=== PATIENT | female | born 1935 | race African-American/Black ===

== ENCOUNTER 2016-06-19 08:49 | Emergency (ER) | payer OTHER ==
[2016-06-19 08:56] VITALS: BP 142/83; PULSE 83; BMI 19.5
[2016-06-19] MEDS ORDERED: NAPROXEN 500 MG TABLET (FP) PO ONE (09:29)
[2016-06-19] MEDS ORDERED: NAPROXEN 500 MG TABLET (FP) ONE (09:38)
--- NOTE | 2016-06-19 10:09 | PDOC ---
History of Present Illness - General Chief Complaint: Pain Stated Complaint: RT SHOULDER PAIN Time Seen by Provider: 06/19/16 09:08 History Source: Patient Exam Limitations: No Limitations - History of Present Illness Initial Comments: 06/19/16 09:48 80 yr female with 2 days right shoulder pain woke up with pain yesterday. Pt denies injury no fever or chills. Pt states pain is worse with movement. Pt took tylenol with no relief, has history of arthritis, osteoperosis. Occurred: reports: yesterday Severity: reports: moderate Upper Extremity Pain Location: right: shoulder Method of Injury: reports: unknown Extremity Pain Location - Extremity Pain Location Extremity Pain Locations: right: other (shoulder) Past History - Past Medical History Allergies/Adverse Reactions: Allergies Allergy/AdvReac Type Severity Reaction Status Date / Time alendronate sodium Allergy Verified 06/19/16 08:57 [From Fosamax] Penicillins Allergy Rash Verified 06/19/16 08:57 Home Medications: Ambulatory Orders Albuterol Sulfate [Proair Hfa -] 1 - 2 inh PO Q4HWA PRN 08/14/15 Alprazolam [Xanax] 0.25 mg PO BID PRN 08/14/15 Aspirin [Aspirin EC] 81 mg PO DAILY 08/14/15 Budesonide/Formeterol Fumarate [SYMBICORT 160/4.5mcg -] 1 inh PO BID 08/14/15 Cyclobenzaprine HCl [Flexeril] 10 mg PO DAILY 08/14/15 Pantoprazole Sodium [Protonix] 40 mg PO DAILY 08/14/15 Amlodipine Besylate [Norvasc -] 2.5 mg PO DAILY PRN 01/14/16 Denosumab [Prolia -] 60 mg SQ ASDIR 01/14/16 Famotidine [Pepcid -] 40 mg PO DAILY 01/14/16 Anemia: Yes (PERNICIOUS ANEMIA) Asthma: No Cancer: Yes (CERVICAL) Cardiac Disorders: Yes (CARDIAC STENTS) CVA: No COPD: Yes CHF: No Dementia: No Diabetes: No GI Disorders: Yes (GASTRITIS, DIVERTICULOSIS,GERD,PEPTIC ULCER,COLON POLYPS) Disorders: No HTN: Yes (BORDERLINE) Hypercholesterolemia: Yes (HYPERLIPIDEMIA BORDERLINE) Liver Disease: No (GALLSTONES) Suicide Attempt (Hx): No Seizures: No Thyroid Disease: No - Surgical History Abdominal Surgery: No Appendectomy: Yes Cardiac Surgery: Yes (CARDIAC STENTS) Cholecystectomy: Yes Lung Surgery: No Neurologic Surgery: No Orthopedic Surgery: Yes (,BILAT 5TH TOE SX) - Family Disease History Family Disease History: Heart Disease: Father - Immunization History Immunization Up to Date: Yes - Psycho/Social/Smoking Cessation Hx Anxiety: No Suicidal Ideation: No Smoking Status: Yes Smoking History: Former smoker Have you smoked in the past 12 months: No Number of Cigarettes Smoked Daily: 3 If you are a former smoker, when did you quit?: 3 YR Information on smoking cessation initiated: No 'Breaking Loose' booklet given: 09/24/15 Hx Alcohol Use: No Drug/Substance Use Hx: No Substance Use Type: None Hx Substance Use Treatment: No Review of Systems - Review of Systems Able to Perform ROS?: Yes Is the patient limited Mongolian proficient: No Constitutional: No: Symptoms Reported HEENTM: No: Symptoms Reported Respiratory: No: Symptoms reported Cardiac (ROS): No: Symptoms Reported ABD/GI: No: Symptoms Reported : No: Symptoms Reported Musculoskeletal: Yes: See HPI *Physical Exam - Vital Signs Last Vital Signs Temp Pulse Resp BP Pulse Ox 83 20 142/83 95 06/19/16 08:53 06/19/16 08:53 06/19/16 08:53 06/19/16 08:53 - Physical Exam General Appearance: Yes: Nourished, Appropriately Dressed HEENT: positive: EOMI, ERASMO Neck: positive: Supple. negative: Tender, Tender lateral, Tender midline Respiratory/Chest: positive: Lungs Clear, Normal Breath Sounds Cardiovascular: positive: Regular Rhythm, Regular Rate Gastrointestinal/Abdominal: positive: Normal Bowel Sounds, Soft Neurologic: positive: Fully Oriented, Alert, Normal Mood/Affect, Normal Response , Motor Strength 5/5 Procedures - Splinting Sling: Yes (right shoulder ) ED Treatment Course - RADIOLOGY Radiology Studies Ordered: Category Date Time Status SHOULDER-RIGHT [RAD] Stat Radiology 06/19/16 09:29 Taken - Medications Given in the ED: ED Medications Discontinued Medications Generic Name Dose Route Start Last Admin Trade Name Freq PRN Reason Stop Dose Admin Naproxen 500 mg 06/19/16 09:29 06/19/16 09:44 Naprosyn - PO 06/19/16 09:30 500 mg ONCE ONE Administration Medical Decision Making - Medical Decision Making 06/19/16 10:11 cc: right shoulder pain for 2 days will get xray r/o fracture pt has FROM of the right shoulder with minimal pain to the anterior aspect of the shoulder nv intact, no redness no swelling no evidence of cellulitus or septic arthritis , no acute bony tenderness 06/19/16 11:57 pt will follow with ortho as planned naprosyn for pain, sling, ice pt agrees with plan of care all questions asked and answered before discharge. *DC/Admit/Observation/Transfer Diagnosis at time of Disposition: Shoulder pain, right Qualifiers: Chronicity: acute Qualified Code(s): M25.511 - Pain in right shoulder - Discharge Dispostion Disposition: HOME Condition at time of disposition: Good - Referrals Referrals: Andreia Collado MD [Primary Care Provider] - Charly Marti MD [Staff Physician] - - Patient Instructions Additional Instructions: use the sling while awake remove to sleep, bathe and drive apply ice every 2hrs for 20 minutes for the next 2 days while awake take naprosyn or motrin as directed for pain follow with or your orthopedist for follow up this week return to ER for any worsening symptoms
== END 2016-06-19 10:20 | disposition home or self-care (01) ==
LOC: JERFT 08:49 → JER 08:49 → JERFT 10:20
DX: M25.511 Pain in right shoulder (principal); Z95.5 Presence of coronary angioplasty implant and graft; I10 Essential (primary) hypertension; E78.00 Pure hypercholesterolemia, unspecified; D51.0 Vitamin B12 deficiency anemia due to intrinsic factor deficiency; Z85.41 Personal history of malignant neoplasm of cervix uteri; Z87.19 Personal history of other diseases of the digestive system; Z87.891 Personal history of nicotine dependence
CPT/HCPCS: 73030-TC-RT; 99281-25

== ENCOUNTER 2016-10-06 08:51 | Day surgery (SDC) | payer OTHER ==
[2016-10-06] MEDS ORDERED: diphenhydrAMINE HCL 25 MG CAPSULE (FP) PO PRN (09:16)
[2016-10-06] MEDS ORDERED: HYDROCORTISONE SOD SUCCINATE 100 MG/2 ML VIAL IVPB PRN (09:17)
[2016-10-06] MEDS ORDERED: IRON SUCROSE INJECTION 200 MG in SODIUM CHLORIDE 100 ML IVPB ONE (09:30)
[2016-10-06 09:38] VITALS: BP 139/73; PULSE 79; TEMP 98.3; BMI 15.7
== END 2016-10-06 12:54 | disposition home or self-care (01) ==
LOC: FINFUSION 08:51 → FM/S 08:53 → FINFUSION 12:54
PROVIDERS: ATTEND Internal Medicine Hematology & Oncology
PROC: 3E033GC Introduction of Other Therapeutic Substance into Peripheral Vein, Percutaneous Approach (ICD-10-PCS; principal; 2016-10-06)
DX: D50.9 Iron deficiency anemia, unspecified (principal)
CPT/HCPCS: 96365; 96375; J1756

== ENCOUNTER 2016-10-13 08:31 | Day surgery (SDC) | payer OTHER ==
[2016-10-13] MEDS ORDERED: IRON SUCROSE INJECTION 200 MG in SODIUM CHLORIDE 100 ML IVPB ONE (09:15)
[2016-10-13 09:18] VITALS: TEMP 98; BMI 18.2
[2016-10-13 10:29] VITALS: BP 122/66; PULSE 68
== END 2016-10-13 11:46 | disposition home or self-care (01) ==
LOC: FINFUSION 08:31 → FM/S 08:32 → FINFUSION 11:46
PROVIDERS: ATTEND Internal Medicine Hematology & Oncology
PROC: 3E033GC Introduction of Other Therapeutic Substance into Peripheral Vein, Percutaneous Approach (ICD-10-PCS; principal; 2016-10-13)
DX: D50.9 Iron deficiency anemia, unspecified (principal)
CPT/HCPCS: 96365; J1756

== ENCOUNTER 2016-10-20 08:47 | Day surgery (SDC) | payer OTHER ==
[2016-10-20] MEDS ORDERED: IRON SUCROSE INJECTION 200 MG in SODIUM CHLORIDE 100 ML IVPB ONE (09:30)
[2016-10-20 11:05] VITALS: BP 127/57; PULSE 66
== END 2016-10-20 10:30 | disposition home or self-care (01) ==
LOC: FINFUSION 08:47 → FM/S 08:49 → FINFUSION 10:30
PROVIDERS: ATTEND Internal Medicine Hematology & Oncology
PROC: 3E033GC Introduction of Other Therapeutic Substance into Peripheral Vein, Percutaneous Approach (ICD-10-PCS; principal; 2016-10-20)
DX: D50.9 Iron deficiency anemia, unspecified (principal)
CPT/HCPCS: 96365; J1756

== ENCOUNTER 2016-10-27 08:59 | Day surgery (SDC) | payer OTHER ==
[2016-10-27 10:08] VITALS: TEMP 98.1; BMI 20.9
[2016-10-27] MEDS ORDERED: IRON SUCROSE INJECTION 200 MG in SODIUM CHLORIDE 100 ML IVPB ONE (10:15)
[2016-10-27 10:52] VITALS: BP 132/69; PULSE 72
== END 2016-10-27 10:59 | disposition home or self-care (01) ==
LOC: FINFUSION 08:59 → FM/S 09:00 → FINFUSION 10:59
PROVIDERS: ATTEND Internal Medicine Hematology & Oncology
PROC: 3E033GC Introduction of Other Therapeutic Substance into Peripheral Vein, Percutaneous Approach (ICD-10-PCS; principal; 2016-10-27)
DX: D50.9 Iron deficiency anemia, unspecified (principal)
CPT/HCPCS: 96365; J1756

== ENCOUNTER 2016-12-13 08:00 | Day surgery (SDC) | payer OTHER ==
[2016-12-13] MEDS ORDERED: LIDOCAINE HCL 2% (20ML MULTI-DOSE VIAL) NR ONE (08:31)
[2016-12-13 08:32] VITALS: BMI 16.3
[2016-12-13] MEDS ORDERED: PROPOFOL 20 ML ONE (08:39)
[2016-12-13 09:36] VITALS: TEMP 97.8
[2016-12-13 10:07] VITALS: PULSE 72
[2016-12-13 10:34] VITALS: BP 134/71
--- NOTE | 2016-12-14 15:03 | PATH ---
Surgical Pathology Report Patient Name: LIDA HENDRIX [facility]. Rec. #: [id number] /Age/Gender: 1935 (Age: 81) / F Account: [id number] Location: [facility]-ENDOSCOPY Taken: 12/13/2016 Received: 12/13/2016 Reported: 12/14/2016 Physicians: Gregor Chatman M.D. Specimen(s) Received A: BX ANTRUM B: BX GASTRIC BODY C: BX GE JUNCTION Clinical History Esophageal dysmotility Intestinal metaplasia, hiatal hernia, bile reflux gastritis Final Diagnosis A. 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 NEGATIVE FOR DYSPLASIA. IMMUNOSTAIN FOR H. PYLORI IS NEGATIVE FOR ORGANISMS. B. STOMACH, BODY, BIOPSY: GASTRIC OXYNTIC MUCOSA WITH MODERATE CHRONIC GASTRITIS WITH INTESTINAL METAPLASIA. NEGATIVE FOR DYSPLASIA. IMMUNOSTAIN FOR H. PYLORI IS NEGATIVE FOR ORGANISMS. C. GE JUNCTION, BIOPSY: SQUAMOCOLUMNAR JUNCTIONAL MUCOSA WITH CHRONIC INFLAMMATION AND REFLUX TYPE CHANGES. NO INTESTINAL METAPLASIA (GARCIA'S ESOPHAGUS) IDENTIFIED. Electronically Signed Edgar Cline M.D. Gross Description A. Received in formalin, labeled "biopsy antrum" are 5 drake, irregular portions of soft tissue ranging from 0.1-0.5 cm in greatest dimension. The specimens are submitted in toto in one cassette. B. Received in formalin, labeled "biopsy gastric body" are 3 drake, irregular portions of soft tissue ranging from 0.1-0.4 cm in greatest dimension. The specimens are submitted in toto in one cassette. C. Received in formalin, labeled "biopsy GE junction" is a drake, irregular portion of soft tissue measuring 0.3 cm in greatest dimension. The specimen is submitted in toto in one cassette. /12/13/2016 saudi12/13/2016
== END 2016-12-13 11:04 | disposition home or self-care (01) ==
LOC: JASU-ENDO 08:00
PROVIDERS: ATTEND Internal Medicine Gastroenterology
PROC: 0DB68ZX Excision of Stomach, Via Natural or Artificial Opening Endoscopic, Diagnostic (ICD-10-PCS; principal; 2016-12-13 09:00)
DX: D50.9 Iron deficiency anemia, unspecified (principal); K29.60 Other gastritis without bleeding
CPT/HCPCS: 88305-TC; 88342-TC

== ENCOUNTER 2016-12-26 10:59 | Emergency (ER) | payer OTHER ==
[2016-12-26 11:13] VITALS: BP 119/74; PULSE 87; TEMP 98.3; BMI 17.0
[2016-12-26] MEDS ORDERED: KETOROLAC TROMETHAMINE 60 MG/2 ML VIAL IM ONE (11:52)
[2016-12-26] MEDS ORDERED: KETOROLAC TROMETHAMINE 60 MG/2 ML VIAL ONE (11:58)
--- NOTE | 2016-12-26 12:08 | PDOC ---
History of Present Illness - General Chief Complaint: Pain Stated Complaint: PAIN Time Seen by Provider: 12/26/16 11:16 - History of Present Illness Initial Comments: 12/26/16 12:03 CHIEF COMPLAINT: neck pain HISTORY OF PRESENT ILLNESS: 81 yo F with multiple comorbidities presents to [facility] with chronic neck pain. Patient states that she has saw her pain management doctor on Tuesday , has been through physical therapy and has received pain medications to manage her pain, but she "still doesn't understand why my neck hurts. I know I have arthritis, but does that mean I have arthritis everywhere?" No recent travel or sick contacts. PAST MEDICAL HISTORY: CAD, COPD FAMILY HISTORY: Denies SOCIAL HISTORY: Current smoker - "I smoke sometimes." Denies alcohol, illicit drug use. SURGICAL HISTORY: cardiac stent, cholecystectomy, hysterectomy ALLERGIES: alendronate sodium, penicillin REVIEW OF SYSTEMS General/Constitutional: Denies fever or chills. Denies weakness, weight change. HEENT: Denies change in vision. Denies ear pain or discharge. Denies sore throat. Cardiovascular: Denies chest pain or shortness of breath. Respiratory: Denies cough, wheezing, or hemoptysis. Gastrointestinal: Denies nausea, vomiting, diarrhea or constipation. Denies rectal bleeding. Genitourinary: Denies dysuria, frequency, or change in urination. Musculoskeletal: Neck pain. Denies joint or muscle swelling or pain. Denies neck or back pain. Skin and breasts: Denies rash or easy bruising. Neurologic: Denies headache, vertigo, loss of consciousness, or loss of sensation. PHYSICAL EXAM General Appearance: Well-appearing, appropriately dressed. No apparent distress. HEENT: EOMI, PERRLA. No conjunctival pallor. No photophobia, scleral icterus. Neck: Pain with movement, but with full ROM. Supple. Trachea midline. No rigidity, carotid bruit, stridor, lymphadenopathy, or thyromegaly. Respiratory/Chest: Lungs CTAB. Cardiovascular: RRR. S1, S2. Musculoskeletal/Extremities: Normal inspection. FROM of all extremities, normal capillary refill. Pelvis Stable. No CVA tenderness. No tenderness to extremities, pedal edema, swelling, erythema or deformity. Integumentary: Appropriate color, dry, warm. No cyanosis, erythema, jaundice or rash Neurologic: fortune teller II-XII intact. Fully oriented, alert. Appropriate mood/affect. Motor strength 5/5. No appreciable EOM palsy, facial droop or sensory deficit. 12/26/16 12:10 Past History - Past Medical History Allergies/Adverse Reactions: Allergies Allergy/AdvReac Type Severity Reaction Status Date / Time alendronate sodium Allergy Verified 12/26/16 11:12 [From Fosamax] Penicillins Allergy Rash Verified 12/26/16 11:12 Home Medications: Ambulatory Orders Albuterol Sulfate [Proair Hfa -] 1 - 2 inh PO Q4HWA PRN 08/14/15 Alprazolam [Xanax] 0.25 mg PO BID PRN 08/14/15 Aspirin [Aspirin EC] 81 mg PO DAILY 08/14/15 Budesonide/Formeterol Fumarate [SYMBICORT 160/4.5mcg -] 1 inh PO BID 08/14/15 Pantoprazole Sodium [Protonix] 40 mg PO DAILY 08/14/15 Famotidine [Pepcid -] 40 mg PO DAILY 01/14/16 Oxycodone HCl/Acetaminophen [Percocet 5-325 mg Tablet] 1 - 2 tab PO Q4H PRN 03/22 Anemia: Yes (PERNICIOUS ANEMIA) Asthma: No Cancer: Yes (CERVICAL) Cardiac Disorders: Yes (CARDIAC STENTS) CVA: No COPD: Yes CHF: No Dementia: No Diabetes: No GI Disorders: Yes (GASTRITIS, DIVERTICULOSIS,GERD,PEPTIC ULCER,COLON POLYPS) Disorders: No HTN: (BORDERLINE) Hypercholesterolemia: (HYPERLIPIDEMIA BORDERLINE) Liver Disease: No (GALLSTONES) Suicide Attempt (Hx): No Seizures: No Thyroid Disease: No - Surgical History Abdominal Surgery: No Appendectomy: Yes Cardiac Surgery: Yes (CARDIAC STENTS) Cholecystectomy: Yes Lung Surgery: No Neurologic Surgery: No Orthopedic Surgery: Yes (,BILAT 5TH TOE SX) - Family Disease History Family Disease History: Heart Disease: Father - Immunization History Immunization Up to Date: Yes - Psycho/Social/Smoking Cessation Hx Anxiety: No Suicidal Ideation: No Smoking Status: Yes Smoking History: Former smoker Have you smoked in the past 12 months: No Number of Cigarettes Smoked Daily: 3 If you are a former smoker, when did you quit?: 3 YR Information on smoking cessation initiated: No 'Breaking Loose' booklet given: 04/20/16 Hx Alcohol Use: No Drug/Substance Use Hx: No Substance Use Type: None Hx Substance Use Treatment: No *Physical Exam - Vital Signs Last Vital Signs Temp Pulse Resp BP Pulse Ox 98.3 F 87 18 119/74 97 12/26/16 11:01 12/26/16 11:01 12/26/16 11:01 12/26/16 11:01 12/26/16 11:01 Medical Decision Making - Medical Decision Making 12/26/16 12:14 81 yo F with multiple comorbidities presents to [facility] with chronic neck pain. -60 mg Toradol IM No RN available in FT today, Toradol administered by myself to R glut. Advised patient to f/u with neurologist and pain management doctor for half-way management of pain. Advised patient of signs and symptoms for return to ER ; patient verbalized understanding and agrees to plan. *DC/Admit/Observation/Transfer Diagnosis at time of Disposition: Degenerative disc disease, cervical - Discharge Dispostion Disposition: HOME Condition at time of disposition: Stable Admit: No - Referrals Referrals: Andreia Collado MD [Primary Care Provider] - - Patient Instructions Printed Discharge Instructions: DI for Neck Pain Additional Instructions: Please follow up with your neurologist and pain management doctors as discussed. If you experience shortness of breath, difficulty breathing, chest pain, headache, weakness, or any new or worsening symptoms, please return to the ER.
== END 2016-12-26 12:35 | disposition home or self-care (01) ==
LOC: JERFT 10:59
PROC: 3E0233Z Introduction of Anti-inflammatory into Muscle, Percutaneous Approach (ICD-10-PCS; principal; 2016-12-26)
DX: M50.30 Other cervical disc degeneration, unspecified cervical region (principal); I25.10 Atherosclerotic heart disease of native coronary artery without angina pectoris; I10 Essential (primary) hypertension; Z95.5 Presence of coronary angioplasty implant and graft; E78.5 Hyperlipidemia, unspecified; D51.0 Vitamin B12 deficiency anemia due to intrinsic factor deficiency; J44.9 Chronic obstructive pulmonary disease, unspecified; Z87.19 Personal history of other diseases of the digestive system; Z85.41 Personal history of malignant neoplasm of cervix uteri
CPT/HCPCS: 96372; 99281-25

== ENCOUNTER 2017-01-28 07:58 | Day surgery (SDC) | payer OTHER ==
[2017-01-27 11:17] VITALS: BMI 16.7
[2017-01-28] MEDS ORDERED: PROPOFOL 20 ML ONE ×2 (08:32)
[2017-01-28 10:05] VITALS: TEMP 97.7
[2017-01-28 15:39] VITALS: BP 164/80; PULSE 78
--- NOTE | 2017-01-31 12:32 | PATH ---
Surgical Pathology Report Patient Name: LIDA HENDRIX [facility]. Rec. #: [id number] /Age/Gender: 1935 (Age: 81) / F Account: [id number] Location: [facility]-ENDOSCOPY Taken: 01/28/2017 Received: 01/28/2017 Reported: 01/31/2017 Physicians: Gregor Chatman M.D. Specimen(s) Received A: ASCENDING COLON POLYP B: BX TRANSVERSE COLON POLYP Clinical History Iron deficiency anemia Severe diverticulosis, polyp, lipoma Final Diagnosis A. COLON, ASCENDING, HOT SNARE POLYPECTOMY: TUBULAR ADENOMA WITH EXTENSIVE THERMAL ARTIFACT. B. COLON, TRANSVERSE, HOT SNARE POLYPECTOMY: TUBULAR ADENOMA WITH EXTENSIVE THERMAL ARTIFACT. Comment: Recommend correlation with clinical findings and follow up as clinically indicated. Electronically Signed Marcelino Delacruz M.D. Gross Description A. Received in formalin, labeled "ascending colon polyp" are multiple fragments of drake tissue measuring 0.2 cm. in greatest dimension each. The specimen is submitted in toto in one cassette. B. Received in formalin, labeled "the colon polyp" are five fragments of drake tissue measuring 0.2 cm. in greatest dimension each. The specimen is submitted in toto in one cassette. AF/01/28/2017 final/01/28/2017
== END 2017-01-28 11:25 | disposition home or self-care (01) ==
LOC: JASU-ENDO 07:58
PROVIDERS: ATTEND Internal Medicine Gastroenterology
PROC: 0DBL8ZX Excision of Transverse Colon, Via Natural or Artificial Opening Endoscopic, Diagnostic (ICD-10-PCS; 2017-01-28)
PROC: 0DBK8ZX Excision of Ascending Colon, Via Natural or Artificial Opening Endoscopic, Diagnostic (ICD-10-PCS; principal; 2017-01-28 08:30)
DX: D50.9 Iron deficiency anemia, unspecified (principal); K57.30 Diverticulosis of large intestine without perforation or abscess without bleeding; D12.2 Benign neoplasm of ascending colon; D12.3 Benign neoplasm of transverse colon; K64.8 Other hemorrhoids; K63.89 Other specified diseases of intestine
CPT/HCPCS: 88305-TC

== ENCOUNTER 2017-02-05 13:06 | Emergency (ER) | payer OTHER ==
[2017-02-05 13:17] VITALS: BMI 16.2
--- NOTE | 2017-02-05 14:20 | PDOC ---
Attending Attestation - Resident Resident Name: FranciscoOpheliaa - ED Attending Attestation I have performed the following: I have examined & evaluated the patient, The case was reviewed & discussed with the resident, I agree w/resident's findings & plan, Exceptions are as noted - Medical Decision Making 02/05/17 14:19 I, Dr. Jennifer Nathan, DO, attest that this document has been prepared under my direction and personally reviewed by me in its entirety. I further attest, that it accurately reflects all work, treatment, procedures and medical decision -making performed by me. 02/05/17 14:55 a/p: 81yo female with R hand swelling x 1 day and R arm pain x 9 months -labs -ultrasound RUE and cxr to r/o central reason of obstruction and peripheral dvt in UE -pain control <Jennifer Nathan - Last Filed: 02/05/17 14:55> - HPI HPI: 02/05/17 15:10 The patient is a 81 yo F with PMHx of Pernicious anemia, Cervical CA, CAD s/p stents, COPD, Gastritis, Diverticulosis, GERD, peptic ulcers, colon polyps, borderline HTN, HLD, Arthritis of neck and shoulders who presents with R hand swelling and R arm pain for the past day. Patient states she woke up and felt this pain. Patient states she has been experiencing R arm pain since June and has seen neurology and orthopedics. Patient denies any previous injury or trauma to the area. Patient also reports 30 pound unexplained weight loss and night sweats for years. - Physicial Exam PE: 02/05/17 15:43 GENERAL: +Thin appearing. Well developed, well nourished. Awake and alert. No acute distress. HEENT: Normocephalic, atraumatic. PERRLA, EOMI. No conjunctival pallor. Sclera are non- icteric. Moist mucous membranes. Oropharynx is clear. NECK: Supple. Full ROM. No JVD. Carotid pulses 2+ and symmetric, without bruits. No thyromegaly. No lymphadenopathy. CARDIOVASCULAR: Regular rate and rhythm. No murmurs, rubs, or gallops. Distal pulses are 2+ and symmetric. PULMONARY: No evidence of respiratory distress. Lungs clear to auscultation bilaterally. No wheezing, rales or rhonchi. ABDOMINAL: Soft. Non-tender. Non-distended. No rebound or guarding. No organomegaly. Normoactive bowel sounds. MUSCULOSKELETAL Normal range of motion at all joints. No bony deformities or tenderness. No CVA tenderness. EXTREMITIES: +Mild R hand swelling. Full ROM. Sensation intact. Pain with movement of both arms. No cyanosis. No clubbing. No edema. No calf tenderness. SKIN: Warm and dry. Normal capillary refill. No rashes. No jaundice. NEUROLOGICAL: Alert, awake, appropriate. Cranial nerves 2-12 intact. No deficits to light touch and temperature in face, upper extremities and lower extremities. No motor deficits in the in face, upper extremities and lower extremities. Normoreflexic in the upper and lower extremities. Normal speech. Toes are downgoing bilaterally. Gait is normal without ataxia. PSYCHIATRIC: Cooperative. Good eye contact. Appropriate mood and affect. - Medical Decision Making 02/05/17 15:44 Documentation prepared by Gina Haines, acting as veterinary medical officer for Jennifer Nathan DO <Gina Haines - Last Filed: 02/05/17 15:44>
--- NOTE | 2017-02-05 14:56 | PDOC ---
History of Present Illness <Jennifer Nathan - Last Filed: 02/05/17 17:07> - General History Source: Patient Exam Limitations: No Limitations - History of Present Illness Initial Comments: 81yo F with PMH of COPD, CAD, HTN presenting with Right hand swelling since she woke up this morning. Denies trauma, injury. Pt has had pain down entire length of Right arm since June. Pt has been to many doctors to investigate the etiology of Right arm pain, and has grown frustrated. Pt also reports 30 pound unintentional weight loss over the past year. Denies fever, chest pain, SOB. PCP: Andreia Collado Neurologist: Rin Duran 02/05/17 14:47 Associated Symptoms: denies: chest pain, fever/chills, shortness of breath <Petrona Francisco - Last Filed: 02/05/17 17:22> - General Chief Complaint: Edema Stated Complaint: SWOLLEN RT ARM Time Seen by Provider: 02/05/17 14:16 Past History <Jennifer Nathan - Last Filed: 02/05/17 17:07> - Past Medical History Anemia: Yes (PERNICIOUS ANEMIA) Asthma: No Cancer: Yes (CERVICAL) Cardiac Disorders: Yes (CARDIAC STENTS) CVA: No COPD: Yes CHF: No Dementia: No Diabetes: No GI Disorders: Yes (GASTRITIS, DIVERTICULOSIS,GERD,PEPTIC ULCER,COLON POLYPS) Disorders: No HTN: (BORDERLINE) Hypercholesterolemia: (HYPERLIPIDEMIA BORDERLINE) Suicide Attempt (Hx): No Seizures: No Thyroid Disease: No - Surgical History Abdominal Surgery: No Appendectomy: Yes Cardiac Surgery: Yes (CARDIAC STENTS) Cholecystectomy: Yes Lung Surgery: No Neurologic Surgery: No Orthopedic Surgery: Yes (BILAT 5TH TOE SX) - Family Disease History Family Disease History: Heart Disease: Father - Immunization History Immunization Up to Date: Yes - Psycho/Social/Smoking Cessation Hx Anxiety: No Suicidal Ideation: No Smoking Status: Yes Smoking History: Former smoker Have you smoked in the past 12 months: No Number of Cigarettes Smoked Daily: 3 If you are a former smoker, when did you quit?: 3 YR Information on smoking cessation initiated: No 'Breaking Loose' booklet given: 09/24/15 Hx Alcohol Use: No Drug/Substance Use Hx: No Substance Use Type: None Hx Substance Use Treatment: No <Petrona Francisco - Last Filed: 02/05/17 17:22> - Past Medical History Allergies/Adverse Reactions: Allergies Allergy/AdvReac Type Severity Reaction Status Date / Time alendronate sodium Allergy Verified 02/05/17 13:13 [From Fosamax] Penicillins Allergy Rash Verified 02/05/17 13:13 Home Medications: Ambulatory Orders Albuterol Sulfate [Proair Hfa -] 1 - 2 inh PO Q4HWA PRN 08/14/15 Alprazolam [Xanax] 0.25 mg PO BID PRN 08/14/15 Aspirin [Aspirin EC] 81 mg PO DAILY 08/14/15 Budesonide/Formeterol Fumarate [SYMBICORT 160/4.5mcg -] 1 inh PO BID 08/14/15 Pantoprazole Sodium [Protonix] 40 mg PO DAILY 08/14/15 Cyclobenzaprine HCl [Flexeril -] 10 mg PO DAILY 01/26/17 Tramadol HCl [Ultram -] 50 mg PO DAILY 01/26/17 Oxycodone HCl/Acetaminophen [Percocet 5-325 mg Tablet] 1 tab PO Q4H PRN Wheat Dextrin [Benefiber] 1 each PO BID #0 powd.pack 01/28/17 Review of Systems - Review of Systems Able to Perform ROS?: Yes Is the patient limited [place]yan proficient: No Constitutional: Yes: Unintentional Wgt. Loss (24 pound weight loss over 1 yr per hosp records.). No: Chills, Diaphoresis, Fever HEENTM: No: Recent change in vision, Nose Pain, Throat Pain Respiratory: No: Cough, Shortness of Breath, Stridor, Wheezing Cardiac (ROS): No: Chest Pain, Irregular Heart Rate, Palpitations ABD/GI: No: Abdominal Distended, Constipated, Diarrhea, Nausea, Vomiting Musculoskeletal: Yes: Neck Pain. No: Muscle Pain, Muscle Weakness Integumentary: Yes: Bruising (at attempted IV site in R cubital fossa from colonoscopy procedure 2 days ago). No: Pruritus, Rash Neurological: No: Numbness, Weakness, Dizziness <Petrona Francisco - Last Filed: 02/05/17 17:22> *Physical Exam - Vital Signs Last Vital Signs Temp Pulse Resp BP Pulse Ox 98.4 F 81 18 170/100 97 02/05/17 13:13 02/05/17 13:13 02/05/17 13:13 02/05/17 13:13 02/05/17 13:13 <Jennifer Nathan - Last Filed: 02/05/17 17:07> - Vital Signs Last Vital Signs Temp Pulse Resp BP Pulse Ox 98.4 F 81 18 170/100 97 02/05/17 13:13 02/05/17 13:13 02/05/17 13:13 02/05/17 13:13 02/05/17 13:13 - Physical Exam General Appearance: Yes: Appropriately Dressed, Thin. No: Apparent Distress HEENT: positive: EOMI, Normal Voice, Other (moist mucous membranes). negative: Pale Conjunctivae, Scleral Icterus (R), Scleral Icterus (L) Neck: positive: Trachea midline, Supple Respiratory/Chest: positive: Lungs Clear, Normal Breath Sounds. negative: Respiratory Distress, Accessory Muscle Use Cardiovascular: positive: Regular Rhythm, Regular Rate, S1, S2. negative: Murmur Gastrointestinal/Abdominal: positive: Soft. negative: Distended, Guarding, Rebound, Tenderness Musculoskeletal: positive: Other (nas UE: normal capillary refill, radial pulses present, sensation intact, motor strength equal nas) Integumentary: positive: Dry, Warm. negative: Rash Neurologic: positive: Fully Oriented, Alert, Normal Mood/Affect <Petrona Francisco - Last Filed: 02/05/17 17:22> ED Treatment Course - LABORATORY CBC & Chemistry Diagram: 02/05/17 14:58 02/05/17 14:58 - ADDITIONAL ORDERS Additional order review: Laboratory Results 02/05/17 02/05/17 14:58 14:58 Sodium 141 Potassium 3.9 Chloride 105 Carbon Dioxide 29 Anion Gap 7 L BUN 12 D Creatinine 0.7 D Creat Clearance w eGFR > 60 Random Glucose 94 Calcium 9.2 Total Bilirubin 0.4 D AST 17 D ALT 20 Alkaline Phosphatase 103 D B-Natriuretic Peptide 362.72 Total Protein 7.0 Albumin 3.7 02/05/17 14:58 RBC 4.01 MCV 88.3 MCHC 32.9 RDW 13.4 MPV 7.6 Neutrophils % 64.0 D Lymphocytes % 25.3 D Monocytes % 6.8 Eosinophils % 2.5 Basophils % 1.4 - Medications Given in the ED: ED Medications Discontinued Medications Generic Name Dose Route Start Last Admin Trade Name Jordan PRN Reason Stop Dose Admin Oxycodone/Acetaminophen 1 combo 02/05/17 14:56 02/05/17 16:20 Percocet 5/325 - PO 02/05/17 14:57 1 combo ONCE ONE Administration <Jennifer Nathan - Last Filed: 02/05/17 17:07> - LABORATORY CBC & Chemistry Diagram: 02/05/17 14:58 02/05/17 14:58 - RADIOLOGY Radiology Studies Ordered: Category Date Time Status CXRPORT [CHEST X-RAY PORTABLE*] [RAD] Stat Radiology 02/05/17 14:43 Ordered DUPLEX VASCUL US-1 ARM [US] Stat Ultrasound 02/05/17 14:44 Ordered <Petrona Francisco - Last Filed: 02/05/17 17:22> Medical Decision Making - Medical Decision Making 81yo F with PMH COPD, CAD, HTN presenting w/o Right hand swelling. Nas UE radial pulses present, capillary refill normal, sensation intact and motor strength equal nas. Pt reports a 9mo hx of pain down entire length of Right arm , denies numbness. Pt also has 24 pound weight loss over the last year per hosp records. CBC with diff, CMP, BNP all wnl CXR - reveals no acute pathology, no obstructing mass visible Right arm U/S - Pt's home med of Percocet given for pain. 02/05/17 15:50 02/05/17 17:18 Right arm U/S (-) for DVT. Pt can go home. Instructions given to use Tylenol or NSAIDs for pain in addition to her home meds of Ultram and Percocet. <Petrona Francisco - Last Filed: 02/05/17 17:22> *DC/Admit/Observation/Transfer - Discharge Dispostion Admit: No <Jennifer Nathan - Last Filed: 02/05/17 17:07> <Petrona Francisco - Last Filed: 02/05/17 17:22> Diagnosis at time of Disposition: Swelling of hand Qualifiers: Laterality: right Qualified Code(s): M79.89 - Other specified soft tissue disorders - Discharge Dispostion Disposition: HOME Condition at time of disposition: Stable - Referrals Referrals: Andreia Collado MD [Primary Care Provider] - - Patient Instructions Printed Discharge Instructions: DI for Hand Pain Additional Instructions: Please follow up with your PMD. Please return to the ED with any further complaints. Please keep your hand elevated.
[2017-02-05 15:05] LABS: BASOPHIL 1.4 % (0-2.0); EOSINOPHIL 2.5 % (0-4.5); MCHC 32.9 g/dl (32.0-36.0); MEAN CELL VOLUME 88.3 fl (80-96); MEAN PLT VOLUME 7.6 fl (7.5-11.1); PLATELET COUNT 364 K/MM3 (134-434); RDW 13.4 % (11.6-15.6)
[2017-02-05 15:40] LABS: ALBUMIN 3.7 g/dl (3.4-5.0); ALK PHOS 103 U/L (45-117); ANION GAP 7 (8-16); BILIRUBIN,TOTAL 0.4 mg/dL (0.2-1.0); CALCIUM 9.2 mg/dL (8.5-10.1); CO2 29 mmol/L (21-32); CREATININE 0.7 mg/dL (0.55-1.02); GLUCOSE,RANDOM 94 mg/dL (74-106); SGOT/AST 17 U/L (15-37); SGPT/ALT 20 U/L (12-78)
[2017-02-05 17:17] VITALS: BP 155/75; PULSE 75; TEMP 97.9
== END 2017-02-05 17:32 | disposition home or self-care (01) ==
LOC: JER 13:06
DX: T80.89XA Other complications following infusion, transfusion and therapeutic injection, initial encounter (principal); I25.10 Atherosclerotic heart disease of native coronary artery without angina pectoris; I10 Essential (primary) hypertension; Z95.5 Presence of coronary angioplasty implant and graft; E78.00 Pure hypercholesterolemia, unspecified; J44.9 Chronic obstructive pulmonary disease, unspecified; Z87.19 Personal history of other diseases of the digestive system
CPT/HCPCS: 36415; 71010-TC; 80053; 83880; 85025; 93971; 99284-25

== ENCOUNTER 2017-02-15 08:32 | Day surgery (SDC) | payer OTHER ==
[2017-02-15] MEDS ORDERED: IRON SUCROSE INJECTION 200 MG in SODIUM CHLORIDE 100 ML IVPB ONE (09:30)
[2017-02-15 09:54] VITALS: TEMP 98.2
[2017-02-15 11:03] VITALS: BP 152/66; PULSE 62
== END 2017-02-15 11:20 | disposition home or self-care (01) ==
LOC: FINFUSION 08:32 → FM/S 08:33 → FINFUSION 11:20
PROVIDERS: ATTEND Internal Medicine Hematology & Oncology
PROC: 3E033GC Introduction of Other Therapeutic Substance into Peripheral Vein, Percutaneous Approach (ICD-10-PCS; principal; 2017-02-15)
DX: D50.9 Iron deficiency anemia, unspecified (principal)
CPT/HCPCS: 96365; 96366; J1756

== ENCOUNTER 2017-02-22 08:43 | Day surgery (SDC) | payer OTHER ==
[2017-02-22 09:17] VITALS: BP 127/57; PULSE 67; TEMP 98.7
[2017-02-22] MEDS ORDERED: IRON SUCROSE INJECTION 200 MG in SODIUM CHLORIDE 100 ML IVPB ONE (09:30)
[2017-02-22 09:51] VITALS: BMI 17.0
== END 2017-02-22 10:48 | disposition home or self-care (01) ==
LOC: FINFUSION 08:43 → FM/S 08:44 → FINFUSION 10:48
PROVIDERS: ATTEND Internal Medicine Hematology & Oncology
PROC: 3E033GC Introduction of Other Therapeutic Substance into Peripheral Vein, Percutaneous Approach (ICD-10-PCS; principal; 2017-02-22)
DX: D50.9 Iron deficiency anemia, unspecified (principal)
CPT/HCPCS: 96365; J1756

== ENCOUNTER 2017-03-01 08:50 | Day surgery (SDC) | payer OTHER ==
[2017-03-01] MEDS ORDERED: IRON SUCROSE INJECTION 200 MG in SODIUM CHLORIDE 100 ML IVPB ONE (09:45)
[2017-03-01 10:49] VITALS: BP 110/59; PULSE 76; TEMP 98.5
== END 2017-03-01 10:50 | disposition home or self-care (01) ==
LOC: FINFUSION 08:50 → FM/S 08:52 → FINFUSION 10:50
PROVIDERS: ATTEND Internal Medicine Hematology & Oncology
PROC: 3E033GC Introduction of Other Therapeutic Substance into Peripheral Vein, Percutaneous Approach (ICD-10-PCS; principal; 2017-03-01)
DX: D50.9 Iron deficiency anemia, unspecified (principal)
CPT/HCPCS: 96365; J1756

== ENCOUNTER 2017-05-25 16:55 | Emergency (ER) | payer OTHER ==
[2017-05-25 17:15] VITALS: BP 185/86; PULSE 87; TEMP 98; BMI 16.7
--- NOTE | 2017-05-25 17:18 | PDOC ---
Rapid Medical Evaluation Time Seen by Provider: 05/25/17 17:12 Medical Evaluation: Allergies Allergy/AdvReac Type Severity Reaction Status Date / Time alendronate sodium Allergy Verified 02/05/17 13:13 [From Fosamax] Penicillins Allergy Rash Verified 02/05/17 13:13 05/25/17 17:12 I have performed a brief in person evaluation of this patient. The patient presents with chief complaint of : pain to right hand and to left ankle for weeks sent to ER by PMD Pertinent PE findings: none I have ordered the following: none The patient will proceed to the ER for further evaluation.
[2017-05-25] MEDS ORDERED: KETOROLAC TROMETHAMINE 60 MG/2 ML VIAL IM ONE (18:26)
[2017-05-25] MEDS ORDERED: KETOROLAC TROMETHAMINE 60 MG/2 ML VIAL ONE (18:28)
--- NOTE | 2017-05-25 18:34 | PDOC ---
History of Present Illness - General Chief Complaint: Pain Stated Complaint: PCP SENT Time Seen by Provider: 05/25/17 17:12 History Source: Patient Exam Limitations: No Limitations - History of Present Illness Initial Comments: 05/25/17 18:42 Patient was sent from him to emergency department for further evaluation of left foot and right wrist swelling and pain. Patient is in chronic pain management for neuropathy to her right arm and has multiple complaints. However states onset of pain to left foot and ankle has been for a length of time but swelling was not present until 2 days ago. Patient denies any recent trauma, any prolonged episodes of sitting or travel, history of DVT or clotting disorder. States has had multiple visits to multiple different types of doctors but was unable to recount specific types. Has voiced her disappointment that no definitive treatment or diagnosis has been given to her or her chronic pain. Occurred: reports: last week Severity: reports: mild, moderate Pain Location: reports: lower extremity (left ankle/ foot- right wrist ) Method of Injury: Yes: unknown Modifying Factors: improves with: None, pain medication Associated Symptoms (Fall): denies symptoms Past History - Travel Traveled outside of the country in the last 30 days: No Close contact w/someone who was outside of country & ill: No - Past Medical History Allergies/Adverse Reactions: Allergies Allergy/AdvReac Type Severity Reaction Status Date / Time alendronate sodium Allergy Verified 05/25/17 17:15 [From Fosamax] Penicillins Allergy Rash Verified 05/25/17 17:15 Home Medications: Ambulatory Orders Albuterol Sulfate [Proair Hfa -] 1 - 2 inh PO Q4HWA PRN 08/14/15 Alprazolam [Xanax] 0.25 mg PO BID PRN 08/14/15 Aspirin [Aspirin EC] 81 mg PO DAILY 08/14/15 Budesonide/Formeterol Fumarate [SYMBICORT 160/4.5mcg -] 1 inh PO BID 08/14/15 Pantoprazole Sodium [Protonix] 40 mg PO DAILY 08/14/15 Oxycodone HCl/Acetaminophen [Percocet 5-325 mg Tablet] 1 tab PO Q4H PRN Wheat Dextrin [Benefiber] 1 each PO BID #0 powd.pack 01/28/17 Gabapentin 100 mg PO ASDIR 12/20/17 Oxycodone HCl/Acetaminophen [Percocet 5-325 mg Tablet -] 1 - 2 tab PO Q4H PRN # 7 tablet MDD 4 05/25/17 Anemia: Yes (PERNICIOUS ANEMIA) Asthma: No Cancer: No Cardiac Disorders: Yes (CARDIAC STENTS) CVA: No COPD: No CHF: No Dementia: No Diabetes: No GI Disorders: Yes (GASTRITIS, DIVERTICULOSIS,GERD,PEPTIC ULCER,COLON POLYPS) Disorders: No HTN: (BORDERLINE) Hypercholesterolemia: (HYPERLIPIDEMIA BORDERLINE) Liver Disease: No (FATTY) Seizures: No Thyroid Disease: No - Surgical History Abdominal Surgery: No Appendectomy: Yes Cardiac Surgery: Yes (CARDIAC STENTS) Cholecystectomy: Yes Lung Surgery: No Neurologic Surgery: No Orthopedic Surgery: Yes (BILAT 5TH TOE SX) - Family Disease History Family Disease History: Heart Disease: Father - Immunization History Immunization Up to Date: Yes - Suicide/Smoking/Psychosocial Hx Smoking Status: Yes Smoking History: Never smoked Have you smoked in the past 12 months: Yes Number of Cigarettes Smoked Daily: 1 If you are a former smoker, when did you quit?: 3 YR 'Breaking Loose' booklet given: 09/24/15 Hx Alcohol Use: No Drug/Substance Use Hx: No Substance Use Type: None Hx Substance Use Treatment: No Review of Systems - Review of Systems Able to Perform ROS?: No Is the patient limited Palauan proficient: No Constitutional: Yes: Symptoms Reported, See HPI, Loss of Appetite, Malaise. No : Fever HEENTM: Yes: See HPI. No: Symptoms Reported Respiratory: Yes: See HPI. No: Symptoms reported Musculoskeletal: Yes: Symptoms Reported Integumentary: Yes: See HPI, Erythema, Rash Neurological: No: Symptoms reported All Other Systems: Reviewed and Negative *Physical Exam - Vital Signs Last Vital Signs Temp Pulse Resp BP Pulse Ox 98.0 F 87 20 185/86 100 05/25/17 17:10 05/25/17 17:10 05/25/17 17:10 05/25/17 17:10 05/25/17 17:10 - Physical Exam General Appearance: Yes: Nourished, Appropriately Dressed. No: Apparent Distress HEENT: positive: ERASMO, TMs Normal, Pharynx Normal Neck: positive: Supple Respiratory/Chest: positive: Lungs Clear Gastrointestinal/Abdominal: positive: Soft Musculoskeletal: positive: Decreased Range of Motion (pain to lateral and medial ), Other. negative: Normal Inspection Extremity: positive: Normal Capillary Refill, Normal Range of Motion, Tender, Erythema (to left ankle ), Other Integumentary: positive: Normal Color, Erythema, Pale, Swelling Neurologic: positive: hogshead stripper II-XII NML intact, Fully Oriented, Alert, Normal Mood/ Affect, Normal Response, Motor Strength 5/5 ED Treatment Course - LABORATORY CBC & Chemistry Diagram: 05/25/17 18:30 05/25/17 18:30 - RADIOLOGY Radiology Studies Ordered: Category Date Time Status DUPLEX VASCUL US-1 LEG [US] Stat Ultrasound 05/25/17 18:25 Ordered Progress Note - Progress Note Progress Note: Ultrasound negative for DVT, states feels mildly improvement with Toradol IM. As patient has chronic gastritis unable to provide side prescription for NSAIDs , therefore will give #6 Percocet tablets and patient has appointment with her PMD tomorrow. Also understands the CRP is elevated but no other testing shows any significant pathology and Lyme's, rheumatoid factors will be reported next week. Patient will follow up with PMD as scheduled tomorrow for further evaluation and testing *DC/Admit/Observation/Transfer Diagnosis at time of Disposition: Joint pain of ankle and foot Qualifiers: Laterality: left Qualified Code(s): M25.572 - Pain in left ankle and joints of left foot - Discharge Dispostion Disposition: HOME Condition at time of disposition: Stable Admit: No - Prescriptions Prescriptions: Oxycodone HCl/Acetaminophen [Percocet 5-325 mg Tablet -] 1 - 2 tab PO Q4H PRN # 7 tablet MDD 4 PRN Reason: Pain - Referrals Referrals: Norma Ferrell MD [Primary Care Provider] - - Patient Instructions Printed Discharge Instructions: DI for Joint Pain Additional Instructions: Rest, ice to area on and off for 15 minutes 4-6 times a day Avoid heavy lifting or exercise until pain and swelling is resolved or until further directed Keep area highly elevated to reduce swelling Use splints/Silvestre wrap as directed Followup with orthopedist in one to 2 days if not improving, if significantly improved may wait one week for followup with orthopedist May use Tylenol 2 -325mg for pain May use Percocet one or 2 tablets every 6 hours as needed for severe pain - Post Discharge Activity Forms/Work/School Notes: Back to Work
[2017-05-25 18:43] LABS: BASO % 1.2 % (0-2.0); MCH 28.5 pg (25.7-33.7); MCHC 32.1 g/dl (32.0-36.0); MEAN CELL VOLUME 88.9 fl (80-96); MEAN PLT VOLUME 7.9 fl (7.5-11.1); NEUT % 57.1 % (42.8-82.8); PLATELET COUNT 411 K/MM3 (134-434); RDW 13.4 % (11.6-15.6); WHITE BLOOD COUNT 5.2 K/mm3 (4.0-10.0)
[2017-05-25 19:03] LABS: C-REACTIVE PROTEIN 1.2 MG/DL (0.00-0.3); URIC ACID 4.4 mg/dL (2.6-7.2)
[2017-05-25 19:07] LABS: ALBUMIN 3.5 g/dl (3.4-5.0); ANION GAP 6 (8-16); CALCIUM 8.9 mg/dL (8.5-10.1); CO2 28 mmol/L (21-32); CREATININE 0.8 mg/dL (0.55-1.02); GLUCOSE,RANDOM 88 mg/dL (74-106); SGOT/AST 16 U/L (15-37); SGPT/ALT 19 U/L (12-78)
[2017-05-25 19:09] LABS: ALK PHOS 128 U/L (45-117); BILIRUBIN,TOTAL 0.5 mg/dL (0.2-1.0); TOT PROT 6.9 g/dl (6.4-8.2)
[2017-05-27 08:08] LABS: RHEUMATOID ARTHRITITS FACTOR < 10.0 IU/mL (0.0-13.9)
== END 2017-05-25 20:11 | disposition home or self-care (01) ==
LOC: JER 16:55 → JERFT 16:55
PROC: 3E0233Z Introduction of Anti-inflammatory into Muscle, Percutaneous Approach (ICD-10-PCS; principal; 2017-05-25)
DX: M25.572 Pain in left ankle and joints of left foot (principal); D51.0 Vitamin B12 deficiency anemia due to intrinsic factor deficiency; Z95.5 Presence of coronary angioplasty implant and graft; E78.5 Hyperlipidemia, unspecified; K76.0 Fatty (change of) liver, not elsewhere classified; Z87.891 Personal history of nicotine dependence
CPT/HCPCS: 36415; 80053; 84550; 85025; 85651; 86140; 86431; 93971-TC; 99281-25

== ENCOUNTER 2017-07-05 08:48 | Day surgery (SDC) | payer OTHER ==
[2017-07-05] MEDS ORDERED: IRON SUCROSE INJECTION 200 MG in SODIUM CHLORIDE 100 ML IVPB ONE (09:15)
[2017-07-05 10:40] VITALS: BP 110/66; PULSE 68; TEMP 98
== END 2017-07-05 10:00 | disposition home or self-care (01) ==
LOC: FINFUSION 08:48 → FM/S 08:48 → FINFUSION 10:00
PROVIDERS: ATTEND Internal Medicine Hematology & Oncology
PROC: 3E033GC Introduction of Other Therapeutic Substance into Peripheral Vein, Percutaneous Approach (ICD-10-PCS; principal; 2017-07-05)
DX: E61.1 Iron deficiency (principal)
CPT/HCPCS: 96365; J1756

== ENCOUNTER 2017-07-12 08:36 | Day surgery (SDC) | payer OTHER ==
[2017-07-12 09:03] VITALS: BP 152/78; PULSE 85; TEMP 98.4
[2017-07-12] MEDS ORDERED: IRON SUCROSE INJECTION 200 MG in SODIUM CHLORIDE 100 ML IVPB ONE (09:15)
== END 2017-07-12 10:15 | disposition home or self-care (01) ==
LOC: FINFUSION 08:36 → FM/S 08:37 → FINFUSION 10:15
PROVIDERS: ATTEND Internal Medicine Hematology & Oncology
PROC: 3E033GC Introduction of Other Therapeutic Substance into Peripheral Vein, Percutaneous Approach (ICD-10-PCS; principal; 2017-07-12)
DX: E61.1 Iron deficiency (principal)
CPT/HCPCS: 96365; J1756

== ENCOUNTER 2017-08-05 11:24 | Observation (INO) | payer OTHER ==
[2017-08-05] MEDS ORDERED: ADENOSINE 6 MG/2 ML VIAL IVPUSH ONE (11:35)
--- NOTE | 2017-08-05 11:42 | PDOC ---
Attending Attestation - HPI HPI: 08/05/17 11:52 The patient is a 81 year old female, with a significant past medical history of anemia, cervical cancer, CAD(s/p stents), COPD, GERD, diverticulosis, hypertension, borderline hyperlipidemia, who presents to the emergency department with palpitations and lightheadedness earlier this morning. The patient reports waking up with palpitations and lightheadedness this morning, and activating EMS. When EMS arrived on scene, the patient was found in SVT with a rate in 110-120s. EMS reports giving 6 mg of Adenosine, and 250 of saline. Patient reports she is asymptomatic at the moment. She denies any current chest pain, shortness of breath, diaphoresis, or palpitations. She denies any fever, chills, cough, headache, or dizziness. She denies any abdominal pain, nausea, or vomiting. She denies any recent travel or sick contacts. Allergies: Alendronate sodium, Penicillins Past Surgical History: Appendectomy, Cholecystectomy, cardiac stents, bilateral 5th toe surgery Social History: Former smoker. No ETOH or recreational drug use. Family History: Heart Disease: father PCP: Dr. Ferrell - Medical Decision Making 08/05/17 11:53 Documentation prepared by Shine Hassan, acting as medical records supervisor for Sara Mazariegos MD. <Shine Hassan - Last Filed: 08/05/17 11:52> - Resident Resident Name: Zaki Khoury - ED Attending Attestation I have performed the following: I have examined & evaluated the patient, The case was reviewed & discussed with the resident, I agree w/resident's findings & plan, Exceptions are as noted - Physicial Exam PE: GENERAL: Awake, alert, and fully oriented, in no acute distress HEAD: No signs of trauma EYES: PERRLA, EOMI, sclera anicteric, conjunctiva clear ENT: Auricles normal inspection, hearing grossly normal, nares patent, oropharynx clear without exudates. Moist mucosa NECK: Normal ROM, supple, no lymphadenopathy, JVD, or masses LUNGS: Breath sounds equal, clear to auscultation bilaterally. No wheezes, and no crackles HEART: Regular rate and rhythm, normal S1 and S2, no murmurs, rubs or gallops ABDOMEN: Soft, nontender, normoactive bowel sounds. No guarding, no rebound. No masses EXTREMITIES: Normal range of motion, no edema. No clubbing or cyanosis. No cords, erythema, or tenderness NEUROLOGICAL: Cranial nerves II through XII grossly intact. Normal speech, normal gait SKIN: Warm, Dry, normal turgor, no rashes or lesions noted. - Medical Decision Making 08/05/17 13:10 Pt with episode of SVT, resolved with adenosine given by EMS. Awaiting troponin , then will call Dr. Monterroso to discuss. <Sara Mazariegos - Last Filed: 08/05/17 13:12>
--- NOTE | 2017-08-05 11:57 | PDOC ---
History of Present Illness - General Chief Complaint: Irregular Heart Beat Stated Complaint: Irregular Heart Beat Time Seen by Provider: 08/05/17 11:30 - History of Present Illness Initial Comments: 08/05/17 11:51 The patient is an 81 year old female with a history of HTN, HLD, COPD, Stenting in 1997 who presents for evaluation of palpitations and lightheadedness. The patient reports a sensation of palpitations and lightheadedness that began earlier today prompting her to call EMS. She was found by EMS to be in SVT with a HR in the 120s. EMS gave 6m of adenosine and the patient converted to normal sinus rhythm. On presentation to the ED, the patient states that her palpitations have resolved and she no longer feels lightheaded. She denies ever having similar symptoms in the past and denies fevers, chills, chest pain, nausea, vomiting, abdominal pain, or changes with urination or bowel movements. Past History - Past Medical History Allergies/Adverse Reactions: Allergies Allergy/AdvReac Type Severity Reaction Status Date / Time alendronate sodium Allergy Verified 08/05/17 11:47 [From Fosamax] Penicillins Allergy Rash Verified 08/05/17 11:47 Home Medications: Ambulatory Orders Albuterol Sulfate [Proair Hfa -] 1 - 2 inh PO Q4HWA PRN 08/14/15 Alprazolam [Xanax] 0.25 mg PO BID PRN 08/14/15 Aspirin [Aspirin EC] 81 mg PO DAILY 08/14/15 Budesonide/Formeterol Fumarate [SYMBICORT 160/4.5mcg -] 1 inh PO BID 08/14/15 Pantoprazole Sodium [Protonix] 40 mg PO DAILY 08/14/15 Oxycodone HCl/Acetaminophen [Percocet 5-325 mg Tablet] 1 tab PO Q4H PRN Wheat Dextrin [Benefiber] 1 each PO BID #0 powd.pack 01/28/17 Gabapentin 100 mg PO ASDIR 05/25/17 Oxycodone HCl/Acetaminophen [Percocet 5-325 mg Tablet -] 1 - 2 tab PO Q4H PRN # 7 tablet MDD 4 05/25/17 Anemia: Yes (PERNICIOUS ANEMIA) Asthma: No Cancer: No Cardiac Disorders: Yes (CARDIAC STENTS) CVA: No COPD: No CHF: No Dementia: No Diabetes: No GI Disorders: Yes (GASTRITIS, DIVERTICULOSIS,GERD,PEPTIC ULCER,COLON POLYPS) Disorders: No HTN: (BORDERLINE) Hypercholesterolemia: (HYPERLIPIDEMIA BORDERLINE) Liver Disease: No (FATTY) Seizures: No Thyroid Disease: No - Surgical History Abdominal Surgery: No Appendectomy: Yes Cardiac Surgery: Yes (CARDIAC STENTS) Cholecystectomy: Yes Lung Surgery: No Neurologic Surgery: No Orthopedic Surgery: Yes (BILAT 5TH TOE SX) - Family Disease History Family Disease History: Heart Disease: Father - Immunization History Immunization Up to Date: Yes - Suicide/Smoking/Psychosocial Hx Smoking Status: Yes Smoking History: Current every day smoker Have you smoked in the past 12 months: Yes Number of Cigarettes Smoked Daily: 1 If you are a former smoker, when did you quit?: 3 YR Information on smoking cessation initiated: No 'Breaking Loose' booklet given: 09/24/15 Hx Alcohol Use: No Drug/Substance Use Hx: No Substance Use Type: None Hx Substance Use Treatment: No Review of Systems - Review of Systems Comments:: 08/05/17 11:57 Constitutional: No fevers, chills, fatigue, malaise HEENT: No Rhinorrhea, nasal congestion, visual changes Cardiovascular: Palpitations, Lightheadedness. No chest pain, syncope, Respiratory: No Cough, SOB, Hemoptysis, Gastrointestinal: No Abdominal pain, Nausea, Vomiting, Constipation, Diarrhea, Melena Genitourinary: No Dysuria, Frequency, Urgency, Hesitancy, Hematuria, Flank pain Musculoskeletal: No Myalgia, arthralgia Skin: No rashes, itching, bruising, pallor Neurologic: No Headache, Dizziness, Numbness, Weakness, or Tingling Psychiatric: No Hallucinations. No SI or HI *Physical Exam - Vital Signs Last Vital Signs Temp Pulse Resp BP Pulse Ox 97.8 F 76 18 153/86 96 08/05/17 11:25 08/05/17 11:25 08/05/17 11:25 08/05/17 11:25 08/05/17 11:25 - Physical Exam Comments: 08/05/17 11:58 General Appearance: Nourished. No Apparent Distress HEENT: EOMI, ERASMO. No Pharyngeal Erythema, Tonsillar Exudate, Tonsillar Erythema Neck: No Cervical Lymphadenopathy Respiratory/Chest: Lungs Clear, Normal Breath Sounds. No Crackles, Rales, Rhonchi, Wheezing Cardiovascular: Regular Rhythm, Regular Rate. No Murmur, Gallops, Rubs Gastrointestinal/Abdominal: Normal Bowel Sounds, Soft. No Guarding, Rebound, Tenderness Musculoskeletal: No CVA Tenderness Extremity: Normal Capillary Refill Integumentary: Normal Color, Dry, Warm Neurologic: Fully Oriented, Alert, Normal Mood/Affect, Normal Response, Heart Score/ECG Review #1 ECG reviewed & interpreted by me at: 12:34 General ECG Interpretation: Sinus Rhythm, Normal Rate, Normal Intervals, No acute ischemic changes Compared to previous ECG there are: No significant change (08/14/15) ED Treatment Course - LABORATORY CBC & Chemistry Diagram: 08/05/17 12:40 08/05/17 12:40 - RADIOLOGY Radiology Studies Ordered: Category Date Time Status CHEST X-RAY PORTABLE* [RAD] Stat Radiology 08/05/17 11:44 Ordered Medical Decision Making - Medical Decision Making 08/05/17 11:58 The patient is an 81 year old female with a history of HTN, HLD, COPD, Stenting in 1997 who presents for evaluation of palpitations and lightheadedness. Differential includes but not limited to: Arrhythmia, ACS, Infectious, Metabolic derangement. Given the patient's cardiac history and new episode of SVT, we will obtain a cbc, cmp, troponin, TSH, ekg, and chest plain film to evaluate further for possible etiologies. We will continue to monitor and reassess. 08/05/17 13:46 CBC, cmp, troponin, TSH are unremarkable. EKG is normal sinus rhythm and chest plain film is unremarkable. We discussed the case with the patient's banana grader, Dr. Monterroso, who will come evaluate the patient to determine whether or not she is safe for discharge. 08/05/17 16:24 Dr. Monterroso has evaluated the patient and recommended admission for further monitoring. 08/05/17 17:10 We discussed the case with the hospitalist team who accepted the patient for admission. *DC/Admit/Observation/Transfer Diagnosis at time of Disposition: SVT (supraventricular tachycardia) - Discharge Dispostion Condition at time of disposition: Stable Admit: Yes - Referrals Referrals: Norma Ferrell MD [Primary Care Provider] - - Patient Instructions - Post Discharge Activity
[2017-08-05 12:47] LABS: BASO % 1.2 % (0-2.0); EOS % 2.3 % (0-4.5); HEMATOCRIT 33.8 % (32.4-45.2); LYMPH % 29.2 % (8-40); MCH 28.8 pg (25.7-33.7); MCHC 32.5 g/dl (32.0-36.0); MEAN CELL VOLUME 88.7 fl (80-96); MEAN PLT VOLUME 7.3 fl (7.5-11.1); MONO % 10.1 % (3.8-10.2); NEUT % 57.2 % (42.8-82.8); PLATELET COUNT 278 K/MM3 (134-434); RBC 3.81 M/mm3 (3.60-5.2); RDW 14.9 % (11.6-15.6); WHITE BLOOD COUNT 4.5 K/mm3 (4.0-10.0)
[2017-08-05 13:02] LABS: ALBUMIN 3.3 g/dl (3.4-5.0); ANION GAP 7 (8-16); BILIRUBIN,TOTAL 0.3 mg/dL (0.2-1.0); BLOOD UREA NITROGEN 14 mg/dL (7-18); CALCIUM 8.4 mg/dL (8.5-10.1); CHLORIDE 107 mmol/L (98-107); CO2 27 mmol/L (21-32); CREATININE 0.8 mg/dL (0.55-1.02); GLUCOSE,RANDOM 87 mg/dL (74-106); POTASSIUM 4.3 mmol/L (3.5-5.1); SGOT/AST 10 U/L (15-37); SGPT/ALT 10 U/L (12-78); SODIUM 141 mmol/L (136-145); TOT PROT 6.1 g/dl (6.4-8.2)
[2017-08-05 13:03] LABS: ALK PHOS 102 U/L (45-117)
[2017-08-05 14:00] LABS: URINE APPEARANCE CLEAR; URINE BILIRUBIN NEGATIVE (NEGATIVE); URINE BLOOD NEGATIVE (NEGATIVE); URINE COLOR COLORLESS; URINE GLUCOSE (UA) NEGATIVE (NEGATIVE); URINE KETONE NEGATIVE (NEGATIVE); URINE LEUK ESTERASE NEGATIVE (NEGATIVE); URINE NITRITE NEGATIVE (NEGATIVE); URINE PROTEIN NEGATIVE (NEGATIVE); URINE UROBILINOGEN NEGATIVE mg/dL (0.2-1.0)
[2017-08-05] MEDS ORDERED: ACETAMINOPHEN 325 MG TABLET (FP) PO ONE (16:12)
[2017-08-05] MEDS ORDERED: dilTIAZem HCL 30 MG TABLET (FP) PO ONE (16:12)
--- NOTE | 2017-08-05 16:43 | HP ---
Admitting History and Physical - Primary Care Physician PCP: Norma Ferrell - Admission Chief Complaint: lightheaded, pre syncope, heart flutters History of Present Illness: This is an 81 year old female with pmhx of CAD s/p stents x2 1997, HTN, HLD, COPD presented to the ED with acute onset SVT. Per patient she woke up in her usual state of health and morning activities. After awhile she began to feel unwell and had episodes of heart fluttering and lightheadedness. She called her sister in [place], who suggested she called EMS. At that time she went across the street and asked her neighbor to sit with her while EMS arrived. When EMS arrived she kept telling them that she was going to pass out, but she never did. EMS found her to be in SVT to 120's and gave 6mg of adenosin with successful conversion to SR. Currently, she denies sob, palpitations, lightheadedness, fever, chills, changes to urinary or bowel habits. She is tried and has a OROZCO. 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 History Source: Patient Limitations to Obtaining History: No Limitations - Past Medical History Cardiovascular: Yes: CAD, HTN Pulmonary: Yes: COPD Gastrointestinal: Yes: GERD, GI Bleed, Peptic Ulcer Disease Hepatobiliary: Yes: Cholelithiasis Heme/Onc: Yes: Anemia Psych: Yes: Anxiety - Past Surgical History Past Surgical History: Yes: Colonoscopy Additional Past Surgical History: bilateral meniscus repair R wrist surgery Back surgery 1980 - Smoking History Smoking history: Current every day smoker Have you smoked in the past 12 months: Yes Aproximately how many cigarettes per day: 1 If you are a former smoker, when did you quit?: 3 YR - Alcohol/Substance Use Hx Alcohol Use: No History of Substance Use: reports: None - Social History Usual Living Arrangement: Yes: Alone ADL: Independent Occupation: accounts recievable History of Recent Travel: No Home Medications - Allergies Allergies/Adverse Reactions: Allergies Allergy/AdvReac Type Severity Reaction Status Date / Time alendronate sodium Allergy Verified 08/05/17 11:47 [From Fosamax] Penicillins Allergy Rash Verified 08/05/17 11:47 - Home Medications Home Medications: Ambulatory Orders Albuterol Sulfate [Proair Hfa -] 1 - 2 inh PO Q4HWA PRN 08/14/15 Alprazolam [Xanax] 0.25 mg PO BID PRN 08/14/15 Aspirin [Aspirin EC] 81 mg PO DAILY 08/14/15 Budesonide/Formeterol Fumarate [SYMBICORT 160/4.5mcg -] 1 inh PO BID 08/14/15 Pantoprazole Sodium [Protonix] 40 mg PO DAILY 08/14/15 Oxycodone HCl/Acetaminophen [Percocet 5-325 mg Tablet] 1 tab PO Q4H PRN Wheat Dextrin [Benefiber] 1 each PO BID #0 powd.pack 01/28/17 Gabapentin 100 mg PO ASDIR 05/25/17 Oxycodone HCl/Acetaminophen [Percocet 5-325 mg Tablet -] 1 - 2 tab PO Q4H PRN # 7 tablet MDD 4 05/25/17 Review of Systems - Review of Systems Constitutional: reports: No Symptoms Eyes: reports: No Symptoms HENT: reports: No Symptoms Neck: reports: No Symptoms Cardiovascular: reports: Palpitations Respiratory: reports: No Symptoms Gastrointestinal: reports: No Symptoms Genitourinary: reports: No Symptoms Musculoskeletal: reports: No Symptoms Integumentary: reports: No Symptoms Neurological: reports: Other (lightheadedness) Endocrine: reports: No Symptoms Hematology/Lymphatic: reports: No Symptoms Psychiatric: reports: No Symptoms Physical Examination Vital Signs: Vital Signs Temperature 98.1 F 08/05/17 14:48 Pulse Rate 77 08/05/17 14:48 Respiratory Rate 18 08/05/17 14:48 Blood Pressure 144/68 08/05/17 14:48 O2 Sat by Pulse Oximetry (%) 97 08/05/17 14:48 Constitutional: Yes: Calm Eyes: Yes: Conjunctiva Clear HENT: Yes: Atraumatic Neck: Yes: Supple Cardiovascular: Yes: Regular Rate and Rhythm, S1, S2 Respiratory: Yes: Regular, CTA Bilaterally Gastrointestinal: Yes: Normal Bowel Sounds, Soft Renal/: Yes: WNL Musculoskeletal: Yes: WNL Edema: No Peripheral Pulses WNL: Yes Integumentary: Yes: WNL Neurological: Yes: Alert, Oriented, Cran Nerves II-XII Intact Psychiatric: Yes: Alert, Oriented Labs: CBC, BMP 08/05/17 12:40 08/05/17 12:40 Imaging - Results Chest X-ray: Report Reviewed, Image Reviewed Problem List - Problems (1) SVT (supraventricular tachycardia) Code(s): I47.1 - SUPRAVENTRICULAR TACHYCARDIA (2) Near syncope Code(s): R55 - SYNCOPE AND COLLAPSE Assessment/Plan Assessment: 81 year old female admitted with svt Plan: 1. SVT - Telemetry monitoring - Now in sinus - Cardizem 30mg given now - Continue Cardizem 30mg q6hr - Cardiology seeing, consult appreciated 2. CAD s/p stent - ASA daily Visit type - Emergency Visit Emergency Visit: Yes Care time: The patient presented to the Emergency Department on the above date and was hospitalized for further evaluation of their emergent condition. - New Patient This patient is new to me today: Yes Date on this admission: 08/05/17 - Critical Care Critical Care patient: No Hospitalist Screening - Colonoscopy Questionnaire Colonoscopy Questionnaire: Colonoscopy Questionnaire - Patient: 50 - 75 years old and never had a screening colonoscopy: Unknown History of colon or rectal polyps, or CA: Unknown History of IBD, Crohn's disease or UC: Unknown History of abdominal radiation therapy as a child: Unknown - Relative: 1 with colon or rectal CA, or polyps at age 60 or younger: Unknown Colon or rectal CA diagnosed at age 45 or younger: Unknown Multiple relatives with colon or rectal CA: Unknown - Outcome: Screening Result: Negative Screen
[2017-08-05] MEDS ORDERED: ACETAMINOPHEN 325 MG TABLET (FP) ONE (17:08)
[2017-08-05] MEDS ORDERED: dilTIAZem HCL 30 MG TABLET (FP) ONE (17:08)
[2017-08-05] MEDS ORDERED: ALPRAZolam 0.25 MG TABLET PO PRN (17:14)
[2017-08-05] MEDS: dilTIAZem HCL 30 MG TABLET (FP) PO SCH (17:54)
--- NOTE | 2017-08-05 23:36 | CON.CARD ---
Consult Consult Specialty:: cardiology Reason for Consultation:: arrythmia - History of Present Illness Chief Complaint: Pt A&Ox3; no chest pain, palpitations, or dyspnea. History of Present Illness: The patient is an 81 year old black female, with a significant past medical history of anemia, cervical cancer, CAD(s/p stents 1997 and 2004), COPD, GERD, diverticulosis, hypertension, borderline hyperlipidemia, anxiety/depression, who presents to the emergency department with palpitations and lightheadedness earlier this morning. The patient reports waking up with palpitations and lightheadedness this morning, and activating EMS. When EMS arrived on scene, the patient was reportedly found in SVT with a rate in 110-120s. EMS reports giving 6 mg, then 12 mg IVP of adenosine resulting in conversion to sinus rhythm,and 250 ml of saline. Patient reports she is asymptomatic at the moment. She denies any current chest pain (nor did she have any throughout the episode) , shortness of breath, diaphoresis, or palpitations. She denies any fever, chills, cough, headache, or dizziness. She denies any abdominal pain, nausea, or vomiting. She denies any recent travel or sick contacts. Allergies: Alendronate sodium, Penicillins Past Surgical History: Appendectomy, Cholecystectomy, cardiac stents, bilateral 5th toe surgery Social History: Former smoker. No ETOH or recreational drug use. Family History: Heart Disease: father - History Source History Provided By: Patient, Medical Record Limitations to Obtaining History: No Limitations - Past Medical History Cardio/Vascular: Yes: CAD, HTN Pulmonary: Yes: COPD Gastrointestinal: Yes: GERD, GI Bleed, Peptic Ulcer Disease Hepatobiliary: Yes: Cholelithiasis Psych: Yes: Anxiety - Past Surgical History Past Surgical History: Yes: Colonoscopy - Alcohol/Substance Use Hx Alcohol Use: No History of Substance Use: reports: None - Smoking History Smoking history: Current every day smoker Have you smoked in the past 12 months: Yes Aproximately how many cigarettes per day: 1 If you are a former smoker, when did you quit?: 3 YR - Social History ADL: Independent Occupation: accounts recievable History of Recent Travel: No Home Medications - Allergies Allergies/Adverse Reactions: Allergies Allergy/AdvReac Type Severity Reaction Status Date / Time alendronate sodium Allergy Verified 08/05/17 11:47 [From Fosamax] Penicillins Allergy Rash Verified 08/05/17 11:47 - Home Medications Home Medications: Ambulatory Orders Alprazolam [Xanax] 0.25 mg PO BID PRN 08/14/15 Aspirin [Aspirin EC] 81 mg PO DAILY 08/14/15 Pantoprazole Sodium [Protonix] 40 mg PO DAILY 08/14/15 Oxycodone HCl/Acetaminophen [Percocet 5-325 mg Tablet -] 1 - 2 tab PO Q4H PRN # 7 tablet MDD 4 05/25/17 Albuterol Sulfate [Proair Respiclick] 08/05/17 Cyclobenzaprine HCl 10 mg PO DAILY 08/05/17 OLANZapine 12/FLUoxetine 25 [Symbyax 05-30 (Nf)] 1 cap IH DAILY 08/05/17 Family Disease History - Family Disease History Family History: Denies Review of Systems - Review of Systems Constitutional: reports: Weakness Eyes: reports: No Symptoms HENT: reports: No Symptoms Neck: reports: No Symptoms Cardiovascular: reports: No Symptoms Respiratory: reports: No Symptoms Gastrointestinal: reports: No Symptoms Genitourinary: reports: No Symptoms Breasts: reports: No Symptoms Reported Musculoskeletal: reports: No Symptoms Integumentary: reports: No Symptoms Neurological: reports: No Symptoms Endocrine: reports: No Symptoms Hematology/Lymphatic: reports: No Symptoms Psychiatric: reports: Anxiety, Depression - Risk Factors Known Risk Factors: Yes: Age, Hypercholesterolemia, Hypertension, Race, Smoking Vital Signs: Vital Signs Temperature 97.9 F 08/05/17 20:17 Pulse Rate 74 08/05/17 20:17 Respiratory Rate 18 08/05/17 20:17 Blood Pressure 139/80 08/05/17 20:17 O2 Sat by Pulse Oximetry (%) 97 08/05/17 20:17 Constitutional: Yes: Anxious Eyes: Yes: WNL HENT: Yes: WNL Neck: Yes: WNL Respiratory: Yes: WNL Gastrointestinal: Yes: Soft Renal/: No: Anuria Cardiovascular: Yes: Regular Rate and Rhythm JVD: No Carotid Bruit: No PMI: Non-Displaced Heart Sounds: Yes: S1, S2, S4 Murmur: Yes: Systolic Murmur, Grade 1 Musculoskeletal: Yes: WNL Extremities: Yes: WNL Edema: Yes Peripheral Pulses WNL: Yes Integumentary: Yes: WNL Neurological: Yes: WNL Psychiatric: Yes: WNL - Other Data Labs, Other Data: CBC, BMP 08/05/17 12:40 08/05/17 12:40 Troponin, BNP 08/05/17 12:40 Troponin I < 0.02 Troponin, BNP 08/05/17 12:40 Troponin I < 0.02 Abnormal Lab Results 08/05/17 08/05/17 12:40 12:40 MPV 7.3 L D Anion Gap 7 L Calcium 8.4 L AST 10 L ALT 10 L Total Protein 6.1 L Albumin 3.3 L Ejection Fraction %: LVEF > or = 40 % Imaging - Results EKG: Image Reviewed (NSR) Problem List - Problems (1) SVT (supraventricular tachycardia) Assessment/Plan: Discussed event with trailer mechanic, who reports sinus rhythm interspersed with prolonged bursts of PSVT finally converted with adenosine 12 mg IVP; await recording of arrhythmia. Start diltiazem (30 mg q6h; if tolerated, discharge on diltiazem CD 120 mg qd). Pt reports having had steep drop in BP in the past when started on an antihypertensive medication. Serial TNI (hx CAD-->coronary stents). TSH WNL. ECHO in office 12/2016: normal LVEF; mild LVH; abnormal diastolic compliance; trace TR and MR. When discharged home, f/u in office; will have electrophysiologic evaluation. Code(s): I47.1 - SUPRAVENTRICULAR TACHYCARDIA (2) Anxiety Code(s): F41.9 - ANXIETY DISORDER, UNSPECIFIED
[2017-08-06] MEDS: dilTIAZem HCL 30 MG TABLET (FP) PO SCH ×3 (00:50→12:00)
[2017-08-06] MEDS: BUDESONIDE/FORMETEROL FUMARATE 160/4.5 mcg INHALER IH SCH ×2 (00:51→10:04)
[2017-08-06 06:43] VITALS: BMI 16.7
[2017-08-06 07:04] LABS: BASO % 1.1 % (0-2.0); EOS % 3.6 % (0-4.5); HEMATOCRIT 33.7 % (32.4-45.2); HEMOGLOBIN 11.1 GM/dL (10.7-15.3); LYMPH % 41.6 % (8-40); MCH 29.1 pg (25.7-33.7); MEAN CELL VOLUME 88.1 fl (80-96); MONO % 12.6 % (3.8-10.2); NEUT % 41.1 % (42.8-82.8); PLATELET COUNT 299 K/MM3 (134-434); RBC 3.83 M/mm3 (3.60-5.2); RDW 14.9 % (11.6-15.6); WHITE BLOOD COUNT 4.1 K/mm3 (4.0-10.0)
[2017-08-06 07:37] LABS: ALBUMIN 3.2 g/dl (3.4-5.0); ANION GAP 8 (8-16); BILIRUBIN,TOTAL 0.3 mg/dL (0.2-1.0); BLOOD UREA NITROGEN 13 mg/dL (7-18); CALCIUM 8.4 mg/dL (8.5-10.1); CHLORIDE 107 mmol/L (98-107); CO2 26 mmol/L (21-32); CREATININE 0.8 mg/dL (0.55-1.02); GLUCOSE,RANDOM 83 mg/dL (74-106); POTASSIUM 4.7 mmol/L (3.5-5.1); SGOT/AST 10 U/L (15-37); SGPT/ALT 11 U/L (12-78); SODIUM 141 mmol/L (136-145); TOT PROT 6.1 g/dl (6.4-8.2)
[2017-08-06 07:38] LABS: ALK PHOS 99 U/L (45-117); CHOLESTEROL 166 mg/dL (50-200); TRIGLYCERIDES 81 mg/dL (35-160)
[2017-08-06 07:43] LABS: HDL CHOLESTEROL 82 mg/dL (40-60); LDL CHOLESTEROL (ONLY SJRH) 78 mg/dL (5-100)
[2017-08-06] MEDS ORDERED: ASPIRIN COATED 81 MG TABLET.EC PO SCH (10:00)
[2017-08-06] MEDS ORDERED: ENOXAPARIN NA (PORCINE) 40 MG/0.4 ML DISP.SYRIN SQ SCH (10:00)
--- NOTE | 2017-08-06 10:39 | PN ---
Progress Note, Physician History of Present Illness: seen and examined today in [facility]. no overnight events. no new complaints. - Current Medication List Current Medications: Active Medications Alprazolam (Xanax -) 0.25 mg PO Q12H PRN PRN Reason: ANXIETY Last Admin: 08/06/17 00:54 Dose: 0.25 mg Aspirin (Ecotrin -) 81 mg PO DAILY [facility] Last Admin: 08/06/17 10:04 Dose: 81 mg Budesonide/Formoterol Fumarate (Symbicort 160/4.5mcg -) 1 puff IH BID [facility] Last Admin: 08/06/17 10:04 Dose: 1 puff Diltiazem HCl (Cardizem -) 30 mg PO Q6HPO [facility] Last Admin: 08/06/17 06:20 Dose: 30 mg Enoxaparin Sodium (Lovenox -) 40 mg SQ DAILY [facility] Last Admin: 08/06/17 10:04 Dose: 40 mg - Objective Vital Signs: Vital Signs Temperature 98.3 F 08/06/17 04:44 Pulse Rate 74 08/05/17 20:17 Respiratory Rate 18 08/06/17 04:44 Blood Pressure 152/79 08/06/17 04:44 O2 Sat by Pulse Oximetry (%) 97 08/06/17 00:44 Constitutional: Yes: Well Nourished, No Distress, Calm Eyes: Yes: Conjunctiva Clear, EOM Intact, PERRL HENT: Yes: Atraumatic, Normocephalic Neck: Yes: Supple, Trachea Midline Cardiovascular: Yes: Regular Rate and Rhythm, S1, S2. No: Bradycardia, Tachycardia, Pulse Irregular, Bruit, JVD, Gallop, Murmur, Rub, S3, S4, Varicosities Respiratory: Yes: Regular, CTA Bilaterally. No: Rales, Rhonchi, Wheezes Gastrointestinal: Yes: Normal Bowel Sounds, Soft. No: Distention, Tenderness Musculoskeletal: Yes: WNL Extremities: Yes: WNL Edema: No Peripheral Pulses WNL: No Peripheral Pulses: Left Doralis Pedis: 2+, Right Dorsalis Pedis: 2+ Neurological: Yes: Alert, Oriented Psychiatric: Yes: Alert, Oriented Labs: CBC, BMP 08/06/17 06:50 08/06/17 06:50 - ....Imaging Chest X-ray: Report Reviewed, Image Reviewed EKG: Report Reviewed, Image Reviewed Other: Report Reviewed, Image Reviewed (tele-NSR, apcs, no sig arrhythmias, no further PSVT) Assessment/Plan 81 year old woman with a history of anemia, cervical cancer, CAD(s/p stents 1997 and 2004), COPD, GERD, diverticulosis, hypertension, borderline hyperlipidemia, anxiety/depression, admitted with palpitations and lightheadedness found to be in SVT with a rate in 110-120s. EMS reports giving 6 mg, then 12 mg IVP of adenosine resulting in conversion to sinus rhythm. SVT-PSVT -none further recorded on telemetry, symptoms have not recurred -transition to diltiazem CD 120 mg qd -cardiac enzymes wnl -TSH WNL. -ECHO in office 12/2016: normal LVEF; mild LVH; abnormal diastolic compliance; trace TR and MR. -ok for discharge from cardiac standpoint with close outpatient f/up including EPS evaluation -cont ASA 81mg daily CAD-h/o stents -no acute issue -cardiac enzymes wnl -cont ASA 81mg daily -outpatient f/up
--- NOTE | 2017-08-06 11:36 | EKG ---
Test Reason : Blood Pressure : / mmHG Vent. Rate : 072 BPM Atrial Rate : 072 BPM P-R Int : 142 ms QRS Dur : 078 ms QT Int : 378 ms P-R-T Axes : 075 066 070 degrees QTc Int : 413 ms NORMAL SINUS RHYTHM NORMAL ECG WHEN COMPARED WITH ECG OF 05-AUG-2017 11:40, NO SIGNIFICANT CHANGE WAS FOUND Confirmed by MD EDNA, LILLIAN ([id number]) on 08/06/2017 11:36:09 AM Referred By: Jostin MARI Confirmed By:LILLIAN BISHOP MD
--- NOTE | 2017-08-06 11:48 | EKG ---
Test Reason : Blood Pressure : / mmHG Vent. Rate : 081 BPM Atrial Rate : 081 BPM P-R Int : 148 ms QRS Dur : 068 ms QT Int : 358 ms P-R-T Axes : 066 061 069 degrees QTc Int : 415 ms NORMAL SINUS RHYTHM NORMAL ECG WHEN COMPARED WITH ECG OF 14-AUG-2015 16:41, NO SIGNIFICANT CHANGE WAS FOUND Confirmed by MD EDNA, LILLIAN ([id number]) on 08/06/2017 11:48:36 AM Referred By: Confirmed By:LILLIAN BISHOP MD
--- NOTE | 2017-08-06 13:47 | DS ---
Physical Exam: SUBJECTIVE: Patient seen and examined. She c/o of intermitted palpitations and associated lightheadedness, wants to go home. OBJECTIVE: Vital Signs Period Temp Pulse Resp BP Sys/Shirley Pulse Ox Last 24 Hr 97.9 F-98.5 F 70-84 18-18 120-152/68-80 97-97 PE Neuro: alert, awake, cn 2-12intact Pulm: CTAB CV: s1 s2 rrr Abd: s nt nd +bs Ext: Warm, no le edema Laboratory Results - last 24 hr 08/05/17 08/06/17 08/06/17 13:37 06:50 06:50 WBC 4.1 RBC 3.83 Hgb 11.1 Hct 33.7 MCV 88.1 MCH 29.1 MCHC 33.0 RDW 14.9 Plt Count 299 MPV 9.0 D Neutrophils % 41.1 L D Lymphocytes % 41.6 H D Monocytes % 12.6 H Eosinophils % 3.6 Basophils % 1.1 Sodium 141 Potassium 4.7 Chloride 107 Carbon Dioxide 26 Anion Gap 8 BUN 13 Creatinine 0.8 Creat Clearance w eGFR > 60 Random Glucose 83 Calcium 8.4 L Magnesium 2.0 Total Bilirubin 0.3 AST 10 L ALT 11 L Alkaline Phosphatase 99 Creatine Kinase Troponin I Total Protein 6.1 L Albumin 3.2 L Triglycerides Cholesterol Total LDL Cholesterol HDL Cholesterol Urine Color Colorless Urine Appearance Clear Urine pH 7.0 Ur Specific [place] 1.005 Urine Protein Negative Urine Glucose (UA) Negative Urine Ketones Negative Urine Blood Negative Urine Nitrite Negative Urine Bilirubin Negative Urine Urobilinogen Negative Ur Leukocyte Esterase Negative 08/06/17 06:50 WBC RBC Hgb Hct MCV MCH MCHC RDW Plt Count MPV Neutrophils % Lymphocytes % Monocytes % Eosinophils % Basophils % Sodium Potassium Chloride Carbon Dioxide Anion Gap BUN Creatinine Creat Clearance w eGFR Random Glucose Calcium Magnesium Total Bilirubin AST ALT Alkaline Phosphatase Creatine Kinase 44 Troponin I < 0.02 Total Protein Albumin Triglycerides 81 Cholesterol 166 Total LDL Cholesterol 78 HDL Cholesterol 82 H Urine Color Urine Appearance Urine pH Ur Specific [place] Urine Protein Urine Glucose (UA) Urine Ketones Urine Blood Urine Nitrite Urine Bilirubin Urine Urobilinogen Ur Leukocyte Esterase HOSPITAL COURSE: Date of Admission:08/05/17 Date of Discharge: 08/06/17 Minutes to complete discharge: 37 Discharge Summary Reason For Visit: SUPRAVENTRICULAR TACHYCARDIA Current Active Problems SVT (supraventricular tachycardia) (Acute) Hospital Course: Initial Hospital Course: Briefly, this 81 year old female with pmhx of cervical cancer, CAD s/p stents x2 1997, HTN, HLD, COPD presented to the ED with acute onset SVT. She awoke up in her usual state of health and morning activities. After awhile she began to feel unwell and had episodes of heart fluttering and lightheadedness. She called her sister in [place], who suggested she called EMS. At that time she went across the street and asked her neighbor to sit with her while EMS arrived. When EMS arrived she kept telling them that she was going to pass out, but she never did. EMS found her to be in SVT to 120's and gave 6mg of adenosin with successful conversion to SR. Subsequent Hospital Course/Progress Note/DC summary: Plan: 1. SVT, PSVT - Now NSR - Transition to cardizem CD 120mg daily - Outpt cardiology follow up for EP studies - Cardizem 30mg given now 2. CAD s/p stent - ASA daily - TSH wnl -ECHO in office 12/2016: normal LVEF; mild LVH; abnormal diastolic compliance; trace TR and MR. 3. Orthostatic hypotension - Discussed caution with positional changes Dispo: - Home with above meds and plan - Pt aware and agrees to above plan Condition: Stable - Instructions Diet, Activity, Other Instructions: Please return to the ED for any new, persistent, or worsening symptoms. Follow up with your PCP in 1 week Resume home and new medications as directed Referrals: Norma Ferrell MD [Primary Care Provider] - Jefferson Monterroso MD [Staff Physician] - 1 Week Disposition: HOME - Home Medications Comprehensive Discharge Medication List: Ambulatory Orders Alprazolam [Xanax] 0.25 mg PO BID PRN 08/14/15 Aspirin [Aspirin EC] 81 mg PO DAILY 08/14/15 Pantoprazole Sodium [Protonix] 40 mg PO DAILY 08/14/15 Oxycodone HCl/Acetaminophen [Percocet 5-325 mg Tablet] 1 - 2 tab PO Q4H PRN #7 tablet MDD 4 05/25/17 Albuterol Sulfate [Proair Respiclick] 08/05/17 Cyclobenzaprine HCl 10 mg PO DAILY 08/05/17 OLANZapine 12/FLUoxetine 25 [Symbyax 12-25 (Nf)] 1 cap IH DAILY 08/05/17 Diltiazem Cd [Cardizem Cd -] 120 mg PO DAILY #30 cap.cd.24h 08/06/17 Problem List - Problems (1) SVT (supraventricular tachycardia) Code(s): I47.1 - SUPRAVENTRICULAR TACHYCARDIA (2) Near syncope Code(s): R55 - SYNCOPE AND COLLAPSE This patient is new to me today: No Emergency Visit: Yes ED Registration Date: 08/05/17 Care time: The patient presented to the Emergency Department on the above date and was hospitalized for further evaluation of their emergent condition. Critical Care patient: No - Discharge Referral Referred to [facility] Med P.C.: No
[2017-08-06 15:59] VITALS: TEMP 97.4
[2017-08-06 18:23] VITALS: BP 148/57; PULSE 101
== END 2017-08-06 18:48 | disposition home or self-care (01) ==
LOC: JER 11:24 → JERBED 16:57 → J4W 20:51
PROVIDERS: ADMIT Internal Medicine; ATTEND Nurse Practitioner Acute Care
PROC: 3E013GC Introduction of Other Therapeutic Substance into Subcutaneous Tissue, Percutaneous Approach (ICD-10-PCS; principal; 2017-08-05)
PROC: 3E0F7GC Introduction of Other Therapeutic Substance into Respiratory Tract, Via Natural or Artificial Opening (ICD-10-PCS; 2017-08-05)
DX: I47.1 Supraventricular tachycardia (principal); I10 Essential (primary) hypertension; I25.10 Atherosclerotic heart disease of native coronary artery without angina pectoris; E78.5 Hyperlipidemia, unspecified; D64.9 Anemia, unspecified; H44.9 Unspecified disorder of globe; K21.9 Gastro-esophageal reflux disease without esophagitis; K76.0 Fatty (change of) liver, not elsewhere classified; F41.9 Anxiety disorder, unspecified; Z85.41 Personal history of malignant neoplasm of cervix uteri; Z95.5 Presence of coronary angioplasty implant and graft; Z88.0 Allergy status to penicillin; Z87.891 Personal history of nicotine dependence; Z79.82 Long term (current) use of aspirin
CPT/HCPCS: 36415; 71045-TC-FY; 80053; 80061; 81003; 82550; 83721; 83735; 84443; 84484; 85025; 93005; 93010; 94640; 96372; 99283-25; G0378

== ENCOUNTER 2017-09-02 14:26 | Emergency (ER) | payer OTHER ==
[2017-09-02 14:30] VITALS: TEMP 98.2; BMI 16.7
--- NOTE | 2017-09-02 14:30 | PDOC ---
Rapid Medical Evaluation Time Seen by Provider: 09/02/17 14:27 Medical Evaluation: Allergies Allergy/AdvReac Type Severity Reaction Status Date / Time alendronate sodium Allergy Verified 09/02/17 14:27 [From Fosamax] Penicillins Allergy Rash Verified 09/02/17 14:27 09/02/17 14:27 The patient presents with a chief complaint of: Left sided chest pain under her breast, feeling woozy and light headed since this morning. Had ablation procedure for afib on 08/03/[address] [facility] I have performed a brief in-person evaluation of this patient; Pertinent physical exam findings: ambulatory, in no respiratory distress I have ordered the following: CBC, CMP, PT/INR, Cardiac Profile, Mag, TSH, UA, CXR EKG The patient will proceed to the ED for further evaluation. Discharge Disposition - Referrals Referrals: Norma Ferrell MD [Primary Care Provider] - - Patient Instructions - Post Discharge Activity
--- NOTE | 2017-09-02 15:06 | PDOC ---
History of Present Illness - General Chief Complaint: Chest Pain Stated Complaint: CHEST PAIN,WEAKNESS Time Seen by Provider: 09/02/17 14:27 History Source: Patient Exam Limitations: No Limitations Past History - Past Medical History Allergies/Adverse Reactions: Allergies Allergy/AdvReac Type Severity Reaction Status Date / Time alendronate sodium Allergy Verified 09/02/17 14:27 [From Fosamax] Penicillins Allergy Rash Verified 09/02/17 14:27 Home Medications: Ambulatory Orders Alprazolam [Xanax] 0.25 mg PO BID PRN 08/14/15 Aspirin [Aspirin EC] 81 mg PO DAILY 08/14/15 Pantoprazole Sodium [Protonix] 40 mg PO DAILY 08/14/15 Oxycodone HCl/Acetaminophen [Percocet 5-325 mg Tablet] 1 - 2 tab PO Q4H PRN #7 tablet MDD 4 05/25/17 Albuterol Sulfate [Proair Respiclick] 08/05/17 Cyclobenzaprine HCl 10 mg PO DAILY 08/05/17 OLANZapine 12/FLUoxetine 25 [Symbyax 12-25 (Nf)] 1 cap IH DAILY 08/05/17 Diltiazem Cd [Cardizem Cd -] 120 mg PO DAILY #30 cap.cd.24h 08/06/17 Anemia: Yes (PERNICIOUS ANEMIA) Asthma: No Cancer: No Cardiac Disorders: Yes (CARDIAC STENTS) CVA: No COPD: No CHF: No DVT: No Dementia: No Diabetes: No GI Disorders: Yes (GASTRITIS, DIVERTICULOSIS,GERD,PEPTIC ULCER,COLON POLYPS) Disorders: No HTN: (BORDERLINE) Hypercholesterolemia: (HYPERLIPIDEMIA BORDERLINE) Liver Disease: No (FATTY) Seizures: No Thyroid Disease: No - Surgical History Abdominal Surgery: No Appendectomy: Yes Cardiac Surgery: Yes (CARDIAC STENTS,ablations) Cholecystectomy: Yes Lung Surgery: No Neurologic Surgery: No Orthopedic Surgery: Yes (BILAT 5TH TOE SX) - Family Disease History Family Disease History: Heart Disease: Father - Immunization History Immunization Up to Date: Yes - Suicide/Smoking/Psychosocial Hx Smoking Status: Yes Smoking History: Never smoked Have you smoked in the past 12 months: Yes Number of Cigarettes Smoked Daily: 1 If you are a former smoker, when did you quit?: 3 YR Information on smoking cessation initiated: No 'Breaking Loose' booklet given: 09/24/15 Hx Alcohol Use: No Drug/Substance Use Hx: No Substance Use Type: None Hx Substance Use Treatment: No *Physical Exam - Vital Signs Last Vital Signs Temp Pulse Resp BP Pulse Ox 98.2 F 79 18 167/72 100 09/02/17 14:27 09/02/17 14:27 09/02/17 14:27 09/02/17 14:27 09/02/17 14:27 ED Treatment Course - LABORATORY CBC & Chemistry Diagram: 09/02/17 14:54 09/02/17 14:54 *DC/Admit/Observation/Transfer - Referrals Referrals: Norma Ferrell MD [Primary Care Provider] - - Patient Instructions - Post Discharge Activity
[2017-09-02 15:07] LABS: BASO % 0.4 % (0-2.0); EOS % 2.8 % (0-4.5); HEMATOCRIT 32.9 % (32.4-45.2); LYMPH % 30.8 % (8-40); MCH 29.4 pg (25.7-33.7); MCHC 33.5 g/dl (32.0-36.0); MEAN CELL VOLUME 87.7 fl (80-96); MEAN PLT VOLUME 8.2 fl (7.5-11.1); PLATELET COUNT 311 K/MM3 (134-434); RBC 3.75 M/mm3 (3.60-5.2); RDW 14.2 % (11.6-15.6); WHITE BLOOD COUNT 3.7 K/mm3 (4.0-10.0)
--- NOTE | 2017-09-02 15:22 | PDOC ---
History of Present Illness <Rocio Casas - Last Filed: 09/02/17 15:58> - General History Source: Patient Exam Limitations: No Limitations - History of Present Illness Initial Comments: 09/02/17 15:23 Patient is an 81F with history of SVT (s/p ablation on 08/31, admission for SVT on 08/05, [facility] patient), anxiety, CAD s/p stenting, HTN, HLD, RA and osteoporosis here today complaining of dizziness. She endorses associated chest pain.She describes the pain as under her left breast that feels like gas. The pain is not improved with rest, not worsened with activity or motion. Denies history of blood clots, recent travel, unilateral leg swelling. Denies fevers, chills, nausea, vomiting, palpitations. She states that she only ate some cheerios and thinks her chest pain might be related to her not eating. <Rambo Cramer - Last Filed: 09/02/17 16:43> - General Chief Complaint: Chest Pain Stated Complaint: CHEST PAIN,WEAKNESS Time Seen by Provider: 09/02/17 14:27 Past History <Rocio Casas - Last Filed: 09/02/17 15:58> - Past Medical History Anemia: Yes (PERNICIOUS ANEMIA) Asthma: No Cancer: No Cardiac Disorders: Yes (CARDIAC STENTS) CVA: No COPD: No CHF: No DVT: No Dementia: No Diabetes: No GI Disorders: Yes (GASTRITIS, DIVERTICULOSIS,GERD,PEPTIC ULCER,COLON POLYPS) Disorders: No HTN: (BORDERLINE) Hypercholesterolemia: (HYPERLIPIDEMIA BORDERLINE) Liver Disease: No (FATTY) Seizures: No Thyroid Disease: No - Surgical History Abdominal Surgery: No Appendectomy: Yes Cardiac Surgery: Yes (CARDIAC STENTS,ablations) Cholecystectomy: Yes Lung Surgery: No Neurologic Surgery: No Orthopedic Surgery: Yes (BILAT 5TH TOE SX) - Family Disease History Family Disease History: Heart Disease: Father - Immunization History Immunization Up to Date: Yes - Suicide/Smoking/Psychosocial Hx Smoking Status: Yes Smoking History: Never smoked Have you smoked in the past 12 months: Yes Number of Cigarettes Smoked Daily: 1 If you are a former smoker, when did you quit?: 3 YR Information on smoking cessation initiated: No 'Breaking Loose' booklet given: 09/24/15 Hx Alcohol Use: No Drug/Substance Use Hx: No Substance Use Type: None Hx Substance Use Treatment: No <Rambo Cramer - Last Filed: 09/02/17 16:43> - Past Medical History Allergies/Adverse Reactions: Allergies Allergy/AdvReac Type Severity Reaction Status Date / Time alendronate sodium Allergy Verified 09/02/17 14:27 [From Fosamax] Penicillins Allergy Rash Verified 09/02/17 14:27 Review of Systems - Review of Systems Comments:: 09/02/17 15:28 GENERAL/CONSTITUTIONAL: No fever or chills. No weakness. HEAD, EYES, EARS, NOSE AND THROAT: No change in vision. No sore throat. CARDIOVASCULAR: Positive for chest pain. Negative for shortness of breath RESPIRATORY: No cough, wheezing, or hemoptysis. GASTROINTESTINAL: No nausea, vomiting, diarrhea or constipation. GENITOURINARY: No dysuria, frequency, or change in urination. MUSCULOSKELETAL: Positive for pain in left wrist and both feet. SKIN: No rash NEUROLOGIC: No headache, vertigo, loss of consciousness, or change in strength/ sensation. ENDOCRINE: No increased thirst. No abnormal weight change HEMATOLOGIC/LYMPHATIC: No anemia, easy bleeding, or history of blood clots. ALLERGIC/IMMUNOLOGIC: No hives or skin allergy. <Rambo Cramer - Last Filed: 09/02/17 16:43> *Physical Exam - Vital Signs Last Vital Signs Temp Pulse Resp BP Pulse Ox 98.2 F 73 18 167/72 100 09/02/17 14:27 09/02/17 15:24 09/02/17 14:27 09/02/17 14:27 09/02/17 15:24 <Rocio Casas - Last Filed: 09/02/17 15:58> - Vital Signs Last Vital Signs Temp Pulse Resp BP Pulse Ox 98.2 F 79 18 167/72 100 09/02/17 14:27 09/02/17 14:27 09/02/17 14:27 09/02/17 14:27 09/02/17 14:27 - Physical Exam Comments: 09/02/17 15:29 GENERAL: Awake, alert, and fully oriented, in no acute distress HEAD: No signs of trauma, normocephalic, atraumatic EYES: PERRLA, EOMI, sclera anicteric, conjunctiva clear ENT: Auricles normal inspection, hearing grossly normal, nares patent, oropharynx clear without exudates. Moist mucosa NECK: Normal ROM, supple, no lymphadenopathy, JVD, or masses LUNGS: No distress, speaks full sentences, clear to auscultation bilaterally HEART: Regular rate and rhythm, normal S1 and S2, no murmurs, rubs or gallops, peripheral pulses normal and equal bilaterally. ABDOMEN: Soft, nontender, normoactive bowel sounds. No guarding, no rebound. No masses EXTREMITIES: Normal inspection, Normal range of motion, no edema. No clubbing or cyanosis. NEUROLOGICAL: Cranial nerves II through XII grossly intact. Normal speech, normal gait, no focal sensorimotor deficits SKIN: Warm, Dry, normal turgor, no rashes or lesions noted. <Rambo Cramer - Last Filed: 09/02/17 16:43> ED Treatment Course - LABORATORY CBC & Chemistry Diagram: 09/02/17 14:54 09/02/17 14:54 - ADDITIONAL ORDERS Additional order review: Laboratory Results 09/02/17 09/02/17 09/02/17 14:54 14:54 14:53 Sodium 139 Potassium 4.3 Chloride 104 Carbon Dioxide 24 Anion Gap 11 BUN 16 Creatinine 0.9 Creat Clearance w eGFR > 60 Random Glucose 88 Calcium 8.8 Magnesium 2.0 Total Bilirubin 0.4 D AST 17 ALT 10 L Alkaline Phosphatase 115 Creatine Kinase 67 Troponin I 0.10 H Total Protein 7.0 Albumin 3.7 Urine Color Urine Appearance Urine pH Ur Specific [place] Urine Protein Urine Glucose (UA) Urine Ketones Urine Blood Urine Nitrite Urine Bilirubin Urine Urobilinogen Ur Leukocyte Esterase 09/02/17 14:28 Sodium Potassium Chloride Carbon Dioxide Anion Gap BUN Creatinine Creat Clearance w eGFR Random Glucose Calcium Magnesium Total Bilirubin AST ALT Alkaline Phosphatase Creatine Kinase Troponin I Total Protein Albumin Urine Color Ltyellow Urine Appearance Clear Urine pH 6.0 Ur Specific [place] 1.009 Urine Protein Negative Urine Glucose (UA) Negative Urine Ketones Negative Urine Blood Negative Urine Nitrite Negative Urine Bilirubin Negative Urine Urobilinogen Negative Ur Leukocyte Esterase Negative 09/02/17 14:54 RBC 3.75 MCV 87.7 MCHC 33.5 RDW 14.2 MPV 8.2 Neutrophils % 57.0 D Lymphocytes % 30.8 D Monocytes % 9.0 Eosinophils % 2.8 Basophils % 0.4 <Rocio Casas - Last Filed: 09/02/17 15:58> - LABORATORY CBC & Chemistry Diagram: 09/02/17 14:54 09/02/17 14:54 - ADDITIONAL ORDERS Additional order review: 09/02/17 14:54 RBC 3.75 MCV 87.7 MCHC 33.5 RDW 14.2 MPV 8.2 Neutrophils % 57.0 D Lymphocytes % 30.8 D Monocytes % 9.0 Eosinophils % 2.8 Basophils % 0.4 <Rambo Cramer - Last Filed: 09/02/17 16:43> Medical Decision Making - Medical Decision Making 09/02/17 15:58 Dr. Monterroso was paged and notified via phone service. <Rocio Casas - Last Filed: 09/02/17 15:58> - Medical Decision Making 09/02/17 15:29 Patient is 81F with history of CAD s/p stenting, SVT s/p ablation 2 days ago, RA , osteoporosis, anxiety, HTN, HLD here today complaining of chest pain. Vital signs normal and stable. DDx includes, but is not limited to: gastritis, acs, arrhythmias. EKG shows normal sinus rhythm with rate of 73. Normal axis. No st elevations/ depressions. Normal QRS/QTc/DE intervals. Good r wave progression. 09/02/17 15:58 Laboratory Tests 09/02/17 09/02/17 09/02/17 14:28 14:53 14:54 WBC 3.7 L Hgb 11.0 Hct 32.9 Plt Count 311 Troponin I 0.10 H Urine Nitrite Negative Ur Leukocyte Esterase Negative CBC normal. Troponin elevated to .10, UA negative. Troponin elevation is confounded by recent ablation. Dr Monterroso, patient's communications supervisor, paged for consult. 09/02/17 16:10 Dr Monterroso consulted, chest pain is atypical, believes that troponin is due to ablation two days ago, safe to discharge. Patient reports her symptoms have resolved. CXR pending 09/02/17 16:41 CXR shows no acute cardiopulmonary process. Will discharge with pcp, cardiology follow up and return precautions. <Rambo Cramer - Last Filed: 09/02/17 16:43> *DC/Admit/Observation/Transfer <Rocio Casas - Last Filed: 09/02/17 15:58> - Discharge Dispostion Admit: No <Rambo Cramer - Last Filed: 09/02/17 16:43> Diagnosis at time of Disposition: Dizziness - Discharge Dispostion Disposition: HOME Condition at time of disposition: Good - Referrals Referrals: Norma Ferrell MD [Primary Care Provider] - - Patient Instructions Additional Instructions: You were seen today in the ED for dizziness. Please return if you have any new, worsening or concerning symptoms. Please attempt to drink plenty of fluids and eat normally. Please follow up with your communications supervisor and PCP in the next week. - Post Discharge Activity
[2017-09-02 15:32] LABS: URINE APPEARANCE CLEAR; URINE BILIRUBIN NEGATIVE (<2.0 mg/dL); URINE BLOOD NEGATIVE (NEGATIVE); URINE COLOR LTYELLOW; URINE GLUCOSE (UA) NEGATIVE (NEGATIVE); URINE KETONE NEGATIVE (NEGATIVE); URINE LEUK ESTERASE NEGATIVE (NEGATIVE); URINE NITRITE NEGATIVE (NEGATIVE); URINE PROTEIN NEGATIVE (NEGATIVE); URINE UROBILINOGEN NEGATIVE mg/dL (0.2-1.0)
[2017-09-02 15:40] LABS: ALBUMIN 3.7 g/dl (3.4-5.0); ANION GAP 11 (8-16); BILIRUBIN,TOTAL 0.4 mg/dL (0.2-1.0); BLOOD UREA NITROGEN 16 mg/dL (7-18); CALCIUM 8.8 mg/dL (8.5-10.1); CHLORIDE 104 mmol/L (98-107); CO2 24 mmol/L (21-32); CREATININE 0.9 mg/dL (0.55-1.02); GLUCOSE,RANDOM 88 mg/dL (74-106); POTASSIUM 4.3 mmol/L (3.5-5.1); SGOT/AST 17 U/L (15-37); SGPT/ALT 10 U/L (12-78); SODIUM 139 mmol/L (136-145)
[2017-09-02 15:41] LABS: ALK PHOS 115 U/L (45-117)
[2017-09-02] MEDS ORDERED: FAMOTIDINE IV 20 MG/12 ML VIAL IVPB ONE (15:52)
[2017-09-02] MEDS ORDERED: SODIUM CHLORIDE 500 ML IV STA (15:52)
[2017-09-02] MEDS ORDERED: ASPIRIN 81 MG CHEWABLE TABLETS PO ONE (15:54)
[2017-09-02 16:01] LABS: INR 1.18 (0.82-1.09); PROTHROMBIN TIME (PATIENT) 13.3 SEC (9.98-11.88)
[2017-09-02] MEDS ORDERED: ASPIRIN 81 MG CHEWABLE TABLETS ONE (16:08)
[2017-09-02] MEDS ORDERED: FAMOTIDINE 20 MG/50 ML IVPB 20 MG/50 ML MG IVPB ONE (16:08)
--- NOTE | 2017-09-02 17:07 | PDOC ---
Attending Attestation - Resident Resident Name: Rambo Cramer - ED Attending Attestation I have performed the following: I have examined & evaluated the patient, The case was reviewed & discussed with the resident, I agree w/resident's findings & plan, Exceptions are as noted - HPI HPI: 09/02/17 17:02 81 yo F presents to the ER with a complaint of dizziness Briefly, she recently was admitted to the Hospital for SVT, resolved s/p Adenosine She is 2 days s/p ablation at outside hospital She presents to the ER due to dizziness She states she didn't want to come in to the ER but wanted to get her symptoms checked out No chest pain No dizziness currently - Physicial Exam PE: 09/02/17 17:04 Pt appears younger than stated age RRR CTA No abd tenderness No lower extremity edema - Medical Decision Making 09/02/17 17:05 81 yo F p/w dizziness 09/02/17 17:05 Laboratory Tests 09/02/17 09/02/17 14:53 14:54 WBC 3.7 L Hgb 11.0 Hct 32.9 Plt Count 311 Troponin I 0.10 H Case reviewed with Dr Monterroso He expects that trop would be slightly elevated given recent procedure He states pt can be discharged to home Pt is in total agreement She is upset that she missed [facility] Clinical Impression: Transient dizziness, initial presentation
[2017-09-02 17:17] VITALS: BP 159/79; PULSE 70
--- NOTE | 2017-09-05 11:39 | EKG ---
Test Reason : Blood Pressure : / mmHG Vent. Rate : 073 BPM Atrial Rate : 073 BPM P-R Int : 148 ms QRS Dur : 078 ms QT Int : 366 ms P-R-T Axes : 079 071 077 degrees QTc Int : 403 ms NORMAL SINUS RHYTHM NORMAL ECG WHEN COMPARED WITH ECG OF 06-AUG-2017 11:07, NO SIGNIFICANT CHANGE WAS FOUND Confirmed by ERAN HARTMAN MD ([id number]) on 09/05/2017 11:39:09 AM Referred By: Confirmed By:ERAN HARTMAN MD
== END 2017-09-02 17:16 | disposition home or self-care (01) ==
LOC: JER 14:26
PROC: 3E033GC Introduction of Other Therapeutic Substance into Peripheral Vein, Percutaneous Approach (ICD-10-PCS; principal; 2017-09-02)
DX: R42 Dizziness and giddiness (principal); I25.10 Atherosclerotic heart disease of native coronary artery without angina pectoris; I10 Essential (primary) hypertension; Z95.5 Presence of coronary angioplasty implant and graft; Z87.891 Personal history of nicotine dependence; E78.5 Hyperlipidemia, unspecified; Z87.19 Personal history of other diseases of the digestive system
CPT/HCPCS: 36415; 71045-TC-FY; 80053; 81003; 82550; 83735; 84443; 84484; 85025; 85610; 93005; 93010; 96365; 99285-25

== ENCOUNTER 2017-09-20 17:04 | Emergency (ER) | payer OTHER ==
[2017-09-20 17:19] VITALS: PULSE 77; BMI 16.5
--- NOTE | 2017-09-20 17:41 | PDOC ---
History of Present Illness - General Chief Complaint: Chest Pain Stated Complaint: CHEST PAIN/ FATIGUE Time Seen by Provider: 09/20/17 17:24 History Source: Patient - History of Present Illness Initial Comments: 09/20/17 18:00 81 year old female with anemia, CAD (s/p stents), COPD, GERD, HTN, diverticulosis as well as recent (08/31) ablation who presents to the ED c/o acute onset of lightheadedness. Denies any association chest pain, nausea/ vomiting, diaphoresis, palpitations, syncope. Also c/o L sided back pain, possibly 2/2 to heavy lifting yesterday. Patient notes she has had intermittent episodes of palpitations following her ablation, however was told this was expected. Patient denies any shortness of breath, cough, abdominal pain, diarrhea/ constipation, dysuria/hematuria, fever/chills or recent travel. A Past History - Past Medical History Allergies/Adverse Reactions: Allergies Allergy/AdvReac Type Severity Reaction Status Date / Time alendronate sodium Allergy Verified 09/20/17 17:09 [From Fosamax] Penicillins Allergy Rash Verified 09/20/17 17:09 Home Medications: Ambulatory Orders Albuterol Sulfate [Proair Hfa] 8.5 gm IH DAILY 09/02/17 Alprazolam [Xanax] 0.25 mg PO DAILY 09/02/17 Aspirin 81 mg PO DAILY 09/02/17 Budesonide/Formeterol Fumarate [SYMBICORT 160/4.5mcg -] 1 inh PO BID 09/02/17 Diltiazem HCl [Cartia Xt] 120 mg PO DAILY 09/02/17 Oxycodone HCl 5 mg PO PRN PRN 09/02/17 Teriparatide [Forteo] 2.4 ml SQ HS 09/20/17 Anemia: Yes (PERNICIOUS ANEMIA) Asthma: No Cancer: No Cardiac Disorders: Yes (CARDIAC STENTS) CVA: No COPD: No CHF: No DVT: No Dementia: No Diabetes: No GI Disorders: Yes (GASTRITIS, DIVERTICULOSIS,GERD,PEPTIC ULCER,COLON POLYPS) Disorders: No HTN: (BORDERLINE) Hypercholesterolemia: (HYPERLIPIDEMIA BORDERLINE) Liver Disease: No (FATTY) Seizures: No Thyroid Disease: No - Surgical History Abdominal Surgery: No Appendectomy: Yes Cardiac Surgery: Yes (CARDIAC STENTS,ablations) Cholecystectomy: Yes Lung Surgery: No Neurologic Surgery: No Orthopedic Surgery: Yes (BILAT 5TH TOE SX) - Family Disease History Family Disease History: Heart Disease: Father - Immunization History Immunization Up to Date: Yes - Suicide/Smoking/Psychosocial Hx Smoking Status: Yes Smoking History: Former smoker Have you smoked in the past 12 months: Yes Number of Cigarettes Smoked Daily: 1 If you are a former smoker, when did you quit?: 3 YR Information on smoking cessation initiated: No 'Breaking Loose' booklet given: 09/24/15 Hx Alcohol Use: No Drug/Substance Use Hx: No Substance Use Type: None Hx Substance Use Treatment: No *Physical Exam - Vital Signs Last Vital Signs Temp Pulse Resp BP Pulse Ox 98.3 F 77 19 150/76 98 09/20/17 17:09 09/20/17 17:09 09/20/17 17:09 09/20/17 17:09 09/20/17 17:09 ED Treatment Course - LABORATORY CBC & Chemistry Diagram: 09/20/17 17:36 09/20/17 17:36 Medical Decision Making - Medical Decision Making 09/20/17 18:06 81 year old female who presents to ED c/o chest pain, h/o CAD (s/p stents) and recent cardiac ablation. Clinical concern for ACS. Will obtain Troponin x2. Reasess. 09/20/17 18:54 Troponin (-) x1. 09/20/17 18:[address] Raza (Resident) in stable condition. *DC/Admit/Observation/Transfer Diagnosis at time of Disposition: Light-headed feeling - Discharge Dispostion Disposition: HOME - Referrals - Patient Instructions Printed Discharge Instructions: DI for Dizziness-Nonvertigo Additional Instructions: Come back to the ER for any new, worsening or concerning symptom. Follow up with your primary provider within 2-3 days. - Post Discharge Activity
[2017-09-20 17:45] LABS: BASO % 0.7 % (0-2.0); EOS % 2.3 % (0-4.5); HEMATOCRIT 34.3 % (32.4-45.2); HEMOGLOBIN 11.4 GM/dL (10.7-15.3); LYMPH % 31.2 % (8-40); MCH 28.8 pg (25.7-33.7); MCHC 33.1 g/dl (32.0-36.0); MEAN PLT VOLUME 7.6 fl (7.5-11.1); MONO % 9.5 % (3.8-10.2); NEUT % 56.3 % (42.8-82.8); PLATELET COUNT 301 K/MM3 (134-434); RBC 3.94 M/mm3 (3.60-5.2); RDW 14.2 % (11.6-15.6); WHITE BLOOD COUNT 5.2 K/mm3 (4.0-10.0)
[2017-09-20 18:00] LABS: INR 1.14 (0.82-1.09); PROTHROMBIN TIME (PATIENT) 12.9 SEC (9.98-11.88)
[2017-09-20 18:10] LABS: ALBUMIN 3.8 g/dl (3.4-5.0); ANION GAP 5 (8-16); BILIRUBIN,TOTAL 0.3 mg/dL (0.2-1.0); BLOOD UREA NITROGEN 16 mg/dL (7-18); CALCIUM 8.6 mg/dL (8.5-10.1); CHLORIDE 104 mmol/L (98-107); CO2 27 mmol/L (21-32); CREATININE 1.2 mg/dL (0.55-1.02); GLUCOSE,RANDOM 82 mg/dL (74-106); POTASSIUM 4.3 mmol/L (3.5-5.1); SGOT/AST 12 U/L (15-37); SGPT/ALT 15 U/L (12-78); SODIUM 136 mmol/L (136-145); TOT PROT 7.4 g/dl (6.4-8.2)
[2017-09-20 18:12] LABS: ALK PHOS 123 U/L (45-117)
[2017-09-20] MEDS ORDERED: SODIUM CHLORIDE 0.9% 500 ML INFUS.BAG IV ONE (18:19)
--- NOTE | 2017-09-20 18:40 | PDOC ---
Attending Attestation - Resident Resident Name: Lesley Benjamin - ED Attending Attestation I have performed the following: I have examined & evaluated the patient, The case was reviewed & discussed with the resident, I agree w/resident's findings & plan, Exceptions are as noted - HPI HPI: 09/20/17 18:37 "The patient is an 81 year old female with past medical history of hypertension , CAD s/p stents, COPD, GERD, diverticulitis, and recent SVT ablation who presents to the ED for complaints of lightheadedness that occurred today. The patient states that she was at work when she became lightheaded and woozy which subsided after she sat down for a few moments. She denies experiencing any palpitations or LOC during this episode. Following this episode she began to feel a soreness in her L upper back. She relates it to having lifted heavy furniture yesterday. She denies chest pain. She denies any shortness of breath, cough, nausea, vomiting, diarrhea, or urinary symptoms. Denies any fever or chills. Denies leg swelling. Pt admits to eating very poorly recently. Denies nausea or abdominal pain. - Physicial Exam PE: 09/20/17 18:38 "GENERAL: Awake, alert, and fully oriented, in no acute distress. HEAD: No signs of trauma EYES: PERRLA, EOMI, sclera anicteric, conjunctiva clear ENT: Auricles normal inspection, hearing grossly normal, nares patent, oropharynx clear without exudates. Moist mucosa NECK: Nontender, no stepoffs, Normal ROM, supple, no lymphadenopathy, JVD, or masses LUNGS: Breath sounds equal, clear to auscultation bilaterally. No wheezes, and no crackles HEART: Regular rate and rhythm, normal S1 and S2, no murmurs, rubs or gallops ABDOMEN: Soft, nontender, normoactive bowel sounds. No guarding, no rebound. No masses EXTREMITIES: Normal range of motion, no edema. No clubbing or cyanosis. No cords, erythema, or tenderness NEUROLOGICAL: Cranial nerves II through XII intact. 5/5 strength and sensation in all extremities, Normal speech, normal gait, normal cerebellar function SKIN: Warm, Dry, normal turgor, no rashes or lesions noted. " - Medical Decision Making 04/17/18 18:39 81 F with lightheadedness and L upper back pain x 1 day. Lightheadedness may be 2/2 dehydration as pt admits to poor PO. Back pain likely msk in context of recent heavy lifting. Pt denies chest pain or shortness of breath, but will r/o atypical presentation of ACS. Pt with normal vitals in ER. - Labs, trop - CXR, UA - Gentle IVF 09/20/17 19:20 Pt signed out to oncoming attending Dr. Barcenas at 7PM, pending labs, XR, re- evaluation, and possible admission to tele obs. Oncoming Emergency Physician has assumed care for the patient and will complete the evaluation and treatment. Patient is aware of the plan. Heart Score/ECG Review - ECG Impressions Comment:: 09/20/17 18:38 NSR, no SALTY/STDs, no TWIs, axis wnl, intervals wnl, rate 64
[2017-09-20 19:54] LABS: URINE APPEARANCE CLEAR; URINE BILIRUBIN NEGATIVE (<2.0 mg/dL); URINE BLOOD NEGATIVE (NEGATIVE); URINE COLOR STRAW; URINE GLUCOSE (UA) NEGATIVE (NEGATIVE); URINE KETONE NEGATIVE (NEGATIVE); URINE LEUK ESTERASE NEGATIVE (NEGATIVE); URINE NITRITE NEGATIVE (NEGATIVE); URINE PROTEIN NEGATIVE (NEGATIVE); URINE UROBILINOGEN NEGATIVE mg/dL (0.2-1.0)
--- NOTE | 2017-09-20 22:27 | PDOC ---
*Physical Exam - Vital Signs Last Vital Signs Temp Pulse Resp BP Pulse Ox 98.3 F 77 19 150/76 98 09/20/17 17:09 09/20/17 17:09 09/20/17 17:09 09/20/17 17:09 09/20/17 18:19 ED Treatment Course - LABORATORY CBC & Chemistry Diagram: 09/20/17 17:36 09/20/17 17:36 - ADDITIONAL ORDERS Additional order review: Laboratory Results 09/20/17 09/20/17 09/20/17 21:30 17:50 17:48 PT with INR INR Sodium Potassium Chloride Carbon Dioxide Anion Gap BUN Creatinine Creat Clearance w eGFR Random Glucose Calcium Total Bilirubin AST ALT Alkaline Phosphatase Creatine Kinase 68 Troponin I < 0.02 B-Natriuretic Peptide 237.72 Total Protein Albumin Urine Color Straw Urine Appearance Clear Urine pH 6.0 Ur Specific [place] 1.004 Urine Protein Negative Urine Glucose (UA) Negative Urine Ketones Negative Urine Blood Negative Urine Nitrite Negative Urine Bilirubin Negative Urine Urobilinogen Negative Ur Leukocyte Esterase Negative 09/20/17 09/20/17 17:36 17:36 PT with INR 12.90 H INR 1.14 Sodium 136 Potassium 4.3 Chloride 104 Carbon Dioxide 27 Anion Gap 5 L BUN 16 Creatinine 1.2 H Creat Clearance w eGFR 43.23 Random Glucose 82 Calcium 8.6 Total Bilirubin 0.3 D AST 12 L ALT 15 Alkaline Phosphatase 123 H Creatine Kinase 80 Troponin I < 0.02 B-Natriuretic Peptide Total Protein 7.4 Albumin 3.8 Urine Color Urine Appearance Urine pH Ur Specific [place] Urine Protein Urine Glucose (UA) Urine Ketones Urine Blood Urine Nitrite Urine Bilirubin Urine Urobilinogen Ur Leukocyte Esterase 09/20/17 17:36 RBC 3.94 MCV 87.0 MCHC 33.1 RDW 14.2 MPV 7.6 Neutrophils % 56.3 Lymphocytes % 31.2 Monocytes % 9.5 Eosinophils % 2.3 Basophils % 0.7 - Medications Given in the ED: ED Medications Discontinued Medications Generic Name Dose Route Start Last Admin Trade Name Freq PRN Reason Stop Dose Admin Sodium Chloride 1,000 ml 09/20/17 18:19 09/20/17 18:21 Normal Saline - IV 09/20/17 18:20 1,000 ml ONCE ONE Administration Medical Decision Making - Medical Decision Making 09/20/17 22:25 second troponin neg *DC/Admit/Observation/Transfer Diagnosis at time of Disposition: Light-headed feeling - Discharge Dispostion Disposition: HOME Admit: No - Referrals - Patient Instructions Printed Discharge Instructions: DI for Dizziness-Nonvertigo Additional Instructions: Come back to the ER for any new, worsening or concerning symptom. Follow up with your primary provider within 2-3 days. - Post Discharge Activity
[2017-09-20 22:49] VITALS: BP 144/77; TEMP 97.8
--- NOTE | 2017-09-21 11:43 | EKG ---
Test Reason : Blood Pressure : / mmHG Vent. Rate : 064 BPM Atrial Rate : 064 BPM P-R Int : 154 ms QRS Dur : 084 ms QT Int : 386 ms P-R-T Axes : 068 065 069 degrees QTc Int : 398 ms NORMAL SINUS RHYTHM POSSIBLE LEFT ATRIAL ENLARGEMENT BORDERLINE ECG WHEN COMPARED WITH ECG OF 02-SEP-2017 14:39, NO SIGNIFICANT CHANGE WAS FOUND Confirmed by JASMYNE JARQUIN, SHAYLA ([id number]) on 09/21/2017 11:43:35 AM Referred By: Confirmed By:SHAYLA MEDLEY MD
== END 2017-09-20 22:51 | disposition home or self-care (01) ==
LOC: JER 17:04
DX: R42 Dizziness and giddiness (principal); I25.10 Atherosclerotic heart disease of native coronary artery without angina pectoris; I10 Essential (primary) hypertension; Z95.5 Presence of coronary angioplasty implant and graft; J44.9 Chronic obstructive pulmonary disease, unspecified; K21.9 Gastro-esophageal reflux disease without esophagitis; D51.0 Vitamin B12 deficiency anemia due to intrinsic factor deficiency; Z85.41 Personal history of malignant neoplasm of cervix uteri; Z79.82 Long term (current) use of aspirin; Z88.8 Allergy status to other drugs, medicaments and biological substances
CPT/HCPCS: 36415; 71045-TC-FY; 80053; 81003; 82550; 83880; 84484; 85025; 85610; 93005; 93010; 99284-25

== ENCOUNTER 2017-12-27 08:42 | Day surgery (SDC) | payer OTHER ==
[2017-12-27] MEDS ORDERED: CYANOCOBALAMIN (VITAMIN B-12) 1000 MCG/1 ML VIAL SQ ONE (09:30)
[2017-12-27] MEDS ORDERED: IRON SUCROSE INJECTION 200 MG in SODIUM CHLORIDE 100 ML IVPB ONE (09:30)
[2017-12-27 09:39] VITALS: BP 133/74; PULSE 76
== END 2017-12-27 11:15 | disposition home or self-care (01) ==
LOC: FINFUSION 08:42 → FM/S 08:47 → FINFUSION 11:15
PROVIDERS: ATTEND Internal Medicine Hematology & Oncology
PROC: 3E033GC Introduction of Other Therapeutic Substance into Peripheral Vein, Percutaneous Approach (ICD-10-PCS; principal; 2017-12-27)
PROC: 3E013GC Introduction of Other Therapeutic Substance into Subcutaneous Tissue, Percutaneous Approach (ICD-10-PCS; 2017-12-27)
DX: E61.1 Iron deficiency (principal)
CPT/HCPCS: J1756

== ENCOUNTER 2018-04-18 18:29 | Emergency (ER) | payer OTHER ==
[2018-04-18 18:40] VITALS: TEMP 97.7; BMI 15.5
--- NOTE | 2018-04-18 18:40 | PDOC ---
Rapid Medical Evaluation Time Seen by Provider: 04/18/18 18:35 Medical Evaluation: Allergies Allergy/AdvReac Type Severity Reaction Status Date / Time alendronate sodium Allergy Verified 12/20/17 11:52 [From Fosamax] Penicillins Allergy Rash Verified 12/20/17 11:52 I have performed a brief in-person evaluation of this patient. The patient presents with a chief complaint of: difficulty breathing tonight. Hx of COPD. Patient is a smoker - hasn't smoked in 10 days. hx of ablations and cardiac stents Pertinent physical exam findings: 2-3 words spoken per breath. CTAB I have ordered the following: labs, CXR, EKG, O2 via nasal cannula The patient will proceed to the ED for further evaluation. Discharge Disposition - Diagnosis Difficulty breathing - Referrals - Patient Instructions - Post Discharge Activity
--- NOTE | 2018-04-18 18:55 | PDOC ---
History of Present Illness - General Chief Complaint: Shortness of Breath Stated Complaint: Shortness of Breath Time Seen by Provider: 04/18/18 18:35 History Source: Patient - History of Present Illness Initial Comments: 04/18/18 18:56 The patient is an 82 year old female with a PMH of CAD (s/p stents x2, ablation in 08/2017), COPD (not on home O2), GERD, HTN, Sciatic, Spinal Stenosis, Cervical CA, Anemia and Diverticulosis presents to the ED c/o 1 day h/o shortness of breath. Patient states the shortness of breath became increasing progressive over the day prompting her visit to the ED this evening. Intermittently uses breathing treatments @ home, however did not do so today Endorses associated productive (yellowish sputum) cough that is baseline. Denies chest pain. Last COPD exacerbation was 1 year previous. Allergy: Penicillin, Fosfomax Surgical: hysterectomy, stent x2, B/L knee surgery Social: remote smoking history, denies other toxic habits PMD: Dr. Ferrell Cardiology: Dr. Suárez As per EMR, patient evaluated in 08/2017 for SVT and later chest pain s/p ablation. More recently patient evaluated for weakness in 12/2017. Head CT negative for ischemia, patient discharged home with supportive care. Past History - Past Medical History Allergies/Adverse Reactions: Allergies Allergy/AdvReac Type Severity Reaction Status Date / Time alendronate sodium Allergy Verified 12/20/17 11:52 [From Fosamax] Penicillins Allergy Rash Verified 12/20/17 11:52 Home Medications: Ambulatory Orders Albuterol Sulfate [Proair Hfa] 8.5 gm IH DAILY 09/02/17 Alprazolam [Xanax] 0.25 mg PO DAILY PRN 09/02/17 Aspirin 81 mg PO DAILY 09/02/17 Budesonide/Formeterol Fumarate [SYMBICORT 160/4.5mcg -] 1 inh PO BID 09/02/17 Diltiazem HCl [Cartia Xt] 120 mg PO DAILY 09/02/17 Oxycodone HCl 10 mg PO PRN PRN 09/02/17 Teriparatide [Forteo] 2.4 ml SQ HS 09/20/17 Cyclobenzaprine HCl [Flexeril -] 10 mg PO DAILY 12/20/17 Folic Acid 1 mg PO DAILY 12/20/17 Methotrexate Sodium [Trexall] 7.5 mg PO WEEKLY 12/20/17 Pantoprazole Sodium [Protonix -] 40 mg PO DAILY 12/20/17 Citalopram Hydrobromide [Citalopram HBr] 10 mg PO DAILY 04/18/18 Levofloxacin [Levaquin] 500 mg PO DAILY #7 tablet 04/18/18 Prednisone [Deltasone] 40 mg PO DAILY #5 tablet 04/18/18 Anemia: Yes (PERNICIOUS ANEMIA) Asthma: No Cancer: No Cardiac Disorders: Yes (CARDIAC STENTS) CVA: No COPD: Yes CHF: No DVT: No Dementia: No Diabetes: No GI Disorders: Yes (GASTRITIS, DIVERTICULOSIS,GERD,PEPTIC ULCER,COLON POLYPS) Disorders: No HTN: Yes Hypercholesterolemia: (HYPERLIPIDEMIA BORDERLINE) Liver Disease: No (FATTY) Seizures: No Thyroid Disease: No - Surgical History Abdominal Surgery: No Appendectomy: Yes Cardiac Surgery: Yes (CARDIAC STENTS,ablations) Cholecystectomy: Yes Lung Surgery: No Neurologic Surgery: No Orthopedic Surgery: Yes (BILAT 5TH TOE SX) - Family Disease History Family Disease History: Heart Disease: Father - Immunization History Immunization Up to Date: Yes - Suicide/Smoking/Psychosocial Hx Smoking Status: Yes Smoking History: Former smoker Have you smoked in the past 12 months: Yes Number of Cigarettes Smoked Daily: 1 If you are a former smoker, when did you quit?: 10d Information on smoking cessation initiated: No 'Breaking Loose' booklet given: 01/10/18 Hx Alcohol Use: No Drug/Substance Use Hx: No Substance Use Type: None Hx Substance Use Treatment: No Review of Systems - Review of Systems Constitutional: No: Chills, Fever Respiratory: Yes: SOB with Exertion, SOB at Rest, Productive cough. No: Hemoptysis Cardiac (ROS): No: Chest Pain, Lightheadedness, Palpitations, Syncope ABD/GI: No: Constipated, Diarrhea, Nausea, Vomiting *Physical Exam - Vital Signs Last Vital Signs Temp Pulse Resp BP Pulse Ox 97.7 F 82 16 139/69 99 04/18/18 18:36 04/18/18 18:36 04/18/18 18:36 04/18/18 18:36 04/18/18 18:36 - Physical Exam Comments: 04/18/18 19:48 Oxygen tank, baseline General Appearance: Yes: Nourished, Thin HEENT: negative: Pharyngeal Erythema, Nasal Congestion Neck: positive: Trachea midline, Supple Respiratory/Chest: positive: Decreased Breath Sounds Cardiovascular: positive: S1, S2. negative: Edema, JVD Vascular Pulses: Dorsalis-Pedis (R): 2+, Doralis-Pedis (L): 2+ Gastrointestinal/Abdominal: positive: Soft. negative: Distended, Guarding, Rebound, Tenderness Extremity: positive: Normal Capillary Refill, Normal Inspection Integumentary: positive: Normal Color, Dry, Warm Neurologic: positive: Fully Oriented, Alert Heart Score/ECG Review - ECG Impressions Comment:: 04/18/18 19:28 NSR HR 78, normal axis, no deviations, no SALTY/STD/TWI, poor R wave progression V1-V6 ED Treatment Course - LABORATORY CBC & Chemistry Diagram: 04/18/18 18:59 04/18/18 18:59 Medical Decision Making - Medical Decision Making 04/18/18 19:14 82 year old female presents w/1 day h/o worsening shortness of breath. Advanced COPD on home O2. Will treat for presumed COPD exacerbation, however will r/o ACS also consider PNA, new onset CHF (latter less likely given no peripheral edema, no S3. Low clinical suspicion for PE given patient's VS, non- hypoxic, non-tachvcardic, no crackles, no peripheral edema- will refrain from CTA at this time. Reassess. 04/18/18 20:34 Patient reassessed @ bedside States she is refusing admission - will obtain CTA in light of patient's refusal for admission 04/18/18 21:19 CBC, CMP unremarkable Trop (-) CXR shows mild pulmonary vascular congestion, clear costophrenic angles 04/18/18 21:21 Patient reassessed @ bedside 100% on RA 04/18/18 22:30 CT chest negative. At this time patient is SpO2 @ 94% on RA. Lung exam shows increased air flow with more audible breath sounds w/o wheezes Will discharge home with return precautions, antibiotics, 5 day course of steroids. Clinical Impression: COPD exacerbation I discussed the physical exam findings, ancillary test results and final diagnoses with the patient. I answered all of the patient's questions. The patient was satisfied with the care received and felt comfortable with the discharge plan and treatment plan. The patient will return to the Emergency Department with any new, persistent or worsening symptoms. *DC/Admit/Observation/Transfer Diagnosis at time of Disposition: Difficulty breathing - Discharge Dispostion Disposition: HOME Condition at time of disposition: Good Decision to Admit order: No - Prescriptions Prescriptions: Levofloxacin [Levaquin] 500 mg PO DAILY #7 tablet Prednisone [Deltasone] 40 mg PO DAILY #5 tablet - Referrals Referrals: Norma Ferrell MD [Primary Care Provider] - - Patient Instructions Additional Instructions: You were evaluated today for shortness of breath. Your chest x-ray, labs and CT scan of your chest showed no concerning findings. At this time you are safe for discharge home. We have sent a prescription to your pharmacy. Please take the entire antibiotic course as well as the entire course of steroids. Follow up with your program management professional and primary care doctor. Return to the Emergency Department for any new/worsening/concerning symptoms. - Post Discharge Activity
[2018-04-18 19:33] LABS: BASO % 1.1 % (0-2.0); EOS % 2.2 % (0-4.5); HEMATOCRIT 33.3 % (32.4-45.2); HEMOGLOBIN 10.7 GM/dL (10.7-15.3); LYMPH % 31.8 % (8-40); MCH 28.5 pg (25.7-33.7); MCHC 32.1 g/dl (32.0-36.0); MEAN CELL VOLUME 88.9 fl (80-96); MEAN PLT VOLUME 7.1 fl (7.5-11.1); MONO % 8.2 % (3.8-10.2); NEUT % 56.7 % (42.8-82.8); PLATELET COUNT 291 K/MM3 (134-434); RBC 3.75 M/mm3 (3.60-5.2); RDW 13.9 % (11.6-15.6); WHITE BLOOD COUNT 5.1 K/mm3 (4.0-10.0)
--- NOTE | 2018-04-18 19:45 | PDOC ---
Attending Attestation - HPI HPI: 04/18/18 21:14 The patient is a 82 year old female, with a significant past medical history of CAD (s/p stents x2, ablation in 08/2017), COPD (not on home O2), GERD, HTN, Sciatic, Spinal Stenosis, Cervical CA, Anemia and Diverticulosis, who presents to the emergency department with, 1 day of worsening shortness of breath. Patient notes her symptoms onset today, she attempted to go about her daily activities including going to physical therapy but, she began to feel short of breath. Patient endorses an associated productive cough with yellow sputum similar to her baseline. She notes to have a follow up appointment with Dr. Reed tomorrow. She denies recent fevers, chills, headache or dizziness. She denies recent nausea, vomit, diarrhea or constipation. She denies recent dysuria, frequency, urgency or hematuria. She denies recent chest pain or palpitations. Allergy: Penicillin, Fosfomax Surgical: hysterectomy, stent x2, B/L knee surgery Social: remote smoking history, denies other toxic habits Primary Care Physician: Dr. Ferrell Cardiology: Dr. Suárez ENT: Dr. Reed Case Mgr: Dr. Houston - Physicial Exam PE: 04/18/18 21:45 +GENERAL: Thin. The patient is in no acute distress. HEAD: Normal with no signs of trauma. EYES: PERRLA, EOMI, sclera anicteric, conjunctiva clear. ENT: Ears normal, nares patent, oropharynx clear without exudates. Moist mucous membranes. NECK: Normal range of motion, supple without lymphadenopathy, JVD, or masses. +LUNGS: Diminished breath sounds bilaterally. No rales, rhonchi, or rales. HEART:Regular rate and rhythm, normal S1 and S2 without murmur, rub or gallop. ABDOMEN: Soft, nontender, normoactive bowel sounds. No guarding, no rebound. No masses palpable. EXTREMITIES: Normal range of motion, no edema. No clubbing or cyanosis. No erythema, or tenderness. NEUROLOGICAL: Cranial nerves II through XII grossly intact. Normal speech. No focal neurological deficits. MUSCULOSKELETAL: Back non-tender to palpation, no CVA tenderness SKIN: Warm, Dry, normal turgor, no rashes or lesions noted. <Cl Lock - Last Filed: 04/18/18 21:45> - Resident Resident Name: Lesley Benjamin - ED Attending Attestation I have performed the following: I have examined & evaluated the patient, The case was reviewed & discussed with the resident, I agree w/resident's findings & plan, Exceptions are as noted - Medical Decision Making 04/19/18 01:18 Laboratory Tests 04/18/18 04/18/18 04/18/18 18:59 18:59 19:25 WBC 5.1 Hgb 10.7 Hct 33.3 Plt Count 291 D BUN 24 H Creatinine 0.9 Creatine Kinase 145 Troponin I < 0.02 B-Natriuretic Peptide 369.8 CXR: flattened diaphragms, no infiltrate, no effusion Given Solumedrol and duoneb Pt is refusing to stay in the hospital because she needs to take care of her cats She has some chest pain/tightness which she attributes to coughing CTA performed No PE, no consolidation Pt states she feels better O2 100% room air Will plan to discharge to home Return to the ER for any other concerns or complaints <Giovana Cortés - Last Filed: 04/19/18 01:21> Attestations - Attestations 04/18/18 21:15 Documentation prepared by Cl Lock, acting as emergency medical service coordinator for Giovana Cortés MD. <Cl Lock - Last Filed: 04/18/18 21:45>
[2018-04-18 20:04] LABS: ALBUMIN 3.9 g/dl (3.4-5.0); ALK PHOS 87 U/L (45-117); ANION GAP 8 MMOL/L (8-16); BILIRUBIN,TOTAL 0.3 mg/dL (0.2-1); BLOOD UREA NITROGEN 24 mg/dL (7-18); CALCIUM 8.7 mg/dL (8.5-10.1); CHLORIDE 106 mmol/L (98-107); CO2 26 mmol/L (21-32); CREATININE 0.9 mg/dL (0.55-1.3); GLUCOSE,RANDOM 72 mg/dL (74-106); POTASSIUM 4.4 mmol/L (3.5-5.1); SGOT/AST 16 U/L (15-37); SGPT/ALT 21 U/L (13-61); SODIUM 141 mmol/L (136-145); TOT PROT 6.9 g/dl (6.4-8.2)
[2018-04-18] MEDS ORDERED: methylPREDNISolone NA SUCC 125 MG/2 ML VIAL IVPUSH ONE (20:04)
[2018-04-18] MEDS ORDERED: methylPREDNISolone NA SUCC 125 MG/2 ML VIAL ONE (20:23)
[2018-04-18] MEDS ORDERED: ALBUTEROL SO4 2.5/IPRATROPIUM 0.5 INH SOL 3 ML VIAL.NEB. NEB ONE ×2 (20:24→20:32)
[2018-04-18 20:42] VITALS: BP 151/73; PULSE 74
[2018-04-18] MEDS ORDERED: ACETAMINOPHEN 500 MG TABLET (FP) PO ONE (22:38)
[2018-04-18] MEDS ORDERED: ACETAMINOPHEN 325 MG TABLET (FP) ONE (22:38)
--- NOTE | 2018-04-19 11:34 | EKG ---
Test Reason : Blood Pressure : / mmHG Vent. Rate : 078 BPM Atrial Rate : 078 BPM P-R Int : 146 ms QRS Dur : 080 ms QT Int : 362 ms P-R-T Axes : 083 076 078 degrees QTc Int : 412 ms NORMAL SINUS RHYTHM NORMAL ECG WHEN COMPARED WITH ECG OF 20-DEC-2017 13:52, NO SIGNIFICANT CHANGE WAS FOUND Confirmed by SHAYLA MEDLEY MD ([id number]) on 04/19/2018 11:33:41 AM Referred By: Confirmed By:SHAYLA MEDLEY MD
== END 2018-04-18 22:43 | disposition home or self-care (01) ==
LOC: JER 18:29
PROC: 3E0F7GC Introduction of Other Therapeutic Substance into Respiratory Tract, Via Natural or Artificial Opening (ICD-10-PCS; principal; 2018-04-18)
PROC: 3E0333Z Introduction of Anti-inflammatory into Peripheral Vein, Percutaneous Approach (ICD-10-PCS; 2018-04-18)
DX: J44.1 Chronic obstructive pulmonary disease with (acute) exacerbation (principal); I25.10 Atherosclerotic heart disease of native coronary artery without angina pectoris; I10 Essential (primary) hypertension; Z95.5 Presence of coronary angioplasty implant and graft; M48.00 Spinal stenosis, site unspecified; D51.0 Vitamin B12 deficiency anemia due to intrinsic factor deficiency; Z87.19 Personal history of other diseases of the digestive system; Z85.41 Personal history of malignant neoplasm of cervix uteri
CPT/HCPCS: 36415; 71046-TC-FY; 71275-TC; 80053; 82550; 83880; 84484; 85025; 93005; 93010; 94640; 96374; 99284-25

== ENCOUNTER 2018-05-14 18:19 | Observation (INO) | payer OTHER ==
[2018-05-14 18:29] VITALS: BMI 22.9
--- NOTE | 2018-05-14 18:35 | PDOC ---
History of Present Illness - General Chief Complaint: Chest Pain Stated Complaint: DIFFICULTY BREATHING Time Seen by Provider: 05/14/18 18:35 History Source: Patient Exam Limitations: No Limitations - History of Present Illness Initial Comments: 05/14/18 18:53 CC: SOB HPI: 82 year old female with PMH COPD, HTN, CAD (2 stents, 1997, 2004), GERD, spinal stenosis, cervical cancer, anemia presented to ED for SOB since 1100 today. She admitted to increased productive white cough today. She stated she used her home nebulizer without relief of her symptoms. She admitted to chest "tightness", denied chest pain. She denied fever, chill, vomiting, neck pain, arm pain, headache, lower extremity swelling, abdominal pain, back pain. Pt stated last hospital admission >6 months. Pt was seen and evaluated for similar complaints 04/18/18, labs were normal, CTA was negative for PE/infiltrate, pt was discharged on Levaquin/steroids. Allergies: PCN, alendronate PCP: Dr. Ferrell Cardiology: Dr. Suárez Past History - Past Medical History Allergies/Adverse Reactions: Allergies Allergy/AdvReac Type Severity Reaction Status Date / Time alendronate sodium Allergy Verified 05/14/18 18:27 [From Fosamax] Penicillins Allergy Rash Verified 05/14/18 18:27 Home Medications: Ambulatory Orders Albuterol Sulfate [Proair Hfa] 1 puff IH Q6H PRN 09/02/17 Alprazolam [Xanax] 0.25 mg PO DAILY PRN 09/02/17 Aspirin 81 mg PO DAILY 09/02/17 Budesonide/Formeterol Fumarate [SYMBICORT 160/4.5mcg -] 1 inh PO BID 09/02/17 Diltiazem HCl [Cartia Xt] 120 mg PO DAILY 09/02/17 Oxycodone HCl 10 mg PO BID 09/02/17 Teriparatide [Forteo] 2.4 ml SQ HS 09/20/17 Folic Acid 1 mg PO DAILY 12/20/17 Albuterol 0.083% Nebulizer Loulou [Ventolin 0.083% Nebulizer Soln -] 1 puff IH Q4H PRN 05/15/18 Prednisone See Taper PO DAILY #12 tablet 05/15/18 Anemia: Yes (PERNICIOUS ANEMIA) Asthma: No Cancer: No Cardiac Disorders: Yes (CARDIAC STENTS) CVA: No COPD: Yes CHF: No DVT: No Dementia: No Diabetes: No GI Disorders: Yes (GASTRITIS, DIVERTICULOSIS,GERD,PEPTIC ULCER,COLON POLYPS) Disorders: No HTN: Yes Hypercholesterolemia: (HYPERLIPIDEMIA BORDERLINE) Liver Disease: No (FATTY) Seizures: No Thyroid Disease: No - Surgical History Abdominal Surgery: No Appendectomy: Yes Cardiac Surgery: Yes (CARDIAC STENTS,ablations) Cholecystectomy: Yes Lung Surgery: No Neurologic Surgery: No Orthopedic Surgery: Yes (BILAT 5TH TOE SX) - Family Disease History Family Disease History: Heart Disease: Father - Immunization History Immunization Up to Date: Yes - Suicide/Smoking/Psychosocial Hx Smoking Status: Yes Smoking History: Never smoked Have you smoked in the past 12 months: Yes Number of Cigarettes Smoked Daily: 1 If you are a former smoker, when did you quit?: 10d 'Breaking Loose' booklet given: 01/10/18 Hx Alcohol Use: No Drug/Substance Use Hx: No Substance Use Type: None Hx Substance Use Treatment: No Review of Systems - Review of Systems Able to Perform ROS?: Yes Comments:: 05/14/18 18:59 General: denied fever, chills, night sweats, generalized weakness. HEENT: denied sore throat, rhinorrhea, ear pain. Heart: admitted to chest tightness. denied chest pain, palpitations, syncope, lower extremity swelling, diaphoresis. Respiratory: admitted to shortness of breath, cough, sputum production. denied hemoptysis. Abdomen: denied abdominal pain, nausea, vomiting, diarrhea, constipation, blood in stool. : denied dysuria, increased urinary frequency, hematuria, urinary incontinence , flank pain. Back: denied back pain. Musculoskeletal: denied joint pain, muscle pain, joint swelling. Neurological: denied headache, dizziness, numbness, tingling, weakness. Skin: denied rash, laceration, abrasion. *Physical Exam - Vital Signs Last Vital Signs Temp Pulse Resp BP Pulse Ox 98.8 F 87 22 H 163/63 97 05/14/18 18:27 05/14/18 18:27 05/14/18 18:27 05/14/18 18:27 05/14/18 18:27 - Physical Exam Comments: 05/14/18 19:00 Constitutional: sitting upright. appearing stated age. HEENT: head is normocephalic, atraumatic. EOMI. PERRLA. Neck: supple. Full ROM. Heart: regular rhythm. no murmurs, rubs or gallops. no friction rub. Lungs: clear to auscultation bilaterally. decreased breath sounds on the left. Abdomen: soft, nontender. normal bowel sounds. no rebound, guarding, masses. Extremities: Peripheral pulses intact. No lower extremity edema. Neurological: CN 2-12 grossly intact. Moves all four extremities. Psych: awake, alert, oriented x3. Follows commands. Answers questions appropriately. Moderate Sedation - Procedure Monitoring Vital Signs: Procedure Monitoring Vital Signs Temperature 98.8 F 05/14/18 18:27 Pulse Rate 87 05/14/18 18:27 Respiratory Rate 22 H 05/14/18 18:27 Blood Pressure 163/63 05/14/18 18:27 O2 Sat by Pulse Oximetry (%) 97 05/14/18 18:27 Procedures - Bedside Ultrasound Bedside Ultrasound: Lung Remarks: 05/14/18 21:59 Bedside lung US was performed. The US probe was cleaned and covered with a tegaderm. The probe was placed between the second and third rib space bilaterally. Lung sliding was observed bilaterally. ED Treatment Course - LABORATORY CBC & Chemistry Diagram: 05/15/18 05:10 05/15/18 05:10 Medical Decision Making - Medical Decision Making 05/14/18 19:00 MDM: 82 year old female with above PMH presented to ED for SOB associated with increased cough and sputum production. Initial Vital Signs Temp Pulse Resp BP Pulse Ox 98.8 F 87 22 H 163/63 97 05/14/18 18:27 05/14/18 18:27 05/14/18 18:27 05/14/18 18:27 05/14/18 18:27 Afebrile. No tachycardia. Mild tachypnea. Mild hypertension. No hypoxia on room air. Labs ordered: CBC, BMP, cardiac enzymes, BNP, Mg Imaging ordered: CXR Medications ordered: duoneb x3, solumedrol, azithromycin 500 mg EKG performed at 1839: rate 80, regular rhythm, normal axis, flat T in I, aVL. Bedside lung US performed: lung sliding observed bilaterally. CBC WBC 2.5 K/mm3 (4.0-10.0) L 05/14/18 18:49 RBC 3.93 M/mm3 (3.60-5.2) 05/14/18 18:49 Hgb 11.9 GM/dL (10.7-15.3) 05/14/18 18:49 Hct 34.5 % (32.4-45.2) 05/14/18 18:49 MCV 87.8 fl (80-96) 05/14/18 18:49 MCH 30.3 pg (25.7-33.7) 05/14/18 18:49 MCHC 34.5 g/dl (32.0-36.0) 05/14/18 18:49 RDW 13.4 % (11.6-15.6) 05/14/18 18:49 Plt Count 311 K/MM3 (134-434) 05/14/18 18:49 MPV 7.5 fl (7.5-11.1) 05/14/18 18:49 Absolute Neuts (auto) 2.1 K/mm3 (1.5-8.0) 05/14/18 18:49 Neutrophils % 84.6 % (42.8-82.8) H D 05/14/18 18:49 Lymphocytes % 12.7 % (8-40) D 05/14/18 18:49 Monocytes % 2.2 % (3.8-10.2) L 05/14/18 18:49 Eosinophils % 0.0 % (0-4.5) D 05/14/18 18:49 Basophils % 0.5 % (0-2.0) 05/14/18 18:49 Nucleated RBC % 0 % (0-0) 05/14/18 18:49 Leukopenia. Left shift. No anemia. No thrombocytopenia. Pt meets qualification for SIRS: tachypnea + leukopenia. BMP Sodium 139 mmol/L (136-145) 05/14/18 18:49 Potassium 4.6 mmol/L (3.5-5.1) 05/14/18 18:49 Chloride 105 mmol/L (98-107) 05/14/18 18:49 Carbon Dioxide 25 mmol/L (21-32) 18 18:49 Anion Gap 9 MMOL/L (8-16) 05/14/18 18:49 BUN 17 mg/dL (7-18) 05/14/18 18:49 Creatinine 0.9 mg/dL (0.55-1.3) 12 18:49 Creat Clearance w eGFR > 60 (>60) 12 18:49 Random Glucose 128 mg/dL (74-106) H 12 18:49 Calcium 9.3 mg/dL (8.5-10.1) 12 18:49 Magnesium 2.0 mg/dL (1.8-2.4) 05/14/18 18:49 Creatine Kinase 140 IU/L (26-192) 05/14/18 18:49 Troponin I < 0.02 ng/ml (0.00-0.05) 05/14/18 18:49 B-Natriuretic Peptide 712.9 pg/ml (5-450) H 12 18:49 No clinically concerning electrolyte abnormalities. No [place]. Normal cardiac enzymes. Elevated BNP, 713 - BNP was 370 04/18/18 CXR: no infiltrate. no pneumothorax. sharp costophrenic angles. Ddx: CHF vs COPD exacerbation. Pt informed of results and of the need for admission for ECHO. She stated she does not want to be admitted, and has an appointment with her food checker Dr. Suárez 05/26 at 0930 AM. Pt stated she is willing to stay and wait for repeat cardiac enzymes/EKG. 05/14/18 21:12 Pt reassessed, reported improved SOB, but still feels SOB at rest. She stated she is concerned about her breathing and now agreed to stay for admission. SPO2 = 96% on room air. 05/14/18 22:30 Pt reassessed, stated SOB improved almost to baseline, but that her breathing "just doesn't feel like it did yesterday". 05/14/18 23:05 EKG performed at 2259: rate 77, regular rhythm, normal ais, normal intervals, QTC 445, flat T in I, aVL. No changes from prior. Pending repeat cardiac enzymes. 05/15/18 00:10 Repeat cardiac enzymes negative. Results discussed with patient. She stated she still feels that her breathing is not back to her baseline and she feels uncomfortable going home. Pt to be admitted for COPD exacerbation, dyspnea, new BNP elevation. Microblog sent. *DC/Admit/Observation/Transfer Diagnosis at time of Disposition: COPD exacerbation, Dyspnea - Discharge Dispostion Condition at time of disposition: Improved Decision to Admit order: Yes - Prescriptions - Referrals - Patient Instructions - Post Discharge Activity
[2018-05-14 19:01] LABS: BASO % 0.5 % (0-2.0); HEMATOCRIT 34.5 % (32.4-45.2); HEMOGLOBIN 11.9 GM/dL (10.7-15.3); LYMPH % 12.7 % (8-40); MCH 30.3 pg (25.7-33.7); MCHC 34.5 g/dl (32.0-36.0); MEAN CELL VOLUME 87.8 fl (80-96); MEAN PLT VOLUME 7.5 fl (7.5-11.1); MONO % 2.2 % (3.8-10.2); NEUT % 84.6 % (42.8-82.8); PLATELET COUNT 311 K/MM3 (134-434); RBC 3.93 M/mm3 (3.60-5.2); RDW 13.4 % (11.6-15.6); WHITE BLOOD COUNT 2.5 K/mm3 (4.0-10.0)
[2018-05-14] MEDS ORDERED: ALBUTEROL SO4 2.5/IPRATROPIUM 0.5 INH SOL 3 ML VIAL.NEB. NEB ONE ×2 (19:04→19:15)
[2018-05-14 19:16] LABS: INR 1.09 (0.83-1.09); PROTHROMBIN TIME (PATIENT) 12.9 SEC (9.7-13.0)
[2018-05-14 19:18] LABS: ACTIVATED PTT 34.7 SECONDS (25.2-36.5)
[2018-05-14 19:29] LABS: ANION GAP 9 MMOL/L (8-16); BLOOD UREA NITROGEN 17 mg/dL (7-18); CALCIUM 9.3 mg/dL (8.5-10.1); CHLORIDE 105 mmol/L (98-107); CO2 25 mmol/L (21-32); CREATININE 0.9 mg/dL (0.55-1.3); GLUCOSE,RANDOM 128 mg/dL (74-106); N-TERMINAL BNP 712.9 pg/ml (5-450); POTASSIUM 4.6 mmol/L (3.5-5.1); SODIUM 139 mmol/L (136-145)
[2018-05-14] MEDS ORDERED: methylPREDNISolone NA SUCC 125 MG/2 ML VIAL IVPUSH ONE (19:57)
[2018-05-14] MEDS ORDERED: AZITHROMYCIN 250 MG TABLET PO ONE (19:57)
[2018-05-14] MEDS ORDERED: AZITHROMYCIN 250 MG TABLET ONE (20:01)
[2018-05-14] MEDS ORDERED: methylPREDNISolone NA SUCC 125 MG/2 ML VIAL ONE (20:02)
--- NOTE | 2018-05-14 20:08 | PDOC ---
Attending Attestation - Resident Resident Name: Katty Carter - ED Attending Attestation I have performed the following: I have examined & evaluated the patient, The case was reviewed & discussed with the resident, I agree w/resident's findings & plan, Exceptions are as noted - HPI HPI: 05/14/18 20:08 82-year-old female brought in by ambulance from home for shortness of breath. Past medical history significant for COPD - Physicial Exam PE: 05/14/18 20:08 Thin 82-year-old female presents with shortness of breath, tachypnea. Head normocephalic, atraumatic. Eyes eomi,bhakti neck supple,no bruits,+JVD lungs scant rhonchi left base,no rales ext no edema cvs [id number] abd nontender neuro axox3,moving all extremities psych appropriate - Medical Decision Making 05/14/18 22:18 Diff diagnosis includes copd exacerbation,chf,PNA,ACS, ptx 05/15/18 00:40 cxr no ptx,no effusion,no infiltrates 2 sets of troponins are negative 05/15/18 00:47 imp copd exacerbation
[2018-05-14] MEDS ORDERED: amLODIPine BESYLATE 5 MG TABLET (FP) PO ONE (21:37)
[2018-05-15] MEDS ORDERED: ACETAMINOPHEN 325 MG TABLET (FP) PO ONE ×2 (00:14→12:06)
--- NOTE | 2018-05-15 00:47 | HP ---
CHIEF COMPLAINT: SOB PCP: Mariaelena HISTORY OF PRESENT ILLNESS: The patient is a 82 year old female w/ pmh COPD, HTN, CAD (2 stents, 1997, 2004) , GERD who presents to ED c/o SOB since 1100 today. This SOB is associated w/ worsening of her chronic cough and increased production of whitish sputum over the same period of time. The patient has been taking her home nebulizers with minimal relief of SSX. Patient denies fever, chill, vomiting, neck pain, arm pain, headache, lower extremity swelling, abdominal pain, back pain. The patient was also seen in our ED on 04/18/18 for similar complaints and was d/c on levaquin and prednisone 40mg x5 days. Last steroid dose 04/23. The patient was recently admitted to [facility] for episode of SVT which was treated by EMS en route. In the ED, she was treated with nebs and 125 solu-medrol and endorsed improvement, but still is fearful of going home as she "does not feel 100% herself yet." Recent Travel: none PAST MEDICAL HISTORY: COPD, HTN, CAD, GERD, spinal stenosis, cervical cancer, anemia, rheumatoid arthritis PAST SURGICAL HISTORY: Stenting (1997, 2004) Back surgery for stenosis 30 years ago Social History: Smoking: former smoker, quit 3 years ago Alcohol: denies Drugs: denies lives at home with 2 cats ambulates independently Family History: non-contributory Allergies alendronate sodium [From Fosamax] Allergy (Verified 05/14/18 18:27) Penicillins Allergy (Verified 05/14/18 18:27) Rash HOME MEDICATIONS: Home Medications Medication Instructions Recorded Albuterol Sulfate [Proair Hfa] 8.5 gm IH DAILY 09/02/17 Alprazolam [Xanax] 0.25 mg PO DAILY PRN 09/02/17 Aspirin 81 mg PO DAILY 09/02/17 Budesonide/Formeterol Fumarate 1 inh PO BID 09/02/17 [SYMBICORT 160/4.5mcg -] Diltiazem HCl [Cartia Xt] 120 mg PO DAILY 09/02/17 Oxycodone HCl 10 mg PO PRN PRN 09/02/17 Teriparatide [Forteo] 2.4 ml SQ HS 09/20/17 Cyclobenzaprine HCl [Flexeril -] 10 mg PO DAILY 12/20/17 Folic Acid 1 mg PO DAILY 12/20/17 Methotrexate Sodium [Trexall] 7.5 mg PO WEEKLY 12/20/17 Pantoprazole Sodium [Protonix -] 40 mg PO DAILY 12/20/17 Citalopram Hydrobromide 10 mg PO DAILY 04/18/18 [Citalopram HBr] Levofloxacin [Levaquin] 500 mg PO DAILY #7 tablet 04/18/18 Prednisone [Deltasone] 40 mg PO DAILY #5 tablet 04/18/18 REVIEW OF SYSTEMS CONSTITUTIONAL: Absent: fever, chills, diaphoresis, generalized weakness, malaise HEENT: Absent: rhinorrhea, nasal congestion, throat pain, throat swelling, difficulty swallowing, mouth swelling, ear pain, eye pain, visual changes CARDIOVASCULAR: Absent: chest pain, syncope, palpitations, irregular heart rate, lightheadedness , peripheral edema RESPIRATORY: Absent: orthopnea, wheezing, stridor, hemoptysis GASTROINTESTINAL: Absent: abdominal pain, abdominal distension, nausea, vomiting, diarrhea, constipation, melena, hematochezia GENITOURINARY: Absent: dysuria, frequency, urgency, hesitancy, hematuria, flank pain, genital pain MUSCULOSKELETAL: Absent: myalgia, arthralgia, joint swelling, back pain, neck pain SKIN: Absent: rash, itching, pallor HEMATOLOGIC/IMMUNOLOGIC: Absent: easy bleeding, easy bruising, lymphadenopathy, frequent infections ENDOCRINE: Absent: unexplained weight gain, heat intolerance, cold intolerance NEUROLOGIC: Absent: headache, focal weakness or paresthesias, dizziness, unsteady gait, seizure, mental status changes, bladder or bowel incontinence PSYCHIATRIC: Absent: anxiety, depression, suicidal or homicidal ideation, hallucinations. PHYSICAL EXAMINATION Vital Signs - 24 hr 05/14/18 18:27 Temperature 98.8 F Pulse Rate 87 Respiratory 22 H Rate Blood Pressure 163/63 O2 Sat by Pulse 97 Oximetry (%) GENERAL: Awake, alert, and fully oriented, in no acute distress. patient covered in blankets stating she is cold HEAD: Normal with no signs of trauma. EYES: Pupils equal, round and reactive to light, extraocular movements intact, sclera anicteric, conjunctiva clear. No lid lag. LUNGS: Breath sounds equal, clear to auscultation bilaterally. No wheezes, and no crackles. No accessory muscle use. Decreased breath sounds b/l. HEART: Regular rate and rhythm, normal S1 and S2 without murmur, rub or gallop. ABDOMEN: Soft, nontender, not distended, normoactive bowel sounds, no guarding, no rebound, no masses. No hepatomegaly or splenomegaly. LOWER EXTREMITIES: 2+ pulses, warm, well-perfused. No calf tenderness. No peripheral edema. NEUROLOGICAL: Cranial nerves II-X intact. Normal speech. PSYCHIATRIC: Cooperative. Good eye contact. Appropriate mood and affect. SKIN: Warm, dry, normal turgor, no rashes or lesions noted, normal capillary refill. Laboratory Results - last 24 hr 05/14/18 05/14/18 05/14/18 18:49 18:49 18:49 WBC 2.5 L RBC 3.93 Hgb 11.9 Hct 34.5 MCV 87.8 MCH 30.3 MCHC 34.5 RDW 13.4 Plt Count 311 MPV 7.5 Absolute Neuts (auto) 2.1 Neutrophils % 84.6 H D Lymphocytes % 12.7 D Monocytes % 2.2 L Eosinophils % 0.0 D Basophils % 0.5 Nucleated RBC % 0 PT with INR 12.90 INR 1.09 PTT (Actin FS) 34.7 Sodium 139 Potassium 4.6 Chloride 105 Carbon Dioxide 25 Anion Gap 9 BUN 17 Creatinine 0.9 Creat Clearance w eGFR > 60 Random Glucose 128 H Calcium 9.3 Magnesium 2.0 Creatine Kinase 140 Troponin I < 0.02 B-Natriuretic Peptide 712.9 H 05/14/18 22:30 WBC RBC Hgb Hct MCV MCH MCHC RDW Plt Count MPV Absolute Neuts (auto) Neutrophils % Lymphocytes % Monocytes % Eosinophils % Basophils % Nucleated RBC % PT with INR INR PTT (Actin FS) Sodium Potassium Chloride Carbon Dioxide Anion Gap BUN Creatinine Creat Clearance w eGFR Random Glucose Calcium Magnesium Creatine Kinase 126 Troponin I < 0.02 B-Natriuretic Peptide ASSESSMENT/PLAN: The patient is an 82 yo f w/ PMH COPD, GERD, HTN, CAD who comes into the ED c/o SOB and increased coughing for the past 1 day. #SOB, coughing likely 2/2 COPD exacerbation -nebs PRN -Duonebs standing -medrol 40mg daily IV -resume home Symbicort #recent episode of SVT coupled with patient appearing cold -TSH was never checked as per patient; will add on to labs already drawn #RA w/ leukopenia -ANC 2.1; not immunocompromised -likely 2/2 methotrexate use (given weekly) -c/w home forteo #FEN -no fluids indicated -lytes WNL -sodium controlled diet #Prophy -lovenox 40mg SQ #Dispo -med surg Obs -home medications have not been reconciled; pharmacy closed Visit type - Emergency Visit Emergency Visit: Yes ED Registration Date: 05/15/18 Care time: The patient presented to the Emergency Department on the above date and was hospitalized for further evaluation of their emergent condition. - New Patient This patient is new to me today: Yes Date on this admission: 05/15/18 - Critical Care Critical Care patient: No
[2018-05-15] MEDS ORDERED: ACETAMINOPHEN 325 MG TABLET (FP) ONE (00:54)
[2018-05-15] MEDS ORDERED: ALBUTEROL SO4 0.083% IH SOL 2.5 MG/3 ML VIAL.NEB. NEB PRN (00:59)
--- NOTE | 2018-05-15 01:19 | PN ---
Teaching Attending Note Name of Resident: Nahun Simeon ATTENDING PHYSICIAN STATEMENT I saw and evaluated the patient. I reviewed the resident's note and discussed the case with the resident. I agree with the resident's findings and plan as documented. SUBJECTIVE: Patient is an 82 year old woman with PMH COPD, HTN, CAD (2 stents, 1997, 2004), GERD, spinal stenosis, cervical cancer, anemia and rheumatoid arthritis presented to ER for SOB since 1100 today. She admitted to increased productive white cough today. She stated she used her home nebulizer without relief of her symptoms. She admitted to chest "tightness", denied chest pain. She denied fever , chill, vomiting, neck pain, arm pain, lower extremity swelling, abdominal pain , back pain. Pt stated last hospital admission >6 months. Was seen and evaluated for similar complaints 04/18/18, labs were normal, CTA was negative for PE/infiltrate, patient was discharged on Levaquin/steroids. Over 50 lbs unintended weigh loss in the past 4 years and work up to find cause has been negative. Has poor eating habits. Take a daily injection of Forteo for osteoporosis. Has a headache now but no photophobia or blurring of vision. OBJECTIVE: Alert and cachectic Vital Signs Period Temp Pulse Resp BP Sys/Shirley Pulse Ox Last 24 Hr 98.8 F 87 22 163/63 97 HEENT: No Jaundice, eye redness or discharge, PERRLA, EOMI. Normocephalic, atraumatic. External ears are normal and hearing is grossly intact. No nasal discharge. Neck: Supple, nontender. No palpable adenopathy or thyromegaly. No JVD Chest: Good effort. Diminished breath sounds. No wheezing. Heart: Regular. No S3, rub or murmur Abdomen: Not distended, soft, nontender and no HSM. No rebound or guarding. Normoactive bowel sounds. Ext: Peripheral pulses intact. No leg edema. Skin: Warm and dry. No petechiae, rash or ecchymosis. Neuro: Alert. Oriented x3. CN 2-12 grossly intact. Sensation grossly intact in all four extremities and DTR are symmetric. Current Medications Generic Name Dose Route Start Last Admin Trade Name Freq PRN Reason Stop Dose Admin Albuterol Sulfate amp 05/15/18 00:59 Ventolin 0.083% Nebulizer Soln - NEB Q4H PRN SHORT OF BREATH/WHEEZING Albuterol/Ipratropium 1 amp 05/15/18 01:15 Duoneb - NEB Q4H [facility] Aspirin 81 mg 05/15/18 10:00 Asa - PO DAILY [facility] Budesonide/Formoterol Fumarate 1 puff 05/15/18 10:00 Symbicort 160/4.5mcg - IH BID [facility] Citalopram Hydrobromide 10 mg 05/15/18 10:00 Celexa - PO DAILY [facility] Diltiazem HCl 120 mg 05/15/18 10:00 Cardizem Cd - PO DAILY [facility] Enoxaparin Sodium 40 mg 05/15/18 10:00 Lovenox - SQ DAILY [facility] Folic Acid 1 mg 05/15/18 10:00 Folic Acid - PO DAILY [facility] Methylprednisolone Sodium Succinate 40 mg 05/15/18 10:00 Solu-Medrol - IVPUSH DAILY [facility] Non-Formulary Medication 2.4 ml 05/15/18 22:00 Teriparatide [Forteo] SQ HS [facility] Pantoprazole Sodium 40 mg 05/15/18 10:00 Protonix - PO DAILY [facility] Home Medications Medication Instructions Recorded Albuterol Sulfate [Proair Hfa] 8.5 gm IH DAILY 09/02/17 Alprazolam [Xanax] 0.25 mg PO DAILY PRN 09/02/17 Aspirin 81 mg PO DAILY 09/02/17 Budesonide/Formeterol Fumarate 1 inh PO BID 09/02/17 [SYMBICORT 160/4.5mcg -] Diltiazem HCl [Cartia Xt] 120 mg PO DAILY 09/02/17 Oxycodone HCl 10 mg PO PRN PRN 09/02/17 Teriparatide [Forteo] 2.4 ml SQ HS 09/20/17 Cyclobenzaprine HCl [Flexeril -] 10 mg PO DAILY 12/20/17 Folic Acid 1 mg PO DAILY 12/20/17 Methotrexate Sodium [Trexall] 7.5 mg PO WEEKLY 12/20/17 Pantoprazole Sodium [Protonix -] 40 mg PO DAILY 12/20/17 Citalopram Hydrobromide 10 mg PO DAILY 04/18/18 [Citalopram HBr] Levofloxacin [Levaquin] 500 mg PO DAILY #7 tablet 04/18/18 Prednisone [Deltasone] 40 mg PO DAILY #5 tablet 04/18/18 ASSESSMENT AND PLAN: 1. COPD exacerbation - No acute pathology on CXR. No ST-T wave changes on EKG and troponin is negative x 2. Will treat with solumedrol, duoneb, symbicort and O2 PRN. Tylenol for headache and get ECHO to evaluate chronic cough and elevated BNP. Leukopenia likely side effect of methotrexate and/or forteo. Check TFT and consult ditcher operator for dietary counseling. 2. DVT prophylaxis - Lovenox 40 mg SQ q 24 hours. 3. Advance directives - Full code
[2018-05-15] MEDS ORDERED: ALBUTEROL SO4 2.5/IPRATROPIUM 0.5 INH SOL 3 ML VIAL.NEB. NEB ONE (02:21)
[2018-05-15] MEDS: ALBUTEROL SO4 2.5/IPRATROPIUM 0.5 INH SOL 3 ML VIAL.NEB. NEB SCH ×4 (02:31→14:03)
[2018-05-15 05:40] LABS: HEMATOCRIT 31.4 % (32.4-45.2); HEMOGLOBIN 10.1 GM/dL (10.7-15.3); MCH 28.6 pg (25.7-33.7); MCHC 32.3 g/dl (32.0-36.0); MEAN CELL VOLUME 88.4 fl (80-96); MEAN PLT VOLUME 7.9 fl (7.5-11.1); PLATELET COUNT 308 K/MM3 (134-434); RBC 3.55 M/mm3 (3.60-5.2); RDW 13.4 % (11.6-15.6); WHITE BLOOD COUNT 3.7 K/mm3 (4.0-10.0)
[2018-05-15 06:13] LABS: ANION GAP 10 MMOL/L (8-16); BLOOD UREA NITROGEN 18 mg/dL (7-18); CALCIUM 8.4 mg/dL (8.5-10.1); CHLORIDE 105 mmol/L (98-107); CO2 23 mmol/L (21-32); CREATININE 1.1 mg/dL (0.55-1.3); GLUCOSE,RANDOM 173 mg/dL (74-106); MAGNESIUM 1.8 mg/dL (1.8-2.4); PHOSPHOROUS 2.9 mg/dL (2.5-4.9); POTASSIUM 4.2 mmol/L (3.5-5.1); SODIUM 137 mmol/L (136-145)
[2018-05-15 06:29] VITALS: BP 140/62; PULSE 82; TEMP 98.5
--- NOTE | 2018-05-15 08:19 | PN ---
Teaching Attending Note Name of Resident: Yashira Valdemar ATTENDING PHYSICIAN STATEMENT I saw and evaluated the patient. I reviewed the resident's note and discussed the case with the resident. I agree with the resident's findings and plan as documented. SUBJECTIVE: Patient is feeling better ,would like to go home. OBJECTIVE: Vital Signs Temperature 98.5 F 05/15/18 06:28 Pulse Rate 82 05/15/18 06:28 Respiratory Rate 19 05/15/18 06:28 Blood Pressure 140/62 05/15/18 06:28 O2 Sat by Pulse Oximetry (%) 96 05/15/18 06:28 GENERAL: Awake, alert, oriented x 3, in no acute distress. HEAD: Normal with no signs of trauma. EYES: Pupils equal, round and reactive to light, extraocular movements intact, sclera anicteric, conjunctiva clear. LUNGS: good air entery Bl, CTA, no wheezes or crackles. No accessory muscle use. HEART: Regular rate and rhythm, normal S1 and S2 without murmur, rub or gallop. ABDOMEN: Soft, nontender, not distended, normoactive bowel sounds, no guarding, no rebound, no masses. No hepatomegaly or splenomegaly. LOWER EXTREMITIES: 2+ pulses, warm, well-perfused. No calf tenderness. No peripheral edema. NEUROLOGICAL: Cranial nerves II-X intact. Normal speech. PSYCHIATRIC: Cooperative. Good eye contact. Appropriate mood and affect. SKIN: Warm, dry, normal turgor, no rashes or lesions noted, normal capillary refill. CBCD WBC 3.7 K/mm3 (4.0-10.0) L 05/15/18 05:10 RBC 3.55 M/mm3 (3.60-5.2) L 05/15/18 05:10 Hgb 10.1 GM/dL (10.7-15.3) L 05/15/18 05:10 Hct 31.4 % (32.4-45.2) L 05/15/18 05:10 MCV 88.4 fl (80-96) 05/15/18 05:10 MCHC 32.3 g/dl (32.0-36.0) 05/15/18 05:10 RDW 13.4 % (11.6-15.6) 05/15/18 05:10 Plt Count 308 K/MM3 (134-434) 05/15/18 05:10 MPV 7.9 fl (7.5-11.1) 05/15/18 05:10 CMP Sodium 137 mmol/L (136-145) 05/15/18 05:10 Potassium 4.2 mmol/L (3.5-5.1) 05/15/18 05:10 Chloride 105 mmol/L (98-107) 05/15/18 05:10 Carbon Dioxide 23 mmol/L (21-32) 05/15/18 05:10 Anion Gap 10 MMOL/L (8-16) 05/15/18 05:10 BUN 18 mg/dL (7-18) 05/15/18 05:10 Creatinine 1.1 mg/dL (0.55-1.3) 05/15/18 05:10 Creat Clearance w eGFR 47.67 (>60) 05/15/18 05:10 Random Glucose 173 mg/dL (74-106) H 05/15/18 05:10 Calcium 8.4 mg/dL (8.5-10.1) L 05/15/18 05:10 CARDIAC ENZYMES Creatine Kinase 126 IU/L (26-192) 05/14/18 22:30 Troponin I < 0.02 ng/ml (0.00-0.05) 05/14/18 22:30 Current Medications Generic Name Dose Route Start Last Admin Trade Name Freq PRN Reason Stop Dose Admin Albuterol Sulfate 1 amp 05/15/18 00:59 Ventolin 0.083% Nebulizer Soln - NEB Q4H PRN SHORT OF BREATH/WHEEZING Albuterol/Ipratropium 1 amp 05/15/18 02:00 05/15/18 06:20 Duoneb - NEB 1 amp Q4HPO [facility] Administration Aspirin 81 mg 05/15/18 10:00 Asa - PO DAILY [facility] Budesonide/Formoterol Fumarate 1 puff 05/15/18 10:00 Symbicort 160/4.5mcg - IH BID [facility] Citalopram Hydrobromide 10 mg 05/15/18 10:00 Celexa - PO DAILY [facility] Diltiazem HCl 120 mg 05/15/18 10:00 Cardizem Cd - PO DAILY [facility] Enoxaparin Sodium 40 mg 05/15/18 10:00 Lovenox - SQ DAILY [facility] Folic Acid 1 mg 05/15/18 10:00 Folic Acid - PO DAILY [facility] Methylprednisolone Sodium Succinate 40 mg 05/15/18 10:00 Solu-Medrol - IVPUSH DAILY [facility] Non-Formulary Medication 2.4 ml 05/15/18 22:00 Teriparatide [Forteo] SQ HS [facility] Pantoprazole Sodium 40 mg 05/15/18 10:00 Protonix - PO DAILY [facility] Home Medications Medication Instructions Recorded Albuterol Sulfate [Proair Hfa] 8.5 gm IH DAILY 09/02/17 Alprazolam [Xanax] 0.25 mg PO DAILY PRN 09/02/17 Aspirin 81 mg PO DAILY 09/02/17 Budesonide/Formeterol Fumarate 1 inh PO BID 09/02/17 [SYMBICORT 160/4.5mcg -] Diltiazem HCl [Cartia Xt] 120 mg PO DAILY 09/02/17 Oxycodone HCl 10 mg PO PRN PRN 09/02/17 Teriparatide [Forteo] 2.4 ml SQ HS 09/20/17 Cyclobenzaprine HCl [Flexeril -] 10 mg PO DAILY 12/20/17 Folic Acid 1 mg PO DAILY 12/20/17 Methotrexate Sodium [Trexall] 7.5 mg PO WEEKLY 12/20/17 Pantoprazole Sodium [Protonix -] 40 mg PO DAILY 12/20/17 Citalopram Hydrobromide 10 mg PO DAILY 04/18/18 [Citalopram HBr] Levofloxacin [Levaquin] 500 mg PO DAILY #7 tablet 04/18/18 Prednisone [Deltasone] 40 mg PO DAILY #5 tablet 04/18/18 ASSESSMENT AND PLAN: This patient is an 82yo female with PMHx of COPD, GERD, HTN, CAD who comes to the ED c/o having SOB and increased coughing x 1 day. #Acute mild COPD exacerbation improved on steroid and neb. treatment PRN, ordered flu swab which is negative influenza. patient can go home after checking her peak flow. # Hx of recent SVT ,TSh is in a low side and Ft4 is within normal. further w/u as an outpatient. #RA on weekly MTx use, continue Forte. DVT: lovenox 40mg SQ
[2018-05-15] MEDS ORDERED: ENOXAPARIN NA (PORCINE) 40 MG/0.4 ML DISP.SYRIN SQ SCH (10:00)
[2018-05-15] MEDS ORDERED: FOLIC ACID 1 MG TABLET (FP) PO SCH (10:00)
[2018-05-15] MEDS ORDERED: ASPIRIN 81 MG CHEWABLE TABLETS PO SCH (10:00)
[2018-05-15] MEDS ORDERED: methylPREDNISolone NA SUCC 40 MG/1 ML VIAL IVPUSH SCH (10:00)
[2018-05-15] MEDS ORDERED: BUDESONIDE/FORMETEROL FUMARATE 160/4.5 mcg INHALER IH SCH (10:00)
[2018-05-15] MEDS ORDERED: CITALOPRAM HYDROBROMIDE 10 MG TABLET (FP) PO SCH (10:00)
[2018-05-15] MEDS ORDERED: PANTOPRAZOLE 40 MG TABLET (FP) PO SCH (10:00)
--- NOTE | 2018-05-15 14:15 | DS ---
Physical Exam: SUBJECTIVE: Patient seen and anxious. She reports she is not short of breath and is at her baseline. Complains of some elbow pain. OBJECTIVE: Vital Signs Temperature 98.5 F 05/15/18 06:28 Pulse Rate 82 05/15/18 06:28 Respiratory Rate 19 05/15/18 06:28 Blood Pressure 140/62 05/15/18 06:28 O2 Sat by Pulse Oximetry (%) 96 05/15/18 06:28 PHYSICAL EXAM GENERAL: The patient is awake, alert, and fully oriented, in no acute distress. HEAD: Normal with no signs of trauma. EYES: PERRL, extraocular movements intact, ENT: moist mucous membranes. LUNGS: Breath sounds equal, clear to auscultation bilaterally, no wheezes, no crackles, no accessory muscle use. HEART: Regular rate and rhythm, S1, S2 without murmur, rub or gallop. ABDOMEN: Soft, nontender, nondistended, normoactive bowel sounds, no guarding, no rebound, no hepatosplenomegaly, no masses. EXTREMITIES: 2+ pulses, warm, well-perfused, no edema. SKIN: Warm, dry, normal turgor, no rashes or lesions noted. LABS CBC, BMP 05/15/18 05:10 05/15/18 05:10 HOSPITAL COURSE: Date of Admission:05/15/18 Patient admitted for COPD exacerbation, received 125 mg steroids in ED with Azythromycin. CXR, labs, and vitals not indicative of infection. Patient saturation 97 % on room air. Patient given steroid taper and vitals stable. Discussed with patient importance to f/u aircraft time clerk. TSH low at .17, free T4 normal. Peak Flow: 200 CXR: mild hyperaeration, normal mediastinum with scleretic knob, normal chris Date of Discharge: 05/15/18 Minutes to complete discharge: 40 Discharge Summary Reason For Visit: ELEVATED BRAIN NATRIURETIC PEPTIDE (BNP) LEVEL Current Active Problems COPD exacerbation (Acute) Dyspnea (Acute) Condition: Improved - Instructions Diet, Activity, Other Instructions: You were admitted to the hospital for an exacerbation of your COPD. We gave you medications and your oxygen saturation is normal on room air. You will complete a taper of steroids to finish treatment of your COPD exacerbation. Please take the steroid dose as written on the medication. Please follow up with your primary care physician within one week. Also, follow up with your aircraft time clerk Dr. Houston. Please continue your home medications as prescribed. Return to the Emergency Department if you have any chest pain, nausea, vomiting , shortness of breath, or dizziness. Referrals: Amor Houston MD [Staff Physician] - 1 Week Disposition: HOME - Home Medications Comprehensive Discharge Medication List: Ambulatory Orders Albuterol Sulfate [Proair Hfa] 1 puff IH Q6H PRN 09/02/17 Alprazolam [Xanax] 0.25 mg PO DAILY PRN 09/02/17 Aspirin 81 mg PO DAILY 09/02/17 Budesonide/Formeterol Fumarate [SYMBICORT 160/4.5mcg -] 1 inh PO BID 09/02/17 Diltiazem HCl [Cartia Xt] 120 mg PO DAILY 09/02/17 Oxycodone HCl 10 mg PO BID 09/02/17 Teriparatide [Forteo] 2.4 ml SQ HS 09/20/17 Folic Acid 1 mg PO DAILY 12/20/17 Albuterol 0.083% Nebulizer [place] [Ventolin 0.083% Nebulizer Soln -] 1 puff IH Q4H PRN 05/15/18 Prednisone See Taper PO DAILY #12 tablet 05/15/18 This patient is new to me today: Yes Date on this admission: 05/15/18 Emergency Visit: Yes ED Registration Date: 05/15/18 Care time: The patient presented to the Emergency Department on the above date and was hospitalized for further evaluation of their emergent condition. Critical Care patient: No - Discharge Referral Referred to [facility] Med P.C.: No
--- NOTE | 2018-05-15 15:19 | EKG ---
Test Reason : Blood Pressure : / mmHG Vent. Rate : 077 BPM Atrial Rate : 077 BPM P-R Int : 154 ms QRS Dur : 086 ms QT Int : 394 ms P-R-T Axes : 077 067 070 degrees QTc Int : 445 ms NORMAL SINUS RHYTHM NORMAL ECG WHEN COMPARED WITH ECG OF 14-MAY-2018 18:39, NO SIGNIFICANT CHANGE WAS FOUND Confirmed by ERAN HARTMAN MD ([id number]) on 05/15/2018 3:18:40 PM Referred By: Confirmed By:ERAN HARTMAN MD
--- NOTE | 2018-05-15 15:20 | EKG ---
Test Reason : Blood Pressure : / mmHG Vent. Rate : 080 BPM Atrial Rate : 080 BPM P-R Int : 136 ms QRS Dur : 080 ms QT Int : 388 ms P-R-T Axes : 076 073 075 degrees QTc Int : 447 ms NORMAL SINUS RHYTHM NORMAL ECG WHEN COMPARED WITH ECG OF 18-APR-2018 18:49, NO SIGNIFICANT CHANGE WAS FOUND Confirmed by ERAN HARTMAN MD ([id number]) on 05/15/2018 3:19:52 PM Referred By: Confirmed By:ERAN HARTMAN MD
[2018-05-15] MEDS ORDERED: TERIPARATIDE SQ SCH (22:00)
--- NOTE | 2018-05-16 08:38 | PN ---
Teaching Attending Note Name of Resident: Yashira Valdemar ATTENDING PHYSICIAN STATEMENT I saw and evaluated the patient. I reviewed the resident's note and discussed the case with the resident. I agree with the resident's findings and plan as documented. SUBJECTIVE: OBJECTIVE: Vital Signs Temperature 98.5 F 05/15/18 06:28 Pulse Rate 82 05/15/18 06:28 Respiratory Rate 19 05/15/18 06:28 Blood Pressure 140/62 05/15/18 06:28 O2 Sat by Pulse Oximetry (%) 96 05/15/18 06:28 GENERAL: Awake, alert, oriented x 3, in no acute distress. HEAD: Normal with no signs of trauma. EYES: Pupils equal, round and reactive to light, extraocular movements intact, sclera anicteric, conjunctiva clear. LUNGS: good air entery Bl, CTA, no wheezes or crackles. No accessory muscle use. HEART: Regular rate and rhythm, normal S1 and S2 without murmur, rub or gallop. ABDOMEN: Soft, nontender, not distended, normoactive bowel sounds, no guarding, no rebound, no masses. No hepatomegaly or splenomegaly. LOWER EXTREMITIES: 2+ pulses, warm, well-perfused. No calf tenderness. No peripheral edema. NEUROLOGICAL: Cranial nerves II-X intact. Normal speech. PSYCHIATRIC: Cooperative. Good eye contact. Appropriate mood and affect. SKIN: Warm, dry, normal turgor, no rashes or lesions noted, normal capillary refill. CBCD WBC 3.7 K/mm3 (4.0-10.0) L 05/15/18 05:10 RBC 3.55 M/mm3 (3.60-5.2) L 05/15/18 05:10 Hgb 10.1 GM/dL (10.7-15.3) L 05/15/18 05:10 Hct 31.4 % (32.4-45.2) L 05/15/18 05:10 MCV 88.4 fl (80-96) 05/15/18 05:10 MCHC 32.3 g/dl (32.0-36.0) 05/15/18 05:10 RDW 13.4 % (11.6-15.6) 05/15/18 05:10 Plt Count 308 K/MM3 (134-434) 05/15/18 05:10 MPV 7.9 fl (7.5-11.1) 05/15/18 05:10 CMP Sodium 137 mmol/L (136-145) 05/15/18 05:10 Potassium 4.2 mmol/L (3.5-5.1) 05/15/18 05:10 Chloride 105 mmol/L (98-107) 05/15/18 05:10 Carbon Dioxide 23 mmol/L (21-32) 05/15/18 05:10 Anion Gap 10 MMOL/L (8-16) 05/15/18 05:10 BUN 18 mg/dL (7-18) 05/15/18 05:10 Creatinine 1.1 mg/dL (0.55-1.3) 05/15/18 05:10 Creat Clearance w eGFR 47.67 (>60) 05/15/18 05:10 Random Glucose 173 mg/dL (74-106) H 05/15/18 05:10 Calcium 8.4 mg/dL (8.5-10.1) L 05/15/18 05:10 CARDIAC ENZYMES Creatine Kinase 126 IU/L (26-192) 05/14/18 22:30 Troponin I < 0.02 ng/ml (0.00-0.05) 05/14/18 22:30 Current Medications Generic Name Dose Route Start Last Admin Trade Name Freq PRN Reason Stop Dose Admin Albuterol Sulfate 1 amp 05/15/18 00:59 Ventolin 0.083% Nebulizer Soln - NEB Q4H PRN SHORT OF BREATH/WHEEZING Albuterol/Ipratropium 1 amp 05/15/18 02:00 05/15/18 14:03 Duoneb - NEB Not Given Q4HPO NEVILLE Aspirin 81 mg 05/15/18 10:00 05/15/18 09:13 Asa - PO 81 mg DAILY NEVILLE Administration Budesonide/Formoterol Fumarate 1 puff 05/15/18 10:00 05/15/18 09:14 Symbicort 160/4.5mcg - IH Not Given BID NEVILLE Citalopram Hydrobromide 10 mg 05/15/18 10:00 05/15/18 09:13 Celexa - PO 10 mg DAILY NEVILLE Administration Diltiazem HCl 120 mg 05/15/18 10:00 05/15/18 09:27 Cardizem Cd - PO Not Given DAILY NEVILLE Enoxaparin Sodium 40 mg 05/15/18 10:00 05/15/18 09:14 Lovenox - SQ 40 mg DAILY NEVILLE Administration Folic Acid 1 mg 05/15/18 10:00 05/15/18 09:13 Folic Acid - PO 1 mg DAILY NEVILLE Administration Non-Formulary Medication 2.4 ml 05/15/18 22:00 Teriparatide [Forteo] SQ HS NEVILLE Pantoprazole Sodium 40 mg 05/15/18 10:00 05/15/18 09:14 Protonix - PO 40 mg DAILY NEVILLE Administration Home Medications Medication Instructions Recorded Albuterol Sulfate [Proair Hfa] 1 puff IH Q6H PRN 09/02/17 Alprazolam [Xanax] 0.25 mg PO DAILY PRN 09/02/17 Aspirin 81 mg PO DAILY 09/02/17 Budesonide/Formeterol Fumarate 1 inh PO BID 09/02/17 [SYMBICORT 160/4.5mcg -] Diltiazem HCl [Cartia Xt] 120 mg PO DAILY 09/02/17 Oxycodone HCl 10 mg PO BID 09/02/17 Teriparatide [Forteo] 2.4 ml SQ HS 09/20/17 Folic Acid 1 mg PO DAILY 12/20/17 Albuterol 0.083% Nebulizer Loulou 1 puff IH Q4H PRN 05/15/18 [Ventolin 0.083% Nebulizer Soln -] Prednisone See Taper PO DAILY #12 tablet 05/15/18 ASSESSMENT AND PLAN: This patient is an 82yo female with PMHx of COPD, GERD, HTN, CAD who comes to the ED c/o having SOB and increased coughing x 1 day. #Acute mild COPD exacerbation improved on steroid and neb. treatment PRN, ordered flu swab which is negative influenza. patient can go home after checking her peak flow. # Hx of recent SVT ,TSh is in a low side and Ft4 is within normal. further w/u as an outpatient. #RA on weekly MTx use, continue Forte. DVT: lovenox 40mg SQ
== END 2018-05-15 14:51 | disposition home or self-care (01) ==
LOC: JER 18:19 → JERBED 05-15 00:12
PROVIDERS: ADMIT Internal Medicine; ATTEND Internal Medicine
PROC: BB4BZZZ Ultrasonography of Pleura (ICD-10-PCS; principal; 2018-05-15)
PROC: 3E0F7GC Introduction of Other Therapeutic Substance into Respiratory Tract, Via Natural or Artificial Opening (ICD-10-PCS; 2018-05-15)
PROC: 3E0333Z Introduction of Anti-inflammatory into Peripheral Vein, Percutaneous Approach (ICD-10-PCS; 2018-05-15)
PROC: 3E0333Z Introduction of Anti-inflammatory into Peripheral Vein, Percutaneous Approach (ICD-10-PCS; 2018-05-15)
PROC: 3E023GC Introduction of Other Therapeutic Substance into Muscle, Percutaneous Approach (ICD-10-PCS; 2018-05-15)
DX: J44.1 Chronic obstructive pulmonary disease with (acute) exacerbation (principal); R74.8 Abnormal levels of other serum enzymes; I25.10 Atherosclerotic heart disease of native coronary artery without angina pectoris; I10 Essential (primary) hypertension; Z95.5 Presence of coronary angioplasty implant and graft; K21.9 Gastro-esophageal reflux disease without esophagitis; E78.5 Hyperlipidemia, unspecified; D51.0 Vitamin B12 deficiency anemia due to intrinsic factor deficiency; M06.9 Rheumatoid arthritis, unspecified; M48.00 Spinal stenosis, site unspecified; Z85.41 Personal history of malignant neoplasm of cervix uteri; Z87.19 Personal history of other diseases of the digestive system; Z87.891 Personal history of nicotine dependence
CPT/HCPCS: 36415; 71046-TC-FY; 80048; 82550; 83735; 83880; 84100; 84439; 84443; 84481; 84484; 85025; 85027; 85610; 85730; 87804; 93005; 93010; 94640; 96372; 96374; 96375; 99282-25; G0378

== ENCOUNTER 2018-05-16 23:16 | Emergency (ER) | payer OTHER ==
[2018-05-16 23:39] VITALS: BMI 15.9
--- NOTE | 2018-05-17 00:04 | PDOC ---
History of Present Illness - General Chief Complaint: Shortness of Breath Stated Complaint: SOB Time Seen by Provider: 05/17/18 00:04 History Source: Patient Exam Limitations: No Limitations - History of Present Illness Initial Comments: 05/17/18 00:20 82 year old female with PMH COPD, HTN, ROSALIA (2 stents), cerical cancer, anemia, GERD, spinal stenosis presented to ED for SOB. Pt states her SOB is present at rest and with exertion. Pt admitted to chest tightness, cough, sputum production , sore throat. Pt stated she tried her home albuterol nebulizer without relief of symptoms. Pt stated she believes her throat is sore because she has had so may breathing treatments. Pt denied chest pain, palpitations. Pt was seen in [facility] ED 05/15/18 for similar complaints, admitted for symptomatic SOB, discharged 05/16. Pt reported she continues to feel shortness of breath. Pt stated she has an appointment with her wire machine operator Dr. Stewart 05/18/18. Allergies: penicillin Past History - Past Medical History Allergies/Adverse Reactions: Allergies Allergy/AdvReac Type Severity Reaction Status Date / Time alendronate sodium Allergy Verified 05/16/18 23:39 [From Fosamax] Penicillins Allergy Rash Verified 05/16/18 23:39 Home Medications: Ambulatory Orders Albuterol Sulfate [Proair Hfa] 1 puff IH Q6H PRN 09/02/17 Alprazolam [Xanax] 0.25 mg PO DAILY PRN 09/02/17 Aspirin 81 mg PO DAILY 09/02/17 Budesonide/Formeterol Fumarate [SYMBICORT 160/4.5mcg -] 1 inh PO BID 09/02/17 Diltiazem HCl [Cartia Xt] 120 mg PO DAILY 09/02/17 Oxycodone HCl 10 mg PO BID 09/02/17 Teriparatide [Forteo] 2.4 ml SQ HS 09/20/17 Folic Acid 1 mg PO DAILY 12/20/17 Albuterol 0.083% Nebulizer Loulou [Ventolin 0.083% Nebulizer Soln -] 1 puff IH Q4H PRN 05/15/18 Prednisone See Taper PO DAILY #12 tablet 05/15/18 Anemia: Yes (PERNICIOUS ANEMIA) Asthma: No Cancer: No Cardiac Disorders: Yes (CARDIAC STENTS) CVA: No COPD: Yes CHF: No DVT: No Dementia: No Diabetes: No GI Disorders: Yes (GASTRITIS, DIVERTICULOSIS,GERD,PEPTIC ULCER,COLON POLYPS) Disorders: No HTN: Yes Hypercholesterolemia: (HYPERLIPIDEMIA BORDERLINE) Liver Disease: No (FATTY) Seizures: No Thyroid Disease: No - Surgical History Abdominal Surgery: No Appendectomy: Yes Cardiac Surgery: Yes (CARDIAC STENTS,ablations) Cholecystectomy: Yes Lung Surgery: No Neurologic Surgery: No Orthopedic Surgery: Yes (BILAT 5TH TOE SX) - Family Disease History Family Disease History: Heart Disease: Father - Immunization History Immunization Up to Date: Yes - Suicide/Smoking/Psychosocial Hx Smoking Status: Yes Smoking History: Never smoked Have you smoked in the past 12 months: No Number of Cigarettes Smoked Daily: 1 If you are a former smoker, when did you quit?: 10d Information on smoking cessation initiated: No 'Breaking Loose' booklet given: 01/10/18 Hx Alcohol Use: No Drug/Substance Use Hx: No Substance Use Type: None Hx Substance Use Treatment: No Review of Systems - Review of Systems Able to Perform ROS?: Yes Comments:: 05/17/18 00:24 General: denied fever, chills, night sweats, generalized weakness. HEENT: denied sore throat, rhinorrhea, ear pain. Heart: denied chest pain, palpitations, syncope, lower extremity swelling, diaphoresis. Respiratory: admitted to shortness of breath, cough, sputum production. denied hemoptysis. Abdomen: denied abdominal pain, nausea, vomiting, diarrhea, constipation, blood in stool. : denied dysuria, increased urinary frequency, hematuria, urinary incontinence , flank pain. Back: denied back pain. Musculoskeletal: denied joint pain, muscle pain, joint swelling. Neurological: denied headache, dizziness, numbness, tingling, weakness. Skin: denied rash, laceration, abrasion. *Physical Exam - Vital Signs Last Vital Signs Temp Pulse Resp BP Pulse Ox 98.1 F 89 20 149/100 94 L 05/16/18 23:16 05/16/18 23:16 05/16/18 23:16 05/16/18 23:16 05/16/18 23:16 - Physical Exam Comments: 05/17/18 00:24 Constitutional: Well-nourished, Well-developed, appearing stated age. HEENT: head is normocephalic, atraumatic. EOMI. PERRLA. exudate to posterior pharynx. no posterior pharyngeal erythema. no tonsillar swelling. no tonsillar exudates. Neck: supple. Full ROM. Heart: regular rhythm. no murmurs, rubs or gallops. Lungs: wheezing bilaterally. speaking full sentences. Abdomen: soft, nontender. normal bowel sounds. no rebound, guarding, masses. Extremities: Peripheral pulses intact. No lower extremity edema. Neurological: CN 2-12 grossly intact. Moves all four extremities. Psych: awake, alert, oriented x3. Follows commands. Answers questions appropriately. Vital Signs - Vital Signs #2 Blood Pressure: 161/78 MAP: 105 BP Location: Right Arm Blood Pressure Position: Sitting Pulse Rate: 81 Respiratory Rate: 14 Temperature: 98.9 F Temperature Source: Oral (SPO2 94%) Moderate Sedation - Procedure Monitoring Vital Signs: Procedure Monitoring Vital Signs Temperature 98.1 F 05/16/18 23:16 Pulse Rate 89 05/16/18 23:16 Respiratory Rate 20 05/16/18 23:16 Blood Pressure 149/100 05/16/18 23:16 O2 Sat by Pulse Oximetry (%) 94 L 05/16/18 23:16 ED Treatment Course - LABORATORY CBC & Chemistry Diagram: 05/17/18 01:17 05/17/18 01:17 Medical Decision Making - Medical Decision Making 05/17/18 00:25 82 year old female with above PMH presented to ED twice within this week for SOB. Pt discharged from [facility] 05/16 for SOB. Initial Vital Signs Temp Pulse Resp BP Pulse Ox 98.1 F 89 20 149/100 94 L 05/16/18 23:16 05/16/18 23:16 05/16/18 23:16 05/16/18 23:16 05/16/18 23:16 Afebrile. No tachycardia. No tachypnea. Mild hypertension. Borderline hypoxia. - Pt has COPD. Labs ordered: CBC, BMP EKG performed at 141: rate 69, regular rhythm, normal axis, normal intervals, nonspecific ST changes. Imaging ordered: CXR 05/17/18 02:01 CXR: no infiltrate. no pneumothorax. no cardiomegaly. CBC WBC 7.8 K/mm3 (4.0-10.0) 05/17/18 01:17 RBC 3.56 M/mm3 (3.60-5.2) L 05/17/18 01:17 Hgb 10.8 GM/dL (10.7-15.3) 05/17/18 01:17 Hct 31.4 % (32.4-45.2) L 05/17/18 01:17 MCV 88.1 fl (80-96) 05/17/18 01:17 MCH 30.3 pg (25.7-33.7) 05/17/18 01:17 MCHC 34.4 g/dl (32.0-36.0) 05/17/18 01:17 RDW 13.4 % (11.6-15.6) 05/17/18 01:17 Plt Count 361 K/MM3 (134-434) 05/17/18 01:17 MPV 8.2 fl (7.5-11.1) 05/17/18 01:17 Absolute Neuts (auto) 5.9 K/mm3 (1.5-8.0) 05/17/18 01:17 Neutrophils % 74.9 % (42.8-82.8) 05/17/18 01:17 Lymphocytes % 15.4 % (8-40) D 05/17/18 01:17 Monocytes % 9.2 % (3.8-10.2) D 05/17/18 01:17 Eosinophils % 0.1 % (0-4.5) D 05/17/18 01:17 Basophils % 0.4 % (0-2.0) 05/17/18 01:17 Nucleated RBC % 0 % (0-0) 05/17/18 01:17 No leukocytosis. No anemia. 05/17/18 02:07 CMP Sodium 139 mmol/L (136-145) 05/17/18 01:17 Potassium 4.2 mmol/L (3.5-5.1) 05/17/18 01:17 Chloride 105 mmol/L (98-107) 05/17/18 01:17 Carbon Dioxide 27 mmol/L (21-32) 05/17/18 01:17 Anion Gap 8 MMOL/L (8-16) 05/17/18 01:17 BUN 31 mg/dL (7-18) H 05/17/18 01:17 Creatinine 1.1 mg/dL (0.55-1.3) 05/17/18 01:17 Creat Clearance w eGFR 47.67 (>60) 05/17/18 01:17 Random Glucose 97 mg/dL (74-106) 05/17/18 01:17 Calcium 8.1 mg/dL (8.5-10.1) L 05/17/18 01:17 Troponin I < 0.02 ng/ml (0.00-0.05) 05/17/18 01:17 No electrolyte abnormality. No [place]. Cr at baseline. Normal troponin. 05/17/18 02:34 Results discussed with patient. Pt stated her SOB has improved and she would like to go home. No wheezing on auscultation. Pt stated she will follow up with Dr. Houston benitez. Pt informed to return to ED should she have SOB before seeing Dr. Houston. Vital Signs Temperature 98.9 F 05/17/18 02:51 Pulse Rate 81 05/17/18 02:51 Respiratory Rate 14 05/17/18 02:51 Blood Pressure 161/78 05/17/18 02:51 O2 Sat by Pulse Oximetry (%) 94 L 05/16/18 02:51 *DC/Admit/Observation/Transfer Diagnosis at time of Disposition: Shortness of breath, COPD (chronic obstructive pulmonary disease) - Discharge Dispostion Disposition: HOME Condition at time of disposition: Improved Decision to Admit order: No - Referrals Referrals: Godwin Gordon MD [Primary Care Provider] - - Patient Instructions Printed Discharge Instructions: DI for Chronic Obstructive Pulmonary Disease, DI for Shortness of Breath Additional Instructions: Your lab work was similar to prior. Your Chest X-ray showed no pneumonia. Your EKG was normal. Follow up with Dr. Houston . Follow up with your primary care doctor in 1-2 days. Return to the Emergency Department for shortness of breath, chest pain, palpitations, coughing up blood, lightheadedness like you may pass out, or any other new, worsening symptoms. Continue taking your steroid you were prescribed by the hospital. Use your inhaler at home every 4-6 hours as needed for shortness of breath. - Post Discharge Activity
--- NOTE | 2018-05-17 00:07 | PDOC ---
Attending Attestation - Resident Resident Name: Ally Cartera - ED Attending Attestation I have performed the following: I have examined & evaluated the patient, The case was reviewed & discussed with the resident, I agree w/resident's findings & plan - HPI HPI: 05/17/18 01:37 Patient is an 82 year old female with a significant past medical history of Anemia, COPD, GI Disorders, HTN, HLD (borderline), who presents to the ED with complaints of shortness of breath that began earlier today. Patient reports experiencing shortness of breath with associated symptoms of chest tightness, productive cough, and sore throat. She reports shortness of breath does not change with rest or exertion. Patient reports taking her home nebulizer with no relief, stating she believes her throat to be sore secondary to the continued use of the treatments. She states she came to the ED on May 15 for similar complaints, was admitted for shortness of breath and discharged on the . Denies nausea, vomiting. Denies fevers, chills. Denies trauma to affected area. Denies contact with sick individuals, out of state travelling. Denies dysuria, hematuria. Denies diarrhea, constipation. Denies any other symptoms. Allergies: Alendronate sodium, Penicillins. Social history: Former smoker, no alcohol. No illicit drugs. Surgical history: Appendectomy, CARDIAC STENTS, Cholecystectomy PMD: Dr. Gordon - Physicial Exam PE: 05/17/18 01:37 NAD, speaking full sentences, no respiratory distress. MMM, nl conjunctiva, anicteric; neck supple. Lungs with scant wheezing, but poor inspiratory effort. RRR, abdomen soft nontender. BARRY x4, no focal neuro deficits. No peripheral edema. No calf tenderness. normal color for ethnicity, [facility]. - Medical Decision Making 05/17/18 01:37 Ferro 82yo female with PMHx of COPD, GERD, HTN, CAD who comes to the ED c/o having SOB and increased coughing x 1 day. Recently admitted for copd exacerbation, has appt with Dr De Paz this week for her COPD. Vital signs reviewed, wnl. borderline sats 94% on RA, but is COPD. Prior notes reviewed, including admissions, discharges and consultations. laboratory results and imaging reviewed, basic labs and lytes wnl, CXR_hyperinflated, no consolidation or effusion/edema Cardiac panel_neg trop EKG normal sinus rhythm, no interval abnormalities, narrow QRS, ST and T wave segments and morphology normal. Nonspecific T wave abnormalities ED course: initially complaining and hostile to staff, refusing medications, labs/EKG/CXR, given she was recently admitted and dc'd for copd. after speaking with her at bedside, she agreed to duonebs and symptomatic treatment for suspected COPD flare and symptoms. clinical improvement with duonebs/tx Dispo: pt comfortable with discharge and unremarkable workup. has close f/u Dr De Paz . on steroid taper. return precautions given, med compliance discussed. 05/17/18 01:38 05/17/18 02:44 05/17/18 02:45 Heart Score/ECG Review - ECG Impressions Normal ECG: Yes Comment:: 05/17/18 02:45 EKG normal sinus rhythm, no interval abnormalities, narrow QRS, ST and T wave segments and morphology normal. Nonspecific T wave abnormalities
[2018-05-17] MEDS ORDERED: ALBUTEROL SO4 2.5/IPRATROPIUM 0.5 INH SOL 3 ML VIAL.NEB. NEB ONE ×2 (00:21→00:34)
[2018-05-17 01:35] LABS: BASO % 0.4 % (0-2.0); EOS % 0.1 % (0-4.5); HEMATOCRIT 31.4 % (32.4-45.2); HEMOGLOBIN 10.8 GM/dL (10.7-15.3); LYMPH % 15.4 % (8-40); MCH 30.3 pg (25.7-33.7); MCHC 34.4 g/dl (32.0-36.0); MEAN CELL VOLUME 88.1 fl (80-96); MEAN PLT VOLUME 8.2 fl (7.5-11.1); MONO % 9.2 % (3.8-10.2); NEUT % 74.9 % (42.8-82.8); PLATELET COUNT 361 K/MM3 (134-434); RBC 3.56 M/mm3 (3.60-5.2); RDW 13.4 % (11.6-15.6); WHITE BLOOD COUNT 7.8 K/mm3 (4.0-10.0)
[2018-05-17 02:05] LABS: ANION GAP 8 MMOL/L (8-16); BLOOD UREA NITROGEN 31 mg/dL (7-18); CALCIUM 8.1 mg/dL (8.5-10.1); CHLORIDE 105 mmol/L (98-107); CO2 27 mmol/L (21-32); CREATININE 1.1 mg/dL (0.55-1.3); GLUCOSE,RANDOM 97 mg/dL (74-106); POTASSIUM 4.2 mmol/L (3.5-5.1); SODIUM 139 mmol/L (136-145)
[2018-05-17 02:51] VITALS: BP 161/78; PULSE 81; TEMP 98.9
--- NOTE | 2018-05-17 09:49 | EKG ---
Test Reason : Blood Pressure : / mmHG Vent. Rate : 069 BPM Atrial Rate : 069 BPM P-R Int : 140 ms QRS Dur : 074 ms QT Int : 386 ms P-R-T Axes : 074 072 071 degrees QTc Int : 413 ms POOR DATA QUALITY, INTERPRETATION MAY BE ADVERSELY AFFECTED NORMAL SINUS RHYTHM NORMAL ECG WHEN COMPARED WITH ECG OF 14-MAY-2018 22:59, NO SIGNIFICANT CHANGE WAS FOUND Confirmed by JASMYNE JARQUIN, SHAYLA ([id number]) on 05/17/2018 9:49:28 AM Referred By: Confirmed By:SHAYLA MEDLEY MD
== END 2018-05-17 04:01 | disposition home or self-care (01) ==
LOC: JER 23:16
PROC: 3E0F7GC Introduction of Other Therapeutic Substance into Respiratory Tract, Via Natural or Artificial Opening (ICD-10-PCS; principal; 2018-05-16)
DX: J44.9 Chronic obstructive pulmonary disease, unspecified (principal); R06.02 Shortness of breath; Z87.891 Personal history of nicotine dependence; Z95.5 Presence of coronary angioplasty implant and graft; I10 Essential (primary) hypertension
CPT/HCPCS: 36415; 71046-TC-FY; 80048; 84484; 85025; 93005; 93010; 99283-25

== ENCOUNTER 2018-08-17 09:44 | Day surgery (SDC) | payer OTHER, MEDICARE ==
[2018-08-17] MEDS ORDERED: IRON SUCROSE INJECTION 200 MG in SODIUM CHLORIDE 100 ML IVPB ONE (10:00)
[2018-08-17 10:21] VITALS: TEMP 98.5
[2018-08-17 10:59] VITALS: BP 118/60; PULSE 76
== END 2018-08-17 11:00 | disposition home or self-care (01) ==
LOC: FINFUSION 09:44 → FM/S 09:45 → FINFUSION 11:00
PROVIDERS: ATTEND Internal Medicine Hematology & Oncology
PROC: 3E033GC Introduction of Other Therapeutic Substance into Peripheral Vein, Percutaneous Approach (ICD-10-PCS; principal; 2018-08-17)
DX: D50.9 Iron deficiency anemia, unspecified (principal)
CPT/HCPCS: 96365

== ENCOUNTER 2018-08-24 08:55 | Day surgery (SDC) | payer OTHER, MEDICARE ==
[2018-08-24 09:32] VITALS: BP 118/61; PULSE 77; TEMP 98.4
[2018-08-24 09:34] VITALS: BMI 16.0
[2018-08-24] MEDS ORDERED: IRON SUCROSE INJECTION 200 MG in SODIUM CHLORIDE 100 ML IVPB ONE (10:00)
== END 2018-08-24 10:45 | disposition home or self-care (01) ==
LOC: FINFUSION 08:55 → FM/S 09:03 → FINFUSION 10:45
PROVIDERS: ATTEND Internal Medicine Hematology & Oncology
PROC: 3E033GC Introduction of Other Therapeutic Substance into Peripheral Vein, Percutaneous Approach (ICD-10-PCS; principal; 2018-08-24)
DX: D50.9 Iron deficiency anemia, unspecified (principal)
CPT/HCPCS: 96365; J1756

== ENCOUNTER 2019-01-30 09:04 | Day surgery (SDC) | payer OTHER, MEDICARE ==
[2019-01-30] MEDS ORDERED: IRON SUCROSE INJECTION 200 MG in SODIUM CHLORIDE 100 ML IVPB ONE (09:30)
[2019-01-30 11:05] VITALS: BP 122/52; PULSE 64; TEMP 98.2
== END 2019-01-30 10:45 | disposition home or self-care (01) ==
LOC: FINFUSION 09:04 → FM/S 09:12 → FINFUSION 10:45
PROVIDERS: ATTEND Internal Medicine Hematology & Oncology
DX: D50.8 Other iron deficiency anemias (principal)
CPT/HCPCS: 96365; J1756

== ENCOUNTER 2019-02-06 09:14 | Day surgery (SDC) | payer OTHER, MEDICARE ==
[2019-02-06 09:41] VITALS: TEMP 98.3
[2019-02-06] MEDS ORDERED: IRON SUCROSE INJECTION 200 MG in SODIUM CHLORIDE 100 ML IVPB ONE (10:00)
[2019-02-06 10:49] VITALS: BP 114/53; PULSE 60
== END 2019-02-06 10:34 | disposition home or self-care (01) ==
LOC: FINFUSION 09:14 → FM/S 09:20 → FINFUSION 10:34
PROVIDERS: ATTEND Internal Medicine Hematology & Oncology
PROC: 3E033GC Introduction of Other Therapeutic Substance into Peripheral Vein, Percutaneous Approach (ICD-10-PCS; principal; 2019-02-06)
DX: D50.8 Other iron deficiency anemias (principal)
CPT/HCPCS: 96365; J1756

== ENCOUNTER 2019-02-13 09:21 | Day surgery (SDC) | payer OTHER, MEDICARE | END 2019-02-13 11:10 | disposition home or self-care (01) | LOC: FINFUSION 09:21 → FM/S 09:22 → FINFUSION 11:10 | DX: D50.8 Other iron deficiency anemias (principal) ==

== ENCOUNTER 2019-03-21 11:46 | Inpatient (IN) | payer OTHER, MEDICARE ==
--- NOTE | 2019-03-21 11:59 | PDOC ---
History of Present Illness - General Chief Complaint: Respiratory Stated Complaint: SHORTNESS OF BREATH Time Seen by Provider: 03/21/19 11:59 - History of Present Illness Initial Comments: 03/21/19 12:47 Chief complaint: Chest congestion HPI: COPD patient referred from Drs. Cadet/Abby for acute exacerbation. Treated in [facility] emergency room 2 days ago, no pneumonia, steroids and antibiotics were begun. The patient took 50 mg of prednisone yesterday but none today. She denies chest pain or shortness of breath, her main complaint being the sensation of mucus in her upper chest that she cannot expectorate. This makes her panic. Review of systems: Denies fever/chills, headache, diaphoresis, urinary tract symptoms, vaginal bleeding or discharge, hematemesis, melena, bloody stool. Admits decreased appetite, intermittent nausea, and "sneezing". Past medical history: Former smoker until "a few years ago", COPD, HBP, anxiety , osteoporosis Medications include home nebulizer with albuterol only, as well as inhalers, Forteo, diltiazem, and prednisone for 2 days. Social history: Lives alone and cares for self, adequately ambulatory, friends nearb/y but no family. Physical exam: Alert and oriented thin and somewhat cachectic in appearance, mild respiratory distress. Afebrile, vital signs with elevated blood pressure, mildly increased respiratory rate but minimally labored, and O2 sat 95% on room air. HEENT clear. PERRLA. Fundi benign Neck supple without bruit mass or nodes Chest exam reveals hyper inflation, hyperresonance, decreased breath sounds bilaterally but symmetric, occasional end expiratory wheezes at both bases. Respiratory rate is 22 and mildly labored, O2 saturation 95 on room air. CV S1-S2 distant, regular, without murmur rub or gallop, pulses full and symmetric, no JVD or edema Abdomen soft nontender without mass organomegaly Neurological intact Extremities no CCE Skin clear, no rash, adequate turgor and wet mucous membranes Impression: Acute exacerbation of COPD. Rule out pneumonia. Plan: Continue intravenous steroids and antibiotics. Nebulizers. Admit for further evaluation and oxygen if tired. Past History - Past Medical History Allergies/Adverse Reactions: Allergies Allergy/AdvReac Type Severity Reaction Status Date / Time alendronate sodium Allergy Verified 03/21/19 12:49 [From Fosamax] Penicillins Allergy Rash Verified 03/21/19 12:49 Home Medications: Ambulatory Orders Albuterol 0.083% Nebulizer Loulou [Ventolin 0.083%] 1 neb NEB Q4H 03/21/19 Alprazolam [Xanax] 0.25 mg PO PRN 03/21/19 Aspirin 81 mg PO DAILY 03/21/19 Azithromycin [Zithromax Tri-Alonso (3 DAYS) -] 500 mg PO DAILY 03/21/19 Budesonide/Formeterol Fumarate [SYMBICORT 160/4.5mcg -] 1 inh PO BID 03/21/19 Citalopram Hydrobromide [Citalopram HBr] 10 mg PO DAILY 03/21/19 Cyclobenzaprine HCl 10 mg PO DAILY 03/21/19 Diltiazem HCl [Cartia Xt] 120 mg PO DAILY 03/21/19 Folic Acid 1 mg PO DAILY 03/21/19 Oxycodone HCl 10 mg PO PRN 03/21/19 Pantoprazole Sodium 40 mg PO DAILY 03/21/19 Prednisone [Prednisone 50 MG TABLETS] 50 mg PO DAILY 03/21/19 Teriparatide [Forteo] 1 dose SQ HS 03/21/19 Anemia: Yes (PERNICIOUS ANEMIA) Asthma: No Cancer: Yes (cervical) Cardiac Disorders: Yes (CARDIAC STENTS) CVA: No COPD: Yes CHF: No DVT: No Dementia: No Diabetes: No GI Disorders: Yes (GASTRITIS, DIVERTICULOSIS,GERD,PEPTIC ULCER,COLON POLYPS) Disorders: No HTN: Yes Hypercholesterolemia: (HYPERLIPIDEMIA BORDERLINE) Liver Disease: No (FATTY) Seizures: No Thyroid Disease: No - Surgical History Abdominal Surgery: No Appendectomy: Yes Cardiac Surgery: Yes (CARDIAC STENTS,ablations) Cholecystectomy: Yes Lung Surgery: No Neurologic Surgery: No Orthopedic Surgery: Yes (BILAT 5TH TOE SX) - Immunization History Immunization Up to Date: Yes - Psycho Social/Smoking Cessation Hx Smoking Status: Yes Smoking History: Current some day smoker Have you smoked in the past 12 months: Yes Number of Cigarettes Smoked Daily: 1 If you are a former smoker, when did you quit?: 10d 'Breaking Loose' booklet given: 08/24/18 Hx Alcohol Use: No Drug/Substance Use Hx: No Substance Use Type: None Hx Substance Use Treatment: No Respiratory Specific PMHX - Complaint Specific PMHX Hx Angina: No ED Treatment Course - LABORATORY CBC & Chemistry Diagram: 03/21/19 12:30 03/21/19 12:30 Medical Decision Making - Medical Decision Making 03/21/19 12:16 EKG reveals normal sinus rhythm 83/min. Normal axes and intervals. No ST-T wave changes. Normal EKG. 03/21/19 13:04 Chest x-ray shows hyperinflation, small heart, interstitial changes consistent with COPD. No acute infiltrates. Labs pending. Dr. Cadet was consulted. Case was discussed and he will consult. To admit to hospitalist Shilpa Gutierrez was contacted. Accepts the admission. Case was discussed. Patient is somewhat improved with nebulizers, IV steroids and antibiotic were administered, and further pulmonary evaluation will be performed as an inpatient. No sign of pneumonia or serious respiratory infection. 03/21/19 13:16 CBC and chemistries without significant abnormalities. Cardiac enzymes are pending. Discharge - Discharge Information Problems reviewed: Yes Clinical Impression/Diagnosis: COPD (chronic obstructive pulmonary disease) Qualifiers: COPD type: COPD with acute exacerbation Qualified Code(s): J44.1 - Chronic obstructive pulmonary disease with (acute) exacerbation - Admission Yes - Follow up/Referral - Patient Discharge Instructions - Post Discharge Activity
[2019-03-21] MEDS ORDERED: ALBUTEROL SO4 2.5/IPRATROPIUM 0.5 INH SOL 3 ML VIAL.NEB. NEB ONE ×2 (12:00→12:20)
[2019-03-21] MEDS ORDERED: methylPREDNISolone NA SUCC 125 MG/2 ML VIAL IVPB ONE (12:45)
[2019-03-21] MEDS ORDERED: AZITHROMYCIN IVPB 250 MG in DEXTROSE 5%-WATER - 250 ML IVPB ONE (12:45)
[2019-03-21] MEDS ORDERED: guaiFENesin/CODEINE 5 ML UNIT-DOSE CUPS PO ONE (12:50)
[2019-03-21] MEDS ORDERED: guaiFENesin/CODEINE 10 ML UNIT-DOSE CUPS ONE (12:52)
[2019-03-21] MEDS ORDERED: methylPREDNISolone NA SUCC 125 MG/2 ML VIAL ONE (12:52)
[2019-03-21] MEDS ORDERED: AZITHROMYCIN 500 MG VIAL IVPB ONE (12:53)
[2019-03-21 12:56] LABS: ALBUMIN 4.2 g/dl (3.4-5.0); BILIRUBIN,TOTAL 0.3 mg/dl (0.2-1); CALCIUM 9.3 mg/dl (8.5-10); CREATININE 0.9 mg/dl (0.55-1.3); TOT PROT 7.3 g/dl (6.4-8.2)
[2019-03-21 13:01] LABS: BASO % 4.6 % (0-2.0); HEMATOCRIT 37.9 % (32.4-45.2); HEMOGLOBIN 12.2 GM/dl (10.7-15.3); LYMPH % 23.1 % (8-40); MCH 29.1 pg (25.7-33.7); MCHC 32.1 g/dl (32.0-36.0); MEAN CELL VOLUME 90.8 fl (80-96); MEAN PLT VOLUME 7.9 fl (7.5-11.1); MONO % 6.3 % (3.8-10.2); PLATELET COUNT 378 K/MM3 (134-434); RBC 4.18 M/mm3 (3.60-5.2); RDW 13.4 % (11.6-15.6); WHITE BLOOD COUNT 8.4 K/mm3 (4.0-10.8)
--- NOTE | 2019-03-21 13:11 | HP ---
CHIEF COMPLAINT: PCP: Dr. De Paz Cardiology: Dr. Monterroso HISTORY OF PRESENT ILLNESS: ER course was notable for: (1) (2) (3) Recent Travel: PAST MEDICAL HISTORY: Hypertension Coronary artery disease Atrial fibrillation SVT Asthma Iron deficiency anemia Fibromyalgia GERD Gout Polyarthritis Anxiety/depression PAST SURGICAL HISTORY: Cholecystectomy Cardiac ablation for SVT Social History: Smoking: Alcohol: Drugs: Allergies alendronate sodium [From Fosamax] Allergy (Verified 03/21/19 12:49) PASSED OUT Penicillins Allergy (Verified 03/21/19 12:49) Rash HOME MEDICATIONS: Home Medications Medication Instructions Recorded Albuterol 0.083% Nebulizer Loulou 1 neb NEB Q4H 03/21/19 [Ventolin 0.083%] Alprazolam [Xanax] 0.25 mg PO PRN 03/21/19 Aspirin 81 mg PO DAILY 03/21/19 Azithromycin [Zithromax Tri-Alonso (3 500 mg PO DAILY 03/21/19 DAYS) -] Budesonide/Formeterol Fumarate 1 inh PO BID 03/21/19 [SYMBICORT 160/4.5mcg -] Citalopram Hydrobromide 10 mg PO DAILY 03/21/19 [Citalopram HBr] Cyclobenzaprine HCl 10 mg PO DAILY 03/21/19 Diltiazem HCl [Cartia Xt] 120 mg PO DAILY 03/21/19 Folic Acid 1 mg PO DAILY 03/21/19 Oxycodone HCl 10 mg PO PRN 03/21/19 Pantoprazole Sodium 40 mg PO DAILY 03/21/19 Prednisone [Prednisone 50 MG 50 mg PO DAILY 03/21/19 TABLETS] Teriparatide [Forteo] 1 dose SQ HS 03/21/19 REVIEW OF SYSTEMS CONSTITUTIONAL: Absent: fever, chills, diaphoresis, generalized weakness, malaise, loss of appetite, weight change HEENT: Absent: rhinorrhea, nasal congestion, throat pain, throat swelling, difficulty swallowing, mouth swelling, ear pain, eye pain, visual changes CARDIOVASCULAR: Absent: chest pain, syncope, palpitations, irregular heart rate, lightheadedness , peripheral edema RESPIRATORY: Absent: cough, shortness of breath, dyspnea with exertion, orthopnea, wheezing, stridor, hemoptysis GASTROINTESTINAL: Absent: abdominal pain, abdominal distension, nausea, vomiting, diarrhea, constipation, melena, hematochezia GENITOURINARY: Absent: dysuria, frequency, urgency, hesitancy, hematuria, flank pain, genital pain MUSCULOSKELETAL: Absent: myalgia, arthralgia, joint swelling, back pain, neck pain SKIN: Absent: rash, itching, pallor HEMATOLOGIC/IMMUNOLOGIC: Absent: easy bleeding, easy bruising, lymphadenopathy, frequent infections ENDOCRINE: Absent: unexplained weight gain, unexplained weight loss, heat intolerance, cold intolerance NEUROLOGIC: Absent: headache, focal weakness or paresthesias, dizziness, unsteady gait, seizure, mental status changes, bladder or bowel incontinence PSYCHIATRIC: Absent: anxiety, depression, suicidal or homicidal ideation, hallucinations. PHYSICAL EXAMINATION Vital Signs - 24 hr 03/21/19 11:48 Temperature 98 F Pulse Rate 81 Respiratory 24 H Rate Blood Pressure 180/97 H O2 Sat by Pulse 95 Oximetry (%) GENERAL: Awake, alert, and fully oriented, in no acute distress. HEAD: Normal with no signs of trauma. EYES: Pupils equal, round and reactive to light, extraocular movements intact, sclera anicteric, conjunctiva clear. No lid lag. EARS, NOSE, THROAT: Ears normal, nares patent, oropharynx clear without exudates. Moist mucous membranes. NECK: Normal range of motion, supple without lymphadenopathy, JVD, or masses. LUNGS: Breath sounds equal, clear to auscultation bilaterally. No wheezes, and no crackles. No accessory muscle use. HEART: Regular rate and rhythm, normal S1 and S2 without murmur, rub or gallop. ABDOMEN: Soft, nontender, not distended, normoactive bowel sounds, no guarding, no rebound, no masses. No hepatomegaly or splenomegaly. MUSCULOSKELETAL: Normal range of motion at all joints. No bony deformities or tenderness. No CVA tenderness. UPPER EXTREMITIES: 2+ pulses, warm, well-perfused. No cyanosis. No clubbing. No peripheral edema. LOWER EXTREMITIES: 2+ pulses, warm, well-perfused. No calf tenderness. No peripheral edema. NEUROLOGICAL: Cranial nerves II-XII intact. Normal speech. Normal gait. PSYCHIATRIC: Cooperative. Good eye contact. Appropriate mood and affect. SKIN: Warm, dry, normal turgor, no rashes or lesions noted, normal capillary refill. Laboratory Results - last 24 hr 10/16/19 12:30 Sodium 133 L Potassium 4.0 Chloride 102 Carbon Dioxide 26 Anion Gap 5 L BUN 21.0 H Creatinine 0.9 Est GFR (CKD-EPI)AfAm 69.01 Est GFR (CKD-EPI)NonAf 59.55 Random Glucose 98 Calcium 9.3 Total Bilirubin 0.3 AST 36 ALT 26 Alkaline Phosphatase 85 Creatine Kinase 189 Total Protein 7.3 Albumin 4.2 ASSESSMENT/PLAN:
[2019-03-21 15:23] VITALS: BMI 14.8
[2019-03-21] MEDS ORDERED: ALPRAZolam 0.25 MG TABLET PO SCH (17:00)
[2019-03-21] MEDS ORDERED: PATIENT'S OWN MEDICATION (NON-FORMULARY) (Oxycodone Hcl [Oxycodone Hcl] 10 MG) PO SCH (17:00)
[2019-03-21] MEDS ORDERED: ALBUTEROL SO4 0.083% IH SOL 2.5 MG/3 ML VIAL.NEB. NEB SCH (17:00)
[2019-03-21] MEDS ORDERED: ALBUTEROL SO4 2.5/IPRATROPIUM 0.5 INH SOL 3 ML VIAL.NEB. NEB PRN (17:03)
--- NOTE | 2019-03-21 17:19 | CON.PULM ---
Consult Consult Specialty:: PULMONARY Referred by:: SILVA Reason for Consultation:: COPD - History of Present Illness Chief Complaint: SOB/COUGH/SPUTUM History of Present Illness: 83 THIN AA FEMALE WITH COPD NOT ON HOME O2 WITH H/O Hypertension,Coronary artery disease,Atrial fibrillation,SVT,Asthma,Iron deficiency,anemia, Fibromyalgia,GERD,Gout,Polyarthritis, AND Anxiety PRESENTS WITH A FEW DAYS OF PROGRESSIVE SOB/WEST/NONPRODUCTIVE COUGH/WEIGHT LOSS AND FAILURE TO THRIVE . 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 No: O2 Dependent, Sleep Apnea Gastrointestinal: Yes: GERD, GI Bleed, Peptic Ulcer Disease Hepatobiliary: Yes: Cholelithiasis ...: No Psych: Yes: Anxiety - Past Surgical History Past Surgical History: Yes: Colonoscopy - Alcohol/Substance Use Hx Alcohol Use: No History of Substance Use: reports: None - Smoking History Smoking history: Current some day smoker Have you smoked in the past 12 months: Yes Aproximately how many cigarettes per day: 1 If you are a former smoker, when did you quit?: 10d - Social History ADL: Independent Occupation: accounts recievable History of Recent Travel: No Home Medications - Allergies Allergies/Adverse Reactions: Allergies Allergy/AdvReac Type Severity Reaction Status Date / Time alendronate sodium Allergy Verified 03/21/19 12:49 [From Fosamax] Penicillins Allergy Rash Verified 03/21/19 12:49 - Home Medications Home Medications: Ambulatory Orders Albuterol 0.083% Nebulizer Loulou [Ventolin 0.083%] 1 neb NEB Q4H 03/21/19 Alprazolam [Xanax] 0.25 mg PO PRN 03/21/19 Aspirin 81 mg PO DAILY 03/21/19 Azithromycin [Zithromax Tri-Alonso (3 DAYS) -] 500 mg PO DAILY 03/21/19 Budesonide/Formeterol Fumarate [SYMBICORT 160/4.5mcg -] 1 inh PO BID 03/21/19 Citalopram Hydrobromide [Citalopram HBr] 10 mg PO DAILY 03/21/19 Cyclobenzaprine HCl 10 mg PO DAILY 03/21/19 Diltiazem HCl [Cartia Xt] 120 mg PO DAILY 03/21/19 Folic Acid 1 mg PO DAILY 03/21/19 Oxycodone HCl 10 mg PO PRN 03/21/19 Pantoprazole Sodium 40 mg PO DAILY 03/21/19 Prednisone [Prednisone 50 MG TABLETS] 50 mg PO DAILY 03/21/19 Teriparatide [Forteo] 1 dose SQ HS 03/21/19 Review of Systems - Review of Systems Constitutional: reports: Loss of Appetite. denies: Fever Eyes: denies: Blurred Vision HENT: denies: Difficult Swallowing Neck: denies: Decreased ROM Cardiovascular: reports: Shortness of Breath. denies: Chest Pain, Palpitations Respiratory: reports: Cough, Exercise Intolerance, SOB, SOB on Exertion, Wheezing. denies: Hemoptysis Gastrointestinal: denies: Abdominal Pain Genitourinary: denies: Burning Physical Exam Vital Sings: Vital Signs Temperature 98.1 F 03/21/19 14:55 Pulse Rate 76 03/21/19 14:55 Respiratory Rate 19 03/21/19 14:55 Blood Pressure 151/80 03/21/19 14:55 O2 Sat by Pulse Oximetry (%) 100 03/21/19 16:47 Constitutional: Yes: Anxious Eyes: Yes: EOM Intact HENT: Yes: Normocephalic Cardiovascular: Yes: Regular Rate and Rhythm, S1, S2 Respiratory: Yes: Diminished Gastrointestinal: Yes: Normal Bowel Sounds Edema: No Labs: CBC, BMP 03/21/19 12:30 03/21/19 12:30 Imaging - Results Chest X-ray: Report Reviewed, Image Reviewed Problem List - Problems (1) COPD (chronic obstructive pulmonary disease) Code(s): J44.9 - CHRONIC OBSTRUCTIVE PULMONARY DISEASE, UNSPECIFIED Qualifiers: COPD type: COPD with acute exacerbation Qualified Code(s): J44.1 - Chronic obstructive pulmonary disease with (acute) exacerbation (2) Anemia Code(s): D64.9 - ANEMIA, UNSPECIFIED Qualifiers: Anemia type: unspecified type Qualified Code(s): D64.9 - Anemia, unspecified (3) Anxiety Code(s): F41.9 - ANXIETY DISORDER, UNSPECIFIED (4) COPD exacerbation Code(s): J44.1 - CHRONIC OBSTRUCTIVE PULMONARY DISEASE W (ACUTE) EXACERBATION (5) Difficulty breathing Code(s): R06.89 - OTHER ABNORMALITIES OF BREATHING (6) Dyspnea Code(s): R06.00 - DYSPNEA, UNSPECIFIED (7) GERD (gastroesophageal reflux disease) Code(s): K21.9 - GASTRO-ESOPHAGEAL REFLUX DISEASE WITHOUT ESOPHAGITIS Assessment/Plan A/E COPD MULTIPLE CO-MORBID CONDITIONS LISTED O2/WILL LIKELY NEED HOME 02 BRONCHODILATORS/STEROIDS/ANTIBIOTICS ORDERED GOOD CANDIDATE FOR PULMONARY REHAB CONTINUE HOME CARDIAC MEDS WILL FOLLOW Yanira MARTINEZ MD
[2019-03-21] MEDS ORDERED: ALBUTEROL SO4 2.5/IPRATROPIUM 0.5 INH SOL 3 ML VIAL.NEB. NEB SCH (20:00)
[2019-03-21] MEDS ORDERED: PT OWN MED DRAWER 7, Y5N ONE (21:17)
[2019-03-21] MEDS: methylPREDNISolone NA SUCC 40 MG/1 ML VIAL IVPUSH SCH (21:44)
[2019-03-21] MEDS: ALPRAZolam 0.25 MG TABLET PO PRN (22:13)
[2019-03-21] MEDS: BUDESONIDE/FORMETEROL FUMARATE 160/4.5 mcg INHALER IH SCH (22:14)
[2019-03-22] MEDS: methylPREDNISolone NA SUCC 40 MG/1 ML VIAL IVPUSH SCH ×4 (03:16→21:37)
[2019-03-22 07:19] LABS: BASO % 1.6 % (0-2.0); HEMATOCRIT 36.7 % (32.4-45.2); HEMOGLOBIN 11.6 GM/dl (10.7-15.3); MCH 28.9 pg (25.7-33.7); MCHC 31.4 g/dl (32.0-36.0); MONO % 4.8 % (3.8-10.2); NEUT % 79.6 % (42.8-82.8); PLATELET COUNT 432 K/MM3 (134-434); RBC 3.99 M/mm3 (3.60-5.2)
[2019-03-22 07:29] LABS: ALBUMIN 3.9 g/dl (3.4-5.0); BILIRUBIN,TOTAL 0.4 mg/dl (0.2-1); CALCIUM 9.1 mg/dl (8.5-10); POTASSIUM 4.5 mmol/L (3.5-5.1); TOT PROT 6.7 g/dl (6.4-8.2)
[2019-03-22] MEDS ORDERED: PT OWN MED DRAWER 7, Y5N ONE ×2 (09:04→21:19)
[2019-03-22] MEDS: ASPIRIN 81 MG CHEWABLE TABLETS PO SCH (09:55)
[2019-03-22] MEDS: CYCLOBENZAPRINE HCL 10 MG TABLET (FP) PO SCH (09:57)
[2019-03-22] MEDS: AZITHROMYCIN IVPB 500 MG/250 ML BAG IVPB SCH (09:57)
[2019-03-22] MEDS: PANTOPRAZOLE 40 MG TABLET (FP) PO SCH (09:57)
[2019-03-22] MEDS: FOLIC ACID 1 MG TABLET (FP) PO SCH (09:57)
[2019-03-22] MEDS: ROFLUMILAST 500 MCG TABLET PO SCH (09:57)
[2019-03-22] MEDS: CITALOPRAM HYDROBROMIDE 10 MG TABLET (FP) PO SCH (09:57)
[2019-03-22] MEDS: BUDESONIDE/FORMETEROL FUMARATE 160/4.5 mcg INHALER IH SCH ×2 (09:57→21:38)
--- NOTE | 2019-03-22 10:04 | PN ---
Progress Note, Physician History of Present Illness: pulmonary alert,oob-chair,still dyspneic,O2 sat 87% on ra,+cough green sputum - Current Medication List Current Medications: Active Medications Albuterol/Ipratropium (Duoneb -) 1 amp NEB RQ4H [facility] Last Admin: 03/21/19 21:45 Dose: 1 amp Alprazolam (Xanax -) 0.25 mg PO HS PRN PRN Reason: ANXIETY Last Admin: 03/21/19 22:13 Dose: 0.25 mg Aspirin (Asa -) 81 mg PO DAILY [facility] Budesonide/Formoterol Fumarate (Symbicort 160/4.5mcg -) 2 puff IH BID [facility] Last Admin: 03/21/19 22:14 Dose: 2 puff Citalopram Hydrobromide (Celexa -) 10 mg PO DAILY [facility] Cyclobenzaprine HCl (Flexeril -) 10 mg PO DAILY [facility] Diltiazem HCl (Cardizem Cd -) 120 mg PO DAILY [facility] Folic Acid (Folic Acid -) 1 mg PO DAILY [facility] Azithromycin (Zithromax 500mg Ivpb (Pre-Docked)) 500 mg in 250 mls @ 250 mls/ hr IVPB DAILY [facility] Methylprednisolone Sodium Succinate (Solu-Medrol -) 40 mg IVPUSH Q6H-IV [facility] Last Admin: 03/22/19 03:16 Dose: 40 mg Non-Formulary Medication (Oxycodone Hcl [Oxycodone Hcl]) 10 mg PO PRN [facility] Pantoprazole Sodium (Protonix -) 40 mg PO DAILY [facility] Roflumilast (Daliresp -) 500 mcg PO DAILY [facility] - Objective Vital Signs: Vital Signs Temperature 97.4 F L 03/22/19 06:00 Pulse Rate 71 03/22/19 06:00 Respiratory Rate 18 03/22/19 06:00 Blood Pressure 130/62 03/22/19 06:00 O2 Sat by Pulse Oximetry (%) 98 03/22/19 06:00 Constitutional: Yes: Calm, Thin Eyes: Yes: WNL HENT: Yes: WNL Neck: Yes: WNL Cardiovascular: Yes: Pulse Irregular, S1, S2 Respiratory: Yes: Diminished, Wheezes (few scattered nas wheezes) Gastrointestinal: Yes: Normal Bowel Sounds, Soft Extremities: Yes: WNL Edema: No Labs: CBC, BMP 03/22/19 07:08 03/22/19 07:08 Assessment/Plan Problem List - Problems (1) COPD (chronic obstructive pulmonary disease) Code(s): J44.9 - CHRONIC OBSTRUCTIVE PULMONARY DISEASE, UNSPECIFIED Qualifiers: COPD type: COPD with acute exacerbation Qualified Code(s): J44.1 - Chronic obstructive pulmonary disease with (acute) exacerbation (2) Anemia Code(s): D64.9 - ANEMIA, UNSPECIFIED Qualifiers: Anemia type: unspecified type Qualified Code(s): D64.9 - Anemia, unspecified (3) Anxiety Code(s): F41.9 - ANXIETY DISORDER, UNSPECIFIED (4) COPD exacerbation Code(s): J44.1 - CHRONIC OBSTRUCTIVE PULMONARY DISEASE W (ACUTE) EXACERBATION (5) Difficulty breathing Code(s): R06.89 - OTHER ABNORMALITIES OF BREATHING (6) Dyspnea Code(s): R06.00 - DYSPNEA, UNSPECIFIED (7) GERD (gastroesophageal reflux disease) Code(s): K21.9 - GASTRO-ESOPHAGEAL REFLUX DISEASE WITHOUT ESOPHAGITIS Assessment/Plan A/E COPD GERD AFIB HTN ASHD H/O SVT O2/WILL LIKELY NEED HOME 02 INHALED BRONCHODILATORS STEROIDS same dose ANTIBIOTICS GOOD CANDIDATE FOR PULMONARY REHAB DR MALONEY
[2019-03-22] MEDS ORDERED: ALBUTEROL SO4 0.083% IH SOL 2.5 MG/3 ML VIAL.NEB. NEB PRN (10:05)
[2019-03-22] MEDS: TIOTROPIUM BROMIDE 2.5 MCG (SPIRIVA) RESPIMAT INHALER IH SCH (10:30)
[2019-03-22 12:03] LABS: N-TERMINAL BNP 469.5 pg/ml (5-450)
--- NOTE | 2019-03-22 13:21 | EKG ---
Test Reason : Blood Pressure : / mmHG Vent. Rate : 083 BPM Atrial Rate : 083 BPM P-R Int : 146 ms QRS Dur : 078 ms QT Int : 358 ms P-R-T Axes : 081 074 072 degrees QTc Int : 420 ms NORMAL SINUS RHYTHM NORMAL ECG WHEN COMPARED WITH ECG OF 19-MAR-2019 13:37, NO SIGNIFICANT CHANGE WAS FOUND Confirmed by MAYELA DONIS MD ([id number]) on 03/22/2019 1:20:54 PM Referred By: JENIFER PRUITT Confirmed By:MAYELA DONIS MD
--- NOTE | 2019-03-22 16:02 | HP ---
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 No: O2 Dependent, Sleep Apnea Gastrointestinal: Yes: GERD, GI Bleed, Peptic Ulcer Disease Hepatobiliary: Yes: Cholelithiasis ...: No Heme/Onc: Yes: Anemia Psych: Yes: Anxiety - Past Surgical History Past Surgical History: Yes: Colonoscopy - Smoking History Smoking history: Current some day smoker Have you smoked in the past 12 months: Yes Aproximately how many cigarettes per day: 1 If you are a former smoker, when did you quit?: 10d - Alcohol/Substance Use Hx Alcohol Use: No History of Substance Use: reports: None - Social History ADL: Independent Occupation: accounts recievable History of Recent Travel: No Home Medications - Allergies Allergies/Adverse Reactions: Allergies Allergy/AdvReac Type Severity Reaction Status Date / Time alendronate sodium Allergy Verified 03/21/19 12:49 [From Fosamax] Penicillins Allergy Rash Verified 03/21/19 12:49 - Home Medications Home Medications: Ambulatory Orders Albuterol 0.083% Nebulizer Loulou [Ventolin 0.083%] 1 neb NEB Q4H 03/21/19 Alprazolam [Xanax] 0.25 mg PO HS 03/21/19 Aspirin 81 mg PO DAILY 03/21/19 Azithromycin [Zithromax Tri-Alonso (3 DAYS) -] 500 mg PO DAILY 03/21/19 Budesonide/Formeterol Fumarate [SYMBICORT 160/4.5mcg -] 1 inh PO BID 03/21/19 Citalopram Hydrobromide [Citalopram HBr] 10 mg PO DAILY 03/21/19 Cyclobenzaprine HCl 10 mg PO DAILY 03/21/19 Diltiazem HCl [Cartia Xt] 120 mg PO DAILY 03/21/19 Folic Acid 1 mg PO DAILY 03/21/19 Oxycodone HCl 10 mg PO PRN 03/21/19 Pantoprazole Sodium 40 mg PO DAILY 03/21/19 Prednisone [Prednisone 50 MG TABLETS] 50 mg PO DAILY 03/21/19 Teriparatide [Forteo] 1 dose SQ HS 03/21/19 Review of Systems - Review of Systems Gastrointestinal: reports: Abdominal Pain, Diarrhea Physical Examination Vital Signs: Vital Signs Temperature 99.4 F 03/22/19 14:00 Pulse Rate 80 03/22/19 14:00 Respiratory Rate 17 03/22/19 14:00 Blood Pressure 151/57 L 03/22/19 14:00 O2 Sat by Pulse Oximetry (%) 93 L 03/22/19 14:00 Constitutional: Yes: Calm Cardiovascular: Yes: Regular Rate and Rhythm, S1, S2 Respiratory: Yes: Diminished Gastrointestinal: Yes: Normal Bowel Sounds, Soft Edema: No Labs: CBC, BMP 03/22/19 07:08 03/22/19 07:08 Imaging - Results Chest X-ray: Report Reviewed (no infltrate no edema) Problem List - Problems (1) COPD exacerbation Assessment/Plan: oxygen iv abx iv medrol bronchodilators daliresp spiriva Code(s): J44.1 - CHRONIC OBSTRUCTIVE PULMONARY DISEASE W (ACUTE) EXACERBATION (2) Numbness Assessment/Plan: neurology eval b12,folate Code(s): R20.0 - ANESTHESIA OF SKIN (3) Diarrhea Assessment/Plan: check stool for c diff Code(s): R19.7 - DIARRHEA, UNSPECIFIED
[2019-03-22] MEDS ORDERED: ONDANSETRON 4 MG/2 ML VIAL IVPUSH PRN (17:42)
[2019-03-22] MEDS: ALPRAZolam 0.25 MG TABLET PO PRN (21:38)
[2019-03-23] MEDS: methylPREDNISolone NA SUCC 40 MG/1 ML VIAL IVPUSH SCH ×3 (03:00→18:50)
[2019-03-23 08:02] LABS: ALBUMIN 3.6 g/dl (3.4-5.0); BILIRUBIN,TOTAL 0.4 mg/dl (0.2-1); CREATININE 1.1 mg/dl (0.55-1.3); POTASSIUM 4.7 mmol/L (3.5-5.1); TOT PROT 6.1 g/dl (6.4-8.2)
--- NOTE | 2019-03-23 09:14 | CONSULT ---
Consult - text type - Consultation Consultation Note: NEUROLOGY CONSULTATION is greatly appreciated: This 83 yo RH div woman with no children lives with her cat and continues to work as a CPA. PMH sig for HTN, CAD, AFib (s/p ablation) and COPD. Now admitted for exacerbation of COPD/bronchitis. Maintained on: Albuterol; Alprazolam 0.25 mg PO HS; Aspirin 81; SYMBICORT; citalopram 10 mg; Cyclobenzaprine; Diltiazem; Oxycodone HCl 10 mg; Pantoprazole ; and Prednisone. H/O episodic left hemicranial headaches since teenage years described as "Migraines.".Folowed by Dr. Duran x approx 20 years. 15 years of nocturna burning pains diffusely in the left arm, interrupting sleep , and attributed "to her neck." Chronic nocturnal cramps and pains awakening her from sleep and improved with walking. Now 2 years of LBP radiating into 1 or both buttocks and occ. into right thigh attributed to 2 falls, 2 years ago, and a "broken back." Yesterday had annoying numbness in both legs and feet improved by movement and walking. No Change in bowel or bladder CASSY: Neck supple with full ROM. Neg SLR> 90.-Kelsy's. Normal DP pulses. NEURO: Awake, alert, Ox3. MS/Speech: Normal CN: II-XII: Normal. Motor: No drift or tremor. Normal strength, tone, bulk and reflexes. Downgoing toes. Coord: No FTN dystaxia Sensory: Normal. Romberg neg Gait: Sl. Shuffle. Elevates on heals and toes. IMP: Normal neurological exam Migraine Headaches Restless Limbs Syndrome (RLS) R/O LS Radiculopathy/LS spinal stenosis SUGGEST: MRI of LS spine (C-) Pramipexole 0.25 mg qHS Neuro f/u as out patient for EMG/NCS and pain management including narcotic taper. Check B12, Fe++, TIBC and Ferritin Thank you very much, Charly Taveras MD
[2019-03-23] MEDS ORDERED: PT OWN MED DRAWER 7, Y5N ONE ×2 (09:53→21:23)
[2019-03-23] MEDS: ROFLUMILAST 500 MCG TABLET PO SCH (09:58)
[2019-03-23] MEDS: BUDESONIDE/FORMETEROL FUMARATE 160/4.5 mcg INHALER IH SCH ×2 (09:58→21:23)
[2019-03-23] MEDS: LACTOBACILLUS ACIDOPHILUS 1 TABLET PO SCH (09:58)
[2019-03-23] MEDS: ASPIRIN 81 MG CHEWABLE TABLETS PO SCH (09:59)
[2019-03-23] MEDS: FOLIC ACID 1 MG TABLET (FP) PO SCH (09:59)
[2019-03-23] MEDS: CITALOPRAM HYDROBROMIDE 10 MG TABLET (FP) PO SCH (09:59)
[2019-03-23] MEDS: TIOTROPIUM BROMIDE 2.5 MCG (SPIRIVA) RESPIMAT INHALER IH SCH (09:59)
[2019-03-23] MEDS: CYCLOBENZAPRINE HCL 10 MG TABLET (FP) PO SCH (09:59)
[2019-03-23] MEDS: PANTOPRAZOLE 40 MG TABLET (FP) PO SCH (10:00)
--- NOTE | 2019-03-23 11:08 | PN ---
Progress Note, Physician Chief Complaint: AWAKE ALERT EVENTS AND NOTES REVIEWED NORMAL CXR N/V FROM ANTIBIOTICS LIKELY AZITHRO - Current Medication List Current Medications: Active Medications Albuterol Sulfate (Ventolin 0.083% Nebulizer Soln -) 1 amp NEB Q4H PRN PRN Reason: SHORT OF BREATH/WHEEZING Alprazolam (Xanax -) 0.25 mg PO HS PRN PRN Reason: ANXIETY Last Admin: 03/22/19 21:38 Dose: 0.25 mg Aspirin (Asa -) 81 mg PO DAILY [facility] Last Admin: 03/23/19 09:59 Dose: 81 mg Budesonide/Formoterol Fumarate (Symbicort 160/4.5mcg -) 2 puff IH BID [facility] Last Admin: 03/23/19 09:58 Dose: 2 puff Citalopram Hydrobromide (Celexa -) 10 mg PO DAILY [facility] Last Admin: 03/23/19 09:59 Dose: 10 mg Cyclobenzaprine HCl (Flexeril -) 10 mg PO DAILY [facility] Last Admin: 03/23/19 09:59 Dose: 10 mg Diltiazem HCl (Cardizem Cd -) 120 mg PO DAILY [facility] Last Admin: 03/23/19 09:59 Dose: 120 mg Folic Acid (Folic Acid -) 1 mg PO DAILY [facility] Last Admin: 03/23/19 09:59 Dose: 1 mg Azithromycin (Zithromax 500mg Ivpb (Pre-Docked)) 500 mg in 250 mls @ 250 mls/ hr IVPB DAILY [facility] Last Admin: 03/22/19 09:57 Dose: 250 mls/hr Lactobacillus Acidophilus (Bacid -) 1 tab PO DAILY [facility] Last Admin: 03/23/19 09:58 Dose: 1 tab Methylprednisolone Sodium Succinate (Solu-Medrol -) 40 mg IVPUSH Q6H-IV [facility] Last Admin: 03/23/19 08:02 Dose: 40 mg Non-Formulary Medication (Oxycodone Hcl [Oxycodone Hcl]) 10 mg PO PRN [facility] Ondansetron HCl (Zofran Injection) 4 mg IVPUSH Q6H PRN PRN Reason: NAUSEA Pantoprazole Sodium (Protonix -) 40 mg PO DAILY [facility] Last Admin: 03/23/19 10:00 Dose: 40 mg Roflumilast (Daliresp -) 500 mcg PO DAILY [facility] Last Admin: 03/23/19 09:58 Dose: 500 mcg Tiotropium [place] (Spiriva Respimat) 2 puff IH DAILY [facility] Last Admin: 03/23/19 09:59 Dose: 2 puff - Objective Vital Signs: Vital Signs Temperature 97.9 F 03/23/19 10:10 Pulse Rate 75 03/23/19 10:10 Respiratory Rate 18 03/23/19 10:10 Blood Pressure 125/64 03/23/19 10:10 O2 Sat by Pulse Oximetry (%) 96 03/23/19 08:29 Constitutional: Yes: Mild Distress Cardiovascular: Yes: Regular Rate and Rhythm Respiratory: Yes: Diminished, On Nasal O2 Gastrointestinal: Yes: WNL Genitourinary: Yes: WNL Musculoskeletal: Yes: WNL Edema: No Peripheral Pulses WNL: Yes Integumentary: Yes: WNL Wound/Incision: Yes: Clean/Dry Neurological: Yes: Pre-Existing Deficit ...Motor Strength: WNL Labs: CBC, BMP 03/22/19 07:08 03/23/19 07:35 Problem List - Problems (1) COPD (chronic obstructive pulmonary disease) Code(s): J44.9 - CHRONIC OBSTRUCTIVE PULMONARY DISEASE, UNSPECIFIED Qualifiers: COPD type: COPD with acute exacerbation Qualified Code(s): J44.1 - Chronic obstructive pulmonary disease with (acute) exacerbation (2) Anemia Code(s): D64.9 - ANEMIA, UNSPECIFIED Qualifiers: Anemia type: unspecified type Qualified Code(s): D64.9 - Anemia, unspecified (3) COPD exacerbation Code(s): J44.1 - CHRONIC OBSTRUCTIVE PULMONARY DISEASE W (ACUTE) EXACERBATION (4) Vomiting Code(s): R11.10 - VOMITING, UNSPECIFIED Assessment/Plan STOP ANTIBIOTICS PPI/ZOFRAN CLEAR DIET STIMULATE APPETITE WITH REMERON HS OOB TO CHAIR PT EVAL 02 SUPPORT/NEBS/STEROIDS FLU/PREVNAR VACCINE NEEDED, CHECK IF GIVEN 02 PRE AND POST HOME OXYGEN
[2019-03-23] MEDS ORDERED: ONDANSETRON *ODT* 4 MG TABLET SL PRN (11:09)
[2019-03-23] MEDS: AZITHROMYCIN IVPB 500 MG/250 ML BAG IVPB SCH (11:15)
--- NOTE | 2019-03-23 12:06 | PN ---
Progress Note (short form) - Note Progress Note: PULMONARY SUBJECTIVE IMPROVEMENT VSS/AFEBRILE ANICTERIC DIMINISHED S1S2 BS+ NO EDEMA CXR:COPD NO INFILTRATE LABS/MEDS/NOTES REVIEWED A/E COPD GERD AFIB HTN ASHD H/O SVT O2/WILL LIKELY NEED HOME 02 INHALED BRONCHODILATORS STEROIDS TO TAPER TODAY ANTIBIOTICS HELD DUE TO N/V R JUAN JARQUIN Problem List - Problems (1) COPD (chronic obstructive pulmonary disease) Code(s): J44.9 - CHRONIC OBSTRUCTIVE PULMONARY DISEASE, UNSPECIFIED Qualifiers: COPD type: COPD with acute exacerbation Qualified Code(s): J44.1 - Chronic obstructive pulmonary disease with (acute) exacerbation (2) Anemia Code(s): D64.9 - ANEMIA, UNSPECIFIED Qualifiers: Anemia type: unspecified type Qualified Code(s): D64.9 - Anemia, unspecified (3) Anxiety Code(s): F41.9 - ANXIETY DISORDER, UNSPECIFIED (4) COPD exacerbation Code(s): J44.1 - CHRONIC OBSTRUCTIVE PULMONARY DISEASE W (ACUTE) EXACERBATION (5) Difficulty breathing Code(s): R06.89 - OTHER ABNORMALITIES OF BREATHING (6) Dyspnea Code(s): R06.00 - DYSPNEA, UNSPECIFIED (7) GERD (gastroesophageal reflux disease) Code(s): K21.9 - GASTRO-ESOPHAGEAL REFLUX DISEASE WITHOUT ESOPHAGITIS
[2019-03-23] MEDS: MIRTAZAPINE 15 MG TABLET (FP) PO SCH (21:20)
[2019-03-23] MEDS: ALPRAZolam 0.25 MG TABLET PO PRN (21:21)
[2019-03-24] MEDS: methylPREDNISolone NA SUCC 40 MG/1 ML VIAL IVPUSH SCH (03:07)
[2019-03-24] MEDS: MIRTAZAPINE 15 MG TABLET (FP) PO SCH ×2 (05:51→21:20)
[2019-03-24] MEDS: PANTOPRAZOLE 40 MG TABLET (FP) PO SCH (09:44)
[2019-03-24] MEDS: TIOTROPIUM BROMIDE 2.5 MCG (SPIRIVA) RESPIMAT INHALER IH SCH (09:46)
[2019-03-24] MEDS: BUDESONIDE/FORMETEROL FUMARATE 160/4.5 mcg INHALER IH SCH ×2 (09:55→21:20)
[2019-03-24] MEDS: LACTOBACILLUS ACIDOPHILUS 1 TABLET PO SCH (10:00)
[2019-03-24] MEDS: ASPIRIN 81 MG CHEWABLE TABLETS PO SCH (10:05)
[2019-03-24] MEDS: ROFLUMILAST 500 MCG TABLET PO SCH (10:10)
[2019-03-24] MEDS: FOLIC ACID 1 MG TABLET (FP) PO SCH (10:15)
[2019-03-24] MEDS ORDERED: PT OWN MED DRAWER 7, Y5N ONE ×4 (11:03→21:29)
[2019-03-24] MEDS ORDERED: DOCUSATE SODIUM 100 MG CAPSULE (FP) PO PRN (11:33)
--- NOTE | 2019-03-24 11:35 | PN ---
Progress Note, Physician - Current Medication List Current Medications: Active Medications Albuterol Sulfate (Ventolin 0.083% Nebulizer Soln -) 1 amp NEB Q4H PRN PRN Reason: SHORT OF BREATH/WHEEZING Alprazolam (Xanax -) 0.25 mg PO HS PRN PRN Reason: ANXIETY Last Admin: 03/23/19 21:21 Dose: 0.25 mg Aspirin (Asa -) 81 mg PO DAILY [facility] Last Admin: 03/23/19 09:59 Dose: 81 mg Budesonide/Formoterol Fumarate (Symbicort 160/4.5mcg -) 2 puff IH BID [facility] Last Admin: 03/23/19 21:23 Dose: 2 puff Diltiazem HCl (Cardizem Cd -) 120 mg PO DAILY [facility] Last Admin: 03/23/19 09:59 Dose: 120 mg Folic Acid (Folic Acid -) 1 mg PO DAILY [facility] Last Admin: 03/23/19 09:59 Dose: 1 mg Lactobacillus Acidophilus (Bacid -) 1 tab PO DAILY [facility] Last Admin: 03/23/19 09:58 Dose: 1 tab Mirtazapine (Remeron -) 7.5 mg PO HS [facility] Last Admin: 03/24/19 05:51 Dose: Not Given Ondansetron HCl (Zofran Injection) 4 mg IVPUSH Q6H PRN PRN Reason: NAUSEA Ondansetron HCl (Zofran Odt -) 4 mg SL Q6H PRN PRN Reason: NAUSEA AND/OR VOMITING Last Admin: 03/23/19 17:55 Dose: 4 mg Pantoprazole Sodium (Protonix -) 40 mg PO DAILY [facility] Last Admin: 03/23/19 10:00 Dose: 40 mg Roflumilast (Daliresp -) 500 mcg PO DAILY [facility] Last Admin: 03/23/19 09:58 Dose: 500 mcg Tiotropium [place] (Spiriva Respimat) 2 puff IH DAILY [facility] Last Admin: 03/23/19 09:59 Dose: 2 puff - Objective Vital Signs: Vital Signs Temperature 98.7 F 03/24/19 04:00 Pulse Rate 71 03/24/19 04:00 Respiratory Rate 18 03/24/19 04:00 Blood Pressure 124/56 L 03/24/19 04:00 O2 Sat by Pulse Oximetry (%) 95 03/24/19 04:00 Cardiovascular: Yes: Regular Rate and Rhythm Respiratory: Yes: CTA Bilaterally, On Nasal O2 Gastrointestinal: Yes: Normal Bowel Sounds, Soft. No: Tenderness Labs: CBC, BMP 03/22/19 07:08 03/23/19 07:35 Problem List - Problems (1) COPD (chronic obstructive pulmonary disease) Assessment/Plan: prednisone 20 bid nebs oxygen Code(s): J44.9 - CHRONIC OBSTRUCTIVE PULMONARY DISEASE, UNSPECIFIED Qualifiers: COPD type: COPD with acute exacerbation Qualified Code(s): J44.1 - Chronic obstructive pulmonary disease with (acute) exacerbation (2) Back pain Assessment/Plan: oxycodone Code(s): M54.9 - DORSALGIA, UNSPECIFIED (3) Oral thrush Assessment/Plan: nystatin Code(s): B37.0 - CANDIDAL STOMATITIS
[2019-03-24] MEDS: predniSONE 20 MG TABLET (UD) PO SCH ×2 (11:45→21:19)
[2019-03-24] MEDS: NYSTATIN 500,000 UNITS/5 ML SUSPENSION PO SCH ×2 (12:20→18:44)
[2019-03-24] MEDS: oxyCODONE HCL 5 MG TABLET PO PRN ×2 (12:44→21:24)
--- NOTE | 2019-03-24 14:42 | PN ---
Progress Note, Physician History of Present Illness: pulmonary alert,breathing better. O2 sat 87% on ra - Current Medication List Current Medications: Active Medications Albuterol Sulfate (Ventolin 0.083% Nebulizer Soln -) 1 amp NEB Q4H PRN PRN Reason: SHORT OF BREATH/WHEEZING Alprazolam (Xanax -) 0.25 mg PO HS PRN PRN Reason: ANXIETY Last Admin: 03/23/19 21:21 Dose: 0.25 mg Aspirin (Asa -) 81 mg PO DAILY [facility] Last Admin: 03/23/19 09:59 Dose: 81 mg Budesonide/Formoterol Fumarate (Symbicort 160/4.5mcg -) 2 puff IH BID [facility] Last Admin: 03/23/19 21:23 Dose: 2 puff Diltiazem HCl (Cardizem Cd -) 120 mg PO DAILY [facility] Last Admin: 03/23/19 09:59 Dose: 120 mg Docusate Sodium (Colace -) 100 mg PO BID PRN PRN Reason: CONSTIPATION Folic Acid (Folic Acid -) 1 mg PO DAILY [facility] Last Admin: 03/23/19 09:59 Dose: 1 mg Lactobacillus Acidophilus (Bacid -) 1 tab PO DAILY [facility] Last Admin: 03/23/19 09:58 Dose: 1 tab Mirtazapine (Remeron -) 7.5 mg PO HS [facility] Last Admin: 03/24/19 05:51 Dose: Not Given Nystatin (Nystatin Oral Suspension -) 500,000 units PO Q6HPO [facility] Ondansetron HCl (Zofran Injection) 4 mg IVPUSH Q6H PRN PRN Reason: NAUSEA Ondansetron HCl (Zofran Odt -) 4 mg SL Q6H PRN PRN Reason: NAUSEA AND/OR VOMITING Last Admin: 03/23/19 17:55 Dose: 4 mg Oxycodone HCl (Roxicodone -) 10 mg PO BID PRN PRN Reason: PAIN LEVEL 6-10 Pantoprazole Sodium (Protonix -) 40 mg PO DAILY [facility] Last Admin: 03/23/19 10:00 Dose: 40 mg Prednisone (Deltasone -) 20 mg PO BID [facility] Roflumilast (Daliresp -) 500 mcg PO DAILY [facility] Last Admin: 03/23/19 09:58 Dose: 500 mcg Tiotropium [place] (Spiriva Respimat) 2 puff IH DAILY [facility] Last Admin: 03/23/19 09:59 Dose: 2 puff - Objective Vital Signs: Vital Signs Temperature 98.5 F 03/24/19 14:03 Pulse Rate 65 03/24/19 14:03 Respiratory Rate 19 03/24/19 14:03 Blood Pressure 115/52 L 03/24/19 14:03 O2 Sat by Pulse Oximetry (%) 93 L 03/24/19 14:03 Constitutional: Yes: Calm, Thin Eyes: Yes: WNL HENT: Yes: WNL Neck: Yes: WNL Cardiovascular: Yes: Pulse Irregular, S1, S2 Respiratory: Yes: Wheezes (few scattered nas wheezes) Gastrointestinal: Yes: Normal Bowel Sounds, Soft Extremities: Yes: WNL Edema: No Labs: CBC, BMP Assessment/Plan Problem List - Problems (1) COPD (chronic obstructive pulmonary disease) Code(s): J44.9 - CHRONIC OBSTRUCTIVE PULMONARY DISEASE, UNSPECIFIED Qualifiers: COPD type: COPD with acute exacerbation Qualified Code(s): J44.1 - Chronic obstructive pulmonary disease with (acute) exacerbation (2) Anemia Code(s): D64.9 - ANEMIA, UNSPECIFIED Qualifiers: Anemia type: unspecified type Qualified Code(s): D64.9 - Anemia, unspecified (3) Anxiety Code(s): F41.9 - ANXIETY DISORDER, UNSPECIFIED (4) COPD exacerbation Code(s): J44.1 - CHRONIC OBSTRUCTIVE PULMONARY DISEASE W (ACUTE) EXACERBATION (5) Difficulty breathing Code(s): R06.89 - OTHER ABNORMALITIES OF BREATHING (6) Dyspnea Code(s): R06.00 - DYSPNEA, UNSPECIFIED (7) GERD (gastroesophageal reflux disease) Code(s): K21.9 - GASTRO-ESOPHAGEAL REFLUX DISEASE WITHOUT ESOPHAGITIS Assessment/Plan A/E COPD GERD AFIB HTN ASHD H/O SVT O2/WILL LIKELY NEED HOME 02 INHALED BRONCHODILATORS PREDNISONE OUTPATIENT PULMONARY REHAB DR MALONEY
[2019-03-24] MEDS: ALPRAZolam 0.25 MG TABLET PO PRN (21:20)
[2019-03-25] MEDS: NYSTATIN 500,000 UNITS/5 ML SUSPENSION PO SCH ×4 (00:06→18:29)
[2019-03-25] MEDS ORDERED: PT OWN MED DRAWER 7, Y5N ONE ×3 (08:12→22:06)
[2019-03-25] MEDS: FOLIC ACID 1 MG TABLET (FP) PO SCH (09:00)
[2019-03-25] MEDS: PANTOPRAZOLE 40 MG TABLET (FP) PO SCH (09:00)
[2019-03-25] MEDS: ASPIRIN 81 MG CHEWABLE TABLETS PO SCH (09:00)
[2019-03-25] MEDS: predniSONE 20 MG TABLET (UD) PO SCH ×2 (09:00→22:14)
[2019-03-25] MEDS: BUDESONIDE/FORMETEROL FUMARATE 160/4.5 mcg INHALER IH SCH ×2 (09:01→22:17)
[2019-03-25] MEDS: oxyCODONE HCL 5 MG TABLET PO PRN ×2 (09:01→22:14)
[2019-03-25] MEDS: TIOTROPIUM BROMIDE 2.5 MCG (SPIRIVA) RESPIMAT INHALER IH SCH (09:01)
[2019-03-25] MEDS: LACTOBACILLUS ACIDOPHILUS 1 TABLET PO SCH (09:01)
[2019-03-25] MEDS: ROFLUMILAST 500 MCG TABLET PO SCH (09:02)
--- NOTE | 2019-03-25 13:09 | PN ---
Progress Note, Physician - Current Medication List Current Medications: Active Medications Albuterol Sulfate (Ventolin 0.083% Nebulizer Soln -) 1 amp NEB Q4H PRN PRN Reason: SHORT OF BREATH/WHEEZING Alprazolam (Xanax -) 0.25 mg PO HS PRN PRN Reason: ANXIETY Last Admin: 03/24/19 21:20 Dose: 0.25 mg Aspirin (Asa -) 81 mg PO DAILY [facility] Last Admin: 03/25/19 09:00 Dose: 81 mg Budesonide/Formoterol Fumarate (Symbicort 160/4.5mcg -) 2 puff IH BID [facility] Last Admin: 03/25/19 09:01 Dose: 2 puff Diltiazem HCl (Cardizem Cd -) 120 mg PO DAILY [facility] Last Admin: 03/25/19 09:00 Dose: 120 mg Docusate Sodium (Colace -) 100 mg PO BID PRN PRN Reason: CONSTIPATION Folic Acid (Folic Acid -) 1 mg PO DAILY [facility] Last Admin: 03/25/19 09:00 Dose: 1 mg Lactobacillus Acidophilus (Bacid -) 1 tab PO DAILY [facility] Last Admin: 03/25/19 09:01 Dose: 1 tab Mirtazapine (Remeron -) 7.5 mg PO HS [facility] Last Admin: 03/24/19 21:20 Dose: Not Given Nystatin (Nystatin Oral Suspension -) 500,000 units PO Q6HPO [facility] Last Admin: 03/25/19 06:53 Dose: 500,000 units Ondansetron HCl (Zofran Injection) 4 mg IVPUSH Q6H PRN PRN Reason: NAUSEA Ondansetron HCl (Zofran Odt -) 4 mg SL Q6H PRN PRN Reason: NAUSEA AND/OR VOMITING Last Admin: 03/23/19 17:55 Dose: 4 mg Oxycodone HCl (Roxicodone -) 10 mg PO BID PRN PRN Reason: PAIN LEVEL 6-10 Last Admin: 03/25/19 09:01 Dose: 10 mg Pantoprazole Sodium (Protonix -) 40 mg PO DAILY [facility] Last Admin: 03/25/19 09:00 Dose: 40 mg Prednisone (Deltasone -) 20 mg PO BID [facility] Last Admin: 03/25/19 09:00 Dose: 20 mg Roflumilast (Daliresp -) 500 mcg PO DAILY [facility] Last Admin: 03/25/19 09:02 Dose: 500 mcg Tiotropium [place] (Spiriva Respimat) 2 puff IH DAILY [facility] Last Admin: 03/25/19 09:01 Dose: 2 puff - Objective Vital Signs: Vital Signs Temperature 98.3 F 03/25/19 06:43 Pulse Rate 58 L 03/25/19 06:43 Respiratory Rate 17 03/25/19 07:45 Blood Pressure 111/52 L 03/25/19 06:43 O2 Sat by Pulse Oximetry (%) 97 03/25/19 07:45 Cardiovascular: Yes: Regular Rate and Rhythm Respiratory: Yes: Regular, CTA Bilaterally Gastrointestinal: Yes: Normal Bowel Sounds, Soft Labs: CBC, BMP 03/22/19 07:08 03/23/19 07:35 Problem List - Problems (1) COPD (chronic obstructive pulmonary disease) Assessment/Plan: much better -no complaints -prednisone 20 bid nebs dc oxygen Code(s): J44.9 - CHRONIC OBSTRUCTIVE PULMONARY DISEASE, UNSPECIFIED Qualifiers: COPD type: COPD with acute exacerbation Qualified Code(s): J44.1 - Chronic obstructive pulmonary disease with (acute) exacerbation (2) Back pain Assessment/Plan: oxycodone Code(s): M54.9 - DORSALGIA, UNSPECIFIED (3) Oral thrush Assessment/Plan: nystatin Code(s): B37.0 - CANDIDAL STOMATITIS
[2019-03-25] MEDS: ALPRAZolam 0.25 MG TABLET PO PRN (22:14)
[2019-03-25] MEDS: MIRTAZAPINE 15 MG TABLET (FP) PO SCH (22:17)
[2019-03-26] MEDS: NYSTATIN 500,000 UNITS/5 ML SUSPENSION PO SCH ×3 (00:33→12:37)
[2019-03-26 07:07] LABS: BASO % 1.4 % (0-2.0); HEMATOCRIT 33.6 % (32.4-45.2); LYMPH % 6.8 % (8-40); MCH 29.8 pg (25.7-33.7); MCHC 32.7 g/dl (32.0-36.0); MEAN CELL VOLUME 91.3 fl (80-96); MONO % 4.5 % (3.8-10.2); NEUT % 87.3 % (42.8-82.8); PLATELET COUNT 354 K/MM3 (134-434); RBC 3.68 M/mm3 (3.60-5.2); RDW 12.9 % (11.6-15.6); WHITE BLOOD COUNT 11.3 K/mm3 (4.0-10.8)
[2019-03-26 07:24] LABS: ALBUMIN 3.3 g/dl (3.4-5.0); BILIRUBIN,TOTAL 0.4 mg/dl (0.2-1); CALCIUM 8.7 mg/dl (8.5-10); CREATININE 1.1 mg/dl (0.55-1.3); POTASSIUM 4.8 mmol/L (3.5-5.1)
[2019-03-26] MEDS ORDERED: PT OWN MED DRAWER 7, Y5N ONE (09:22)
[2019-03-26] MEDS: PANTOPRAZOLE 40 MG TABLET (FP) PO SCH (09:27)
[2019-03-26] MEDS: TIOTROPIUM BROMIDE 2.5 MCG (SPIRIVA) RESPIMAT INHALER IH SCH (09:27)
[2019-03-26] MEDS: ROFLUMILAST 500 MCG TABLET PO SCH (09:27)
[2019-03-26] MEDS: ASPIRIN 81 MG CHEWABLE TABLETS PO SCH (09:27)
[2019-03-26] MEDS: predniSONE 20 MG TABLET (UD) PO SCH (09:27)
[2019-03-26] MEDS: BUDESONIDE/FORMETEROL FUMARATE 160/4.5 mcg INHALER IH SCH (09:27)
[2019-03-26] MEDS: FOLIC ACID 1 MG TABLET (FP) PO SCH (09:27)
[2019-03-26] MEDS: LACTOBACILLUS ACIDOPHILUS 1 TABLET PO SCH (09:27)
[2019-03-26] MEDS: oxyCODONE HCL 5 MG TABLET PO PRN (10:03)
[2019-03-26 14:20] VITALS: BP 146/65; PULSE 77; TEMP 98.9
--- NOTE | 2019-03-26 16:02 | DS ---
Physical Examination Vital Signs: Vital Signs Temperature 98.9 F 03/26/19 14:00 Pulse Rate 77 03/26/19 14:00 Respiratory Rate 18 03/26/19 14:00 Blood Pressure 146/65 03/26/19 14:00 O2 Sat by Pulse Oximetry (%) 91 L 03/26/19 14:00 Findings/Remarks: Laboratory Tests 03/21/19 03/21/19 03/21/19 12:30 12:30 12:30 WBC 8.4 RBC 4.18 Hgb 12.2 Hct 37.9 MCV 90.8 MCH 29.1 MCHC 32.1 RDW 13.4 D Plt Count 378 MPV 7.9 Absolute Neuts (auto) 5.5 Neutrophils % 66.0 Lymphocytes % 23.1 Monocytes % 6.3 Eosinophils % 0.0 Basophils % 4.6 H Sodium 133 L Potassium 4.0 Chloride 102 Carbon Dioxide 26 Anion Gap 5 L BUN 21.0 H Creatinine 0.9 Est GFR (CKD-EPI)AfAm 69.01 Est GFR (CKD-EPI)NonAf 59.55 POC Glucometer Random Glucose 98 Calcium 9.3 Magnesium Total Bilirubin 0.3 AST 36 ALT 26 Alkaline Phosphatase 85 Creatine Kinase 189 Creatine Kinase Index 4.0 CK-MB (CK-2) 7.6 H Troponin I < 0.03 B-Natriuretic Peptide Total Protein 7.3 Albumin 4.2 Vitamin B12 TSH 03/22/19 03/22/19 03/23/19 07:08 07:08 07:35 WBC 7.0 RBC 3.99 Hgb 11.6 Hct 36.7 MCV 92.0 MCH 28.9 MCHC 31.4 L RDW 13.0 Plt Count 432 MPV 7.0 L Absolute Neuts (auto) 5.6 Neutrophils % 79.6 Lymphocytes % 14.0 Monocytes % 4.8 Eosinophils % 0.0 Basophils % 1.6 Sodium 134 L 132 L Potassium 4.5 4.7 Chloride 102 98 Carbon Dioxide 25 25 Anion Gap 7 L 9 BUN 24.0 H 27.0 H Creatinine 1.0 1.1 Est GFR (CKD-EPI)AfAm 60.76 54.15 Est GFR (CKD-EPI)NonAf 52.42 46.72 POC Glucometer Random Glucose 108 H 103 Calcium 9.1 9.0 Magnesium 2.0 Total Bilirubin 0.4 0.4 AST 26 17 ALT 24 21 Alkaline Phosphatase 80 72 Creatine Kinase Creatine Kinase Index CK-MB (CK-2) Troponin I B-Natriuretic Peptide 469.5 H Total Protein 6.7 6.1 L Albumin 3.9 3.6 Vitamin B12 902 TSH 0.25 L 03/26/19 03/26/19 03/26/19 06:29 06:59 06:59 WBC 11.3 H RBC 3.68 Hgb 11.0 Hct 33.6 MCV 91.3 MCH 29.8 MCHC 32.7 RDW 12.9 Plt Count 354 MPV 7.0 L Absolute Neuts (auto) 9.8 Neutrophils % 87.3 H Lymphocytes % 6.8 L Monocytes % 4.5 Eosinophils % 0.0 Basophils % 1.4 Sodium 135 L Potassium 4.8 Chloride 101 Carbon Dioxide 27 Anion Gap 7 L BUN 30.0 H Creatinine 1.1 Est GFR (CKD-EPI)AfAm 54.15 Est GFR (CKD-EPI)NonAf 46.72 POC Glucometer 98 Random Glucose 107 H Calcium 8.7 Magnesium Total Bilirubin 0.4 AST 16 ALT 22 Alkaline Phosphatase 65 Creatine Kinase Creatine Kinase Index CK-MB (CK-2) Troponin I B-Natriuretic Peptide Total Protein 6.0 L Albumin 3.3 L Vitamin B12 TSH 03/26/19 11:19 WBC RBC Hgb Hct MCV MCH MCHC RDW Plt Count MPV Absolute Neuts (auto) Neutrophils % Lymphocytes % Monocytes % Eosinophils % Basophils % Sodium Potassium Chloride Carbon Dioxide Anion Gap BUN Creatinine Est GFR (CKD-EPI)AfAm Est GFR (CKD-EPI)NonAf POC Glucometer 130 Random Glucose Calcium Magnesium Total Bilirubin AST ALT Alkaline Phosphatase Creatine Kinase Creatine Kinase Index CK-MB (CK-2) Troponin I B-Natriuretic Peptide Total Protein Albumin Vitamin B12 TSH Active Medications Generic Name Dose Route Start Last Admin Trade Name Freq PRN Reason Stop Dose Admin Albuterol Sulfate 1 amp 03/22/19 10:05 Ventolin 0.083% Nebulizer Soln - NEB Q4H PRN SHORT OF BREATH/WHEEZING Alprazolam 0.25 mg 03/21/19 22:04 03/25/19 22:14 Xanax - PO 0.25 mg HS PRN Administration ANXIETY Aspirin 81 mg 03/22/19 10:00 03/26/19 09:27 Asa - PO 81 mg DAILY [facility] Administration Budesonide/Formoterol Fumarate 2 puff 03/21/19 22:00 03/26/19 09:27 Symbicort 160/4.5mcg - IH 2 puff BID [facility] Administration Diltiazem HCl 120 mg 03/22/19 10:00 03/26/19 09:27 Cardizem Cd - PO 120 mg DAILY [facility] Administration Docusate Sodium 100 mg 03/24/19 11:33 Colace - PO BID PRN CONSTIPATION Folic Acid 1 mg 03/22/19 10:00 03/26/19 09:27 Folic Acid - PO 1 mg DAILY [facility] Administration Lactobacillus Acidophilus 1 tab 03/22/19 17:45 03/26/19 09:27 Bacid - PO 1 tab DAILY [facility] Administration Mirtazapine 7.5 mg 03/23/19 22:00 03/25/19 22:17 Remeron - PO Not Given HS [facility] Nystatin 500,000 units 03/24/19 12:00 03/26/19 12:37 Nystatin Oral Suspension - PO 500,000 units Q6HPO [facility] Administration Ondansetron HCl 4 mg 03/22/19 17:42 Zofran Injection IVPUSH Q6H PRN NAUSEA Ondansetron HCl 4 mg 03/23/19 11:09 03/23/19 17:55 Zofran Odt - SL 4 mg Q6H PRN Administration NAUSEA AND/OR VOMITING Oxycodone HCl 10 mg 03/24/19 11:33 03/26/19 10:03 Roxicodone - PO 10 mg BID PRN Administration PAIN LEVEL 6-10 Pantoprazole Sodium 40 mg 03/22/19 10:00 03/26/19 09:27 Protonix - PO 40 mg DAILY [facility] Administration Prednisone 20 mg 03/24/19 11:45 03/26/19 09:27 Deltasone - PO 20 mg BID [facility] Administration Roflumilast 500 mcg 03/21/19 17:15 03/26/19 09:27 Daliresp - PO 500 mcg DAILY [facility] Administration Tiotropium [place] 2 puff 03/22/19 10:15 03/26/19 09:27 Spiriva Respimat IH 2 puff DAILY [facility] Administration Labs: CBC, BMP 03/26/19 06:59 03/26/19 06:59 Discharge Summary Problems reviewed: Yes Reason For Visit: ACUTE EXACERBATION OF COPD Current Active Problems Back pain (Acute) COPD (chronic obstructive pulmonary disease) (Acute) Diarrhea (Acute) Numbness (Acute) Oral thrush (Acute) Hospital Course: Patient is an 83 y/o female that was sent to [facility] ER for COPD exacerbation by PMD. Patient was treated with IV antibiotics and IV medrol with good response. Patient also has severe malnutrition with low BMI and is being treated with Remeron. Condition: Stable - Instructions Diet, Activity, Other Instructions: Follow up with PMD in 1 week of discharge continue with medication regimen as prescribed return to ER if develop severe pain, respiratory distress, chest pain Referrals: Amor Houston MD [Primary Care Provider] - Disposition: HOME - Home Medications Comprehensive Discharge Medication List: Ambulatory Orders Albuterol 0.083% Nebulizer [place] [Ventolin 0.083% Nebulizer Soln -] 1 neb NEB Q4H 03/21/19 Alprazolam [Xanax] 0.25 mg PO HS 03/21/19 Aspirin 81 mg PO DAILY 03/21/19 Budesonide/Formeterol Fumarate [SYMBICORT 160/4.5mcg -] 1 inh PO BID 03/21/19 Diltiazem HCl [Cartia Xt] 120 mg PO DAILY 03/21/19 Folic Acid 1 mg PO DAILY 03/21/19 Oxycodone HCl 10 mg PO PRN 03/21/19 Pantoprazole Sodium 40 mg PO DAILY 03/21/19 Teriparatide [Forteo] 1 dose SQ HS 03/21/19 Docusate Sodium [Colace -] 100 mg PO BID PRN #60 capsule 03/26/19 Lactobacillus Acidophilus [Bacid -] 1 tab PO DAILY #14 tab 03/26/19 Mirtazapine [Remeron -] 7.5 mg PO HS #30 tablet 03/26/19 Nystatin Oral Suspension - [Nystatin Oral Susp 395747 Units/5 ML -] 500,000 units PO Q6HPO cup 03/26/19 Roflumilast [Daliresp -] 500 mcg PO DAILY #30 tablet 03/26/19 Tiotropium [place] [Spiriva Respimat] 2 puff IH DAILY #1 inhaler 03/26/19 predniSONE [Deltasone -] 20 mg PO BID #30 tablet 03/26/19
== END 2019-03-26 17:09 | disposition home or self-care (01) | DRG 190 ==
LOC: FER 11:46 → FM/S 13:01 → OBSVTOIN 16:55
PROVIDERS: ADMIT Family Medicine; ATTEND Family Medicine
DX: J44.1 Chronic obstructive pulmonary disease with (acute) exacerbation (principal); E43 Unspecified severe protein-calorie malnutrition; B37.0 Candidal stomatitis; Z68.1 Body mass index [BMI] 19.9 or less, adult; D64.9 Anemia, unspecified; F41.9 Anxiety disorder, unspecified; K21.9 Gastro-esophageal reflux disease without esophagitis; I25.10 Atherosclerotic heart disease of native coronary artery without angina pectoris; R62.7 Adult failure to thrive; I48.91 Unspecified atrial fibrillation; I10 Essential (primary) hypertension; G43.909 Migraine, unspecified, not intractable, without status migrainosus; M48.061 Spinal stenosis, lumbar region without neurogenic claudication
CPT/HCPCS: 36415; 71045-TC-FY; 80053; 82550; 82553; 82607; 82962; 83735; 83880; 84436; 84443; 84484; 85025; 93005; 93010; 94640; 97116-GP; 97161-GP; 99282-25; G0378; Q0162

== ENCOUNTER 2019-07-25 09:04 | Day surgery (SDC) | payer OTHER, MEDICARE ==
[2019-07-25] MEDS ORDERED: IRON SUCROSE INJECTION 200 MG/100 ML BAG IVPB ONE (10:00)
[2019-07-25 10:24] VITALS: BP 106/60; PULSE 60; TEMP 98.3
== END 2019-07-25 10:30 | disposition home or self-care (01) ==
LOC: FINFUSION 09:04 → FM/S 09:06 → FINFUSION 10:30
PROVIDERS: ATTEND Internal Medicine Hematology & Oncology
PROC: 3E033GC Introduction of Other Therapeutic Substance into Peripheral Vein, Percutaneous Approach (ICD-10-PCS; principal; 2019-07-25)
DX: E61.1 Iron deficiency (principal)
CPT/HCPCS: 96365; J1756

== ENCOUNTER 2019-08-01 09:25 | Day surgery (SDC) | payer OTHER, MEDICARE ==
[2019-08-01] MEDS ORDERED: IRON SUCROSE INJECTION 200 MG/100 ML BAG IVPB ONE (10:00)
[2019-08-01 10:45] VITALS: BP 130/78; PULSE 72; TEMP 98.3
== END 2019-08-01 10:45 | disposition home or self-care (01) ==
LOC: FINFUSION 09:25 → FM/S 09:30 → FINFUSION 10:45
PROVIDERS: ATTEND Internal Medicine Hematology & Oncology
PROC: 3E033GC Introduction of Other Therapeutic Substance into Peripheral Vein, Percutaneous Approach (ICD-10-PCS; principal; 2019-08-01)
DX: E61.1 Iron deficiency (principal)
CPT/HCPCS: 96365; J1756

== ENCOUNTER 2019-08-08 09:13 | Day surgery (SDC) | payer OTHER, MEDICARE ==
[~2019-08-08 09:13] MED LIST: IRON SUCROSE INJECTION 200 MG/100 ML BAG IVPB ONE
[2019-08-08] MEDS ORDERED: IRON SUCROSE INJECTION 200 MG/100 ML BAG IVPB ONE (10:00)
[2019-08-08 11:02] VITALS: BP 140/60; PULSE 64; TEMP 98.6
== END 2019-08-08 11:30 | disposition home or self-care (01) ==
LOC: FINFUSION 09:13 → FM/S 09:17 → FINFUSION 11:30
PROVIDERS: ATTEND Internal Medicine Hematology & Oncology
PROC: 3E033GC Introduction of Other Therapeutic Substance into Peripheral Vein, Percutaneous Approach (ICD-10-PCS; principal; 2019-08-08)
DX: E61.1 Iron deficiency (principal)
CPT/HCPCS: 96365; J1756

== ENCOUNTER 2019-08-15 09:28 | Day surgery (SDC) | payer OTHER, MEDICARE ==
[2019-08-15] MEDS ORDERED: IRON SUCROSE INJECTION 200 MG/100 ML BAG IVPB ONE (10:30)
[2019-08-15 10:48] VITALS: BP 130/78; PULSE 72; TEMP 97.8
== END 2019-08-15 11:15 | disposition home or self-care (01) ==
LOC: FINFUSION 09:28 → FM/S 09:34 → FINFUSION 11:15
PROVIDERS: ATTEND Internal Medicine Hematology & Oncology
PROC: 3E033GC Introduction of Other Therapeutic Substance into Peripheral Vein, Percutaneous Approach (ICD-10-PCS; principal; 2019-08-15)
DX: E61.1 Iron deficiency (principal)
CPT/HCPCS: 96365; J1756

== ENCOUNTER 2021-01-26 17:04 | Emergency (ER) | payer OTHER, MEDICARE ==
[2021-01-26 17:27] VITALS: BP 173/89; PULSE 78; TEMP 98.3; BMI 14.6
== END 2021-01-26 20:10 | disposition home or self-care (01) ==
LOC: JER 17:04
DX: M54.2 Cervicalgia (principal); M79.601 Pain in right arm; W19.XXXA Unspecified fall, initial encounter
CPT/HCPCS: 70360-TC-FY; 73560-TC-LT-FY; 99284-25

== ENCOUNTER 2021-04-22 23:59 | Inpatient (IN) | payer OTHER, MEDICARE ==
[2021-04-23] MEDS ORDERED: DEXAMETHASONE SOD PHOSPHATE 10 MG/1 ML VIAL IVPUSH ONE (00:34)
[2021-04-23 00:42] VITALS: BMI 14.5
[2021-04-23] MEDS: ALBUTEROL SO4 2.5/IPRATROPIUM 0.5 INH SOL 3 ML VIAL.NEB. NEB SCH ×7 (01:10→20:10)
[2021-04-23 01:13] LABS: BASO % 0.2 % (0-2.0); HEMATOCRIT 31.3 % (32.4-45.2); HEMOGLOBIN 10.1 GM/dL (10.7-15.3); LYMPH % 14.2 % (8-40); MCH 26.2 pg (25.7-33.7); MCHC 32.2 g/dl (32.0-36.0); MEAN CELL VOLUME 81.2 fl (80-96); MEAN PLT VOLUME 6.9 fl (7.5-11.1); MONO % 8.9 % (3.8-10.2); NEUT % 76.7 % (42.8-82.8); PLATELET COUNT 342 10^3/uL (134-434); RBC 3.85 M/mm3 (3.60-5.2); WHITE BLOOD COUNT 6.6 K/mm3 (4.0-10.0)
[2021-04-23 01:50] LABS: ALBUMIN 3.6 g/dl (3.4-5.0); BLOOD UREA NITROGEN 33.6 mg/dL (7-18); CALCIUM 9.5 mg/dL (8.5-10.1)
[2021-04-23 01:51] LABS: MAGNESIUM 2.5 mg/dL (1.8-2.4)
[2021-04-23 01:54] LABS: CREATININE 1.1 mg/dL (0.55-1.3); PHOSPHOROUS 3.8 mg/dL (2.5-4.9)
[2021-04-23 01:55] LABS: BILIRUBIN,TOTAL 0.3 mg/dL (0.2-1)
[2021-04-23 01:59] LABS: N-TERMINAL BNP 661.2 pg/ml (5-450)
[2021-04-23] MEDS ORDERED: FUROSEMIDE 40 MG/4 ML INJECTABLE VIAL IVPUSH ONE (03:25)
[2021-04-23] MEDS ORDERED: ACETAMINOPHEN 1000 MG/100 ML VIAL IVPB ONE (03:30)
[2021-04-23] MEDS ORDERED: FUROSEMIDE 40 MG/4 ML INJECTABLE VIAL ONE (03:33)
[2021-04-23] MEDS ORDERED: ACETAMINOPHEN INJECTION 100 ML IVPB ONE (03:33)
[2021-04-23] MEDS ORDERED: CEFTRIAXONE 1,000 MG in DEXTROSE 5%-WATER - 50 ML IVPB ONE (05:03)
[2021-04-23] MEDS ORDERED: AZITHROMYCIN IVPB 500 MG in DEXTROSE 5%-WATER - 250 ML IVPB ONE (05:04)
[2021-04-23] MEDS ORDERED: POLYETHYLENE GLYCOL (HEALTHYLAX) 3350 17 GM PACKET PO PRN (05:15)
[2021-04-23] MEDS ORDERED: ACETAMINOPHEN 325 MG TABLET (FP) PO PRN (05:15)
[2021-04-23] MEDS ORDERED: CEFTRIAXONE 1 GM/50 ML BAG ONE ×2 (05:26→09:41)
[2021-04-23] MEDS ORDERED: AZITHROMYCIN IVPB 500 MG/250 ML BAG IVPB ONE (05:26)
[2021-04-23] MEDS ORDERED: DOCUSATE SODIUM 100 MG CAPSULE (FP) PO PRN (07:51)
[2021-04-23] MEDS ORDERED: PATIENT'S OWN MEDICATION (NON-FORMULARY) (Budesonide/Glycopyr/Formoterol [Breztri Aerosphe IH PRN (07:51)
[2021-04-23] MEDS ORDERED: ASPIRIN 81 MG CHEWABLE TABLETS ONE (09:40)
[2021-04-23] MEDS ORDERED: DEXAMETHASONE SOD PHOSPHATE 10 MG/1 ML VIAL ONE (09:40)
[2021-04-23] MEDS ORDERED: FOLIC ACID 1 MG TABLET (FP) ONE (09:40)
[2021-04-23] MEDS ORDERED: PANTOPRAZOLE 40 MG TABLET ONE (09:40)
[2021-04-23] MEDS ORDERED: PT OWN MED DRAWER 7, Y5N ONE (09:41)
[2021-04-23] MEDS ORDERED: ENOXAPARIN NA (PORCINE) 40 MG/0.4 ML DISP.SYRIN SQ ONE (09:41)
[2021-04-23] MEDS: ASPIRIN 81 MG CHEWABLE TABLETS PO SCH (10:08)
[2021-04-23] MEDS: PANTOPRAZOLE 40 MG TABLET PO SCH (10:08)
[2021-04-23] MEDS: ENOXAPARIN NA (PORCINE) 40 MG/0.4 ML DISP.SYRIN SQ SCH (10:08)
[2021-04-23] MEDS: FOLIC ACID 1 MG TABLET (FP) PO SCH (10:08)
[2021-04-23] MEDS: ROFLUMILAST 500 MCG TABLET PO SCH (10:15)
[2021-04-23] MEDS: oxyCODONE HCL 5 MG TABLET PO PRN ×2 (12:43→21:04)
[2021-04-23] MEDS: methylPREDNISolone NA SUCC 40 MG/1 ML VIAL IVPUSH SCH ×2 (15:53→20:58)
[2021-04-23] MEDS: ALBUTEROL SO4 2.5/IPRATROPIUM 0.5 INH SOL 3 ML VIAL.NEB. NEB PRN (16:21)
[2021-04-23] MEDS: SIMETHICONE 80 MG TAB.CHEW (FP) PO PRN (18:31)
[2021-04-23] MEDS: ALPRAZolam 0.25 MG TABLET PO PRN (21:04)
[2021-04-24] MEDS: methylPREDNISolone NA SUCC 40 MG/1 ML VIAL IVPUSH SCH ×4 (02:11→20:50)
[2021-04-24] MEDS ORDERED: PT OWN MED DRAWER 7, Y5N ONE ×5 (06:27→16:52)
[2021-04-24] MEDS: AZITHROMYCIN IVPB 250 MG in DEXTROSE 5%-WATER - 250 ML IVPB SCH (07:28)
[2021-04-24] MEDS: ALBUTEROL SO4 2.5/IPRATROPIUM 0.5 INH SOL 3 ML VIAL.NEB. NEB SCH ×4 (07:46→20:10)
[2021-04-24 09:11] LABS: HEMATOCRIT 30.5 % (32.4-45.2); HEMOGLOBIN 10.2 GM/dL (10.7-15.3); MCH 26.9 pg (25.7-33.7); MCHC 33.4 g/dl (32.0-36.0); MEAN CELL VOLUME 80.6 fl (80-96); MEAN PLT VOLUME 7.7 fl (7.5-11.1); PLATELET COUNT 356 10^3/uL (134-434); RBC 3.79 M/mm3 (3.60-5.2); RDW 15.2 % (11.6-15.6); WHITE BLOOD COUNT 6.5 K/mm3 (4.0-10.0)
[2021-04-24 09:21] LABS: CHLORIDE 100 mmol/L (98-107); SODIUM 136 mmol/L (136-145)
[2021-04-24 09:24] LABS: CALCIUM 8.8 mg/dL (8.5-10.1)
[2021-04-24 09:25] LABS: ANION GAP 4 MMOL/L (8-16); BLOOD UREA NITROGEN 30.6 mg/dL (7-18); CO2 32 mmol/L (21-32); GLUCOSE,RANDOM 113 mg/dL (74-106)
[2021-04-24 09:28] LABS: CREATININE 1.2 mg/dL (0.55-1.3)
[2021-04-24 10:00] LABS: ANISOCYTOSIS 0; HELMET CELLS 0; HOWELL-JOLLY BODIES 0; MACROCYTOSIS 0; OVALOCYTE 0; PLATELET ESTIMATE NORMAL; ROULEAU 0; SICKELED CELLS 0; TARGET CELLS 0; TEAR DROP CELLS 0; TOXIC GRANULATION 0
[2021-04-24] MEDS ORDERED: DEXAMETHASONE SOD PHOSPHATE 10 MG/1 ML VIAL IVPUSH SCH (10:00)
[2021-04-24] MEDS ORDERED: DEXTROSE 5%-WATER - 50 ML IVPB ONE (10:47)
[2021-04-24] MEDS ORDERED: cefTRIAXone SODIUM 1 GM VIAL ONE (10:47)
[2021-04-24] MEDS: oxyCODONE HCL 5 MG TABLET PO PRN ×2 (10:56→19:49)
[2021-04-24] MEDS: PANTOPRAZOLE 40 MG TABLET PO SCH (10:56)
[2021-04-24] MEDS: FOLIC ACID 1 MG TABLET (FP) PO SCH (10:56)
[2021-04-24] MEDS: ASPIRIN 81 MG CHEWABLE TABLETS PO SCH (10:57)
[2021-04-24] MEDS: ROFLUMILAST 500 MCG TABLET PO SCH (10:58)
[2021-04-24] MEDS: CEFTRIAXONE 1 GM in DEXTROSE 5%-WATER - 50 ML IVPB SCH (10:58)
[2021-04-24] MEDS: ENOXAPARIN NA (PORCINE) 40 MG/0.4 ML DISP.SYRIN SQ SCH (10:58)
[2021-04-24] MEDS: MAG HYDROX/ALH/SMC/DPHA/LIDO 240 ML MOUTHWASH MM SCH ×2 (14:11→17:12)
[2021-04-24] MEDS: ALPRAZolam 0.25 MG TABLET PO PRN (15:01)
[2021-04-25] MEDS: MAG HYDROX/ALH/SMC/DPHA/LIDO 240 ML MOUTHWASH MM SCH ×4 (00:10→17:19)
[2021-04-25] MEDS ORDERED: PT OWN MED DRAWER 7, Y5N ONE ×5 (00:12→12:19)
[2021-04-25] MEDS: methylPREDNISolone NA SUCC 40 MG/1 ML VIAL IVPUSH SCH ×3 (02:09→17:19)
[2021-04-25] MEDS: AZITHROMYCIN IVPB 250 MG in DEXTROSE 5%-WATER - 250 ML IVPB SCH (04:59)
[2021-04-25] MEDS: ALBUTEROL SO4 2.5/IPRATROPIUM 0.5 INH SOL 3 ML VIAL.NEB. NEB SCH ×4 (07:22→20:45)
[2021-04-25] MEDS ORDERED: cefTRIAXone SODIUM 1 GM VIAL ONE (08:57)
[2021-04-25] MEDS ORDERED: DEXTROSE 5%-WATER - 50 ML IVPB ONE (08:57)
[2021-04-25] MEDS: ENOXAPARIN NA (PORCINE) 40 MG/0.4 ML DISP.SYRIN SQ SCH (09:09)
[2021-04-25] MEDS: PANTOPRAZOLE 40 MG TABLET PO SCH (09:09)
[2021-04-25] MEDS: FOLIC ACID 1 MG TABLET (FP) PO SCH (09:09)
[2021-04-25] MEDS: ASPIRIN 81 MG CHEWABLE TABLETS PO SCH (09:09)
[2021-04-25] MEDS: ROFLUMILAST 500 MCG TABLET PO SCH (09:10)
[2021-04-25] MEDS: MULTIVIT-MINERALS ORAL LIQUID PO SCH (09:10)
[2021-04-25] MEDS: CEFTRIAXONE 1 GM in DEXTROSE 5%-WATER - 50 ML IVPB SCH (09:11)
[2021-04-25] MEDS: oxyCODONE HCL 5 MG TABLET PO PRN (09:19)
[2021-04-25] MEDS: SODIUM CHLORIDE 1,000 ML IV SCH (22:23)
[2021-04-25] MEDS: ALPRAZolam 0.25 MG TABLET PO PRN (22:24)
[2021-04-26] MEDS ORDERED: MELATONIN 5 MG TABLETS PO PRN (00:28)
[2021-04-26] MEDS: MAG HYDROX/ALH/SMC/DPHA/LIDO 240 ML MOUTHWASH MM SCH ×4 (00:58→18:22)
[2021-04-26] MEDS: methylPREDNISolone NA SUCC 40 MG/1 ML VIAL IVPUSH SCH ×4 (01:06→17:33)
[2021-04-26] MEDS: oxyCODONE HCL 5 MG TABLET PO PRN ×3 (03:44→21:51)
[2021-04-26] MEDS ORDERED: PT OWN MED DRAWER 7, Y5N ONE ×4 (05:11→18:45)
[2021-04-26] MEDS: AZITHROMYCIN IVPB 250 MG in DEXTROSE 5%-WATER - 250 ML IVPB SCH (05:16)
[2021-04-26] MEDS: ALBUTEROL SO4 2.5/IPRATROPIUM 0.5 INH SOL 3 ML VIAL.NEB. NEB SCH ×2 (08:07→19:30)
[2021-04-26] MEDS ORDERED: DEXTROSE 5%-WATER - 50 ML IVPB ONE (09:23)
[2021-04-26] MEDS ORDERED: cefTRIAXone SODIUM 1 GM VIAL ONE (09:23)
[2021-04-26] MEDS: ENOXAPARIN NA (PORCINE) 40 MG/0.4 ML DISP.SYRIN SQ SCH (09:32)
[2021-04-26] MEDS: MULTIVIT-MINERALS ORAL LIQUID PO SCH (09:33)
[2021-04-26] MEDS: CEFTRIAXONE 1 GM in DEXTROSE 5%-WATER - 50 ML IVPB SCH (09:33)
[2021-04-26] MEDS: PANTOPRAZOLE 40 MG TABLET PO SCH (09:34)
[2021-04-26] MEDS: FOLIC ACID 1 MG TABLET (FP) PO SCH (09:34)
[2021-04-26] MEDS: ASPIRIN 81 MG CHEWABLE TABLETS PO SCH (09:34)
[2021-04-26] MEDS: SODIUM CHLORIDE 1,000 ML IV SCH (09:35)
[2021-04-26] MEDS ORDERED: ONDANSETRON 4 MG/2 ML VIAL IVPUSH PRN (09:56)
[2021-04-26] MEDS: NYSTATIN 500,000 UNITS/5 ML SUSPENSION PO SCH ×3 (11:45→18:22)
[2021-04-26] MEDS: BENZOCAINE/MENTH/CETYLPYRD CL 1 EACH LOZENGE MM PRN (11:46)
[2021-04-26] MEDS: ROFLUMILAST 500 MCG TABLET PO SCH (13:03)
[2021-04-26] MEDS: SIMETHICONE 80 MG TAB.CHEW (FP) PO PRN (17:33)
[2021-04-27] MEDS: ALPRAZolam 0.25 MG TABLET PO PRN ×3 (00:11→22:56)
[2021-04-27] MEDS: MAG HYDROX/ALH/SMC/DPHA/LIDO 240 ML MOUTHWASH MM SCH ×5 (00:11→22:59)
[2021-04-27] MEDS: NYSTATIN 500,000 UNITS/5 ML SUSPENSION PO SCH ×5 (00:11→22:59)
[2021-04-27] MEDS: methylPREDNISolone NA SUCC 40 MG/1 ML VIAL IVPUSH SCH ×2 (01:56→09:10)
[2021-04-27] MEDS ORDERED: PT OWN MED DRAWER 7, Y5N ONE ×6 (06:28→22:51)
[2021-04-27] MEDS: SODIUM CHLORIDE 1,000 ML IV SCH ×3 (06:46→23:00)
[2021-04-27] MEDS: ALBUTEROL SO4 2.5/IPRATROPIUM 0.5 INH SOL 3 ML VIAL.NEB. NEB SCH ×2 (07:48→20:20)
[2021-04-27] MEDS: AZITHROMYCIN IVPB 250 MG in DEXTROSE 5%-WATER - 250 ML IVPB SCH (08:43)
[2021-04-27] MEDS ORDERED: cefTRIAXone SODIUM 1 GM VIAL ONE (09:07)
[2021-04-27] MEDS ORDERED: DEXTROSE 5%-WATER - 50 ML IVPB ONE (09:07)
[2021-04-27] MEDS: ASPIRIN 81 MG CHEWABLE TABLETS PO SCH (09:09)
[2021-04-27] MEDS: FOLIC ACID 1 MG TABLET (FP) PO SCH (09:09)
[2021-04-27] MEDS: ENOXAPARIN NA (PORCINE) 40 MG/0.4 ML DISP.SYRIN SQ SCH (09:10)
[2021-04-27] MEDS: PANTOPRAZOLE 40 MG TABLET PO SCH (09:10)
[2021-04-27] MEDS: MULTIVIT-MINERALS ORAL LIQUID PO SCH (09:10)
[2021-04-27] MEDS: ROFLUMILAST 500 MCG TABLET PO SCH (09:29)
[2021-04-27] MEDS: CEFTRIAXONE 1 GM in DEXTROSE 5%-WATER - 50 ML IVPB SCH (10:03)
[2021-04-27] MEDS: BENZOCAINE/MENTH/CETYLPYRD CL 1 EACH LOZENGE MM PRN (10:11)
[2021-04-27] MEDS: predniSONE 20 MG TABLET (UD) PO SCH (11:06)
[2021-04-27] MEDS: oxyCODONE HCL 5 MG TABLET PO PRN ×2 (11:06→20:36)
[2021-04-27] MEDS: ALBUTEROL SO4 2.5/IPRATROPIUM 0.5 INH SOL 3 ML VIAL.NEB. NEB PRN (11:10)
[2021-04-27] MEDS: AMINO ACIDS/PROTEIN HYDROLYS 30 ML LIQUID.PKT PO SCH (17:26)
[2021-04-27] MEDS: SIMETHICONE 80 MG TAB.CHEW (FP) PO PRN (20:37)
[2021-04-28] MEDS: MAG HYDROX/ALH/SMC/DPHA/LIDO 240 ML MOUTHWASH MM SCH ×3 (05:09→17:02)
[2021-04-28] MEDS: NYSTATIN 500,000 UNITS/5 ML SUSPENSION PO SCH ×3 (05:09→17:02)
[2021-04-28] MEDS: SODIUM CHLORIDE 1,000 ML IV SCH (05:18)
[2021-04-28] MEDS: ALBUTEROL SO4 2.5/IPRATROPIUM 0.5 INH SOL 3 ML VIAL.NEB. NEB PRN (05:30)
[2021-04-28] MEDS: ALBUTEROL SO4 2.5/IPRATROPIUM 0.5 INH SOL 3 ML VIAL.NEB. NEB SCH (08:56)
[2021-04-28] MEDS: AMINO ACIDS/PROTEIN HYDROLYS 30 ML LIQUID.PKT PO SCH ×2 (09:17→16:37)
[2021-04-28] MEDS: ROFLUMILAST 500 MCG TABLET PO SCH (09:20)
[2021-04-28] MEDS: PANTOPRAZOLE 40 MG TABLET PO SCH (09:21)
[2021-04-28] MEDS: ENOXAPARIN NA (PORCINE) 40 MG/0.4 ML DISP.SYRIN SQ SCH (09:21)
[2021-04-28] MEDS: ASPIRIN 81 MG CHEWABLE TABLETS PO SCH (09:21)
[2021-04-28] MEDS: MULTIVIT-MINERALS ORAL LIQUID PO SCH (09:21)
[2021-04-28] MEDS: predniSONE 20 MG TABLET (UD) PO SCH (09:22)
[2021-04-28] MEDS: FOLIC ACID 1 MG TABLET (FP) PO SCH (09:22)
[2021-04-28] MEDS: ALPRAZolam 0.25 MG TABLET PO PRN (13:04)
[2021-04-28] MEDS: oxyCODONE HCL 5 MG TABLET PO PRN (14:36)
[2021-04-28] MEDS ORDERED: ALBUTEROL SO4 2.5/IPRATROPIUM 0.5 INH SOL 3 ML VIAL.NEB. NEB PRN (14:49)
[2021-04-28 16:00] VITALS: BP 158/78; PULSE 77; TEMP 98.4
== END 2021-04-28 17:34 | disposition home health service (06) | DRG 191 ==
LOC: JER 23:59 → JERBED 04-23 00:35 → J8W 04-23 11:10
PROVIDERS: ADMIT Internal Medicine; ATTEND Internal Medicine
DX: J44.1 Chronic obstructive pulmonary disease with (acute) exacerbation (principal); I50.32 Chronic diastolic (congestive) heart failure; B37.0 Candidal stomatitis; R64 Cachexia; E46 Unspecified protein-calorie malnutrition; Z68.1 Body mass index [BMI] 19.9 or less, adult; I25.10 Atherosclerotic heart disease of native coronary artery without angina pectoris; I10 Essential (primary) hypertension; E78.5 Hyperlipidemia, unspecified; D51.0 Vitamin B12 deficiency anemia due to intrinsic factor deficiency; K21.9 Gastro-esophageal reflux disease without esophagitis; K76.0 Fatty (change of) liver, not elsewhere classified; F41.9 Anxiety disorder, unspecified; I11.0 Hypertensive heart disease with heart failure; F32.A Depression, unspecified; K57.90 Diverticulosis of intestine, part unspecified, without perforation or abscess without bleeding; Z85.41 Personal history of malignant neoplasm of cervix uteri
CPT/HCPCS: 36415; 71045-TC-FY; 80048; 80053; 82550; 83735; 83880; 84100; 84484; 85025; 93005; 93010; 93306-TC; 94640; 94761; 99284-25; 99285-25; C9803; J0131; J1100; U0003; U0005

== ENCOUNTER 2021-08-24 16:28 | Inpatient (IN) | payer OTHER, MEDICARE ==
[2021-08-24] MEDS ORDERED: morphine CARPU-JECT 2 MG/1 ML DISP.SYRIN IVPUSH ONE (17:16)
[2021-08-24] MEDS ORDERED: morphine CARPU-JECT 4 MG/1 ML DISP.SYRIN IVPUSH ONE (17:49)
[2021-08-24] MEDS ORDERED: ROPIVACAINE HCL 0.5% 30ML VIAL IM ONE (18:32)
[2021-08-24] MEDS ORDERED: BUPIVACAINE HCL/PF 0.5% (5MG/ML) 10 ML VIAL ONE (18:33)
[2021-08-24] MEDS ORDERED: BUPIVACAINE HCL/PF 0.5% (5 MG/ML) 30 ML VIAL IJ ONE (18:44)
[2021-08-24 18:55] LABS: BASO % 0.9 % (0-2.0); HEMATOCRIT 25.5 % (32.4-45.2); HEMOGLOBIN 7.9 GM/dL (10.7-15.3); LYMPH % 8.4 % (8-40); MCH 21.7 pg (25.7-33.7); MCHC 30.9 g/dl (32.0-36.0); MEAN CELL VOLUME 70.1 fl (80-96); MEAN PLT VOLUME 7.6 fl (7.5-11.1); MONO % 4.8 % (3.8-10.2); NEUT % 84.9 % (42.8-82.8); PLATELET COUNT 371 10^3/uL (134-434); RBC 3.65 M/mm3 (3.60-5.2); RDW 18.4 % (11.6-15.6); WHITE BLOOD COUNT 10.3 K/mm3 (4.0-10.0)
[2021-08-24] MEDS ORDERED: HYDROmorphone HCL CARPU-JECT 2 MG/1 ML DISP.SYRIN IVPUSH ONE (18:58)
[2021-08-24 19:00] LABS: INR 1.21 (0.83-1.09)
[2021-08-24] MEDS ORDERED: HYDROmorphone HCl 2 MG/ML VIAL ONE ×2 (19:00→21:49)
[2021-08-24 19:03] LABS: ACTIVATED PTT 36.9 SECONDS (25.2-36.5)
[2021-08-24 19:19] LABS: CALCIUM 8.8 mg/dL (8.5-10.1)
[2021-08-24 19:21] LABS: ALBUMIN 3.6 g/dl (3.4-5.0); BLOOD UREA NITROGEN 18.3 mg/dL (7-18)
[2021-08-24 19:24] LABS: BILIRUBIN,TOTAL 0.6 mg/dL (0.2-1); TOT PROT 6.5 g/dl (6.4-8.2)
[2021-08-24] MEDS ORDERED: ACETAMINOPHEN 325 MG TABLET (FP) PO PRN (19:57)
[2021-08-24] MEDS ORDERED: POLYETHYLENE GLYCOL (HEALTHYLAX) 3350 17 GM PACKET PO PRN (19:57)
[2021-08-24] MEDS ORDERED: ALBUTEROL SO4 HFA INHALER IH PRN (20:11)
[2021-08-24] MEDS ORDERED: HYDROmorphone HCl 2 MG/ML VIAL IVPUSH PRN (21:46)
[2021-08-24] MEDS ORDERED: ACETAMINOPHEN 1000 MG/100 ML BAG IVPB PRN (21:47)
[2021-08-24 22:18] LABS: ANISOCYTOSIS 1+; HELMET CELLS 1+; MACROCYTOSIS 0
[2021-08-25] MEDS ORDERED: DEXTROSE 5%-NORMAL SALINE 1,000 ML IV SCH
[2021-08-25 09:20] LABS: BASO % 0.8 % (0-2.0); EOS % 1.1 % (0-4.5); HEMATOCRIT 24.1 % (32.4-45.2); HEMOGLOBIN 7.5 GM/dL (10.7-15.3); MCH 21.6 pg (25.7-33.7); MCHC 31.2 g/dl (32.0-36.0); MEAN CELL VOLUME 69.1 fl (80-96); MEAN PLT VOLUME 7.2 fl (7.5-11.1); MONO % 9.2 % (3.8-10.2); NEUT % 72.9 % (42.8-82.8); PLATELET COUNT 324 10^3/uL (134-434); RBC 3.49 M/mm3 (3.60-5.2); RDW 18.8 % (11.6-15.6); WHITE BLOOD COUNT 4.9 K/mm3 (4.0-10.0)
[2021-08-25 09:54] LABS: BLOOD UREA NITROGEN 14.6 mg/dL (7-18); MAGNESIUM 1.8 mg/dL (1.8-2.4)
[2021-08-25] MEDS ORDERED: ACETAMINOPHEN 1000 MG/100 ML BAG IVPB PRN (10:29)
[2021-08-25] MEDS ORDERED: ALPRAZolam 0.25 MG TABLET PO PRN ×2 (10:30→16:17)
[2021-08-25] MEDS ORDERED: MIDAZOLAM HCL 2 MG/2 ML SINGLE DOSE VIAL ONE (13:52)
[2021-08-25] MEDS ORDERED: BUPIVACAINE HCL/PF 0.5% (5MG/ML) 10 ML VIAL ONE (13:54)
[2021-08-25] MEDS ORDERED: PROPOFOL 20 ML ONE (13:58)
[2021-08-25] MEDS ORDERED: CLINDAMYCIN 600 MG PREMIX BAG IVPB ONE (14:55)
[2021-08-25] MEDS ORDERED: CLINDAMYCIN PHOSPHATE 600 MG/4 ML VIAL ONE (15:05)
[2021-08-25] MEDS ORDERED: oxyCODONE HCL 5 MG TABLET PO PRN (15:58)
[2021-08-25] MEDS ORDERED: ONDANSETRON 4 MG/2 ML VIAL IVPUSH PRN (16:01)
[2021-08-25] MEDS ORDERED: ACETAMINOPHEN 325 MG TABLET (FP) PO PRN (16:17)
[2021-08-25] MEDS ORDERED: POLYETHYLENE GLYCOL (HEALTHYLAX) 3350 17 GM PACKET PO PRN (16:17)
[2021-08-25] MEDS: DEXTROSE 5%-NORMAL SALINE 1,000 ML IV SCH (17:15)
[2021-08-25] MEDS: ALBUTEROL SO4 HFA INHALER IH PRN (18:29)
[2021-08-25] MEDS: LACTATED RINGERS SOLUTION 1,000 ML IV SCH (19:30)
[2021-08-25] MEDS: SENNOSIDES/DOCUSATE COMBO (SENNA PLUS) TABLET (UD) PO SCH (21:15)
[2021-08-25] MEDS: ACETAMINOPHEN 1000 MG/100 ML BAG IVPB PRN (21:16)
[2021-08-26] MEDS: oxyCODONE HCL 5 MG TABLET PO PRN ×3 (00:05→16:47)
[2021-08-26] MEDS: ACETAMINOPHEN 1000 MG/100 ML BAG IVPB PRN ×2 (03:50→09:47)
[2021-08-26 08:58] LABS: HEMATOCRIT 27.2 % (32.4-45.2); HEMOGLOBIN 8.5 GM/dL (10.7-15.3); MCH 22.7 pg (25.7-33.7); MCHC 31.1 g/dl (32.0-36.0); MEAN CELL VOLUME 72.9 fl (80-96); MEAN PLT VOLUME 8.2 fl (7.5-11.1); PLATELET COUNT 324 10^3/uL (134-434); RBC 3.73 M/mm3 (3.60-5.2); RDW 20.6 % (11.6-15.6)
[2021-08-26] MEDS: SENNOSIDES/DOCUSATE COMBO (SENNA PLUS) TABLET (UD) PO SCH ×2 (09:04→21:20)
[2021-08-26] MEDS: APIXABAN 2.5 MG TABLET PO SCH ×2 (09:05→21:20)
[2021-08-26] MEDS: LACTATED RINGERS SOLUTION 1,000 ML IV SCH ×2 (09:05→16:44)
[2021-08-26] MEDS: MULTIVITAMINS (DAILY MVI) TABLET (FP) PO SCH (09:05)
[2021-08-26 09:23] LABS: BLOOD UREA NITROGEN 17.2 mg/dL (7-18)
[2021-08-26] MEDS ORDERED: APIXABAN 2.5 MG TABLET PO SCH (10:00)
[2021-08-26] MEDS ORDERED: oxyCODONE HCL 5 MG TABLET PO PRN (11:28)
[2021-08-26] MEDS ORDERED: HYDROmorphone HCL CARPU-JECT 2 MG/1 ML DISP.SYRIN IVPB PRN (11:29)
[2021-08-26] MEDS ORDERED: ALPRAZolam 0.25 MG TABLET PO PRN (11:44)
[2021-08-26] MEDS: HYDROmorphone HCl 2 MG/ML VIAL IVPB PRN ×2 (12:44→21:40)
[2021-08-26 15:41] VITALS: BMI 15.2
[2021-08-26] MEDS: DEXTROSE 5%-NORMAL SALINE 1,000 ML IV SCH (16:44)
[2021-08-26] MEDS: AMINO ACIDS/PROTEIN HYDROLYS 30 ML LIQUID.PKT PO SCH (16:47)
[2021-08-26] MEDS: oxyCODONE HCL 10 MG SUSTAINED ACTING TABLET PO SCH (21:20)
[2021-08-27] MEDS: LACTATED RINGERS SOLUTION 1,000 ML IV SCH (00:17)
[2021-08-27] MEDS: oxyCODONE HCL 5 MG TABLET PO PRN ×2 (03:45→16:36)
[2021-08-27] MEDS: ALBUTEROL SO4 HFA INHALER IH PRN (06:19)
[2021-08-27 08:21] LABS: HEMATOCRIT 25.6 % (32.4-45.2); HEMOGLOBIN 8.2 GM/dL (10.7-15.3); MCH 23.2 pg (25.7-33.7); MCHC 32.2 g/dl (32.0-36.0); MEAN CELL VOLUME 72.1 fl (80-96); MEAN PLT VOLUME 7.6 fl (7.5-11.1); PLATELET COUNT 289 10^3/uL (134-434); RBC 3.55 M/mm3 (3.60-5.2); RDW 20.5 % (11.6-15.6)
[2021-08-27] MEDS: AMINO ACIDS/PROTEIN HYDROLYS 30 ML LIQUID.PKT PO SCH ×2 (08:36→16:36)
[2021-08-27] MEDS: MULTIVITAMINS (DAILY MVI) TABLET (FP) PO SCH (09:36)
[2021-08-27] MEDS: SENNOSIDES/DOCUSATE COMBO (SENNA PLUS) TABLET (UD) PO SCH ×2 (09:36→21:03)
[2021-08-27] MEDS: oxyCODONE HCL 10 MG SUSTAINED ACTING TABLET PO SCH ×2 (09:36→21:03)
[2021-08-27] MEDS: HYDROmorphone HCl 2 MG/ML VIAL IVPB PRN (09:37)
[2021-08-27] MEDS: APIXABAN 2.5 MG TABLET PO SCH ×2 (12:22→21:05)
[2021-08-27] MEDS: ALPRAZolam 0.25 MG TABLET PO SCH (12:22)
[2021-08-27] MEDS: LIDOCAINE 5% TOPICAL PATCH TP SCH (12:30)
[2021-08-27] MEDS ORDERED: IRON SUCROSE INJECTION 200 MG in SODIUM CHLORIDE 90 ML IVPB ONE (12:30)
[2021-08-27] MEDS ORDERED: LIDOCAINE PATCH REMOVAL MC SCH (22:00)
[2021-08-28] MEDS: ALPRAZolam 0.25 MG TABLET PO SCH ×2 (01:52→11:48)
[2021-08-28] MEDS: oxyCODONE HCL 5 MG TABLET PO PRN ×2 (01:57→16:45)
[2021-08-28 08:36] LABS: BASO % 0.4 % (0-2.0); EOS % 2.7 % (0-4.5); HEMATOCRIT 24.2 % (32.4-45.2); HEMOGLOBIN 7.7 GM/dL (10.7-15.3); MCH 23.1 pg (25.7-33.7); MCHC 31.7 g/dl (32.0-36.0); MEAN CELL VOLUME 72.7 fl (80-96); MEAN PLT VOLUME 7.1 fl (7.5-11.1); NEUT % 77.9 % (42.8-82.8); PLATELET COUNT 272 10^3/uL (134-434); RBC 3.33 M/mm3 (3.60-5.2); RDW 21.1 % (11.6-15.6); WHITE BLOOD COUNT 8.3 K/mm3 (4.0-10.0)
[2021-08-28 09:05] LABS: CALCIUM 8.2 mg/dL (8.5-10.1)
[2021-08-28 09:06] LABS: BLOOD UREA NITROGEN 18.5 mg/dL (7-18)
[2021-08-28] MEDS: oxyCODONE HCL 10 MG SUSTAINED ACTING TABLET PO SCH (09:06)
[2021-08-28] MEDS: AMINO ACIDS/PROTEIN HYDROLYS 30 ML LIQUID.PKT PO SCH ×2 (09:06→16:48)
[2021-08-28] MEDS: APIXABAN 2.5 MG TABLET PO SCH (09:06)
[2021-08-28] MEDS: MULTIVITAMINS (DAILY MVI) TABLET (FP) PO SCH (09:06)
[2021-08-28] MEDS: SENNOSIDES/DOCUSATE COMBO (SENNA PLUS) TABLET (UD) PO SCH (09:06)
[2021-08-28] MEDS: LIDOCAINE 5% TOPICAL PATCH TP SCH (09:07)
[2021-08-28 09:09] LABS: CREATININE 0.8 mg/dL (0.55-1.3)
[2021-08-28 09:10] LABS: BILIRUBIN,TOTAL 0.6 mg/dL (0.2-1); TOT PROT 5.1 g/dl (6.4-8.2)
[2021-08-28 09:12] LABS: ALBUMIN 2.5 g/dl (3.4-5.0)
[2021-08-28 10:20] LABS: ANISOCYTOSIS 2+; MACROCYTOSIS 0; OVALOCYTE 2+; TARGET CELLS 1+
[2021-08-28 14:26] VITALS: BP 151/61; PULSE 82; TEMP 99.5
== END 2021-08-28 18:54 | DRG 481 ==
LOC: JER 16:28 → JERBED 17:29 → J6S 23:19
PROVIDERS: ADMIT Internal Medicine; ATTEND Internal Medicine
PROC: 30233N1 Transfusion of Nonautologous Red Blood Cells into Peripheral Vein, Percutaneous Approach (ICD-10-PCS; 2021-08-25)
PROC: 0QS604Z Reposition Right Upper Femur with Internal Fixation Device, Open Approach (ICD-10-PCS; principal; 2021-08-25 14:00)
DX: S72.141A Displaced intertrochanteric fracture of right femur, initial encounter for closed fracture (principal); I50.32 Chronic diastolic (congestive) heart failure; R64 Cachexia; Z68.1 Body mass index [BMI] 19.9 or less, adult; E78.5 Hyperlipidemia, unspecified; I25.10 Atherosclerotic heart disease of native coronary artery without angina pectoris; J44.9 Chronic obstructive pulmonary disease, unspecified; K21.9 Gastro-esophageal reflux disease without esophagitis; K76.0 Fatty (change of) liver, not elsewhere classified; I11.0 Hypertensive heart disease with heart failure; K57.90 Diverticulosis of intestine, part unspecified, without perforation or abscess without bleeding; F41.8 Other specified anxiety disorders; D64.9 Anemia, unspecified; D51.0 Vitamin B12 deficiency anemia due to intrinsic factor deficiency; G89.29 Other chronic pain; W18.39XA Other fall on same level, initial encounter; Y92.89 Other specified places as the place of occurrence of the external cause; Z87.11 Personal history of peptic ulcer disease; Z95.5 Presence of coronary angioplasty implant and graft; Z85.41 Personal history of malignant neoplasm of cervix uteri; Z91.81 History of falling
CPT/HCPCS: 36415; 36430; 70450-TC; 71045-TC-FY; 72170-TC-FY; 73502-TC-RT-FY; 73552-TC-RT-FY; 73560-TC-RT-FY; 76000-TC-FY; 80048; 80053; 83735; 85025; 85027; 85610; 85730; 86850; 86900; 86901; 86922; 93005; 93010; 94010; 94760; 97116-GP; 97162-GP; 99285-25; C9803-CS; J1756; P9058; U0003; U0005

== ENCOUNTER 2022-02-21 16:34 | Emergency (ER) | payer OTHER, MEDICARE ==
[2022-02-21 16:44] VITALS: BP 109/65; PULSE 100; RESP 18; TEMP 97.8; BMI 15.3
[2022-02-21 19:25] LABS: EOS % 1.3 % (0-4.5); HEMATOCRIT 26.6 % (32.4-45.2); HEMOGLOBIN 8.3 GM/dL (10.7-15.3); LYMPH % 16.5 % (8-40); MCHC 31.2 g/dl (32.0-36.0); MEAN CELL VOLUME 73.8 fl (80-96); MEAN PLT VOLUME 7.3 fl (7.5-11.1); MONO % 6.4 % (3.8-10.2); NEUT % 74.8 % (42.8-82.8); PLATELET COUNT 348 10^3/uL (134-434); RDW 23.4 % (11.6-15.6); WHITE BLOOD COUNT 5.6 K/mm3 (4.0-10.0)
[2022-02-21 19:30] LABS: ALBUMIN 3.6 g/dl (3.4-5.0); BLOOD UREA NITROGEN 29.4 mg/dL (7-18); CALCIUM 9.2 mg/dL (8.5-10.1)
[2022-02-21 19:32] LABS: CREATININE 1.3 mg/dL (0.55-1.3)
[2022-02-21 19:34] LABS: BILIRUBIN,TOTAL 0.3 mg/dL (0.2-1); TOT PROT 6.6 g/dl (6.4-8.2)
== END 2022-02-22 00:25 | disposition left against medical advice (07) ==
LOC: JER 16:34
DX: K21.9 Gastro-esophageal reflux disease without esophagitis (principal); R10.9 Unspecified abdominal pain
CPT/HCPCS: 36415; 71045-TC-FY; 71250-TC; 74176-TC; 80053; 83690; 83735; 85025; 86850; 86900; 86901; 93005; 93010; 99285-25

== ENCOUNTER 2022-03-02 04:47 | Observation (INO) | payer OTHER, MEDICARE ==
[2022-03-01 08:22] VITALS: BMI 13.9
[2022-03-02 11:04] LABS: BASO % 1.4 % (0-2.0); EOS % 1.3 % (0-4.5); HEMATOCRIT 28.8 % (32.4-45.2); LYMPH % 30.9 % (8-40); MCH 23.4 pg (25.7-33.7); MCHC 31.4 g/dl (32.0-36.0); MEAN CELL VOLUME 74.6 fl (80-96); MEAN PLT VOLUME 6.9 fl (7.5-11.1); MONO % 5.8 % (3.8-10.2); NEUT % 60.6 % (42.8-82.8); PLATELET COUNT 370 10^3/uL (134-434); RBC 3.85 M/mm3 (3.60-5.2); WHITE BLOOD COUNT 5.4 K/mm3 (4.0-10.0)
[2022-03-02 11:26] LABS: CALCIUM 9.1 mg/dL (8.5-10.1)
[2022-03-02 11:27] LABS: ALBUMIN 3.7 g/dl (3.4-5.0); BLOOD UREA NITROGEN 19.8 mg/dL (7-18)
[2022-03-02 11:30] LABS: CREATININE 0.9 mg/dL (0.55-1.3)
[2022-03-02 11:32] LABS: BILIRUBIN,TOTAL 0.2 mg/dL (0.2-1); TOT PROT 6.7 g/dl (6.4-8.2)
[2022-03-02 11:53] LABS: ANISOCYTOSIS 2+; MACROCYTOSIS 0
[2022-03-02] MEDS ORDERED: FLUCONAZOLE 200 MG/NS 100 ML IVPB ONE ×2 (14:51→16:15)
[2022-03-02] MEDS ORDERED: ACETAMINOPHEN 325 MG TABLET (FP) PO ONE (20:39)
[2022-03-02] MEDS: busPIRone HCL 5 MG TABLET PO SCH (21:06)
[2022-03-03 07:06] VITALS: TEMP 98.2
[2022-03-03 09:00] VITALS: BP 147/57; PULSE 64; RESP 19
[2022-03-03 09:22] LABS: BASO % 1.6 % (0-2.0); EOS % 3.1 % (0-4.5); HEMATOCRIT 27.2 % (32.4-45.2); HEMOGLOBIN 8.4 GM/dL (10.7-15.3); LYMPH % 53.4 % (8-40); MCH 22.7 pg (25.7-33.7); MCHC 30.9 g/dl (32.0-36.0); MEAN CELL VOLUME 73.4 fl (80-96); MEAN PLT VOLUME 6.9 fl (7.5-11.1); MONO % 8.8 % (3.8-10.2); NEUT % 33.1 % (42.8-82.8); PLATELET COUNT 358 10^3/uL (134-434); WHITE BLOOD COUNT 4.3 K/mm3 (4.0-10.0)
[2022-03-03 09:50] LABS: BLOOD UREA NITROGEN 14.1 mg/dL (7-18); CALCIUM 8.9 mg/dL (8.5-10.1)
[2022-03-03 09:51] LABS: ALBUMIN 3.2 g/dl (3.4-5.0)
[2022-03-03 09:54] LABS: CREATININE 0.8 mg/dL (0.55-1.3)
[2022-03-03 09:55] LABS: BILIRUBIN,TOTAL 0.4 mg/dL (0.2-1)
[2022-03-03] MEDS ORDERED: FLUCONAZOLE 100 MG/NS 50 ML IVPB SCH (10:00)
[2022-03-03] MEDS ORDERED: PANTOPRAZOLE 40 MG TABLET PO SCH (10:00)
[2022-03-03] MEDS ORDERED: MIRTAZAPINE 15 MG TABLET (FP) PO SCH (10:00)
[2022-03-03] MEDS: busPIRone HCL 5 MG TABLET PO SCH (10:20)
== END 2022-03-03 14:07 | disposition home or self-care (01) ==
LOC: JASUSAT 04:47 → J5S 12:08 → JASUSAT 12:23 → J5S 12:40 → JASUSAT 03-03 14:07
PROVIDERS: ADMIT Internal Medicine; ATTEND Internal Medicine
PROC: 3E03329 Introduction of Other Anti-infective into Peripheral Vein, Percutaneous Approach (ICD-10-PCS; 2022-03-02)
PROC: 0DJ08ZZ Inspection of Upper Intestinal Tract, Via Natural or Artificial Opening Endoscopic (ICD-10-PCS; principal; 2022-03-02 08:45)
DX: L76.22 Postprocedural hemorrhage of skin and subcutaneous tissue following other procedure (principal); K27.9 Peptic ulcer, site unspecified, unspecified as acute or chronic, without hemorrhage or perforation; J44.9 Chronic obstructive pulmonary disease, unspecified; I25.10 Atherosclerotic heart disease of native coronary artery without angina pectoris; I11.0 Hypertensive heart disease with heart failure; D64.9 Anemia, unspecified; B37.81 Candidal esophagitis; F41.9 Anxiety disorder, unspecified; G89.29 Other chronic pain; I50.30 Unspecified diastolic (congestive) heart failure; K21.9 Gastro-esophageal reflux disease without esophagitis; G47.30 Sleep apnea, unspecified
CPT/HCPCS: 36415; 74177-TC; 80053; 85025; 86850; 86900; 86901; 88104; 88305-TC; 88341-TC; 88342-TC; 93005; 93010; G0378; Q9967

== ENCOUNTER 2022-03-17 08:36 | Day surgery (SDC) | payer OTHER, MEDICARE ==
[2022-03-17] MEDS ORDERED: IRON SUCROSE INJECTION 200 MG in SODIUM CHLORIDE 100 ML IVPB ONE (09:30)
[2022-03-17 15:09] VITALS: RESP 18; TEMP 97.5
[2022-03-17 15:32] VITALS: BP 140/63; PULSE 71
== END 2022-03-17 10:35 | disposition home or self-care (01) ==
LOC: JONCNONCHE 08:36
PROVIDERS: ATTEND Internal Medicine Hematology & Oncology
PROC: 3E033GC Introduction of Other Therapeutic Substance into Peripheral Vein, Percutaneous Approach (ICD-10-PCS; principal; 2022-03-17)
DX: D50.9 Iron deficiency anemia, unspecified (principal)
CPT/HCPCS: 96365; J1756

== ENCOUNTER 2022-03-24 12:08 | Day surgery (SDC) | payer OTHER, MEDICARE ==
[~2022-03-24 12:08] MED LIST changes: +IRON SUCROSE INJECTION 200 MG in SODIUM CHLORIDE 100 ML IVPB ONE; -IRON SUCROSE INJECTION 200 MG/100 ML BAG IVPB ONE
[2022-03-24 15:46] VITALS: BP 146/68; PULSE 94; RESP 20; TEMP 97.7
== END 2022-03-24 13:20 | disposition home or self-care (01) ==
LOC: JONCNONCHE 12:08
PROVIDERS: ATTEND Internal Medicine Hematology & Oncology
PROC: 3E033GC Introduction of Other Therapeutic Substance into Peripheral Vein, Percutaneous Approach (ICD-10-PCS; principal; 2022-03-24)
DX: D50.9 Iron deficiency anemia, unspecified (principal)
CPT/HCPCS: 96365; J1756

== ENCOUNTER 2022-03-31 11:35 | Day surgery (SDC) | payer OTHER, MEDICARE ==
[2022-03-31 17:56] VITALS: BP 124/65; PULSE 80; RESP 20; TEMP 97.9
== END 2022-03-31 13:00 | disposition home or self-care (01) ==
LOC: JONCNONCHE 11:35
PROVIDERS: ATTEND Internal Medicine Hematology & Oncology
PROC: 3E033GC Introduction of Other Therapeutic Substance into Peripheral Vein, Percutaneous Approach (ICD-10-PCS; principal; 2022-03-31)
DX: D50.9 Iron deficiency anemia, unspecified (principal)
CPT/HCPCS: 96365; J1756

== ENCOUNTER 2022-04-07 12:00 | Day surgery (SDC) | payer OTHER, MEDICARE ==
[2022-04-07 16:24] VITALS: TEMP 97.6
[2022-04-07 16:28] VITALS: BP 111/59; PULSE 80; RESP 18
== END 2022-04-07 13:45 | disposition home or self-care (01) ==
LOC: JONCNONCHE 12:00
PROVIDERS: ATTEND Internal Medicine Hematology & Oncology
PROC: 3E033GC Introduction of Other Therapeutic Substance into Peripheral Vein, Percutaneous Approach (ICD-10-PCS; principal; 2022-04-07)
DX: D50.9 Iron deficiency anemia, unspecified (principal)
CPT/HCPCS: 96365; J1756

== ENCOUNTER 2022-04-14 14:30 | Day surgery (SDC) | payer OTHER, MEDICARE ==
[2022-04-14 16:51] VITALS: RESP 20; TEMP 97.7
[2022-04-14 16:54] VITALS: BP 103/51; PULSE 75
== END 2022-04-14 14:45 | disposition home or self-care (01) ==
LOC: JONCNONCHE 14:30
PROVIDERS: ATTEND Internal Medicine Hematology & Oncology
PROC: 3E033GC Introduction of Other Therapeutic Substance into Peripheral Vein, Percutaneous Approach (ICD-10-PCS; principal; 2022-04-14)
DX: D50.9 Iron deficiency anemia, unspecified (principal)
CPT/HCPCS: 96365; J1756

== ENCOUNTER 2022-05-20 04:16 | Day surgery (SDC) | payer OTHER, MEDICARE ==
[2022-05-19 09:55] VITALS: BMI 13.9
[2022-05-20 12:47] VITALS: TEMP 99.1
[2022-05-20 13:22] VITALS: PULSE 77
[2022-05-20 13:35] VITALS: BP 165/67; RESP 16
== END 2022-05-20 14:30 | disposition home or self-care (01) ==
LOC: JASU-ENDO 04:16
PROVIDERS: ATTEND Internal Medicine Gastroenterology
PROC: 0D5L8ZZ Destruction of Transverse Colon, Via Natural or Artificial Opening Endoscopic (ICD-10-PCS; 2022-05-20)
PROC: 3E0H8GC Introduction of Other Therapeutic Substance into Lower GI, Via Natural or Artificial Opening Endoscopic (ICD-10-PCS; 2022-05-20)
PROC: 0D5K8ZZ Destruction of Ascending Colon, Via Natural or Artificial Opening Endoscopic (ICD-10-PCS; principal; 2022-05-20 09:15)
DX: Z12.11 Encounter for screening for malignant neoplasm of colon (principal); K64.8 Other hemorrhoids; D50.9 Iron deficiency anemia, unspecified; D12.2 Benign neoplasm of ascending colon; D12.3 Benign neoplasm of transverse colon
CPT/HCPCS: 88305-TC

== ENCOUNTER 2022-07-23 04:18 | Day surgery (SDC) | payer OTHER, MEDICARE ==
[2022-07-21 11:20] VITALS: BMI 13.9
[~2022-07-23 04:18] MED LIST changes: +BUPIVACAINE HCL/PF 0.5% (5MG/ML) 10 ML VIAL IJ ONE; -IRON SUCROSE INJECTION 200 MG in SODIUM CHLORIDE 100 ML IVPB ONE
[2022-07-23] MEDS ORDERED: LIDOCAINE HCL/PF 1% SDV 5ML VIAL ONE (07:40)
[2022-07-23] MEDS ORDERED: BUPIVACAINE HCL/PF 0.5% (5MG/ML) 10 ML VIAL ONE (07:40)
[2022-07-23 12:04] VITALS: RESP 20
[2022-07-23] MEDS ORDERED: BUPIVACAINE HCL/PF 0.5% (5MG/ML) 10 ML VIAL IJ ONE ×2 (12:38)
[2022-07-23 15:30] VITALS: BP 151/75; PULSE 71; TEMP 97.2
== END 2022-07-23 13:31 | disposition home or self-care (01) ==
LOC: JASU-SURG 04:18
PROVIDERS: ATTEND Pain Medicine Pain Medicine
PROC: 3E0T33Z Introduction of Anti-inflammatory into Peripheral Nerves and Plexi, Percutaneous Approach (ICD-10-PCS; 2022-07-23)
PROC: 3E0T3BZ Introduction of Anesthetic Agent into Peripheral Nerves and Plexi, Percutaneous Approach (ICD-10-PCS; principal; 2022-07-23 12:45)
DX: M47.812 Spondylosis without myelopathy or radiculopathy, cervical region (principal)
CPT/HCPCS: 76000-TC-FY

== ENCOUNTER 2022-08-15 08:47 | Inpatient (IN) | payer OTHER, MEDICARE ==
[2022-08-15] MEDS ORDERED: ALBUTEROL SO4 2.5/IPRATROPIUM 0.5 INH SOL 3 ML VIAL.NEB. NEB ONE (10:18)
[2022-08-15] MEDS: ALBUTEROL SO4 2.5/IPRATROPIUM 0.5 INH SOL 3 ML VIAL.NEB. NEB SCH ×4 (10:20→11:00)
[2022-08-15 10:43] LABS: BASO % 1.3 % (0-2.0); EOS % 2.8 % (0-4.5); HEMATOCRIT 33.4 % (32.4-45.2); HEMOGLOBIN 10.8 GM/dL (10.7-15.3); LYMPH % 13.8 % (8-40); MCH 28.9 pg (25.7-33.7); MCHC 32.3 g/dl (32.0-36.0); MEAN CELL VOLUME 89.6 fl (80-96); MEAN PLT VOLUME 7.5 fl (7.5-11.1); MONO % 5.7 % (3.8-10.2); NEUT % 76.4 % (42.8-82.8); PLATELET COUNT 271 10^3/uL (134-434); RBC 3.73 M/mm3 (3.60-5.2); RDW 14.6 % (11.6-15.6); WHITE BLOOD COUNT 7.2 K/mm3 (4.0-10.0)
[2022-08-15 10:44] LABS: VENOUS O2 SATURATION 49.4 % (70-80); VENOUS PCO2 57.6 mmHg (38-52); VENOUS PH 7.296 (7.310-7.410)
[2022-08-15 11:06] LABS: CALCIUM 9.1 mg/dL (8.5-10.1)
[2022-08-15 11:07] LABS: ALBUMIN 3.6 g/dl (3.4-5.0)
[2022-08-15 11:10] LABS: CREATININE 0.9 mg/dL (0.55-1.3)
[2022-08-15 11:12] LABS: BILIRUBIN,TOTAL 0.3 mg/dL (0.2-1); TOT PROT 6.8 g/dl (6.4-8.2)
[2022-08-15] MEDS ORDERED: methylPREDNISolone NA SUCC 125 MG/2 ML VIAL IVPUSH ONE (11:24)
[2022-08-15] MEDS ORDERED: ASPIRIN 81 MG CHEWABLE TABLETS PO ONE (11:28)
[2022-08-15] MEDS ORDERED: ACETAMINOPHEN 1000 MG/100 ML BAG IVPB ONE (11:39)
[2022-08-15] MEDS ORDERED: LIDOCAINE 5% TOPICAL PATCH TP ONE (11:39)
[2022-08-15] MEDS ORDERED: ACETAMINOPHEN INJECTION 100 ML IVPB ONE (12:34)
[2022-08-15] MEDS ORDERED: ASPIRIN 81 MG CHEWABLE TABLETS ONE (12:34)
[2022-08-15] MEDS ORDERED: LIDOCAINE 5% TOPICAL PATCH ONE (12:34)
[2022-08-15] MEDS ORDERED: methylPREDNISolone NA SUCC 125 MG/2 ML VIAL ONE (12:35)
[2022-08-15] MEDS ORDERED: HEPARIN NA (PORCINE) 5,000 UNITS/ML 1ML VIAL IVPUSH ONE ×2 (16:01→16:38)
[2022-08-15] MEDS ORDERED: ATORVASTATIN CA 80 MG TABLET (FP) PO ONE (16:02)
[2022-08-15] MEDS ORDERED: CLOPIDOGREL BISULFATE 300 MG TABLET PO ONE (16:03)
[2022-08-15] MEDS ORDERED: HEPARIN NA (PORCINE) 5,000 UNITS/ML 1ML VIAL IVPUSH PRN ×3 (16:07→16:40)
[2022-08-15] MEDS ORDERED: HEPARIN NA (PORCINE) 5,000 UNITS/ML 1ML VIAL ONE (16:28)
[2022-08-15] MEDS ORDERED: ATORVASTATIN CA 80 MG TABLET (FP) ONE (16:28)
[2022-08-15] MEDS ORDERED: CLOPIDOGREL BISULFATE 300 MG TABLET ONE (16:28)
[2022-08-15 16:39] LABS: INR 1.17 (0.83-1.09); PROTHROMBIN TIME (PATIENT) 13.5 SEC (9.7-13.0)
[2022-08-15 16:41] LABS: ACTIVATED PTT 40.1 SECONDS (25.2-36.5)
[2022-08-15] MEDS: HEPARIN SOD,PORK IN 0.45% NACL 25,000 UNIT/500 ML INFUS.BAG IVPB SCH (16:59)
[2022-08-15] MEDS ORDERED: FAMOTIDINE 20 MG/50 ML IVPB 20 MG/50 ML MG IVPB ONE ×2 (17:52→18:15)
[2022-08-15] MEDS ORDERED: PATIENT'S OWN MEDICATION (NON-FORMULARY) (Albuterol Sulfate [Proair Digihaler] 90 MCG Aer. IH PRN (19:13)
[2022-08-15] MEDS ORDERED: ALBUTEROL SO4 0.083% IH SOL 2.5 MG/3 ML VIAL.NEB. NEB PRN (19:13)
[2022-08-15] MEDS ORDERED: ACETAMINOPHEN 325 MG TABLET (FP) PO PRN (19:15)
[2022-08-15] MEDS ORDERED: ALBUTEROL SO4 HFA INHALER IH PRN (19:57)
[2022-08-15] MEDS: LISINOPRIL 10 MG TABLET PO SCH (21:26)
[2022-08-15] MEDS: methylPREDNISolone NA SUCC 40 MG/1 ML VIAL IVPB SCH (21:26)
[2022-08-15] MEDS: LIDOCAINE PATCH REMOVAL MC SCH (21:31)
[2022-08-15] MEDS: ALBUTEROL SO4 2.5/IPRATROPIUM 0.5 INH SOL 3 ML VIAL.NEB. NEB PRN (21:54)
[2022-08-15 22:27] LABS: CHOLESTEROL 160 mg/dL (50-200)
[2022-08-15 22:28] LABS: TRIGLYCERIDES 67 mg/dL (0-150)
[2022-08-15 22:29] LABS: LDL CHOLESTEROL (ONLY SJRH) 62 mg/dL (5-100)
[2022-08-15 22:31] LABS: HDL CHOLESTEROL 91 mg/dL (40-60)
[2022-08-16] MEDS: methylPREDNISolone NA SUCC 40 MG/1 ML VIAL IVPB SCH ×2 (02:55→09:21)
[2022-08-16 07:47] VITALS: BMI 14.3
[2022-08-16 08:42] LABS: CHLORIDE 106 mmol/L (98-107); SODIUM 139 mmol/L (136-145)
[2022-08-16 08:59] LABS: CALCIUM 8.6 mg/dL (8.5-10.1)
[2022-08-16 09:00] LABS: ALBUMIN 3.2 g/dl (3.4-5.0); ANION GAP 7 MMOL/L (8-16); BLOOD UREA NITROGEN 31.9 mg/dL (7-18); CO2 26 mmol/L (21-32); GLUCOSE,RANDOM 138 mg/dL (74-106)
[2022-08-16 09:02] LABS: CHOLESTEROL 154 mg/dL (50-200); SGOT/AST 24 U/L (15-37); TRIGLYCERIDES 34 mg/dL (0-150)
[2022-08-16 09:03] LABS: ALK PHOS 88 U/L (45-117); CREATININE 1.1 mg/dL (0.55-1.3); SGPT/ALT 31 U/L (13-61)
[2022-08-16 09:04] LABS: BILIRUBIN,TOTAL 0.4 mg/dL (0.2-1); HDL CHOLESTEROL 96 mg/dL (40-60); LDL CHOLESTEROL (ONLY SJRH) 56 mg/dL (5-100); TOT PROT 6.3 g/dl (6.4-8.2)
[2022-08-16] MEDS: PANTOPRAZOLE 40 MG TABLET PO SCH (09:22)
[2022-08-16] MEDS: ASPIRIN 81 MG CHEWABLE TABLETS PO SCH (09:22)
[2022-08-16] MEDS: LISINOPRIL 10 MG TABLET PO SCH (09:22)
[2022-08-16] MEDS: ALBUTEROL SO4 2.5/IPRATROPIUM 0.5 INH SOL 3 ML VIAL.NEB. NEB PRN ×2 (09:50→19:45)
[2022-08-16] MEDS: ALPRAZolam 0.25 MG TABLET PO PRN (15:31)
[2022-08-16] MEDS ORDERED: ATORVASTATIN CA 80 MG TABLET (FP) PO SCH (22:00)
[2022-08-16] MEDS: LIDOCAINE PATCH REMOVAL MC SCH (22:08)
[2022-08-17 06:16] VITALS: RESP 20
[2022-08-17] MEDS: HEPARIN SOD,PORK IN 0.45% NACL 25,000 UNIT/500 ML INFUS.BAG IVPB SCH (07:17)
[2022-08-17] MEDS: ALPRAZolam 0.25 MG TABLET PO PRN ×2 (07:47→14:15)
[2022-08-17] MEDS: ALBUTEROL SO4 2.5/IPRATROPIUM 0.5 INH SOL 3 ML VIAL.NEB. NEB PRN ×2 (07:50→16:00)
[2022-08-17 08:20] LABS: HEMATOCRIT 29.1 % (32.4-45.2); HEMOGLOBIN 9.4 GM/dL (10.7-15.3); MCH 29.1 pg (25.7-33.7); MCHC 32.4 g/dl (32.0-36.0); MEAN CELL VOLUME 89.7 fl (80-96); MEAN PLT VOLUME 8.3 fl (7.5-11.1); PLATELET COUNT 275 10^3/uL (134-434); RBC 3.25 M/mm3 (3.60-5.2)
[2022-08-17] MEDS ORDERED: REGADENOSON 0.4 MG/5 ML PRE-FILLED SYRINGE IVPUSH ONE ×2 (10:13→11:30)
[2022-08-17] MEDS: PANTOPRAZOLE 40 MG TABLET PO SCH (14:14)
[2022-08-17] MEDS: ASPIRIN 81 MG CHEWABLE TABLETS PO SCH (14:15)
[2022-08-17] MEDS: LISINOPRIL 10 MG TABLET PO SCH (14:15)
[2022-08-17 15:28] VITALS: BP 158/77; PULSE 78; TEMP 98.2
== END 2022-08-17 18:19 | disposition home or self-care (01) | DRG 280 ==
LOC: JER 08:47 → JERBED 14:36 → J4W 19:07
PROVIDERS: ADMIT Internal Medicine; ATTEND Internal Medicine
DX: I21.4 Non-ST elevation (NSTEMI) myocardial infarction (principal); E43 Unspecified severe protein-calorie malnutrition; I50.32 Chronic diastolic (congestive) heart failure; J44.1 Chronic obstructive pulmonary disease with (acute) exacerbation; R64 Cachexia; Z68.1 Body mass index [BMI] 19.9 or less, adult; I25.10 Atherosclerotic heart disease of native coronary artery without angina pectoris; E78.5 Hyperlipidemia, unspecified; K21.9 Gastro-esophageal reflux disease without esophagitis; K76.0 Fatty (change of) liver, not elsewhere classified; F41.8 Other specified anxiety disorders; I11.0 Hypertensive heart disease with heart failure; Z87.11 Personal history of peptic ulcer disease; Z95.5 Presence of coronary angioplasty implant and graft; Z99.81 Dependence on supplemental oxygen
CPT/HCPCS: 0241U-QW; 36415; 71045-TC-FY; 78452-TC; 80053; 80061; 82550; 82803; 83036; 83735; 83880; 84439; 84443; 84484; 85025; 85027; 85610; 85730; 93005; 93010; 93017; 93306-TC; 94640; 99285-25; A9502; J1644; J2785

== ENCOUNTER 2022-09-08 13:15 | Day surgery (SDC) | payer OTHER, MEDICARE ==
[~2022-09-08 13:15] MED LIST changes: -BUPIVACAINE HCL/PF 0.5% (5MG/ML) 10 ML VIAL IJ ONE; +IRON SUCROSE INJECTION 200 MG in SODIUM CHLORIDE 100 ML IVPB ONE
[2022-09-08 16:21] VITALS: RESP 18; TEMP 98
[2022-09-08 16:25] VITALS: BP 121/59; PULSE 75
== END 2022-09-08 14:30 | disposition home or self-care (01) ==
LOC: JONCNONCHE 13:15
PROVIDERS: ATTEND Internal Medicine Hematology & Oncology
PROC: 3E033GC Introduction of Other Therapeutic Substance into Peripheral Vein, Percutaneous Approach (ICD-10-PCS; principal; 2022-09-08)
DX: D50.9 Iron deficiency anemia, unspecified (principal)
CPT/HCPCS: 96365; J1756

== ENCOUNTER 2022-09-15 12:06 | Day surgery (SDC) | payer OTHER, MEDICARE ==
[2022-09-15 15:08] VITALS: RESP 20; TEMP 98.4
[2022-09-15 15:16] VITALS: BP 127/55; PULSE 71
== END 2022-09-15 14:15 | disposition home or self-care (01) ==
LOC: JONCNONCHE 12:06
PROVIDERS: ATTEND Internal Medicine Hematology & Oncology
PROC: 3E033GC Introduction of Other Therapeutic Substance into Peripheral Vein, Percutaneous Approach (ICD-10-PCS; principal; 2022-09-15)
DX: D50.9 Iron deficiency anemia, unspecified (principal)
CPT/HCPCS: 96365; J1756

== ENCOUNTER 2022-09-22 13:40 | Day surgery (SDC) | payer OTHER, MEDICARE ==
[2022-09-22 17:03] VITALS: RESP 20; TEMP 98.1
[2022-09-22 17:05] VITALS: BP 124/52; PULSE 71
== END 2022-09-22 13:50 | disposition home or self-care (01) ==
LOC: JONCNONCHE 13:40
PROVIDERS: ATTEND Internal Medicine Hematology & Oncology
PROC: 3E033GC Introduction of Other Therapeutic Substance into Peripheral Vein, Percutaneous Approach (ICD-10-PCS; principal; 2022-09-22)
DX: D50.9 Iron deficiency anemia, unspecified (principal)
CPT/HCPCS: 96365; J1756

== ENCOUNTER 2022-09-30 13:03 | Day surgery (SDC) | payer OTHER, MEDICARE ==
[2022-09-30] MEDS ORDERED: IRON SUCROSE INJECTION 200 MG in SODIUM CHLORIDE 100 ML IVPB ONE (13:45)
[2022-09-30 15:30] VITALS: TEMP 98.4
[2022-09-30 15:31] VITALS: BP 131/68; PULSE 75; RESP 18
== END 2022-09-30 15:30 | disposition home or self-care (01) ==
LOC: JONCNONCHE 13:03
PROVIDERS: ATTEND Internal Medicine Hematology & Oncology
PROC: 3E033GC Introduction of Other Therapeutic Substance into Peripheral Vein, Percutaneous Approach (ICD-10-PCS; principal; 2022-09-30)
DX: D50.9 Iron deficiency anemia, unspecified (principal)
CPT/HCPCS: 96365; J1756

== ENCOUNTER 2022-10-05 04:05 | Day surgery (SDC) | payer OTHER, MEDICARE ==
[2022-10-01 11:00] VITALS: BMI 14.3
[~2022-10-05 04:05] MED LIST changes: +ACETAMINOPHEN 500 MG TABLET (FP) PO PRN; +BUPIVACAINE HCL/PF 0.5% (5 MG/ML) 30 ML VIAL IJ ONE; +IOHEXOL 180 MG/1 ML ML IJ ONE; -IRON SUCROSE INJECTION 200 MG in SODIUM CHLORIDE 100 ML IVPB ONE; +LIDOCAINE 1% P/F 10 MG/ML VIAL INF ONE
[2022-10-05] MEDS ORDERED: BUPIVACAINE HCL/PF 0.5% (5MG/ML) 10 ML VIAL ONE (08:26)
[2022-10-05] MEDS ORDERED: LIDOCAINE HCL/PF 1% SDV 5ML VIAL ONE (08:26)
[2022-10-05] MEDS ORDERED: ACETAMINOPHEN 500 MG TABLET (FP) PO PRN (12:08)
[2022-10-05] MEDS ORDERED: BUPIVACAINE HCL/PF 0.5% (5 MG/ML) 30 ML VIAL IJ ONE ×2 (15:07)
[2022-10-05] MEDS ORDERED: LIDOCAINE 1% P/F 10 MG/ML VIAL INF ONE (15:07)
[2022-10-05] MEDS ORDERED: IOHEXOL 180 MG/1 ML ML IJ ONE (15:07)
[2022-10-05 17:49] VITALS: BP 156/78; PULSE 80; RESP 16; TEMP 98.9
== END 2022-10-05 16:55 | disposition home or self-care (01) ==
LOC: JASU-SURG 04:05
PROVIDERS: ATTEND Pain Medicine Pain Medicine
PROC: 3E0T33Z Introduction of Anti-inflammatory into Peripheral Nerves and Plexi, Percutaneous Approach (ICD-10-PCS; 2022-10-05)
PROC: 3E0T3BZ Introduction of Anesthetic Agent into Peripheral Nerves and Plexi, Percutaneous Approach (ICD-10-PCS; principal; 2022-10-05 15:30)
DX: M47.812 Spondylosis without myelopathy or radiculopathy, cervical region (principal); M47.814 Spondylosis without myelopathy or radiculopathy, thoracic region
CPT/HCPCS: 76000-TC-FY

== ENCOUNTER 2022-12-16 02:55 | Emergency (ER) | payer OTHER, MEDICARE ==
[2022-12-16] MEDS ORDERED: methylPREDNISolone NA SUCC 125 MG/2 ML VIAL IVPUSH ONE (03:37)
[2022-12-16] MEDS ORDERED: DEXAMETHASONE SOD PHOSPHATE 10 MG/1 ML VIAL IVPUSH ONE (03:38)
[2022-12-16] MEDS ORDERED: DEXAMETHASONE SOD PHOSPHATE 10 MG/1 ML VIAL ONE (03:48)
[2022-12-16 03:52] VITALS: RESP 20; TEMP 98.8; BMI 14.2
[2022-12-16] MEDS: ALBUTEROL SO4 2.5/IPRATROPIUM 0.5 INH SOL 3 ML VIAL.NEB. NEB SCH ×2 (03:57→06:51)
[2022-12-16 04:13] LABS: VENOUS BASE EXCESS -0.3 mmol/L (-2-2); VENOUS O2 SATURATION 71.2 % (70-80); VENOUS PCO2 54.9 mmHg (38-52); VENOUS PH 7.307 (7.310-7.410)
[2022-12-16 04:14] LABS: BASO % 0.3 % (0-2.0); EOS % 4.4 % (0-4.5); HEMATOCRIT 36.1 % (32.4-45.2); HEMOGLOBIN 11.6 GM/dL (10.7-15.3); LYMPH % 28.6 % (8-40); MCH 27.9 pg (25.7-33.7); MCHC 32.3 g/dl (32.0-36.0); MEAN CELL VOLUME 86.6 fl (80-96); MONO % 8.7 % (3.8-10.2); PLATELET COUNT 243 10^3/uL (134-434); RBC 4.17 M/mm3 (3.60-5.2); RDW 14.1 % (11.6-15.6); WHITE BLOOD COUNT 4.3 K/mm3 (4.0-10.0)
[2022-12-16 04:30] LABS: INR 1.11 (0.83-1.09); PROTHROMBIN TIME (PATIENT) 12.9 SEC (9.7-13.0)
[2022-12-16 04:33] LABS: ACTIVATED PTT 50.5 SECONDS (25.2-36.5); POTASSIUM 4.7 mmol/L (3.5-5.1)
[2022-12-16 04:36] LABS: ALBUMIN 3.7 g/dl (3.4-5.0); BLOOD UREA NITROGEN 21.9 mg/dL (7-18); CALCIUM 9.5 mg/dL (8.5-10.1); MAGNESIUM 2.2 mg/dL (1.8-2.4)
[2022-12-16 04:39] LABS: CREATININE 0.9 mg/dL (0.55-1.3)
[2022-12-16 04:56] LABS: BILIRUBIN,TOTAL 0.4 mg/dL (0.2-1)
[2022-12-16 05:24] VITALS: PULSE 72
[2022-12-16 05:36] VITALS: BP 155/72
== END 2022-12-16 07:36 | disposition left against medical advice (07) ==
LOC: JER 02:55
PROC: 3E033GC Introduction of Other Therapeutic Substance into Peripheral Vein, Percutaneous Approach (ICD-10-PCS; principal; 2022-12-16)
PROC: 3E0F7GC Introduction of Other Therapeutic Substance into Respiratory Tract, Via Natural or Artificial Opening (ICD-10-PCS; 2022-12-16)
DX: J44.1 Chronic obstructive pulmonary disease with (acute) exacerbation (principal); R06.02 Shortness of breath; R77.8 Other specified abnormalities of plasma proteins; Z20.822 Contact with and (suspected) exposure to COVID-19
CPT/HCPCS: 0241U-QW; 36415; 71045-TC-FY; 80053; 82803; 83735; 84484; 85025; 85610; 85730; 93005; 93010; 99285-25; J1100

== ENCOUNTER 2022-12-21 21:33 | Inpatient (IN) | payer OTHER, MEDICARE ==
[2022-12-21] MEDS ORDERED: ACETAMINOPHEN 1000 MG/100 ML BAG IVPB ONE (21:39)
[2022-12-21] MEDS ORDERED: LIDOCAINE 5% TOPICAL PATCH TP ONE (21:45)
[2022-12-21] MEDS ORDERED: METOCLOPRAMIDE HCL INJECTION 10 MG/2 ML VIAL IVPB ONE (21:45)
[2022-12-21] MEDS ORDERED: methylPREDNISolone NA SUCC 125 MG/2 ML VIAL IVPUSH ONE (21:46)
[2022-12-21] MEDS ORDERED: ALBUTEROL SO4 2.5/IPRATROPIUM 0.5 INH SOL 3 ML VIAL.NEB. NEB ONE ×2 (22:00)
[2022-12-21] MEDS ORDERED: LIDOCAINE PATCH REMOVAL MC SCH (22:00)
[2022-12-21] MEDS ORDERED: METOCLOPRAMIDE HCL INJECTION 10 MG/2 ML VIAL ONE (22:54)
[2022-12-21] MEDS ORDERED: ACETAMINOPHEN INJECTION 100 ML IVPB ONE (22:54)
[2022-12-21 22:55] LABS: VENOUS BASE EXCESS 1.8 mmol/L (-2-2); VENOUS O2 SATURATION 54.2 % (70-80); VENOUS PCO2 55.9 mmHg (38-52); VENOUS PH 7.331 (7.310-7.410)
[2022-12-21] MEDS ORDERED: methylPREDNISolone NA SUCC 125 MG/2 ML VIAL ONE (22:55)
[2022-12-21] MEDS ORDERED: LIDOCAINE 5% TOPICAL PATCH ONE (22:55)
[2022-12-21 22:57] LABS: BASO % 0.2 % (0-2.0); HEMATOCRIT 36.2 % (32.4-45.2); HEMOGLOBIN 11.9 GM/dL (10.7-15.3); LYMPH % 5.4 % (8-40); MCH 28.2 pg (25.7-33.7); MEAN CELL VOLUME 85.6 fl (80-96); MEAN PLT VOLUME 7.7 fl (7.5-11.1); MONO % 2.3 % (3.8-10.2); NEUT % 92.1 % (42.8-82.8); PLATELET COUNT 257 10^3/uL (134-434); RBC 4.23 M/mm3 (3.60-5.2); RDW 13.9 % (11.6-15.6); WHITE BLOOD COUNT 6.7 K/mm3 (4.0-10.0)
[2022-12-21 23:22] LABS: POTASSIUM 5.3 mmol/L (3.5-5.1)
[2022-12-21 23:25] LABS: CALCIUM 9.5 mg/dL (8.5-10.1)
[2022-12-21 23:26] LABS: ALBUMIN 3.8 g/dl (3.4-5.0); BLOOD UREA NITROGEN 31.3 mg/dL (7-18)
[2022-12-21 23:29] LABS: BILIRUBIN,TOTAL 0.3 mg/dL (0.2-1); CREATININE 1.2 mg/dL (0.55-1.3); TOT PROT 7.2 g/dl (6.4-8.2)
[2022-12-21 23:37] LABS: ANISOCYTOSIS 1+; MACROCYTOSIS 1+
[2022-12-22] MEDS ORDERED: PANTOPRAZOLE 40 MG TABLET PO PRN (01:09)
[2022-12-22] MEDS ORDERED: ALBUTEROL SO4 0.083% IH SOL 2.5 MG/3 ML VIAL.NEB. NEB PRN (01:09)
[2022-12-22 02:31] VITALS: BMI 14.3
[2022-12-22 10:09] LABS: BASO % 0.1 % (0-2.0); HEMATOCRIT 34.9 % (32.4-45.2); HEMOGLOBIN 11.5 GM/dL (10.7-15.3); LYMPH % 6.9 % (8-40); MCH 28.4 pg (25.7-33.7); MEAN CELL VOLUME 86.1 fl (80-96); MEAN PLT VOLUME 7.9 fl (7.5-11.1); MONO % 3.2 % (3.8-10.2); NEUT % 89.8 % (42.8-82.8); PLATELET COUNT 253 10^3/uL (134-434); RBC 4.05 M/mm3 (3.60-5.2); RDW 13.7 % (11.6-15.6); WHITE BLOOD COUNT 5.6 K/mm3 (4.0-10.0)
[2022-12-22] MEDS: methylPREDNISolone NA SUCC 40 MG/1 ML VIAL IVPUSH SCH ×3 (10:14→21:15)
[2022-12-22] MEDS: AZITHROMYCIN IVPB 250 MG in DEXTROSE 5%-WATER - 250 ML IVPB SCH (10:14)
[2022-12-22] MEDS: ASPIRIN 81 MG CHEWABLE TABLETS PO SCH (10:14)
[2022-12-22 10:43] LABS: POTASSIUM 4.9 mmol/L (3.5-5.1)
[2022-12-22 10:49] LABS: BLOOD UREA NITROGEN 30.1 mg/dL (7-18); CALCIUM 9.3 mg/dL (8.5-10.1)
[2022-12-22 10:52] LABS: CREATININE 1.1 mg/dL (0.55-1.3)
[2022-12-22] MEDS ORDERED: PATIENT'S OWN MEDICATION (NON-FORMULARY) (Oxycodone Hcl [Oxycodone Hcl] 10 MG Tablet) PO PRN (10:59)
[2022-12-22] MEDS: oxyCODONE HCL 5 MG TABLET PO PRN ×2 (11:12→23:15)
[2022-12-22] MEDS: ALBUTEROL SO4 2.5/IPRATROPIUM 0.5 INH SOL 3 ML VIAL.NEB. NEB SCH ×3 (11:33→20:34)
[2022-12-22] MEDS ORDERED: busPIRone HCL 5 MG TABLET PO ONE (11:34)
[2022-12-22] MEDS: LIDOCAINE 5% TOPICAL PATCH TP SCH (12:04)
[2022-12-22] MEDS: ACETAMINOPHEN 325 MG TABLET (FP) PO PRN (16:45)
[2022-12-22] MEDS: MIRTAZAPINE 15 MG TABLET (FP) PO SCH (21:14)
[2022-12-22] MEDS: busPIRone HCL 5 MG TABLET PO SCH (21:14)
[2022-12-22] MEDS: LIDOCAINE PATCH REMOVAL MC SCH (21:15)
[2022-12-23] MEDS: ALBUTEROL SO4 2.5/IPRATROPIUM 0.5 INH SOL 3 ML VIAL.NEB. NEB SCH ×6 (00:21→20:25)
[2022-12-23] MEDS: methylPREDNISolone NA SUCC 40 MG/1 ML VIAL IVPUSH SCH ×4 (03:07→21:13)
[2022-12-23] MEDS: busPIRone HCL 5 MG TABLET PO SCH ×2 (09:33→21:13)
[2022-12-23] MEDS: LIDOCAINE 5% TOPICAL PATCH TP SCH (09:33)
[2022-12-23] MEDS: PANTOPRAZOLE 40 MG TABLET PO SCH (09:33)
[2022-12-23] MEDS: ENOXAPARIN NA (PORCINE) 30 MG/0.3 ML DISP.SYRIN SQ SCH (09:33)
[2022-12-23] MEDS: ASPIRIN 81 MG CHEWABLE TABLETS PO SCH (09:33)
[2022-12-23] MEDS: oxyCODONE HCL 5 MG TABLET PO PRN ×2 (09:51→23:29)
[2022-12-23] MEDS: AZITHROMYCIN IVPB 250 MG in DEXTROSE 5%-WATER - 250 ML IVPB SCH (09:53)
[2022-12-23] MEDS: NYSTATIN 500,000 UNITS/5 ML SUSPENSION PO SCH ×2 (13:02→17:54)
[2022-12-23] MEDS: ACETAMINOPHEN 325 MG TABLET (FP) PO PRN (17:10)
[2022-12-23] MEDS: MIRTAZAPINE 15 MG TABLET (FP) PO SCH (21:14)
[2022-12-24] MEDS: ALBUTEROL SO4 2.5/IPRATROPIUM 0.5 INH SOL 3 ML VIAL.NEB. NEB SCH ×6 (00:21→20:33)
[2022-12-24] MEDS: NYSTATIN 500,000 UNITS/5 ML SUSPENSION PO SCH ×2 (00:31→05:43)
[2022-12-24] MEDS: LIDOCAINE PATCH REMOVAL MC SCH ×2 (00:32→21:55)
[2022-12-24] MEDS: methylPREDNISolone NA SUCC 40 MG/1 ML VIAL IVPUSH SCH ×4 (02:32→21:43)
[2022-12-24] MEDS: oxyCODONE HCL 5 MG TABLET PO PRN (09:53)
[2022-12-24] MEDS: ACETAMINOPHEN 325 MG TABLET (FP) PO PRN ×2 (09:54→21:42)
[2022-12-24] MEDS: LIDOCAINE 5% TOPICAL PATCH TP SCH (09:55)
[2022-12-24] MEDS: PANTOPRAZOLE 40 MG TABLET PO SCH (09:55)
[2022-12-24] MEDS: ENOXAPARIN NA (PORCINE) 30 MG/0.3 ML DISP.SYRIN SQ SCH (09:55)
[2022-12-24] MEDS: AZITHROMYCIN IVPB 250 MG in DEXTROSE 5%-WATER - 250 ML IVPB SCH (09:55)
[2022-12-24] MEDS: ASPIRIN 81 MG CHEWABLE TABLETS PO SCH (09:55)
[2022-12-24] MEDS: busPIRone HCL 5 MG TABLET PO SCH ×2 (09:55→21:42)
[2022-12-24] MEDS: MIRTAZAPINE 15 MG TABLET (FP) PO SCH (21:42)
[2022-12-25] MEDS: ALBUTEROL SO4 2.5/IPRATROPIUM 0.5 INH SOL 3 ML VIAL.NEB. NEB SCH ×6 (00:11→20:28)
[2022-12-25] MEDS: oxyCODONE HCL 5 MG TABLET PO PRN ×2 (00:49→10:22)
[2022-12-25] MEDS: methylPREDNISolone NA SUCC 40 MG/1 ML VIAL IVPUSH SCH ×4 (05:00→22:00)
[2022-12-25] MEDS: ENOXAPARIN NA (PORCINE) 30 MG/0.3 ML DISP.SYRIN SQ SCH (10:11)
[2022-12-25] MEDS: PANTOPRAZOLE 40 MG TABLET PO SCH (10:12)
[2022-12-25] MEDS: busPIRone HCL 5 MG TABLET PO SCH ×2 (10:12→22:06)
[2022-12-25] MEDS: ASPIRIN 81 MG CHEWABLE TABLETS PO SCH (10:12)
[2022-12-25] MEDS: LIDOCAINE 5% TOPICAL PATCH TP SCH (10:12)
[2022-12-25] MEDS ORDERED: ALPRAZolam 0.25 MG TABLET PO PRN (12:33)
[2022-12-25] MEDS: FLUCONAZOLE 100 MG TABLET (UD) PO SCH (17:23)
[2022-12-25] MEDS: ACETAMINOPHEN 325 MG TABLET (FP) PO PRN (22:06)
[2022-12-25] MEDS: MIRTAZAPINE 15 MG TABLET (FP) PO SCH (22:06)
[2022-12-25] MEDS: LIDOCAINE PATCH REMOVAL MC SCH (22:13)
[2022-12-26] MEDS: ALBUTEROL SO4 2.5/IPRATROPIUM 0.5 INH SOL 3 ML VIAL.NEB. NEB SCH ×6 (00:20→20:18)
[2022-12-26] MEDS: methylPREDNISolone NA SUCC 40 MG/1 ML VIAL IVPUSH SCH ×4 (03:55→22:01)
[2022-12-26] MEDS: FLUCONAZOLE 100 MG TABLET (UD) PO SCH (09:02)
[2022-12-26] MEDS: LIDOCAINE 5% TOPICAL PATCH TP SCH (09:02)
[2022-12-26] MEDS: ENOXAPARIN NA (PORCINE) 30 MG/0.3 ML DISP.SYRIN SQ SCH (09:02)
[2022-12-26] MEDS: busPIRone HCL 5 MG TABLET PO SCH ×2 (09:03→21:54)
[2022-12-26] MEDS: ASPIRIN 81 MG CHEWABLE TABLETS PO SCH (09:03)
[2022-12-26] MEDS: ACETAMINOPHEN 325 MG TABLET (FP) PO PRN (09:03)
[2022-12-26] MEDS: PANTOPRAZOLE 40 MG TABLET PO SCH (09:06)
[2022-12-26] MEDS ORDERED: oxyCODONE HCL 5 MG TABLET PO ONE (10:10)
[2022-12-26 14:47] VITALS: RESP 18
[2022-12-26] MEDS: LIDOCAINE PATCH REMOVAL MC SCH (21:55)
[2022-12-26] MEDS: MIRTAZAPINE 15 MG TABLET (FP) PO SCH (21:55)
[2022-12-27] MEDS: ALBUTEROL SO4 2.5/IPRATROPIUM 0.5 INH SOL 3 ML VIAL.NEB. NEB SCH ×3 (00:11→08:04)
[2022-12-27] MEDS: oxyCODONE HCL 5 MG TABLET PO PRN ×2 (00:39→09:25)
[2022-12-27] MEDS: methylPREDNISolone NA SUCC 40 MG/1 ML VIAL IVPUSH SCH ×2 (03:02→09:24)
[2022-12-27] MEDS: ENOXAPARIN NA (PORCINE) 30 MG/0.3 ML DISP.SYRIN SQ SCH (09:24)
[2022-12-27] MEDS: FLUCONAZOLE 100 MG TABLET (UD) PO SCH (09:24)
[2022-12-27] MEDS: busPIRone HCL 5 MG TABLET PO SCH (09:24)
[2022-12-27] MEDS: LIDOCAINE 5% TOPICAL PATCH TP SCH (09:24)
[2022-12-27] MEDS: ASPIRIN 81 MG CHEWABLE TABLETS PO SCH (09:25)
[2022-12-27] MEDS: PANTOPRAZOLE 40 MG TABLET PO SCH (09:25)
[2022-12-27 14:21] VITALS: BP 151/85; PULSE 86; TEMP 98.2
== END 2022-12-27 14:00 | disposition home or self-care (01) | DRG 190 ==
LOC: JER 21:33 → JERBED 12-22 → J5S 12-22 05:29 → OBSVTOIN 12-22 14:11
PROVIDERS: ADMIT Internal Medicine; ATTEND Internal Medicine
DX: J44.1 Chronic obstructive pulmonary disease with (acute) exacerbation (principal); E43 Unspecified severe protein-calorie malnutrition; R64 Cachexia; Z68.1 Body mass index [BMI] 19.9 or less, adult; I50.32 Chronic diastolic (congestive) heart failure; E78.5 Hyperlipidemia, unspecified; I25.10 Atherosclerotic heart disease of native coronary artery without angina pectoris; Z99.81 Dependence on supplemental oxygen; K21.9 Gastro-esophageal reflux disease without esophagitis; D51.0 Vitamin B12 deficiency anemia due to intrinsic factor deficiency; F39 Unspecified mood [affective] disorder; F41.9 Anxiety disorder, unspecified; K29.70 Gastritis, unspecified, without bleeding; I11.0 Hypertensive heart disease with heart failure; I25.2 Old myocardial infarction
CPT/HCPCS: 0241U-QW; 36415; 71045-TC-FY; 80048; 80053; 82803; 83880; 84484; 85025; 93005; 93010; 94640; 97116-GP; 97161-GP; 99285-25; G0378

== ENCOUNTER 2023-01-27 08:11 | Emergency (ER) | payer OTHER, MEDICARE ==
[2023-01-27 08:43] VITALS: BP 168/80; PULSE 80; RESP 20; TEMP 98.7; BMI 15.2
[2023-01-27] MEDS ORDERED: ALBUTEROL SO4 2.5/IPRATROPIUM 0.5 INH SOL 3 ML VIAL.NEB. NEB ONE ×2 (08:50→09:03)
[2023-01-27] MEDS ORDERED: methylPREDNISolone NA SUCC 125 MG/2 ML VIAL IVPB ONE (08:50)
[2023-01-27] MEDS ORDERED: methylPREDNISolone NA SUCC 125 MG/2 ML VIAL ONE (09:03)
[2023-01-27 09:35] LABS: VENOUS BASE EXCESS 0.4 mmol/L (-2-2); VENOUS O2 SATURATION 38.9 % (70-80); VENOUS PCO2 45.9 mmHg (38-52); VENOUS PH 7.371 (7.310-7.410)
[2023-01-27 09:40] LABS: HEMATOCRIT 32.3 % (32.4-45.2); HEMOGLOBIN 10.5 GM/dL (10.7-15.3); MCH 28.6 pg (25.7-33.7); MCHC 32.3 g/dl (32.0-36.0); MEAN CELL VOLUME 88.5 fl (80-96); MEAN PLT VOLUME 7.2 fl (7.5-11.1); PLATELET COUNT 272 10^3/uL (134-434); RBC 3.65 M/mm3 (3.60-5.2); RDW 15.3 % (11.6-15.6); WHITE BLOOD COUNT 12.2 K/mm3 (4.0-10.0)
[2023-01-27 10:00] LABS: ANISOCYTOSIS 0; HELMET CELLS 0; HOWELL-JOLLY BODIES 0; MACROCYTOSIS 0; OVALOCYTE 0; ROULEAU 0; SICKELED CELLS 0; TARGET CELLS 0; TEAR DROP CELLS 0; TOXIC GRANULATION 0
[2023-01-27 10:31] LABS: POTASSIUM 4.6 mmol/L (3.5-5.1)
[2023-01-27 10:32] LABS: CALCIUM 8.6 mg/dL (8.5-10.1)
[2023-01-27 10:34] LABS: ALBUMIN 3.2 g/dl (3.4-5.0); BLOOD UREA NITROGEN 19.4 mg/dL (7-18)
[2023-01-27 10:37] LABS: CREATININE 0.9 mg/dL (0.55-1.3)
[2023-01-27 10:38] LABS: TOT PROT 6.2 g/dl (6.4-8.2)
[2023-01-27 10:42] LABS: N-TERMINAL BNP 469.1 pg/ml (5-450)
== END 2023-01-27 14:13 | disposition home or self-care (01) ==
LOC: JER 08:11
PROC: 3E033GC Introduction of Other Therapeutic Substance into Peripheral Vein, Percutaneous Approach (ICD-10-PCS; principal; 2023-01-27)
PROC: 3E0F7GC Introduction of Other Therapeutic Substance into Respiratory Tract, Via Natural or Artificial Opening (ICD-10-PCS; 2023-01-27)
DX: R06.02 Shortness of breath (principal); R05.9 Cough, unspecified; R09.3 Abnormal sputum; J44.1 Chronic obstructive pulmonary disease with (acute) exacerbation; Z20.822 Contact with and (suspected) exposure to COVID-19
CPT/HCPCS: 0241U-QW; 36415; 71045-TC-FY; 80053; 82803; 83880; 84484; 85025; 93005; 93010; 99285-25

== ENCOUNTER 2023-02-11 13:01 | Emergency (ER) | payer OTHER, MEDICARE ==
[2023-02-11 13:07] VITALS: TEMP 97.4; BMI 14.8
[2023-02-11] MEDS ORDERED: SODIUM CHLORIDE 0.9% 500 ML INFUS.BAG IV ONE (14:20)
[2023-02-11 15:06] LABS: BASO % 0.9 % (0-2.0); EOS % 0.8 % (0-4.5); HEMATOCRIT 33.2 % (32.4-45.2); HEMOGLOBIN 10.5 GM/dL (10.7-15.3); LYMPH % 8.8 % (8-40); MCH 28.5 pg (25.7-33.7); MCHC 31.8 g/dl (32.0-36.0); MEAN CELL VOLUME 89.8 fl (80-96); MEAN PLT VOLUME 6.8 fl (7.5-11.1); MONO % 4.9 % (3.8-10.2); NEUT % 84.6 % (42.8-82.8); PLATELET COUNT 326 10^3/uL (134-434); RBC 3.69 M/mm3 (3.60-5.2); RDW 15.5 % (11.6-15.6); WHITE BLOOD COUNT 8.5 K/mm3 (4.0-10.0)
[2023-02-11 15:23] LABS: POTASSIUM 4.8 mmol/L (3.5-5.1)
[2023-02-11 15:25] LABS: CALCIUM 8.9 mg/dL (8.5-10.1)
[2023-02-11 15:27] LABS: ALBUMIN 3.9 g/dl (3.4-5.0); BLOOD UREA NITROGEN 29.2 mg/dL (7-18)
[2023-02-11 15:29] LABS: CREATININE 1.4 mg/dL (0.55-1.3)
[2023-02-11 15:30] LABS: BILIRUBIN,TOTAL 0.5 mg/dL (0.2-1); TOT PROT 6.9 g/dl (6.4-8.2)
[2023-02-11 17:20] LABS: EPI CELLS 34 /uL (0-25.1); HYALINE CASTS 6 /uL (0-3.1); URINE APPEARANCE CLEAR; URINE BACTERIA 28 /uL (0-1359); URINE BILIRUBIN NEGATIVE (NEGATIVE); URINE COLOR YELLOW; URINE GLUCOSE (UA) NEGATIVE (NEGATIVE); URINE KETONE NEGATIVE (NEGATIVE); URINE LEUK ESTERASE TRACE (NEGATIVE); URINE NITRITE NEGATIVE (NEGATIVE); URINE PROTEIN 1+ (NEGATIVE); URINE RBC 32 /uL (0-23.9); URINE WBC 37 /uL (0-25.8)
[2023-02-11 18:21] VITALS: BP 142/63; PULSE 80; RESP 18
== END 2023-02-11 18:23 | disposition home or self-care (01) ==
LOC: JER 13:01
DX: R53.83 Other fatigue (principal); R53.1 Weakness; R11.0 Nausea; R61 Generalized hyperhidrosis
CPT/HCPCS: 36415; 71045-TC-FY; 80053; 81003; 84484; 85025; 87086; 93005; 93010; 99285-25

== ENCOUNTER 2023-03-13 16:38 | Inpatient (IN) | payer OTHER, MEDICARE ==
[2023-03-13] MEDS ORDERED: methylPREDNISolone NA SUCC 125 MG/2 ML VIAL IVPB ONE (16:53)
[2023-03-13] MEDS ORDERED: methylPREDNISolone NA SUCC 125 MG/2 ML VIAL ONE (17:06)
[2023-03-13] MEDS: ALBUTEROL SO4 2.5/IPRATROPIUM 0.5 INH SOL 3 ML VIAL.NEB. NEB SCH ×3 (17:20→17:29)
[2023-03-13 17:30] LABS: VENOUS BASE EXCESS 0.3 mmol/L (-2-2); VENOUS O2 SATURATION 66.2 % (70-80); VENOUS PCO2 48.3 mmHg (38-52); VENOUS PH 7.353 (7.310-7.410)
[2023-03-13 17:52] LABS: HEMATOCRIT 32.7 % (32.4-45.2); HEMOGLOBIN 10.7 GM/dL (10.7-15.3); LYMPH % 9.2 % (8-40); MCH 28.2 pg (25.7-33.7); MCHC 32.7 g/dl (32.0-36.0); MEAN PLT VOLUME 7.6 fl (7.5-11.1); MONO % 5.2 % (3.8-10.2); NEUT % 85.6 % (42.8-82.8); PLATELET COUNT 370 10^3/uL (134-434); RBC 3.81 M/mm3 (3.60-5.2); RDW 14.5 % (11.6-15.6); WHITE BLOOD COUNT 4.8 K/mm3 (4.0-10.0)
[2023-03-13 17:56] LABS: POTASSIUM 4.8 mmol/L (3.5-5.1)
[2023-03-13 17:58] LABS: ALBUMIN 3.7 g/dl (3.4-5.0); BLOOD UREA NITROGEN 28.2 mg/dL (7-18); CALCIUM 8.9 mg/dL (8.5-10.1)
[2023-03-13 18:03] LABS: BILIRUBIN,TOTAL 0.2 mg/dL (0.2-1)
[2023-03-13] MEDS ORDERED: AZITHROMYCIN IVPB 500 MG in DEXTROSE 5%-WATER - 250 ML IVPB ONE (18:50)
[2023-03-13] MEDS ORDERED: CEFTRIAXONE 1 GM/50 ML BAG ONE (19:41)
[2023-03-13] MEDS ORDERED: AZITHROMYCIN IVPB 500 MG/250 ML BAG IVPB ONE (19:41)
[2023-03-13] MEDS: ACETAMINOPHEN 325 MG TABLET (FP) PO PRN (22:20)
[2023-03-13] MEDS ORDERED: DOCUSATE SODIUM 100 MG CAPSULE (FP) PO PRN (23:38)
[2023-03-13] MEDS ORDERED: CYCLOBENZAPRINE HCL 5 MG TABLET PO PRN (23:43)
[2023-03-13] MEDS: ALBUTEROL SO4 2.5/IPRATROPIUM 0.5 INH SOL 3 ML VIAL.NEB. NEB PRN (23:49)
[2023-03-14] MEDS: oxyCODONE HCL 5 MG TABLET PO PRN ×3 (00:03→18:12)
[2023-03-14] MEDS: methylPREDNISolone NA SUCC 40 MG/1 ML VIAL IVPUSH SCH ×4 (02:25→21:14)
[2023-03-14] MEDS: ALBUTEROL SO4 2.5/IPRATROPIUM 0.5 INH SOL 3 ML VIAL.NEB. NEB PRN ×2 (05:35→10:22)
[2023-03-14] MEDS ORDERED: FAMOTIDINE 20 MG TABLET PO SCH (10:00)
[2023-03-14] MEDS: ASPIRIN COATED 81 MG TABLET.EC PO SCH (10:30)
[2023-03-14] MEDS: ENOXAPARIN NA (PORCINE) 30 MG/0.3 ML DISP.SYRIN SQ SCH (10:31)
[2023-03-14] MEDS: AZITHROMYCIN IVPB 500 MG/250 ML BAG IVPB SCH (10:32)
[2023-03-14] MEDS: ESCITALOPRAM OXALATE 20 MG TABLET PO SCH (10:32)
[2023-03-14 10:38] LABS: HEMATOCRIT 32.2 % (32.4-45.2); HEMOGLOBIN 10.7 GM/dL (10.7-15.3); LYMPH % 7.2 % (8-40); MCH 28.6 pg (25.7-33.7); MCHC 33.3 g/dl (32.0-36.0); MEAN CELL VOLUME 85.9 fl (80-96); MEAN PLT VOLUME 7.5 fl (7.5-11.1); MONO % 5.2 % (3.8-10.2); NEUT % 87.6 % (42.8-82.8); PLATELET COUNT 383 10^3/uL (134-434); RBC 3.75 M/mm3 (3.60-5.2); RDW 14.6 % (11.6-15.6)
[2023-03-14 10:53] LABS: POTASSIUM 4.9 mmol/L (3.5-5.1)
[2023-03-14 10:58] LABS: BLOOD UREA NITROGEN 27.3 mg/dL (7-18)
[2023-03-14 11:01] LABS: CREATININE 1.1 mg/dL (0.55-1.3)
[2023-03-14] MEDS: ALBUTEROL SO4 2.5/IPRATROPIUM 0.5 INH SOL 3 ML VIAL.NEB. NEB SCH ×2 (14:55→20:40)
[2023-03-14] MEDS: FLUTICASONE/UMECLIDIN/VILANTER(200-62.5-25 TRELEGY ELLIPTA) INAHLER IH SCH (15:17)
[2023-03-14 16:10] VITALS: BMI 14.8
[2023-03-15] MEDS: ACETAMINOPHEN 325 MG TABLET (FP) PO PRN ×3 (00:39→17:15)
[2023-03-15] MEDS: methylPREDNISolone NA SUCC 40 MG/1 ML VIAL IVPUSH SCH ×4 (02:13→20:13)
[2023-03-15] MEDS: ALBUTEROL SO4 0.083% IH SOL 2.5 MG/3 ML VIAL.NEB. NEB PRN ×2 (04:45→18:12)
[2023-03-15] MEDS: ALBUTEROL SO4 2.5/IPRATROPIUM 0.5 INH SOL 3 ML VIAL.NEB. NEB SCH ×3 (08:35→20:41)
[2023-03-15] MEDS: ASPIRIN COATED 81 MG TABLET.EC PO SCH (10:47)
[2023-03-15] MEDS: ESCITALOPRAM OXALATE 20 MG TABLET PO SCH (10:47)
[2023-03-15] MEDS: AZITHROMYCIN IVPB 500 MG/250 ML BAG IVPB SCH (10:47)
[2023-03-15] MEDS: FLUTICASONE/UMECLIDIN/VILANTER(200-62.5-25 TRELEGY ELLIPTA) INAHLER IH SCH (10:48)
[2023-03-15] MEDS: ENOXAPARIN NA (PORCINE) 30 MG/0.3 ML DISP.SYRIN SQ SCH (11:04)
[2023-03-15] MEDS: LOSARTAN POTASSIUM 50 MG TABLET PO SCH (11:43)
[2023-03-15] MEDS: FAMOTIDINE 10 MG TABLET PO SCH ×2 (14:56→15:47)
[2023-03-15] MEDS: oxyCODONE HCL 5 MG TABLET PO PRN (20:12)
[2023-03-16] MEDS: ACETAMINOPHEN 325 MG TABLET (FP) PO PRN (01:12)
[2023-03-16] MEDS: methylPREDNISolone NA SUCC 40 MG/1 ML VIAL IVPUSH SCH ×3 (02:14→17:30)
[2023-03-16] MEDS: oxyCODONE HCL 5 MG TABLET PO PRN (04:59)
[2023-03-16] MEDS: ALBUTEROL SO4 2.5/IPRATROPIUM 0.5 INH SOL 3 ML VIAL.NEB. NEB SCH ×3 (07:45→20:47)
[2023-03-16] MEDS: ENOXAPARIN NA (PORCINE) 30 MG/0.3 ML DISP.SYRIN SQ SCH (09:52)
[2023-03-16] MEDS: ESCITALOPRAM OXALATE 20 MG TABLET PO SCH (09:53)
[2023-03-16] MEDS: ASPIRIN COATED 81 MG TABLET.EC PO SCH (09:53)
[2023-03-16] MEDS: LOSARTAN POTASSIUM 50 MG TABLET PO SCH (09:53)
[2023-03-16] MEDS: AZITHROMYCIN 250 MG TABLET PO SCH (09:53)
[2023-03-16] MEDS ORDERED: HYDROCHLOROTHIAZIDE 25 MG TABLET (FP) PO ONE (11:22)
[2023-03-16] MEDS: FLUTICASONE/UMECLIDIN/VILANTER(200-62.5-25 TRELEGY ELLIPTA) INAHLER IH SCH (11:24)
[2023-03-16] MEDS ORDERED: ONDANSETRON 4 MG/2 ML VIAL IVPUSH ONE (17:54)
[2023-03-16] MEDS: FAMOTIDINE 10 MG TABLET PO SCH (23:00)
[2023-03-17] MEDS: methylPREDNISolone NA SUCC 40 MG/1 ML VIAL IVPUSH SCH ×3 (02:05→21:37)
[2023-03-17] MEDS: ACETAMINOPHEN 325 MG TABLET (FP) PO PRN ×2 (02:18→09:53)
[2023-03-17] MEDS ORDERED: HYDROCHLOROTHIAZIDE 25 MG TABLET (FP) PO ONE (06:01)
[2023-03-17] MEDS: ALBUTEROL SO4 2.5/IPRATROPIUM 0.5 INH SOL 3 ML VIAL.NEB. NEB SCH ×3 (07:35→20:00)
[2023-03-17] MEDS: ENOXAPARIN NA (PORCINE) 30 MG/0.3 ML DISP.SYRIN SQ SCH (09:07)
[2023-03-17] MEDS: FAMOTIDINE 10 MG TABLET PO SCH (09:08)
[2023-03-17] MEDS: ASPIRIN COATED 81 MG TABLET.EC PO SCH (09:08)
[2023-03-17] MEDS: LOSARTAN POTASSIUM 50 MG TABLET PO SCH (09:08)
[2023-03-17] MEDS: HYDROCHLOROTHIAZIDE 25 MG TABLET (FP) PO SCH (09:09)
[2023-03-17] MEDS: ESCITALOPRAM OXALATE 20 MG TABLET PO SCH (09:09)
[2023-03-17] MEDS: AZITHROMYCIN 250 MG TABLET PO SCH (09:09)
[2023-03-17] MEDS: FLUTICASONE/UMECLIDIN/VILANTER(200-62.5-25 TRELEGY ELLIPTA) INAHLER IH SCH (11:07)
[2023-03-17] MEDS: oxyCODONE HCL 5 MG TABLET PO PRN (11:12)
[2023-03-17] MEDS ORDERED: hydrALAZINE HCL 25 MG TABLET (FP) PO ONE (11:15)
[2023-03-17 11:20] LABS: BASO % 0.2 % (0-2.0); HEMATOCRIT 34.1 % (32.4-45.2); HEMOGLOBIN 11.6 GM/dL (10.7-15.3); MCH 28.9 pg (25.7-33.7); MCHC 34.1 g/dl (32.0-36.0); MEAN CELL VOLUME 84.7 fl (80-96); MEAN PLT VOLUME 7.9 fl (7.5-11.1); MONO % 4.3 % (3.8-10.2); NEUT % 89.5 % (42.8-82.8); PLATELET COUNT 399 10^3/uL (134-434); RBC 4.02 M/mm3 (3.60-5.2); WHITE BLOOD COUNT 7.9 K/mm3 (4.0-10.0)
[2023-03-17 11:58] LABS: POTASSIUM 5.1 mmol/L (3.5-5.1)
[2023-03-17 12:11] LABS: TOT PROT 5.8 g/dl (6.4-8.2)
[2023-03-17 12:36] LABS: CALCIUM 8.5 mg/dL (8.5-10.1)
[2023-03-17 12:37] LABS: ALBUMIN 3.1 g/dl (3.4-5.0); BLOOD UREA NITROGEN 35.6 mg/dL (7-18)
[2023-03-17 12:41] LABS: CREATININE 0.9 mg/dL (0.55-1.3)
[2023-03-17 12:43] LABS: BILIRUBIN,TOTAL 0.5 mg/dL (0.2-1)
[2023-03-17] MEDS: hydrALAZINE HCL 25 MG TABLET (FP) PO SCH ×2 (13:45→21:36)
[2023-03-18] MEDS: hydrALAZINE HCL 25 MG TABLET (FP) PO SCH ×3 (05:02→21:52)
[2023-03-18] MEDS: ALBUTEROL SO4 0.083% IH SOL 2.5 MG/3 ML VIAL.NEB. NEB PRN (06:47)
[2023-03-18] MEDS: ALBUTEROL SO4 2.5/IPRATROPIUM 0.5 INH SOL 3 ML VIAL.NEB. NEB SCH ×3 (08:25→20:29)
[2023-03-18] MEDS: LOSARTAN POTASSIUM 50 MG TABLET PO SCH (09:38)
[2023-03-18] MEDS: HYDROCHLOROTHIAZIDE 25 MG TABLET (FP) PO SCH (09:38)
[2023-03-18] MEDS: methylPREDNISolone NA SUCC 40 MG/1 ML VIAL IVPUSH SCH ×2 (09:38→21:52)
[2023-03-18] MEDS: ENOXAPARIN NA (PORCINE) 30 MG/0.3 ML DISP.SYRIN SQ SCH (09:39)
[2023-03-18] MEDS: AZITHROMYCIN 250 MG TABLET PO SCH (09:39)
[2023-03-18] MEDS: ESCITALOPRAM OXALATE 20 MG TABLET PO SCH (09:39)
[2023-03-18] MEDS: ASPIRIN COATED 81 MG TABLET.EC PO SCH (09:39)
[2023-03-18] MEDS: oxyCODONE HCL 5 MG TABLET PO PRN ×2 (09:51→18:00)
[2023-03-18] MEDS: FLUTICASONE/UMECLIDIN/VILANTER(200-62.5-25 TRELEGY ELLIPTA) INAHLER IH SCH (12:11)
[2023-03-19] MEDS: hydrALAZINE HCL 25 MG TABLET (FP) PO SCH ×3 (05:25→22:07)
[2023-03-19] MEDS: ALBUTEROL SO4 2.5/IPRATROPIUM 0.5 INH SOL 3 ML VIAL.NEB. NEB SCH (07:23)
[2023-03-19] MEDS: AMINO ACIDS/PROTEIN HYDROLYS 30 ML LIQUID.PKT PO SCH (08:33)
[2023-03-19] MEDS: oxyCODONE HCL 5 MG TABLET PO PRN ×2 (08:36→22:20)
[2023-03-19] MEDS: FAMOTIDINE 10 MG TABLET PO SCH (09:29)
[2023-03-19] MEDS: ESCITALOPRAM OXALATE 20 MG TABLET PO SCH (09:30)
[2023-03-19] MEDS: LOSARTAN POTASSIUM 50 MG TABLET PO SCH (09:30)
[2023-03-19] MEDS: HYDROCHLOROTHIAZIDE 25 MG TABLET (FP) PO SCH (09:30)
[2023-03-19] MEDS: ASPIRIN COATED 81 MG TABLET.EC PO SCH (09:30)
[2023-03-19] MEDS: AZITHROMYCIN 250 MG TABLET PO SCH (09:31)
[2023-03-19] MEDS: FLUTICASONE/UMECLIDIN/VILANTER(200-62.5-25 TRELEGY ELLIPTA) INAHLER IH SCH (09:32)
[2023-03-19] MEDS: methylPREDNISolone NA SUCC 40 MG/1 ML VIAL IVPUSH SCH ×2 (09:32→22:29)
[2023-03-19] MEDS: ENOXAPARIN NA (PORCINE) 30 MG/0.3 ML DISP.SYRIN SQ SCH (09:33)
[2023-03-20] MEDS: ACETAMINOPHEN 325 MG TABLET (FP) PO PRN (05:41)
[2023-03-20] MEDS: hydrALAZINE HCL 25 MG TABLET (FP) PO SCH ×3 (05:42→22:07)
[2023-03-20] MEDS: AMINO ACIDS/PROTEIN HYDROLYS 30 ML LIQUID.PKT PO SCH (08:29)
[2023-03-20] MEDS: methylPREDNISolone NA SUCC 40 MG/1 ML VIAL IVPUSH SCH ×2 (09:17→22:07)
[2023-03-20] MEDS: LOSARTAN POTASSIUM 50 MG TABLET PO SCH (09:17)
[2023-03-20] MEDS: ESCITALOPRAM OXALATE 20 MG TABLET PO SCH (09:17)
[2023-03-20] MEDS: AZITHROMYCIN 250 MG TABLET PO SCH (09:17)
[2023-03-20] MEDS: HYDROCHLOROTHIAZIDE 25 MG TABLET (FP) PO SCH (09:17)
[2023-03-20] MEDS: ASPIRIN COATED 81 MG TABLET.EC PO SCH (09:17)
[2023-03-20] MEDS: ENOXAPARIN NA (PORCINE) 30 MG/0.3 ML DISP.SYRIN SQ SCH (09:19)
[2023-03-20] MEDS: FLUTICASONE/UMECLIDIN/VILANTER(200-62.5-25 TRELEGY ELLIPTA) INAHLER IH SCH (09:21)
[2023-03-20] MEDS: oxyCODONE HCL 5 MG TABLET PO PRN (13:51)
[2023-03-21] MEDS: hydrALAZINE HCL 25 MG TABLET (FP) PO SCH ×3 (06:02→22:01)
[2023-03-21] MEDS: oxyCODONE HCL 5 MG TABLET PO PRN ×2 (06:04→22:33)
[2023-03-21] MEDS: FAMOTIDINE 10 MG TABLET PO SCH (10:03)
[2023-03-21] MEDS: HYDROCHLOROTHIAZIDE 25 MG TABLET (FP) PO SCH ×2 (10:04→10:11)
[2023-03-21] MEDS: ESCITALOPRAM OXALATE 20 MG TABLET PO SCH (10:04)
[2023-03-21] MEDS: AMINO ACIDS/PROTEIN HYDROLYS 30 ML LIQUID.PKT PO SCH ×2 (10:04→13:15)
[2023-03-21] MEDS: ASPIRIN COATED 81 MG TABLET.EC PO SCH (10:04)
[2023-03-21] MEDS: methylPREDNISolone NA SUCC 40 MG/1 ML VIAL IVPUSH SCH ×2 (10:04→21:57)
[2023-03-21] MEDS: LOSARTAN POTASSIUM 50 MG TABLET PO SCH (10:08)
[2023-03-21] MEDS: FLUTICASONE/UMECLIDIN/VILANTER(200-62.5-25 TRELEGY ELLIPTA) INAHLER IH SCH (10:09)
[2023-03-21] MEDS: ALBUTEROL SO4 2.5/IPRATROPIUM 0.5 INH SOL 3 ML VIAL.NEB. NEB PRN (20:24)
[2023-03-21] MEDS: ACETAMINOPHEN 325 MG TABLET (FP) PO PRN (22:35)
[2023-03-22] MEDS: hydrALAZINE HCL 25 MG TABLET (FP) PO SCH (05:36)
[2023-03-22] MEDS: ASPIRIN COATED 81 MG TABLET.EC PO SCH (09:55)
[2023-03-22] MEDS: ESCITALOPRAM OXALATE 20 MG TABLET PO SCH (09:56)
[2023-03-22] MEDS ORDERED: LOSARTAN POTASSIUM 25 MG TABLET PO SCH (10:00)
[2023-03-22] MEDS: methylPREDNISolone NA SUCC 40 MG/1 ML VIAL IVPUSH SCH ×2 (10:08→21:41)
[2023-03-22] MEDS: FLUTICASONE/UMECLIDIN/VILANTER(200-62.5-25 TRELEGY ELLIPTA) INAHLER IH SCH (10:09)
[2023-03-22] MEDS: AMINO ACIDS/PROTEIN HYDROLYS 30 ML LIQUID.PKT PO SCH (10:10)
[2023-03-22 10:26] LABS: BASO % 0.1 % (0-2.0); HEMATOCRIT 37.1 % (32.4-45.2); HEMOGLOBIN 11.9 GM/dL (10.7-15.3); LYMPH % 9.7 % (8-40); MCH 27.6 pg (25.7-33.7); MEAN CELL VOLUME 86.2 fl (80-96); MEAN PLT VOLUME 7.5 fl (7.5-11.1); MONO % 6.6 % (3.8-10.2); NEUT % 83.6 % (42.8-82.8); PLATELET COUNT 399 10^3/uL (134-434); RDW 13.9 % (11.6-15.6)
[2023-03-22 10:37] LABS: POTASSIUM 4.9 mmol/L (3.5-5.1)
[2023-03-22 10:44] LABS: CALCIUM 8.6 mg/dL (8.5-10.1)
[2023-03-22 10:45] LABS: BLOOD UREA NITROGEN 56.5 mg/dL (7-18)
[2023-03-22 10:48] LABS: BILIRUBIN,TOTAL 0.2 mg/dL (0.2-1); TOT PROT 5.8 g/dl (6.4-8.2)
[2023-03-22] MEDS: NYSTATIN 500,000 UNITS/5 ML SUSPENSION PO SCH ×2 (11:22→18:17)
[2023-03-22] MEDS: oxyCODONE HCL 5 MG TABLET PO PRN (12:22)
[2023-03-22 13:14] VITALS: RESP 18
[2023-03-22] MEDS: ALBUTEROL SO4 2.5/IPRATROPIUM 0.5 INH SOL 3 ML VIAL.NEB. NEB PRN (21:01)
[2023-03-23] MEDS: NYSTATIN 500,000 UNITS/5 ML SUSPENSION PO SCH ×3 (00:05→13:40)
[2023-03-23] MEDS: oxyCODONE HCL 5 MG TABLET PO PRN ×2 (00:09→09:37)
[2023-03-23] MEDS: AMINO ACIDS/PROTEIN HYDROLYS 30 ML LIQUID.PKT PO SCH (08:26)
[2023-03-23] MEDS: ESCITALOPRAM OXALATE 20 MG TABLET PO SCH (09:37)
[2023-03-23] MEDS: ASPIRIN COATED 81 MG TABLET.EC PO SCH (09:37)
[2023-03-23] MEDS: FAMOTIDINE 10 MG TABLET PO SCH (09:37)
[2023-03-23] MEDS: methylPREDNISolone NA SUCC 40 MG/1 ML VIAL IVPUSH SCH (09:39)
[2023-03-23] MEDS: FLUTICASONE/UMECLIDIN/VILANTER(200-62.5-25 TRELEGY ELLIPTA) INAHLER IH SCH (09:46)
[2023-03-23 14:24] VITALS: BP 130/62; PULSE 77; TEMP 98.5
== END 2023-03-23 16:51 | disposition home or self-care (01) | DRG 189 ==
LOC: JER 16:38 → JERBED 20:12 → J5S 21:08
PROVIDERS: ADMIT Internal Medicine; ATTEND Internal Medicine
DX: J96.21 Acute and chronic respiratory failure with hypoxia (principal); E43 Unspecified severe protein-calorie malnutrition; J44.1 Chronic obstructive pulmonary disease with (acute) exacerbation; R64 Cachexia; Z68.1 Body mass index [BMI] 19.9 or less, adult; I50.32 Chronic diastolic (congestive) heart failure; I25.10 Atherosclerotic heart disease of native coronary artery without angina pectoris; E78.5 Hyperlipidemia, unspecified; K21.9 Gastro-esophageal reflux disease without esophagitis; I25.2 Old myocardial infarction; Z99.81 Dependence on supplemental oxygen; I11.0 Hypertensive heart disease with heart failure; D64.9 Anemia, unspecified
CPT/HCPCS: 0241U-QW; 36415; 71045-TC-FY; 80048; 80053; 82803; 83735; 83880; 84439; 84443; 84484; 85025; 93005; 93010; 94640; 97116-GP; 97162-GP; 99285-25

== ENCOUNTER 2023-04-15 21:41 | Observation (INO) | payer OTHER, MEDICARE ==
[2023-04-15] MEDS ORDERED: LIDOCAINE PATCH REMOVAL MC SCH (22:00)
[2023-04-15 22:07] VITALS: BP 173/80; PULSE 88; TEMP 97.8
[2023-04-15] MEDS ORDERED: LIDOCAINE 5% TOPICAL PATCH TP ONE (22:38)
[2023-04-15] MEDS ORDERED: ACETAMINOPHEN 1000 MG/100 ML BAG IVPB ONE (22:38)
[2023-04-15] MEDS ORDERED: ACETAMINOPHEN INJECTION 100 ML IVPB ONE (22:48)
[2023-04-15 23:11] LABS: BASO % 0.3 % (0-2.0); EOS % 0.8 % (0-4.5); HEMATOCRIT 30.6 % (32.4-45.2); HEMOGLOBIN 9.8 GM/dL (10.7-15.3); LYMPH % 9.7 % (8-40); MCH 27.1 pg (25.7-33.7); MEAN CELL VOLUME 84.7 fl (80-96); MEAN PLT VOLUME 6.5 fl (7.5-11.1); MONO % 6.7 % (3.8-10.2); NEUT % 82.5 % (42.8-82.8); PLATELET COUNT 312 10^3/uL (134-434); RBC 3.61 M/mm3 (3.60-5.2); RDW 15.2 % (11.6-15.6); WHITE BLOOD COUNT 6.5 K/mm3 (4.0-10.0)
[2023-04-15 23:21] VITALS: BMI 14.3
[2023-04-15 23:32] LABS: POTASSIUM 4.2 mmol/L (3.5-5.1)
[2023-04-15 23:34] LABS: BLOOD UREA NITROGEN 14.6 mg/dL (7-18); CALCIUM 8.4 mg/dL (8.5-10.1)
[2023-04-15 23:35] LABS: ALBUMIN 3.4 g/dl (3.4-5.0)
[2023-04-15 23:38] LABS: CREATININE 0.9 mg/dL (0.55-1.3)
[2023-04-15 23:39] LABS: BILIRUBIN,TOTAL 0.3 mg/dL (0.2-1); TOT PROT 6.3 g/dl (6.4-8.2)
[2023-04-15] MEDS ORDERED: morphine CARPU-JECT 4 MG/1 ML DISP.SYRIN IVPUSH ONE (23:43)
[2023-04-16] MEDS ORDERED: morphine CARPU-JECT 2 MG/1 ML DISP.SYRIN IVPUSH ONE (02:01)
[2023-04-16] MEDS ORDERED: morphine CARPU-JECT 4 MG/1 ML DISP.SYRIN IM ONE (03:58)
[2023-04-16] MEDS ORDERED: morphine SULFATE 4 MG/ML VIAL ONE ×2 (04:03→05:03)
[2023-04-16] MEDS ORDERED: ONDANSETRON 4 MG/2 ML VIAL IVPUSH ONE (05:02)
[2023-04-16] MEDS ORDERED: morphine CARPU-JECT 4 MG/1 ML DISP.SYRIN IVPUSH ONE (05:03)
[2023-04-16] MEDS ORDERED: ONDANSETRON 4 MG/2 ML VIAL ONE (05:04)
[2023-04-16] MEDS ORDERED: LIDOCAINE PATCH REMOVAL MC ONE (10:00)
== END 2023-04-16 05:13 | disposition short-term general hospital (02) ==
LOC: JER 21:41 → UNDOADMOB 22:13 → INTOOBSV 22:13 → JERBED 22:13
PROVIDERS: ADMIT Internal Medicine; ATTEND Internal Medicine
PROC: 3E033NZ Introduction of Analgesics, Hypnotics, Sedatives into Peripheral Vein, Percutaneous Approach (ICD-10-PCS; principal; 2023-04-15)
PROC: 3E0233Z Introduction of Anti-inflammatory into Muscle, Percutaneous Approach (ICD-10-PCS; 2023-04-15)
PROC: 3E033GC Introduction of Other Therapeutic Substance into Peripheral Vein, Percutaneous Approach (ICD-10-PCS; 2023-04-15)
DX: S20.219A Contusion of unspecified front wall of thorax, initial encounter (principal); R07.81 Pleurodynia; W18.39XA Other fall on same level, initial encounter; Y93.89 Activity, other specified; Y92.838 Other recreation area as the place of occurrence of the external cause; E78.5 Hyperlipidemia, unspecified; I25.10 Atherosclerotic heart disease of native coronary artery without angina pectoris; I11.0 Hypertensive heart disease with heart failure; J44.9 Chronic obstructive pulmonary disease, unspecified; Z85.41 Personal history of malignant neoplasm of cervix uteri; D51.0 Vitamin B12 deficiency anemia due to intrinsic factor deficiency; K21.9 Gastro-esophageal reflux disease without esophagitis; Z95.1 Presence of aortocoronary bypass graft; Z90.79 Acquired absence of other genital organ(s); K76.0 Fatty (change of) liver, not elsewhere classified; I21.4 Non-ST elevation (NSTEMI) myocardial infarction; Z88.0 Allergy status to penicillin; Z88.8 Allergy status to other drugs, medicaments and biological substances
CPT/HCPCS: 0241U-QW; 36415; 70450-TC; 71045-TC-FY; 71250-TC; 72125-TC; 72170-TC-FY; 73030-TC-RT-FY; 73060-TC-RT-FY; 80053; 84484; 85025; 93005; 93010; 96372; 96374; 96375; 96376; 99285-25; G0378

== ENCOUNTER 2023-06-24 14:10 | Day surgery (SDC) | payer OTHER, MEDICARE ==
[~2023-06-24 14:10] MED LIST changes: -ACETAMINOPHEN 500 MG TABLET (FP) PO PRN; -BUPIVACAINE HCL/PF 0.5% (5 MG/ML) 30 ML VIAL IJ ONE; -IOHEXOL 180 MG/1 ML ML IJ ONE; +IRON SUCROSE INJECTION 200 MG in SODIUM CHLORIDE 100 ML IVPB ONE; -LIDOCAINE 1% P/F 10 MG/ML VIAL INF ONE
[2023-06-24 16:45] VITALS: TEMP 98.3
[2023-06-24 16:49] VITALS: BP 135/62; PULSE 77; RESP 18
== END 2023-06-24 15:00 | disposition home or self-care (01) ==
LOC: J7W 14:10 → JONCNONCHE 14:10
PROVIDERS: ATTEND Internal Medicine Hematology & Oncology
PROC: 3E033GC Introduction of Other Therapeutic Substance into Peripheral Vein, Percutaneous Approach (ICD-10-PCS; principal; 2023-06-24)
DX: E61.1 Iron deficiency (principal)
CPT/HCPCS: 96365; J1756

== ENCOUNTER 2023-07-01 14:10 | Day surgery (SDC) | payer OTHER, MEDICARE ==
[~2023-07-01 14:10] MED LIST changes: +IRON SUCROSE COMPLEX 200 MG in SODIUM CHLORIDE 100 ML IVPB ONE; -IRON SUCROSE INJECTION 200 MG in SODIUM CHLORIDE 100 ML IVPB ONE
[2023-07-01 17:08] VITALS: RESP 18; TEMP 98.4
[2023-07-01 17:13] VITALS: BP 132/63; PULSE 78
== END 2023-07-01 15:30 | disposition home or self-care (01) ==
LOC: JONCNONCHE 14:10 → J7W 14:10 → JONCNONCHE 15:30
PROVIDERS: ATTEND Internal Medicine Hematology & Oncology
PROC: 3E033GC Introduction of Other Therapeutic Substance into Peripheral Vein, Percutaneous Approach (ICD-10-PCS; principal; 2023-07-01)
DX: D50.8 Other iron deficiency anemias (principal)
CPT/HCPCS: 96365

== ENCOUNTER 2023-07-07 21:42 | Observation (INO) | payer OTHER, MEDICARE ==
[2023-07-07 21:57] VITALS: BMI 14.2
[2023-07-07] MEDS: predniSONE 20 MG TABLET (UD) PO ONE ×2 (22:45→22:50)
[2023-07-07] MEDS ORDERED: ALBUTEROL SO4 2.5/IPRATROPIUM 0.5 INH SOL 3 ML VIAL.NEB. NEB ONE (22:47)
[2023-07-07] MEDS ORDERED: predniSONE 20 MG TABLET (UD) ONE (22:47)
[2023-07-07] MEDS: ALBUTEROL SO4 2.5/IPRATROPIUM 0.5 INH SOL 3 ML VIAL.NEB. NEB SCH (22:50)
[2023-07-07 23:19] LABS: BASO % 1.3 % (0-2.0); EOS % 12.2 % (0-4.5); HEMATOCRIT 29.8 % (32.4-45.2); HEMOGLOBIN 9.5 GM/dL (10.7-15.3); LYMPH % 17.8 % (8-40); MCH 25.6 pg (25.7-33.7); MCHC 31.8 g/dl (32.0-36.0); MEAN CELL VOLUME 80.3 fl (80-96); MEAN PLT VOLUME 7.3 fl (7.5-11.1); MONO % 5.7 % (3.8-10.2); PLATELET COUNT 334 10^3/uL (134-434); RBC 3.71 M/mm3 (3.60-5.2); RDW 18.4 % (11.6-15.6); VENOUS BASE EXCESS 1.6 mmol/L (-2-2); VENOUS O2 SATURATION 24.3 % (70-80); VENOUS PH 7.366 (7.310-7.410); WHITE BLOOD COUNT 6.3 K/mm3 (4.0-10.0)
[2023-07-07 23:26] LABS: INR 1.17 (0.83-1.09); PROTHROMBIN TIME (PATIENT) 13.5 SEC (9.7-13.0)
[2023-07-07 23:29] LABS: ACTIVATED PTT 46.2 SECONDS (25.2-36.5)
[2023-07-07] MEDS ORDERED: PANTOPRAZOLE SODIUM 40 MG VIAL ONE (23:36)
[2023-07-07] MEDS: PANTOPRAZOLE SODIUM 40 MG VIAL IVPUSH ONE (23:41)
[2023-07-07 23:45] LABS: ALBUMIN 3.3 g/dl (3.4-5.0); CALCIUM 9.3 mg/dL (8.5-10.1)
[2023-07-07 23:46] LABS: BLOOD UREA NITROGEN 15.7 mg/dL (7-18); MAGNESIUM 1.7 mg/dL (1.8-2.4)
[2023-07-07 23:48] LABS: CREATININE 0.8 mg/dL (0.55-1.3)
[2023-07-07 23:50] LABS: BILIRUBIN,TOTAL 0.2 mg/dL (0.2-1); TOT PROT 7.4 g/dl (6.4-8.2)
[2023-07-08] MEDS ORDERED: MAGNESIUM SULFATE IN WATER 2 GM/50 ML IVPB IVPB ONE (02:35)
[2023-07-08] MEDS: MAGNESIUM SULFATE IN WATER 2 GM/50 ML IVPB IVPB ONE (02:40)
[2023-07-08] MEDS ORDERED: PANTOPRAZOLE 40 MG TABLET PO PRN (03:50)
[2023-07-08] MEDS ORDERED: ALBUTEROL SO4 0.083% IH SOL 2.5 MG/3 ML VIAL.NEB. NEB PRN ×2 (03:53→09:24)
[2023-07-08] MEDS ORDERED: ASPIRIN 81 MG CHEWABLE TABLETS ONE ×2 (04:33→10:42)
[2023-07-08] MEDS: ASPIRIN 81 MG CHEWABLE TABLETS PO ONE (04:41)
[2023-07-08 06:24] LABS: HEMATOCRIT 29.8 % (32.4-45.2); HEMOGLOBIN 9.2 GM/dL (10.7-15.3); MCH 24.9 pg (25.7-33.7); MCHC 30.7 g/dl (32.0-36.0); MEAN CELL VOLUME 81.2 fl (80-96); MEAN PLT VOLUME 7.5 fl (7.5-11.1); PLATELET COUNT 364 10^3/uL (134-434); RBC 3.68 M/mm3 (3.60-5.2); RDW 18.6 % (11.6-15.6); WHITE BLOOD COUNT 5.3 K/mm3 (4.0-10.0)
[2023-07-08 06:43] LABS: POTASSIUM 4.3 mmol/L (3.5-5.1)
[2023-07-08 06:44] LABS: CALCIUM 8.9 mg/dL (8.5-10.1)
[2023-07-08 06:45] LABS: BLOOD UREA NITROGEN 14.6 mg/dL (7-18)
[2023-07-08 06:48] LABS: CREATININE 0.8 mg/dL (0.55-1.3)
[2023-07-08] MEDS ORDERED: PANTOPRAZOLE 40 MG TABLET PO ONE (07:20)
[2023-07-08] MEDS: PANTOPRAZOLE 40 MG TABLET PO SCH (07:23)
[2023-07-08] MEDS ORDERED: PATIENT'S OWN MEDICATION (NON-FORMULARY) (Albuterol Sulfate [Proair Digihaler] 90 MCG Aer. IH PRN (09:24)
[2023-07-08 09:43] VITALS: RESP 18
[2023-07-08 09:58] LABS: ANISOCYTOSIS 0; HELMET CELLS 0; HOWELL-JOLLY BODIES 0; MACROCYTOSIS 0; OVALOCYTE 0; ROULEAU 0; SICKELED CELLS 0; TARGET CELLS 0; TEAR DROP CELLS 0; TOXIC GRANULATION 0
[2023-07-08] MEDS ORDERED: busPIRone HCL 10 MG TABLET (FP) PO SCH (10:00)
[2023-07-08] MEDS ORDERED: AZITHROMYCIN IVPB 500 MG/250 ML BAG IVPB ONE (10:38)
[2023-07-08] MEDS ORDERED: methylPREDNISolone NA SUCC 40 MG/1 ML VIAL ONE (10:38)
[2023-07-08] MEDS: methylPREDNISolone NA SUCC 40 MG/1 ML VIAL IVPUSH SCH (10:47)
[2023-07-08] MEDS: AZITHROMYCIN IVPB 500 MG/250 ML BAG IVPB SCH (10:47)
[2023-07-08] MEDS ORDERED: MIRTAZAPINE 15 MG TABLET (FP) PO SCH (22:00)
[2023-07-08] MEDS: ACETAMINOPHEN 1000 MG/100 ML BAG IVPB PRN (23:34)
[2023-07-09] MEDS: ASPIRIN 81 MG CHEWABLE TABLETS PO SCH (10:00)
[2023-07-09] MEDS: AMINO ACIDS/PROTEIN HYDROLYS 30 ML LIQUID.PKT PO SCH (10:00)
[2023-07-09] MEDS ORDERED: PATIENT'S OWN MEDICATION (NON-FORMULARY) (Oxycodone Hcl [Oxycodone Hcl] 10 MG Tablet) PO PRN (11:30)
[2023-07-09] MEDS: oxyCODONE HCL 5 MG TABLET PO PRN (12:29)
[2023-07-09 19:50] VITALS: BP 143/69; PULSE 71; TEMP 98.2
== END 2023-07-09 20:32 | disposition home or self-care (01) ==
LOC: JER 21:42 → JERBED 07-08 02:45 → J4W 07-08 11:48
PROVIDERS: ADMIT Internal Medicine; ATTEND Internal Medicine
PROC: 3E033NZ Introduction of Analgesics, Hypnotics, Sedatives into Peripheral Vein, Percutaneous Approach (ICD-10-PCS; principal; 2023-07-08)
PROC: 3E0F7GC Introduction of Other Therapeutic Substance into Respiratory Tract, Via Natural or Artificial Opening (ICD-10-PCS; 2023-07-08)
PROC: 3E03329 Introduction of Other Anti-infective into Peripheral Vein, Percutaneous Approach (ICD-10-PCS; 2023-07-08)
PROC: 3E033GC Introduction of Other Therapeutic Substance into Peripheral Vein, Percutaneous Approach (ICD-10-PCS; 2023-07-08)
DX: J44.1 Chronic obstructive pulmonary disease with (acute) exacerbation (principal); J96.21 Acute and chronic respiratory failure with hypoxia; E78.5 Hyperlipidemia, unspecified; I24.89 Other forms of acute ischemic heart disease; K27.9 Peptic ulcer, site unspecified, unspecified as acute or chronic, without hemorrhage or perforation; I25.10 Atherosclerotic heart disease of native coronary artery without angina pectoris; I11.0 Hypertensive heart disease with heart failure; D51.0 Vitamin B12 deficiency anemia due to intrinsic factor deficiency; K29.70 Gastritis, unspecified, without bleeding; R77.8 Other specified abnormalities of plasma proteins; K21.9 Gastro-esophageal reflux disease without esophagitis; K76.0 Fatty (change of) liver, not elsewhere classified; Z90.79 Acquired absence of other genital organ(s); Z99.81 Dependence on supplemental oxygen; Z87.891 Personal history of nicotine dependence; Z88.0 Allergy status to penicillin; Z88.8 Allergy status to other drugs, medicaments and biological substances
CPT/HCPCS: 0241U-QW; 36415; 71045-TC-FY; 80048; 80053; 82803; 83735; 84484; 85025; 85610; 85730; 86850; 86900; 86901; 93005; 93010; 94640; 96365; 96367; 96375; 97116-GP; 97162-GP; 99285-25; G0378; J0131

== ENCOUNTER 2023-07-15 13:00 | Day surgery (SDC) | payer OTHER, MEDICARE ==
[2023-07-15] MEDS: IRON SUCROSE COMPLEX 200 MG in SODIUM CHLORIDE 100 ML IVPB ONE (14:46)
[2023-07-15 17:45] VITALS: RESP 18; TEMP 98.5
[2023-07-15 17:47] VITALS: BP 126/60; PULSE 81
== END 2023-07-15 15:45 | disposition home or self-care (01) ==
LOC: J7W 13:00 → JONCNONCHE 13:00
PROVIDERS: ATTEND Internal Medicine Hematology & Oncology
PROC: 3E033GC Introduction of Other Therapeutic Substance into Peripheral Vein, Percutaneous Approach (ICD-10-PCS; principal; 2023-07-15)
DX: E61.1 Iron deficiency (principal)
CPT/HCPCS: 96365

== ENCOUNTER 2023-07-22 13:18 | Day surgery (SDC) | payer OTHER, MEDICARE ==
[~2023-07-22 13:18] MED LIST changes: -IRON SUCROSE COMPLEX 200 MG in SODIUM CHLORIDE 100 ML IVPB ONE; +IRON SUCROSE INJECTION 200 MG in SODIUM CHLORIDE 100 ML IVPB ONE
[2023-07-22] MEDS: IRON SUCROSE INJECTION 200 MG in SODIUM CHLORIDE 100 ML IVPB ONE (14:26)
[2023-07-22 18:52] VITALS: BP 110/69; PULSE 81; RESP 20; TEMP 98.6
== END 2023-07-22 15:15 | disposition home or self-care (01) ==
LOC: J7W 13:18 → JONCNONCHE 13:18
PROVIDERS: ATTEND Internal Medicine Hematology & Oncology
PROC: 3E033GC Introduction of Other Therapeutic Substance into Peripheral Vein, Percutaneous Approach (ICD-10-PCS; principal; 2023-07-22)
DX: E61.1 Iron deficiency (principal)
CPT/HCPCS: 96365; J1756

== ENCOUNTER 2023-09-11 21:24 | Inpatient (IN) | payer OTHER, MEDICARE ==
[2023-09-11 23:39] LABS: BASO % 0.9 % (0-2.0); EOS % 4.3 % (0-4.5); HEMATOCRIT 36.9 % (32.4-45.2); HEMOGLOBIN 11.7 GM/dL (10.7-15.3); LYMPH % 18.8 % (8-40); MCH 26.3 pg (25.7-33.7); MCHC 31.6 g/dl (32.0-36.0); MEAN PLT VOLUME 7.9 fl (7.5-11.1); MONO % 7.7 % (3.8-10.2); NEUT % 68.3 % (42.8-82.8); PLATELET COUNT 272 10^3/uL (134-434); RBC 4.44 M/mm3 (3.60-5.2); RDW 19.6 % (11.6-15.6); WHITE BLOOD COUNT 5.9 K/mm3 (4.0-10.0)
[2023-09-11 23:46] LABS: POTASSIUM 4.9 mmol/L (3.5-5.1)
[2023-09-11 23:49] LABS: BLOOD UREA NITROGEN 22.4 mg/dL (7-18); CALCIUM 9.3 mg/dL (8.5-10.1)
[2023-09-11 23:50] LABS: ALBUMIN 3.6 g/dl (3.4-5.0)
[2023-09-11 23:52] LABS: CREATININE 0.9 mg/dL (0.55-1.3)
[2023-09-11 23:53] LABS: BILIRUBIN,TOTAL 0.4 mg/dL (0.2-1)
[2023-09-11 23:54] LABS: TOT PROT 7.2 g/dl (6.4-8.2)
[2023-09-11 23:55] LABS: N-TERMINAL BNP 229.8 pg/ml (5-450)
[2023-09-11] MEDS ORDERED: ACETAMINOPHEN INJECTION 100 ML IVPB ONE (23:57)
[2023-09-11] MEDS ORDERED: ASPIRIN 81 MG CHEWABLE TABLETS ONE (23:57)
[2023-09-12] MEDS: ASPIRIN 81 MG CHEWABLE TABLETS PO ONE (00:02)
[2023-09-12] MEDS: ACETAMINOPHEN 1000 MG/100 ML BAG IVPB ONE (00:02)
[2023-09-12] MEDS ORDERED: ALBUTEROL SO4 0.083% IH SOL 2.5 MG/3 ML VIAL.NEB. NEB PRN ×2 (01:03→11:06)
[2023-09-12] MEDS: PANTOPRAZOLE 40 MG TABLET PO SCH (06:22)
[2023-09-12 08:51] LABS: BASO % 1.5 % (0-2.0); EOS % 6.1 % (0-4.5); HEMATOCRIT 33.5 % (32.4-45.2); HEMOGLOBIN 10.4 GM/dL (10.7-15.3); LYMPH % 27.8 % (8-40); MCH 25.8 pg (25.7-33.7); MEAN CELL VOLUME 83.3 fl (80-96); MEAN PLT VOLUME 8.3 fl (7.5-11.1); MONO % 10.4 % (3.8-10.2); NEUT % 54.2 % (42.8-82.8); PLATELET COUNT 252 10^3/uL (134-434); RBC 4.02 M/mm3 (3.60-5.2); RDW 19.4 % (11.6-15.6); WHITE BLOOD COUNT 4.3 K/mm3 (4.0-10.0)
[2023-09-12 09:07] LABS: POTASSIUM 4.9 mmol/L (3.5-5.1)
[2023-09-12 09:11] LABS: BLOOD UREA NITROGEN 23.1 mg/dL (7-18)
[2023-09-12 09:15] LABS: CREATININE 0.9 mg/dL (0.55-1.3)
[2023-09-12] MEDS: ASPIRIN 81 MG CHEWABLE TABLETS PO SCH (09:58)
[2023-09-12] MEDS ORDERED: PANTOPRAZOLE 40 MG TABLET PO SCH (11:15)
[2023-09-12] MEDS: oxyCODONE HCL 5 MG TABLET PO PRN (20:36)
[2023-09-12] MEDS: MIRTAZAPINE 15 MG TABLET (FP) PO SCH (21:35)
[2023-09-12] MEDS: busPIRone HCL 5 MG TABLET PO SCH (21:35)
[2023-09-12] MEDS: HEPARIN NA (PORCINE) 5,000 UNITS/ML 1ML VIAL SQ SCH (21:36)
[2023-09-13] MEDS: ACETAMINOPHEN 325 MG TABLET (FP) PO PRN (06:07)
[2023-09-13] MEDS ORDERED: ASPIRIN 81 MG CHEWABLE TABLETS PO SCH (10:00)
[2023-09-13] MEDS: AMINO ACIDS/PROTEIN HYDROLYS 30 ML LIQUID.PKT PO SCH (10:19)
[2023-09-13 13:45] VITALS: BMI 14.1
[2023-09-13] MEDS: ALPRAZolam 0.25 MG TABLET PO PRN (14:20)
[2023-09-14 05:20] LABS: MAGNESIUM 2.1 mg/dL (1.8-2.4)
[2023-09-15 04:33] VITALS: RESP 18
[2023-09-15 09:14] VITALS: TEMP 98.2
[2023-09-15] MEDS ORDERED: ALBUTEROL SO4 HFA INHALER IH PRN (10:29)
[2023-09-15 15:35] VITALS: BP 126/68; PULSE 68
== END 2023-09-15 16:48 | disposition home or self-care (01) | DRG 391 ==
LOC: JER 21:24 → JERBED 09-12 00:01 → UNDOADMOB 09-12 00:01 → INTOOBSV 09-12 00:01 → JERBED 09-12 00:37 → J4W 09-12 05:51 → OBSVTOIN 09-13 11:32
PROVIDERS: ADMIT Internal Medicine; ATTEND Internal Medicine
DX: R13.10 Dysphagia, unspecified (principal); E43 Unspecified severe protein-calorie malnutrition; R64 Cachexia; Z68.1 Body mass index [BMI] 19.9 or less, adult; I50.32 Chronic diastolic (congestive) heart failure; J38.01 Paralysis of vocal cords and larynx, unilateral; K21.9 Gastro-esophageal reflux disease without esophagitis; I10 Essential (primary) hypertension; J44.9 Chronic obstructive pulmonary disease, unspecified; I25.10 Atherosclerotic heart disease of native coronary artery without angina pectoris; Z95.5 Presence of coronary angioplasty implant and graft
CPT/HCPCS: 0241U-QW; 36415; 70490-TC; 71045-TC-FY; 74230-TC-FY; 74240-TC-FY; 80048; 80053; 83735; 83880; 84484; 85025; 92611-GN; 93005; 93010; 99285-25; G0378; J0131; J1644

== ENCOUNTER 2023-10-07 10:58 | Inpatient (IN) | payer OTHER, MEDICARE ==
[2023-10-07 11:36] VITALS: BMI 14.2
[2023-10-07] MEDS ORDERED: ALBUTEROL SO4 2.5/IPRATROPIUM 0.5 INH SOL 3 ML VIAL.NEB. NEB ONE (12:09)
[2023-10-07] MEDS ORDERED: methylPREDNISolone NA SUCC 125 MG/2 ML VIAL ONE (12:09)
[2023-10-07] MEDS: methylPREDNISolone NA SUCC 125 MG/2 ML VIAL IVPUSH ONE (12:54)
[2023-10-07] MEDS: ALBUTEROL SO4 2.5/IPRATROPIUM 0.5 INH SOL 3 ML VIAL.NEB. NEB ONE (12:54)
[2023-10-07] MEDS ORDERED: ACETAMINOPHEN INJECTION 100 ML IVPB ONE (12:55)
[2023-10-07 12:58] LABS: HEMOGLOBIN 11.6 GM/dL (10.7-15.3); MCH 27.2 pg (25.7-33.7); MCHC 32.3 g/dl (32.0-36.0); MEAN CELL VOLUME 84.3 fl (80-96); MEAN PLT VOLUME 7.4 fl (7.5-11.1); PLATELET COUNT 216 10^3/uL (134-434); RBC 4.27 M/mm3 (3.60-5.2); RDW 16.5 % (11.6-15.6); WHITE BLOOD COUNT 5.7 K/mm3 (4.0-10.0)
[2023-10-07] MEDS: ACETAMINOPHEN 1000 MG/100 ML BAG IVPB ONE (13:03)
[2023-10-07 13:20] LABS: POTASSIUM 4.8 mmol/L (3.5-5.1)
[2023-10-07 13:22] LABS: ALBUMIN 3.4 g/dl (3.4-5.0); BLOOD UREA NITROGEN 18.3 mg/dL (7-18); CALCIUM 8.9 mg/dL (8.5-10.1)
[2023-10-07 13:25] LABS: CREATININE 0.8 mg/dL (0.55-1.3)
[2023-10-07 13:27] LABS: BILIRUBIN,TOTAL 0.4 mg/dL (0.2-1); TOT PROT 6.9 g/dl (6.4-8.2)
[2023-10-07 13:30] LABS: N-TERMINAL BNP 318.4 pg/ml (5-450)
[2023-10-07] MEDS ORDERED: AZITHROMYCIN IVPB 500 MG/250 ML BAG IVPB ONE (13:49)
[2023-10-07] MEDS: AZITHROMYCIN IVPB 500 MG in DEXTROSE 5%-WATER - 250 ML IVPB ONE (14:12)
[2023-10-07 14:30] LABS: VENOUS BASE EXCESS -1.6 mmol/L (-2-2); VENOUS PCO2 42.9 mmHg (38-52); VENOUS PH 7.362 (7.310-7.410)
[2023-10-07] MEDS ORDERED: CEFTRIAXONE 1 GM/50 ML BAG ONE (15:07)
[2023-10-07] MEDS ORDERED: KETOROLAC TROMETHAMINE 15 MG/ML VIAL ONE (15:07)
[2023-10-07] MEDS: KETOROLAC TROMETHAMINE 15 MG/ML VIAL IVPUSH ONE (15:14)
[2023-10-07] MEDS: SODIUM CHLORIDE 0.9% 500 ML INFUS.BAG IV ONE (15:14)
[2023-10-07] MEDS ORDERED: ACETAMINOPHEN 325 MG TABLET (FP) PO PRN (17:25)
[2023-10-07] MEDS: ALBUTEROL SO4 0.083% IH SOL 2.5 MG/3 ML VIAL.NEB. NEB PRN (18:08)
[2023-10-07] MEDS: busPIRone HCL 10 MG TABLET (FP) PO SCH (21:05)
[2023-10-07] MEDS: PANTOPRAZOLE 40 MG TABLET PO SCH (21:05)
[2023-10-07] MEDS: MIRTAZAPINE 15 MG TABLET (FP) PO SCH (21:05)
[2023-10-07] MEDS: oxyCODONE HCL 5 MG TABLET PO ONE (21:06)
[2023-10-07] MEDS: methylPREDNISolone NA SUCC 125 MG/2 ML VIAL IVPB SCH (21:07)
[2023-10-07] MEDS: HEPARIN NA (PORCINE) 5,000 UNITS/ML 1ML VIAL SQ SCH (21:11)
[2023-10-08 08:25] LABS: BASO % 0.2 % (0-2.0); HEMATOCRIT 34.5 % (32.4-45.2); LYMPH % 15.5 % (8-40); MCH 26.8 pg (25.7-33.7); MEAN CELL VOLUME 83.7 fl (80-96); MEAN PLT VOLUME 7.7 fl (7.5-11.1); MONO % 6.7 % (3.8-10.2); NEUT % 77.6 % (42.8-82.8); PLATELET COUNT 228 10^3/uL (134-434); RBC 4.12 M/mm3 (3.60-5.2); RDW 16.3 % (11.6-15.6); WHITE BLOOD COUNT 4.2 K/mm3 (4.0-10.0)
[2023-10-08] MEDS: AMINO ACIDS/PROTEIN HYDROLYS 30 ML LIQUID.PKT PO SCH (08:32)
[2023-10-08 08:56] LABS: BLOOD UREA NITROGEN 29.2 mg/dL (7-18); CALCIUM 8.9 mg/dL (8.5-10.1)
[2023-10-08 08:57] LABS: ALBUMIN 3.2 g/dl (3.4-5.0)
[2023-10-08 09:01] LABS: BILIRUBIN,TOTAL 0.2 mg/dL (0.2-1); TOT PROT 6.5 g/dl (6.4-8.2)
[2023-10-08] MEDS: AZITHROMYCIN IVPB 500 MG/250 ML BAG IVPB SCH (09:32)
[2023-10-08] MEDS: CEFTRIAXONE 1 GM in DEXTROSE 5%-WATER - 50 ML IVPB SCH (09:32)
[2023-10-08] MEDS: ASPIRIN 81 MG CHEWABLE TABLETS PO SCH (09:33)
[2023-10-08] MEDS: oxyCODONE HCL 5 MG TABLET PO SCH (11:23)
[2023-10-08 22:20] VITALS: RESP 18
[2023-10-08] MEDS: methylPREDNISolone NA SUCC 40 MG/1 ML VIAL IVPB SCH (22:21)
[2023-10-09] MEDS: ALPRAZolam 0.25 MG TABLET PO PRN (00:27)
[2023-10-09 14:08] VITALS: BP 130/73; PULSE 83; TEMP 97.8
== END 2023-10-09 16:02 | disposition home or self-care (01) | DRG 190 ==
LOC: JER 10:58 → JERBED 14:23 → J5S 15:30 → OBSVTOIN 17:25
PROVIDERS: ADMIT Internal Medicine; ATTEND Internal Medicine
DX: J44.1 Chronic obstructive pulmonary disease with (acute) exacerbation (principal); J18.9 Pneumonia, unspecified organism; I50.32 Chronic diastolic (congestive) heart failure; J44.0 Chronic obstructive pulmonary disease with (acute) lower respiratory infection; E78.5 Hyperlipidemia, unspecified; K76.0 Fatty (change of) liver, not elsewhere classified; I25.10 Atherosclerotic heart disease of native coronary artery without angina pectoris; M54.9 Dorsalgia, unspecified; F41.9 Anxiety disorder, unspecified; I11.0 Hypertensive heart disease with heart failure; K21.9 Gastro-esophageal reflux disease without esophagitis; Z95.5 Presence of coronary angioplasty implant and graft; Z99.81 Dependence on supplemental oxygen; Z85.41 Personal history of malignant neoplasm of cervix uteri
CPT/HCPCS: 0241U-QW; 36415; 71045-TC-FY; 80053; 82803; 82962; 83880; 84484; 85025; 85027; 87040; 93005; 93010; 94640; 99285-25; G0378; J0131; J1644

== ENCOUNTER 2023-10-24 10:39 | Emergency (ER) | payer OTHER, MEDICARE ==
[2023-10-24 11:08] VITALS: TEMP 98.9; BMI 13.8
[2023-10-24] MEDS ORDERED: ACETAMINOPHEN 325 MG TABLET (FP) ONE (13:47)
[2023-10-24 13:49] LABS: BASO % 0.9 % (0-2.0); EOS % 0.2 % (0-4.5); HEMATOCRIT 32.7 % (32.4-45.2); HEMOGLOBIN 10.5 GM/dL (10.7-15.3); MCH 27.4 pg (25.7-33.7); MEAN CELL VOLUME 85.8 fl (80-96); MEAN PLT VOLUME 6.9 fl (7.5-11.1); MONO % 7.5 % (3.8-10.2); NEUT % 81.4 % (42.8-82.8); PLATELET COUNT 266 10^3/uL (134-434); RBC 3.82 M/mm3 (3.60-5.2); RDW 14.9 % (11.6-15.6); WHITE BLOOD COUNT 7.6 K/mm3 (4.0-10.0)
[2023-10-24] MEDS: ACETAMINOPHEN 325 MG TABLET (FP) PO ONE (14:01)
[2023-10-24 14:11] LABS: POTASSIUM 4.8 mmol/L (3.5-5.1)
[2023-10-24 14:13] LABS: CALCIUM 8.7 mg/dL (8.5-10.1)
[2023-10-24 14:14] LABS: BLOOD UREA NITROGEN 21.3 mg/dL (7-18)
[2023-10-24 14:18] LABS: BILIRUBIN,TOTAL 0.8 mg/dL (0.2-1); TOT PROT 6.1 g/dl (6.4-8.2)
[2023-10-24 14:21] LABS: CREATININE 0.8 mg/dL (0.55-1.3); N-TERMINAL BNP 452.8 pg/ml (5-450)
[2023-10-24 17:07] VITALS: BP 106/60; PULSE 72
== END 2023-10-24 18:33 | disposition home or self-care (01) ==
LOC: JER 10:39
DX: R06.02 Shortness of breath (principal); R05.9 Cough, unspecified; R06.00 Dyspnea, unspecified
CPT/HCPCS: 0241U-QW; 36415; 71045-TC-FY; 80053; 83880; 84484; 85025; 93005; 93010; 99285-25

== ENCOUNTER 2023-11-25 14:07 | Inpatient (IN) | payer OTHER, MEDICARE ==
[2023-11-25] MEDS ORDERED: MORPHINE SULFATE 2 MG/ML SYRINGE ONE ×3 (14:46→16:58)
[2023-11-25] MEDS: morphine SULFATE 4 MG/ML VIAL IVPUSH ONE (14:51)
[2023-11-25 15:05] LABS: BASO % 0.8 % (0-2.0); EOS % 2.3 % (0-4.5); HEMATOCRIT 36.1 % (32.4-45.2); HEMOGLOBIN 11.6 GM/dL (10.7-15.3); LYMPH % 13.7 % (8-40); MCH 27.6 pg (25.7-33.7); MEAN CELL VOLUME 86.3 fl (80-96); MEAN PLT VOLUME 7.4 fl (7.5-11.1); MONO % 5.1 % (3.8-10.2); NEUT % 78.1 % (42.8-82.8); PLATELET COUNT 287 10^3/uL (134-434); RBC 4.19 M/mm3 (3.60-5.2); RDW 14.8 % (11.6-15.6); WHITE BLOOD COUNT 7.7 K/mm3 (4.0-10.0)
[2023-11-25 15:07] VITALS: BMI 13.8
[2023-11-25 15:07] LABS: INR 1.1 (0.83-1.09); PROTHROMBIN TIME (PATIENT) 12.4 SEC (9.7-13.0)
[2023-11-25 15:10] LABS: ACTIVATED PTT 42.2 SECONDS (25.2-36.5)
[2023-11-25 15:28] LABS: POTASSIUM 4.3 mmol/L (3.5-5.1)
[2023-11-25 15:30] LABS: CALCIUM 9.3 mg/dL (8.5-10.1)
[2023-11-25 15:31] LABS: ALBUMIN 3.7 g/dl (3.4-5.0); BLOOD UREA NITROGEN 21.4 mg/dL (7-18)
[2023-11-25] MEDS: morphine CARPU-JECT 2 MG/1 ML DISP.SYRIN IVPUSH ONE (15:33)
[2023-11-25 15:34] LABS: CREATININE 0.9 mg/dL (0.55-1.3)
[2023-11-25 15:36] LABS: BILIRUBIN,TOTAL 0.5 mg/dL (0.2-1)
[2023-11-25] MEDS ORDERED: ACETAMINOPHEN INJECTION 100 ML IVPB ONE ×2 (15:38→20:37)
[2023-11-25] MEDS: ACETAMINOPHEN 1000 MG/100 ML BAG IVPB ONE ×2 (15:39→20:41)
[2023-11-25] MEDS: morphine CARPU-JECT 4 MG/1 ML DISP.SYRIN IVPUSH ONE (16:59)
[2023-11-25] MEDS: ALBUTEROL SO4 2.5/IPRATROPIUM 0.5 INH SOL 3 ML VIAL.NEB. NEB ONE (20:09)
[2023-11-26 06:42] LABS: BASO % 0.9 % (0-2.0); HEMATOCRIT 32.8 % (32.4-45.2); HEMOGLOBIN 10.5 GM/dL (10.7-15.3); LYMPH % 18.8 % (8-40); MCHC 31.9 g/dl (32.0-36.0); MEAN CELL VOLUME 87.7 fl (80-96); MEAN PLT VOLUME 7.6 fl (7.5-11.1); MONO % 9.5 % (3.8-10.2); NEUT % 66.8 % (42.8-82.8); PLATELET COUNT 238 10^3/uL (134-434); RBC 3.74 M/mm3 (3.60-5.2); WHITE BLOOD COUNT 5.5 K/mm3 (4.0-10.0)
[2023-11-26 07:27] LABS: POTASSIUM 4.5 mmol/L (3.5-5.1)
[2023-11-26 07:30] LABS: BLOOD UREA NITROGEN 21.4 mg/dL (7-18)
[2023-11-26 07:33] LABS: CREATININE 0.8 mg/dL (0.55-1.3); PHOSPHOROUS 3.4 mg/dL (2.5-4.9)
[2023-11-26] MEDS: AMINO ACIDS/PROTEIN HYDROLYS 30 ML LIQUID.PKT PO SCH (08:53)
[2023-11-26] MEDS: ASPIRIN 81 MG CHEWABLE TABLETS PO SCH (09:38)
[2023-11-26] MEDS: PANTOPRAZOLE 40 MG TABLET PO SCH (12:44)
[2023-11-26] MEDS: ACETAMINOPHEN 1000 MG/100 ML BAG IVPB PRN (20:24)
[2023-11-26] MEDS: DOCUSATE SODIUM 100 MG CAPSULE (FP) PO SCH (21:19)
[2023-11-27] MEDS: oxyCODONE HCL 5 MG TABLET PO ONE (00:23)
[2023-11-27] MEDS: ACETAMINOPHEN 325 MG TABLET (FP) PO PRN (10:16)
[2023-11-27] MEDS ORDERED: oxyCODONE HCL 5 MG TABLET PO PRN ×2 (10:34→10:41)
[2023-11-27] MEDS: oxyCODONE HCL 5 MG TABLET PO PRN (14:17)
[2023-11-27] MEDS: LIDOCAINE 4% PATCH TP SCH (17:56)
[2023-11-27] MEDS: LIDOCAINE PATCH REMOVAL MC SCH (23:45)
[2023-11-28] MEDS: ALPRAZolam 0.25 MG TABLET PO PRN (21:57)
[2023-11-29] MEDS: oxyCODONE HCL 5 MG TABLET PO PRN (12:34)
[2023-11-29] MEDS: ALBUTEROL SO4 0.083% IH SOL 2.5 MG/3 ML VIAL.NEB. NEB PRN (12:35)
[2023-11-30 06:36] VITALS: RESP 18
[2023-12-01 10:27] VITALS: BP 149/76; PULSE 85; TEMP 98.6
== END 2023-12-01 11:00 | DRG 313 ==
LOC: JER 14:07 → JERBED 19:27 → J7W 11-26 00:31 → OBSVTOIN 11-28 13:48
PROVIDERS: ADMIT Internal Medicine; ATTEND Internal Medicine
DX: R07.89 Other chest pain (principal); E43 Unspecified severe protein-calorie malnutrition; J96.11 Chronic respiratory failure with hypoxia; Z68.1 Body mass index [BMI] 19.9 or less, adult; I50.32 Chronic diastolic (congestive) heart failure; R63.4 Abnormal weight loss; M54.50 Low back pain, unspecified; I10 Essential (primary) hypertension; E78.5 Hyperlipidemia, unspecified; I25.10 Atherosclerotic heart disease of native coronary artery without angina pectoris; F41.9 Anxiety disorder, unspecified; J44.9 Chronic obstructive pulmonary disease, unspecified; I48.0 Paroxysmal atrial fibrillation; F32.A Depression, unspecified; M81.0 Age-related osteoporosis without current pathological fracture; Z99.81 Dependence on supplemental oxygen; I11.0 Hypertensive heart disease with heart failure; W19.XXXA Unspecified fall, initial encounter; Y93.89 Activity, other specified; Y92.009 Unspecified place in unspecified non-institutional (private) residence as the place of occurrence of the external cause; Y99.8 Other external cause status
CPT/HCPCS: 36415; 70450-TC; 71045-TC-FY; 71250-TC; 72125-TC; 80048; 80053; 83735; 84100; 84443; 84484; 85025; 85610; 85730; 86850; 86900; 86901; 93005; 93010; 94640; 97116-GP; 97162-GP; 99285-25; G0378; J0131

== ENCOUNTER 2024-01-02 19:52 | Inpatient (IN) | payer OTHER, MEDICARE ==
[2024-01-02] MEDS ORDERED: ALBUTEROL SO4 2.5/IPRATROPIUM 0.5 INH SOL 3 ML VIAL.NEB. NEB ONE (20:39)
[2024-01-02] MEDS: ALBUTEROL SO4 2.5/IPRATROPIUM 0.5 INH SOL 3 ML VIAL.NEB. NEB SCH (20:45)
[2024-01-02 21:09] LABS: BASO % 0.6 % (0-2.0); EOS % 1.5 % (0-4.5); HEMATOCRIT 33.9 % (32.4-45.2); LYMPH % 21.3 % (8-40); MCH 27.4 pg (25.7-33.7); MCHC 32.5 g/dl (32.0-36.0); MEAN CELL VOLUME 84.5 fl (80-96); MEAN PLT VOLUME 6.6 fl (7.5-11.1); MONO % 7.2 % (3.8-10.2); NEUT % 69.4 % (42.8-82.8); PLATELET COUNT 389 10^3/uL (134-434); RBC 4.01 M/mm3 (3.60-5.2); RDW 14.6 % (11.6-15.6); WHITE BLOOD COUNT 8.4 K/mm3 (4.0-10.0)
[2024-01-02 21:21] LABS: INR 1.03 (0.83-1.09); PROTHROMBIN TIME (PATIENT) 11.6 SEC (9.7-13.0)
[2024-01-02 21:24] LABS: ACTIVATED PTT 36.9 SECONDS (25.2-36.5)
[2024-01-02 21:40] LABS: POTASSIUM 4.7 mmol/L (3.5-5.1)
[2024-01-02 21:42] LABS: ALBUMIN 3.4 g/dl (3.4-5.0); BLOOD UREA NITROGEN 29.4 mg/dL (7-18); CALCIUM 8.7 mg/dL (8.5-10.1); MAGNESIUM 2.1 mg/dL (1.8-2.4)
[2024-01-02 21:45] LABS: CREATININE 0.8 mg/dL (0.55-1.3)
[2024-01-02 21:47] LABS: BILIRUBIN,TOTAL 0.4 mg/dL (0.2-1)
[2024-01-02 21:50] LABS: N-TERMINAL BNP 269.8 pg/ml (5-450)
[2024-01-02 22:55] LABS: PH,URINE 7.5 (5.0-8.0); URINE APPEARANCE CLEAR; URINE BILIRUBIN NEGATIVE (NEGATIVE); URINE COLOR YELLOW; URINE GLUCOSE (UA) NEGATIVE (NEGATIVE); URINE KETONE NEGATIVE (NEGATIVE); URINE LEUK ESTERASE NEGATIVE (NEGATIVE); URINE NITRITE NEGATIVE (NEGATIVE); URINE PROTEIN NEGATIVE (NEGATIVE); URINE UROBILINOGEN 0.2 mg/dL (0.2-1.0)
[2024-01-03 06:34] LABS: POTASSIUM 4.8 mmol/L (3.5-5.1)
[2024-01-03 06:37] LABS: CALCIUM 8.2 mg/dL (8.5-10.1)
[2024-01-03 06:38] LABS: BLOOD UREA NITROGEN 27.4 mg/dL (7-18)
[2024-01-03 06:40] LABS: BASO % 0.6 % (0-2.0); EOS % 1.8 % (0-4.5); HEMATOCRIT 30.9 % (32.4-45.2); HEMOGLOBIN 10.1 GM/dL (10.7-15.3); LYMPH % 25.2 % (8-40); MCHC 32.9 g/dl (32.0-36.0); MEAN CELL VOLUME 85.2 fl (80-96); MEAN PLT VOLUME 6.8 fl (7.5-11.1); MONO % 8.9 % (3.8-10.2); NEUT % 63.5 % (42.8-82.8); PLATELET COUNT 362 10^3/uL (134-434); RBC 3.62 M/mm3 (3.60-5.2); RDW 14.4 % (11.6-15.6); WHITE BLOOD COUNT 5.3 K/mm3 (4.0-10.0)
[2024-01-03 06:41] LABS: CREATININE 0.8 mg/dL (0.55-1.3)
[2024-01-03] MEDS ORDERED: ONDANSETRON 4 MG/2 ML VIAL ONE (09:42)
[2024-01-03] MEDS: ONDANSETRON 4 MG/2 ML VIAL IVPUSH ONE (09:47)
[2024-01-03] MEDS: ASPIRIN 81 MG CHEWABLE TABLETS PO SCH (09:47)
[2024-01-03] MEDS ORDERED: ALPRAZolam 0.25 MG TABLET PO SCH (12:15)
[2024-01-03] MEDS ORDERED: oxyCODONE HCL 5 MG TABLET ONE (12:37)
[2024-01-03] MEDS: BUDESONIDE/FORMETEROL FUMARATE 160/4.5 mcg INHALER IH SCH (12:41)
[2024-01-03] MEDS: oxyCODONE HCL 5 MG TABLET PO PRN (12:41)
[2024-01-03] MEDS: methylPREDNISolone NA SUCC 40 MG/1 ML VIAL IVPUSH SCH (15:02)
[2024-01-03] MEDS: FLUTICASONE/UMECLIDIN/VILANTER(200-62.5-25 TRELEGY ELLIPTA) INAHLER IH SCH (15:03)
[2024-01-03] MEDS: ALPRAZolam 0.25 MG TABLET PO SCH (21:21)
[2024-01-03] MEDS: MIRTAZAPINE 15 MG TABLET (FP) PO SCH (21:21)
[2024-01-03] MEDS: busPIRone HCL 5 MG TABLET PO SCH (21:21)
[2024-01-03] MEDS: DOCUSATE SODIUM 100 MG CAPSULE (FP) PO SCH (21:21)
[2024-01-04] MEDS: HEPARIN NA (PORCINE) 5,000 UNITS/ML 1ML VIAL SQ SCH (21:09)
[2024-01-05] MEDS: BUDESONIDE/FORMETEROL FUMARATE 160/4.5 mcg INHALER IH SCH (14:54)
[2024-01-05] MEDS: AMINO ACIDS/PROTEIN HYDROLYS 30 ML LIQUID.PKT PO SCH (17:12)
[2024-01-06] MEDS: ASCORBIC ACID 500 MG TABLET (FP) PO SCH (11:22)
[2024-01-06] MEDS: ZINC SULFATE 220 MG CAPSULE (FP) PO SCH (11:22)
[2024-01-06] MEDS: MULTIVITAMINS (DAILY MVI) TABLET (FP) PO SCH (11:22)
[2024-01-07] MEDS: ALBUTEROL SO4 0.083% IH SOL 2.5 MG/3 ML VIAL.NEB. NEB PRN (06:41)
[2024-01-07] MEDS: POLYETHYLENE GLYCOL (HEALTHYLAX) 3350 17 GM PACKET PO SCH (15:06)
[2024-01-07] MEDS: MINERAL OIL ENEMA 133 ML ENEMA RC ONE (16:37)
[2024-01-07] MEDS: SENNOSIDES 8.6MG TABLET (FP) PO SCH (21:24)
[2024-01-08 08:43] LABS: BASO % 0.5 % (0-2.0); EOS % 0.3 % (0-4.5); HEMATOCRIT 26.1 % (32.4-45.2); HEMOGLOBIN 8.3 GM/dL (10.7-15.3); LYMPH % 19.9 % (8-40); MCH 27.9 pg (25.7-33.7); MEAN CELL VOLUME 87.1 fl (80-96); MEAN PLT VOLUME 7.6 fl (7.5-11.1); MONO % 7.8 % (3.8-10.2); NEUT % 71.5 % (42.8-82.8); PLATELET COUNT 245 10^3/uL (134-434); WHITE BLOOD COUNT 6.6 K/mm3 (4.0-10.0)
[2024-01-08 09:07] LABS: POTASSIUM 4.7 mmol/L (3.5-5.1)
[2024-01-08 09:19] LABS: BLOOD UREA NITROGEN 39.4 mg/dL (7-18); CALCIUM 8.6 mg/dL (8.5-10.1)
[2024-01-08 09:22] LABS: ALBUMIN 2.6 g/dl (3.4-5.0)
[2024-01-08 09:23] LABS: CREATININE 0.9 mg/dL (0.55-1.3)
[2024-01-08 09:24] LABS: BILIRUBIN,TOTAL 0.2 mg/dL (0.2-1); TOT PROT 5.3 g/dl (6.4-8.2)
[2024-01-08] MEDS: predniSONE 10 MG TABLET (UD) PO SCH (10:05)
[2024-01-08] MEDS: IRON SUCROSE INJECTION 200 MG in SODIUM CHLORIDE 100 ML IVPB ONE (12:50)
[2024-01-09 06:17] VITALS: RESP 16
[2024-01-09 09:20] LABS: BASO % 0.7 % (0-2.0); EOS % 0.4 % (0-4.5); HEMATOCRIT 27.1 % (32.4-45.2); HEMOGLOBIN 8.7 GM/dL (10.7-15.3); LYMPH % 19.3 % (8-40); MCH 27.6 pg (25.7-33.7); MCHC 32.1 g/dl (32.0-36.0); MEAN CELL VOLUME 85.9 fl (80-96); MEAN PLT VOLUME 7.7 fl (7.5-11.1); MONO % 7.5 % (3.8-10.2); NEUT % 72.1 % (42.8-82.8); PLATELET COUNT 263 10^3/uL (134-434); RBC 3.16 M/mm3 (3.60-5.2); RDW 15.1 % (11.6-15.6); WHITE BLOOD COUNT 6.4 K/mm3 (4.0-10.0)
[2024-01-09] MEDS: IRON SUCROSE INJECTION 200 MG in SODIUM CHLORIDE 100 ML IVPB ONE (13:30)
[2024-01-09 14:28] VITALS: BMI 15.0
[2024-01-09 14:30] VITALS: PULSE 85
[2024-01-09 14:35] VITALS: BP 152/74; TEMP 98
== END 2024-01-09 17:17 | DRG 190 ==
LOC: JER 19:52 → JERBED 01-03 02:42 → J4S 01-03 14:02 → UNDODISIN 01-09 17:21
PROVIDERS: ADMIT Internal Medicine; ATTEND Internal Medicine
DX: J44.0 Chronic obstructive pulmonary disease with (acute) lower respiratory infection (principal); E43 Unspecified severe protein-calorie malnutrition; J18.9 Pneumonia, unspecified organism; J96.21 Acute and chronic respiratory failure with hypoxia; I50.32 Chronic diastolic (congestive) heart failure; Z68.1 Body mass index [BMI] 19.9 or less, adult; J44.1 Chronic obstructive pulmonary disease with (acute) exacerbation; E78.5 Hyperlipidemia, unspecified; I25.10 Atherosclerotic heart disease of native coronary artery without angina pectoris; I25.2 Old myocardial infarction; Z99.81 Dependence on supplemental oxygen; K21.9 Gastro-esophageal reflux disease without esophagitis; I11.0 Hypertensive heart disease with heart failure; M79.7 Fibromyalgia; F41.9 Anxiety disorder, unspecified; M81.0 Age-related osteoporosis without current pathological fracture; Z88.0 Allergy status to penicillin; I48.0 Paroxysmal atrial fibrillation; F32.A Depression, unspecified
CPT/HCPCS: 0241U-QW; 36415; 71045-TC-FY; 71275-TC; 80048; 80053; 81003; 83735; 83880; 84484; 85025; 85610; 85730; 87040; 87070; 87086; 87186; 87205; 87899; 93005; 93010; 94640; 97116-GP; 97161-GP; 99285-25; J1644; J1756; Q9967

== ENCOUNTER 2024-03-16 17:52 | Emergency (ER) | payer OTHER, MEDICARE ==
[2024-03-16 17:58] VITALS: TEMP 98.5; BMI 14.6
[2024-03-16 19:42] LABS: BASO % 0.7 % (0-2.0); EOS % 2.6 % (0-4.5); HEMATOCRIT 33.7 % (32.4-45.2); HEMOGLOBIN 10.6 GM/dL (10.7-15.3); LYMPH % 19.7 % (8-40); MCH 26.4 pg (25.7-33.7); MCHC 31.3 g/dl (32.0-36.0); MEAN CELL VOLUME 84.4 fl (80-96); MONO % 7.1 % (3.8-10.2); NEUT % 69.9 % (42.8-82.8); PLATELET COUNT 299 10^3/uL (134-434); RDW 16.8 % (11.6-15.6); WHITE BLOOD COUNT 4.7 K/mm3 (4.0-10.0)
[2024-03-16 19:48] LABS: INR 1.13 (0.83-1.09); PROTHROMBIN TIME (PATIENT) 12.7 SEC (9.7-13.0)
[2024-03-16 20:10] LABS: POTASSIUM 4.1 mmol/L (3.5-5.1)
[2024-03-16 20:12] LABS: ALBUMIN 3.3 g/dl (3.4-5.0); BLOOD UREA NITROGEN 20.6 mg/dL (7-18); CALCIUM 8.8 mg/dL (8.5-10.1)
[2024-03-16 20:15] LABS: CREATININE 0.9 mg/dL (0.55-1.3)
[2024-03-16 20:17] LABS: BILIRUBIN,TOTAL 0.4 mg/dL (0.2-1); TOT PROT 6.7 g/dl (6.4-8.2)
[2024-03-16 21:24] LABS: PH,URINE 7.5 (5.0-8.0); URINE APPEARANCE CLEAR; URINE BILIRUBIN NEGATIVE (NEGATIVE); URINE COLOR YELLOW; URINE GLUCOSE (UA) NEGATIVE (NEGATIVE); URINE KETONE NEGATIVE (NEGATIVE)
[2024-03-16 21:25] LABS: URINE LEUK ESTERASE 1+ (NEGATIVE); URINE NITRITE NEGATIVE (NEGATIVE); URINE PROTEIN NEGATIVE (NEGATIVE); URINE RBC 2 /uL (0-23.9); URINE UROBILINOGEN 0.2 mg/dL (0.2-1.0); URINE WBC 25 /uL (0-25.8)
[2024-03-16 21:27] LABS: URINE BACTERIA 30 /uL (0-1359)
[2024-03-16 21:36] VITALS: BP 134/79; PULSE 83; RESP 16
== END 2024-03-17 00:59 | disposition home or self-care (01) ==
LOC: JER 17:52
DX: R55 Syncope and collapse (principal); R42 Dizziness and giddiness; H00.011 Hordeolum externum right upper eyelid; Z20.822 Contact with and (suspected) exposure to COVID-19
CPT/HCPCS: 0241U-QW; 36415; 71045-TC-FY; 80053; 81003; 82550; 84443; 84484; 85025; 85610; 85730; 86850; 86900; 86901; 87086; 93005; 93010; 99285-25

== ENCOUNTER 2024-08-22 21:40 | Observation (INO) | payer OTHER, MEDICARE ==
[2024-08-22 21:50] VITALS: BMI 14.6
[2024-08-22 22:51] LABS: HEMATOCRIT 36.5 % (34.1-44.9); HEMOGLOBIN 11.4 g/dL (11.2-15.7); MCHC 31.2 g/dl (32.2-35.5); MEAN CELL VOLUME 86.7 fl (79.4-94.8); MEAN PLT VOLUME 9.1 fl (9.4-12.3); PLATELET COUNT # 424 x10^3/uL (182-369); RDW 14.3 % (12.5-17.0)
[2024-08-22 22:59] LABS: INR 1.14 (0.83-1.09); PROTHROMBIN TIME (PATIENT) 12.4 SEC (9.7-13.0)
[2024-08-22 23:02] LABS: ACTIVATED PTT 34.9 SECONDS (25.2-36.5)
[2024-08-22 23:19] LABS: POTASSIUM 4.4 mmol/L (3.5-5.1)
[2024-08-22 23:21] LABS: CALCIUM 9.1 mg/dL (8.5-10.1)
[2024-08-22 23:22] LABS: ALBUMIN 3.5 g/dl (3.4-5.0); BLOOD UREA NITROGEN 24.8 mg/dL (7-18)
[2024-08-22 23:25] LABS: CREATININE 1.1 mg/dL (0.55-1.3)
[2024-08-22 23:27] LABS: TOT PROT 7.2 g/dl (6.4-8.2)
[2024-08-22 23:28] LABS: BILIRUBIN,TOTAL 0.3 mg/dL (0.2-1)
[2024-08-22 23:30] LABS: N-TERMINAL BNP 861.3 pg/ml (5-450)
[2024-08-22] MEDS ORDERED: oxyCODONE HCL 5 MG TABLET ONE (23:53)
[2024-08-22] MEDS: oxyCODONE HCL 5 MG TABLET PO ONE (23:55)
[2024-08-23] MEDS ORDERED: DOCUSATE SODIUM 100 MG CAPSULE (FP) PO PRN (01:48)
[2024-08-23] MEDS ORDERED: ACETAMINOPHEN 1000 MG/100 ML BAG IVPB PRN (01:52)
[2024-08-23] MEDS ORDERED: PANTOPRAZOLE 40 MG TABLET PO PRN (07:47)
[2024-08-23] MEDS ORDERED: FUROSEMIDE 40 MG/4 ML INJECTABLE VIAL ONE (08:52)
[2024-08-23] MEDS ORDERED: oxyCODONE HCL 5 MG TABLET ONE (08:52)
[2024-08-23] MEDS ORDERED: LIDOCAINE 4% PATCH TP ONE (08:52)
[2024-08-23] MEDS: FUROSEMIDE 40 MG/4 ML INJECTABLE VIAL IVPUSH ONE (08:58)
[2024-08-23] MEDS: oxyCODONE HCL 5 MG TABLET PO ONE (09:00)
[2024-08-23] MEDS: LIDOCAINE 4% PATCH TP SCH (09:10)
[2024-08-23] MEDS ORDERED: busPIRone HCL 5 MG TABLET ONE (10:58)
[2024-08-23] MEDS ORDERED: ACETAMINOPHEN INJECTION 100 ML ONE (10:58)
[2024-08-23] MEDS: EMPAGLIFLOZIN (JARDIANCE) 10 MG TABLET PO SCH (11:05)
[2024-08-23] MEDS: FLUTICASONE/UMECLIDIN/VILANTER(200-62.5-25 TRELEGY ELLIPTA) INAHLER IH SCH (11:05)
[2024-08-23] MEDS: busPIRone HCL 5 MG TABLET PO SCH (11:05)
[2024-08-23 13:53] VITALS: RESP 18; TEMP 98.8
[2024-08-23] MEDS ORDERED: ALPRAZolam 0.25 MG TABLET ONE (17:26)
[2024-08-23] MEDS: ALPRAZolam 0.25 MG TABLET PO PRN (17:30)
[2024-08-23 20:05] VITALS: BP 152/73; PULSE 72
[2024-08-23] MEDS ORDERED: LIDOCAINE PATCH REMOVAL MC SCH (22:00)
[2024-08-23] MEDS ORDERED: MIRTAZAPINE 15 MG TABLET (FP) PO SCH (22:00)
== END 2024-08-23 20:54 | disposition short-term general hospital (02) ==
LOC: JER 21:40 → JERBED 08-23 01:42
PROVIDERS: ADMIT Internal Medicine; ATTEND Internal Medicine
DX: I25.2 Old myocardial infarction (principal); R07.89 Other chest pain; I25.10 Atherosclerotic heart disease of native coronary artery without angina pectoris; I11.9 Hypertensive heart disease without heart failure; R06.00 Dyspnea, unspecified; E78.5 Hyperlipidemia, unspecified; J44.9 Chronic obstructive pulmonary disease, unspecified; F41.9 Anxiety disorder, unspecified; Z95.5 Presence of coronary angioplasty implant and graft; Z87.891 Personal history of nicotine dependence; G89.29 Other chronic pain; M54.30 Sciatica, unspecified side
CPT/HCPCS: 0241U-QW; 36415; 71046-TC-FY; 80053; 83735; 83880; 84484; 85025; 85610; 85730; 87635; 93005; 93010; 96374; 99285-25; G0378

== ENCOUNTER 2024-09-08 00:11 | Inpatient (IN) | payer OTHER, MEDICARE ==
[2024-09-08 00:55] VITALS: BMI 14.5
[2024-09-08 01:24] LABS: ABSOLUTE IMMATURE GRANULOCYTES 0.05 x10^3/uL (0.0-0.031); BASOPHILS # 0.06 x10^3/uL (0.01-0.08); EOSINOPHIL % 2.9 % (0.7-5.8); HEMATOCRIT 24.7 % (34.1-44.9); HEMOGLOBIN 7.8 g/dL (11.2-15.7); MCHC 31.6 g/dl (32.2-35.5); MEAN PLT VOLUME 8.9 fl (9.4-12.3); MONOCYTE # 0.49 x10^3/uL (0.24-0.86); MONOCYTE % 7.1 % (4.7-12.5); PLATELET COUNT 431 x10^3/uL (182-369); RDW 14.3 % (12.5-17.0)
[2024-09-08 01:51] LABS: VENOUS BASE EXCESS 2.1 mmol/L (-2-2); VENOUS O2 SATURATION 95.3 % (70-80); VENOUS PCO2 44.1 mmHg (38-52); VENOUS PH 7.406 (7.310-7.410)
[2024-09-08 01:52] LABS: CALCIUM 9.1 mg/dL (8.5-10.1); POTASSIUM 4.7 mmol/L (3.5-5.1)
[2024-09-08 01:54] LABS: ALBUMIN 3.1 g/dl (3.4-5.0); BLOOD UREA NITROGEN 25.5 mg/dL (7-18)
[2024-09-08 01:57] LABS: CREATININE 1.1 mg/dL (0.55-1.3)
[2024-09-08 01:59] LABS: BILIRUBIN,TOTAL 0.4 mg/dL (0.2-1); TOT PROT 6.5 g/dl (6.4-8.2)
[2024-09-08 02:02] LABS: N-TERMINAL BNP 416.6 pg/ml (5-450)
[2024-09-08] MEDS ORDERED: PIPERACILLIN/TAZOB 4.5 GM 4.5 GM in DEXTROSE 5%-WATER 100 ML IVPB ONE (04:59)
[2024-09-08] MEDS ORDERED: MEROPENEM 1 GM VIAL (RESTRICTED TO ID) IVPB ONE (05:28)
[2024-09-08] MEDS ORDERED: DEXTROSE 5%-WATER 100 ML IVPB ONE (05:28)
[2024-09-08] MEDS: MEROPENEM 1 GM in DEXTROSE 5%-WATER 100 ML IVPB ONE (05:38)
[2024-09-08 05:44] LABS: ABSOLUTE IMMATURE GRANULOCYTES 0.02 x10^3/uL (0.0-0.031); BASOPHILS # 0.03 x10^3/uL (0.01-0.08); EOSINOPHILS # 0.13 x10^3/uL (0.04-0.36); HEMATOCRIT 23.5 % (34.1-44.9); HEMOGLOBIN 7.3 g/dL (11.2-15.7); MCHC 31.1 g/dl (32.2-35.5); MEAN CELL VOLUME 87.7 fl (79.4-94.8); MEAN PLT VOLUME 8.3 fl (9.4-12.3); MONOCYTE # 0.36 x10^3/uL (0.24-0.86); MONOCYTE % 5.6 % (4.7-12.5); PLATELET COUNT 373 x10^3/uL (182-369); RDW 14.5 % (12.5-17.0)
[2024-09-08 05:53] LABS: INR 1.28 (0.83-1.09); PROTHROMBIN TIME (PATIENT) 13.9 SEC (9.7-13.0)
[2024-09-08] MEDS ORDERED: PANTOPRAZOLE 40 MG TABLET PO PRN (09:43)
[2024-09-08] MEDS: ZINC SULFATE 220 MG CAPSULE (FP) PO SCH (10:03)
[2024-09-08] MEDS: busPIRone HCL 10 MG TABLET (FP) PO SCH (10:03)
[2024-09-08] MEDS: ASPIRIN 81 MG CHEWABLE TABLETS PO SCH (10:03)
[2024-09-08] MEDS: MULTIVITAMINS (DAILY MVI) TABLET (FP) PO SCH (10:03)
[2024-09-08] MEDS: CLOPIDOGREL BISULFATE 75 MG TABLET (FP) PO SCH (10:03)
[2024-09-08] MEDS: HEPARIN NA (PORCINE) 5,000 UNITS/ML 1ML VIAL SQ SCH (10:03)
[2024-09-08] MEDS: ASCORBIC ACID 500 MG TABLET (FP) PO SCH (10:03)
[2024-09-08] MEDS: oxyCODONE HCL 5 MG TABLET PO PRN (10:15)
[2024-09-08] MEDS ORDERED: AZITHROMYCIN IVPB 500 MG in SODIUM CHLORIDE 250 ML IVPB SCH (10:45)
[2024-09-08] MEDS: BUDESONIDE/FORMETEROL FUMARATE 160/4.5 mcg INHALER IH SCH (10:49)
[2024-09-08] MEDS: AZITHROMYCIN IVPB 500 MG/250 ML BAG IVPB SCH (10:49)
[2024-09-08] MEDS: CEFTRIAXONE 1 G/50 ML PREMIX 50 ML IVPB SCH (10:49)
[2024-09-08 20:34] LABS: ABSOLUTE IMMATURE GRANULOCYTES 0.04 x10^3/uL (0.0-0.031); BASOPHILS # 0.04 x10^3/uL (0.01-0.08); EOSINOPHIL % 5.4 % (0.7-5.8); HEMATOCRIT 28.5 % (34.1-44.9); HEMOGLOBIN 8.9 g/dL (11.2-15.7); MCHC 31.2 g/dl (32.2-35.5); MEAN CELL VOLUME 90.2 fl (79.4-94.8); MEAN PLT VOLUME 8.6 fl (9.4-12.3); MONOCYTE % 6.8 % (4.7-12.5); PLATELET COUNT 402 x10^3/uL (182-369)
[2024-09-08] MEDS: SENNOSIDES 8.6MG TABLET (FP) PO SCH (21:14)
[2024-09-08] MEDS: DOCUSATE SODIUM 100 MG CAPSULE (FP) PO SCH (21:14)
[2024-09-08] MEDS: MIRTAZAPINE 15 MG TABLET (FP) PO SCH (21:14)
[2024-09-09] MEDS: ACETAMINOPHEN 325 MG TABLET (FP) PO PRN (01:04)
[2024-09-09 08:51] LABS: ABSOLUTE IMMATURE GRANULOCYTES 0.02 x10^3/uL (0.0-0.031); BASOPHILS # 0.05 x10^3/uL (0.01-0.08); EOSINOPHIL % 3.6 % (0.7-5.8); EOSINOPHILS # 0.24 x10^3/uL (0.04-0.36); HEMOGLOBIN 8.7 g/dL (11.2-15.7); MCHC 31.1 g/dl (32.2-35.5); MEAN CELL VOLUME 88.9 fl (79.4-94.8); MEAN PLT VOLUME 8.7 fl (9.4-12.3); MONOCYTE # 0.43 x10^3/uL (0.24-0.86); MONOCYTE % 6.5 % (4.7-12.5); PLATELET COUNT 408 x10^3/uL (182-369); RDW 14.5 % (12.5-17.0)
[2024-09-09 08:52] LABS: Reticulocyte % 2.31 % (0.5-1.7)
[2024-09-09 09:07] LABS: POTASSIUM 4.8 mmol/L (3.5-5.1)
[2024-09-09 09:12] LABS: ALBUMIN 2.9 g/dl (3.4-5.0); BLOOD UREA NITROGEN 20.2 mg/dL (7-18); CALCIUM 8.7 mg/dL (8.5-10.1)
[2024-09-09 09:16] LABS: BILIRUBIN,TOTAL 0.5 mg/dL (0.2-1); TOT PROT 5.8 g/dl (6.4-8.2)
[2024-09-09] MEDS: ALBUTEROL SO4 0.083% IH SOL 2.5 MG/3 ML VIAL.NEB. NEB PRN (16:04)
[2024-09-10 08:18] LABS: ABSOLUTE IMMATURE GRANULOCYTES 0.05 x10^3/uL (0.0-0.031); BASOPHILS # 0.06 x10^3/uL (0.01-0.08); EOSINOPHIL % 6.1 % (0.7-5.8); EOSINOPHILS # 0.41 x10^3/uL (0.04-0.36); HEMATOCRIT 29.8 % (34.1-44.9); HEMOGLOBIN 9.3 g/dL (11.2-15.7); MCHC 31.2 g/dl (32.2-35.5); MEAN CELL VOLUME 89.8 fl (79.4-94.8); MEAN PLT VOLUME 8.4 fl (9.4-12.3); MONOCYTE # 0.38 x10^3/uL (0.24-0.86); MONOCYTE % 5.7 % (4.7-12.5); PLATELET COUNT 443 x10^3/uL (182-369); RDW 14.5 % (12.5-17.0)
[2024-09-10 08:36] LABS: POTASSIUM 4.4 mmol/L (3.5-5.1)
[2024-09-10 08:43] LABS: BLOOD UREA NITROGEN 21.1 mg/dL (7-18)
[2024-09-10 08:44] LABS: ALBUMIN 3.1 g/dl (3.4-5.0)
[2024-09-10 08:45] LABS: BILIRUBIN,TOTAL 0.5 mg/dL (0.2-1); CALCIUM 8.9 mg/dL (8.5-10.1); TOT PROT 6.3 g/dl (6.4-8.2)
[2024-09-10] MEDS: PANTOPRAZOLE 40 MG TABLET PO SCH (15:16)
[2024-09-10] MEDS: methylPREDNISolone NA SUCC 40 MG/1 ML VIAL IVPUSH SCH (15:16)
[2024-09-10] MEDS: ALBUTEROL SO4 2.5/IPRATROPIUM 0.5 INH SOL 3 ML VIAL.NEB. NEB SCH (15:58)
[2024-09-11] MEDS: POLYETHYLENE GLYCOL (HEALTHYLAX) 3350 17 GM PACKET PO SCH (10:50)
[2024-09-11] MEDS: methylPREDNISolone NA SUCC 40 MG/1 ML VIAL IVPUSH SCH (14:40)
[2024-09-11] MEDS: SENNOSIDES 8.8 MG/5 ML SYRUP PO SCH (21:58)
[2024-09-12 08:54] LABS: HEMATOCRIT 27.8 % (34.1-44.9); HEMOGLOBIN 8.7 g/dL (11.2-15.7); MCHC 31.3 g/dl (32.2-35.5); MEAN CELL VOLUME 90.8 fl (79.4-94.8); MEAN PLT VOLUME 8.4 fl (9.4-12.3); PLATELET COUNT 454 x10^3/uL (182-369); RDW 15.5 % (12.5-17.0)
[2024-09-12 09:12] LABS: POTASSIUM 4.5 mmol/L (3.5-5.1)
[2024-09-12 09:22] LABS: CALCIUM 8.7 mg/dL (8.5-10.1)
[2024-09-12 09:26] LABS: CREATININE 1.1 mg/dL (0.55-1.3)
[2024-09-12 09:27] LABS: BILIRUBIN,TOTAL 0.3 mg/dL (0.2-1)
[2024-09-12 09:28] LABS: TOT PROT 6.1 g/dl (6.4-8.2)
[2024-09-12] MEDS: ALPRAZolam 0.25 MG TABLET PO PRN (11:21)
[2024-09-12 13:49] VITALS: RESP 18
[2024-09-13 12:08] LABS: ABSOLUTE IMMATURE GRANULOCYTES 0.07 x10^3/uL (0.0-0.031); BASOPHILS # 0.02 x10^3/uL (0.01-0.08); HEMATOCRIT 30.1 % (34.1-44.9); HEMOGLOBIN 9.3 g/dL (11.2-15.7); MCHC 30.9 g/dl (32.2-35.5); MEAN PLT VOLUME 8.8 fl (9.4-12.3); MONOCYTE # 0.77 x10^3/uL (0.24-0.86); MONOCYTE % 7.6 % (4.7-12.5); PLATELET COUNT 518 x10^3/uL (182-369); RDW 15.7 % (12.5-17.0)
[2024-09-14 03:37] VITALS: PULSE 82
[2024-09-14 05:44] VITALS: BP 123/62; TEMP 98.3
[2024-09-14] MEDS: predniSONE 20 MG TABLET (UD) PO SCH (09:11)
== END 2024-09-14 09:59 | disposition home or self-care (01) | DRG 190 ==
LOC: JER 00:11 → JERBED 04:54 → J6S 06:42 → OBSVTOIN 09-09 10:45
PROVIDERS: ADMIT Internal Medicine; ATTEND Internal Medicine
PROC: 30233N1 Transfusion of Nonautologous Red Blood Cells into Peripheral Vein, Percutaneous Approach (ICD-10-PCS; principal; 2024-09-08)
DX: J44.0 Chronic obstructive pulmonary disease with (acute) lower respiratory infection (principal); E43 Unspecified severe protein-calorie malnutrition; J18.9 Pneumonia, unspecified organism; I50.32 Chronic diastolic (congestive) heart failure; J96.11 Chronic respiratory failure with hypoxia; J98.11 Atelectasis; R64 Cachexia; Z68.1 Body mass index [BMI] 19.9 or less, adult; J44.1 Chronic obstructive pulmonary disease with (acute) exacerbation; D64.9 Anemia, unspecified; I11.0 Hypertensive heart disease with heart failure; I25.119 Atherosclerotic heart disease of native coronary artery with unspecified angina pectoris; I48.0 Paroxysmal atrial fibrillation; E78.5 Hyperlipidemia, unspecified; M79.7 Fibromyalgia; K21.9 Gastro-esophageal reflux disease without esophagitis; R13.10 Dysphagia, unspecified; F41.8 Other specified anxiety disorders
CPT/HCPCS: 36415; 36430; 71045-TC-FY; 71275-TC; 74220-TC-FY; 74240-TC-FY; 80053; 82272; 82728; 82803; 83010; 83540; 83550; 83615; 83735; 83880; 84484; 85025; 85610; 86880; 87040; 87070; 87077; 87205; 87899; 93005; 93010; 93306-TC; 94640; 97116-GP; 97161-GP; 99285-25; G0378; J1644; P9058; Q9967

== ENCOUNTER 2024-10-10 19:44 | Inpatient (IN) | payer OTHER, MEDICARE ==
[2024-10-10 21:13] LABS: EOSINOPHIL % 0.1 % (0.7-5.8); EOSINOPHILS # 0.01 x10^3/uL (0.04-0.36); RDW 15.4 % (12.5-17.0)
[2024-10-10 21:14] LABS: ABSOLUTE IMMATURE GRANULOCYTES 0.43 x10^3/uL (0.0-0.031); BASOPHILS # 0.03 x10^3/uL (0.01-0.08); HEMATOCRIT 32.2 % (34.1-44.9); HEMOGLOBIN 9.8 g/dL (11.2-15.7); MCHC 30.4 g/dl (32.2-35.5); MEAN CELL VOLUME 91.5 fl (79.4-94.8); MEAN PLT VOLUME 9.4 fl (9.4-12.3); MONOCYTE # 0.15 x10^3/uL (0.24-0.86); MONOCYTE % 1.3 % (4.7-12.5); PLATELET COUNT 312 x10^3/uL (182-369); VENOUS BASE EXCESS -0.5 mmol/L (-2-2); VENOUS O2 SATURATION 51.1 % (70-80); VENOUS PCO2 56.4 mmHg (38-52); VENOUS PH 7.294 (7.310-7.410)
[2024-10-10 21:47] LABS: POTASSIUM 5.5 mmol/L (3.5-5.1)
[2024-10-10 21:48] LABS: CALCIUM 8.8 mg/dL (8.5-10.1)
[2024-10-10 21:49] LABS: ALBUMIN 3.2 g/dl (3.4-5.0); BLOOD UREA NITROGEN 44.7 mg/dL (7-18)
[2024-10-10 21:53] LABS: CREATININE 1.1 mg/dL (0.55-1.3)
[2024-10-10 21:54] LABS: BILIRUBIN,TOTAL 0.4 mg/dL (0.2-1); TOT PROT 6.4 g/dl (6.4-8.2)
[2024-10-11 00:41] LABS: VENOUS BASE EXCESS -0.3 mmol/L (-2-2); VENOUS O2 SATURATION 31.5 % (70-80); VENOUS PCO2 50.2 mmHg (38-52); VENOUS PH 7.332 (7.310-7.410)
[2024-10-11] MEDS ORDERED: ALBUTEROL SO4 HFA INHALER IH PRN (02:18)
[2024-10-11] MEDS: ACETAMINOPHEN 1000 MG/100 ML BAG IVPB ONE (02:43)
[2024-10-11] MEDS: ALPRAZolam 0.25 MG TABLET PO SCH (03:37)
[2024-10-11] MEDS: oxyCODONE HCL 5 MG TABLET PO PRN (04:34)
[2024-10-11] MEDS: ALBUTEROL SO4 2.5/IPRATROPIUM 0.5 INH SOL 3 ML VIAL.NEB. NEB SCH (07:40)
[2024-10-11 08:29] LABS: HEMATOCRIT 30.3 % (34.1-44.9); HEMOGLOBIN 9.3 g/dL (11.2-15.7); MCHC 30.7 g/dl (32.2-35.5); MEAN CELL VOLUME 91.3 fl (79.4-94.8); MEAN PLT VOLUME 9.2 fl (9.4-12.3); PLATELET COUNT 296 x10^3/uL (182-369); RDW 15.2 % (12.5-17.0)
[2024-10-11 09:07] LABS: BLOOD UREA NITROGEN 47.7 mg/dL (7-18)
[2024-10-11 09:11] LABS: CALCIUM 8.7 mg/dL (8.5-10.1); CREATININE 1.2 mg/dL (0.55-1.3)
[2024-10-11 09:12] LABS: PHOSPHOROUS 4.5 mg/dL (2.5-4.9)
[2024-10-11] MEDS: CLOPIDOGREL BISULFATE 75 MG TABLET (FP) PO SCH (10:19)
[2024-10-11] MEDS: HEPARIN NA (PORCINE) 5,000 UNITS/ML 1ML VIAL SQ SCH (10:19)
[2024-10-11] MEDS: PANTOPRAZOLE 40 MG TABLET PO SCH (10:19)
[2024-10-11] MEDS: ASPIRIN 81 MG CHEWABLE TABLETS PO SCH (10:20)
[2024-10-11] MEDS: BUDESONIDE/FORMETEROL FUMARATE 160/4.5 mcg INHALER IH SCH (10:20)
[2024-10-11] MEDS: busPIRone HCL 5 MG TABLET PO SCH (10:20)
[2024-10-11 15:55] VITALS: BMI 17.0
[2024-10-11] MEDS ORDERED: DOCUSATE SODIUM 100 MG CAPSULE (FP) PO PRN (20:53)
[2024-10-11] MEDS: SENNOSIDES 8.6MG TABLET (FP) PO SCH (21:27)
[2024-10-11] MEDS: MIRTAZAPINE 15 MG TABLET (FP) PO SCH (21:27)
[2024-10-12 22:59] VITALS: RESP 18
[2024-10-13 10:57] VITALS: BP 119/76; PULSE 98; TEMP 98
== END 2024-10-13 12:21 | DRG 204 ==
LOC: JER 19:44 → JERBED 22:30 → J8W 10-11 00:50
PROVIDERS: ADMIT Internal Medicine; ATTEND Internal Medicine
DX: R06.02 Shortness of breath (principal); J98.11 Atelectasis; I50.32 Chronic diastolic (congestive) heart failure; B37.81 Candidal esophagitis; J44.9 Chronic obstructive pulmonary disease, unspecified; I25.10 Atherosclerotic heart disease of native coronary artery without angina pectoris; M81.0 Age-related osteoporosis without current pathological fracture; F41.9 Anxiety disorder, unspecified; K21.9 Gastro-esophageal reflux disease without esophagitis; M79.7 Fibromyalgia; I11.0 Hypertensive heart disease with heart failure; Z99.81 Dependence on supplemental oxygen; Z87.11 Personal history of peptic ulcer disease
CPT/HCPCS: 0241U-QW; 36415; 71045-TC-FY; 80048; 80053; 82803; 83880; 84100; 84484; 85025; 85027; 85379; 93005; 93010; 94640; 97116-GP; 99285-25; J0131; J1644

== ENCOUNTER 2024-10-29 22:59 | Inpatient (IN) | payer OTHER, MEDICARE ==
[2024-10-29] MEDS ORDERED: ALBUTEROL SO4 2.5/IPRATROPIUM 0.5 INH SOL 3 ML VIAL.NEB. NEB ONE (23:20)
[2024-10-29] MEDS: ALBUTEROL SO4 2.5/IPRATROPIUM 0.5 INH SOL 3 ML VIAL.NEB. NEB ONE (23:25)
[2024-10-29 23:42] VITALS: BMI 13.8
[2024-10-29 23:51] LABS: ABSOLUTE IMMATURE GRANULOCYTES 0.23 x10^3/uL (0.0-0.031); BASOPHILS # 0.08 x10^3/uL (0.01-0.08); EOSINOPHIL % 1.4 % (0.7-5.8); EOSINOPHILS # 0.17 x10^3/uL (0.04-0.36); HEMATOCRIT 31.7 % (34.1-44.9); HEMOGLOBIN 9.2 g/dL (11.2-15.7); MEAN CELL VOLUME 91.6 fl (79.4-94.8); MEAN PLT VOLUME 9.2 fl (9.4-12.3); MONOCYTE # 0.95 x10^3/uL (0.24-0.86); MONOCYTE % 7.9 % (4.7-12.5); PLATELET COUNT 434 x10^3/uL (182-369); RDW 14.6 % (12.5-17.0)
[2024-10-29 23:52] LABS: VENOUS BASE EXCESS 0.4 mmol/L (-2-2); VENOUS O2 SATURATION 48.4 % (70-80); VENOUS PCO2 64.9 mmHg (38-52); VENOUS PH 7.259 (7.310-7.410)
[2024-10-30 00:01] LABS: POTASSIUM 4.5 mmol/L (3.5-5.1)
[2024-10-30 00:03] LABS: CALCIUM 8.9 mg/dL (8.5-10.1)
[2024-10-30 00:04] LABS: ALBUMIN 2.6 g/dl (3.4-5.0); BLOOD UREA NITROGEN 41.4 mg/dL (7-18)
[2024-10-30 00:08] LABS: CREATININE 1.6 mg/dL (0.55-1.3)
[2024-10-30 00:09] LABS: BILIRUBIN,TOTAL 0.3 mg/dL (0.2-1); TOT PROT 6.6 g/dl (6.4-8.2)
[2024-10-30 00:20] LABS: INR 1.24 (0.83-1.09); PROTHROMBIN TIME (PATIENT) 13.6 SEC (9.7-13.0)
[2024-10-30 00:23] LABS: ACTIVATED PTT 34.4 SECONDS (25.2-36.5)
[2024-10-30] MEDS ORDERED: AZITHROMYCIN IVPB 500 MG/250 ML BAG IVPB ONE (00:27)
[2024-10-30] MEDS ORDERED: methylPREDNISolone NA SUCC 125 MG/2 ML VIAL ONE (00:27)
[2024-10-30] MEDS ORDERED: CEFTRIAXONE 1 G/50 ML PREMIX 50 ML IVPB ONE (00:27)
[2024-10-30] MEDS: methylPREDNISolone NA SUCC 125 MG/2 ML VIAL IVPUSH ONE (00:32)
[2024-10-30] MEDS: CEFTRIAXONE 1,000 MG in DEXTROSE 5%-WATER - 50 ML IVPB ONE (00:32)
[2024-10-30] MEDS ORDERED: MORPHINE SULFATE 2 MG/ML SYRINGE ONE (00:36)
[2024-10-30] MEDS: morphine SULFATE 4 MG/ML VIAL IVPUSH ONE (00:40)
[2024-10-30] MEDS: AZITHROMYCIN IVPB 500 MG in DEXTROSE 5%-WATER - 250 ML IVPB ONE (00:40)
[2024-10-30] MEDS ORDERED: VANCOMYCIN 1 GM PREMIX (F) 1 GM/200 ML BAG ONE (01:33)
[2024-10-30] MEDS: VANCOMYCIN 1,000 MG in DEXTROSE 5%-WATER - 250 ML IVPB ONE (02:08)
[2024-10-30] MEDS ORDERED: ACETAMINOPHEN INJECTION 100 ML ONE (03:08)
[2024-10-30] MEDS: ACETAMINOPHEN 1000 MG/100 ML BAG IVPB ONE (03:10)
[2024-10-30] MEDS: ALBUTEROL SO4 2.5/IPRATROPIUM 0.5 INH SOL 3 ML VIAL.NEB. NEB SCH (08:20)
[2024-10-30 08:28] LABS: HEMATOCRIT 27.5 % (34.1-44.9); MCHC 29.1 g/dl (32.2-35.5); MEAN CELL VOLUME 90.8 fl (79.4-94.8); MEAN PLT VOLUME 9.3 fl (9.4-12.3); PLATELET COUNT 401 x10^3/uL (182-369); RDW 14.5 % (12.5-17.0)
[2024-10-30] MEDS: methylPREDNISolone NA SUCC 40 MG/1 ML VIAL IVPUSH SCH (09:33)
[2024-10-30] MEDS: PANTOPRAZOLE 40 MG TABLET PO SCH (09:33)
[2024-10-30] MEDS: CLOPIDOGREL BISULFATE 75 MG TABLET (FP) PO SCH (09:33)
[2024-10-30] MEDS: ASPIRIN 81 MG CHEWABLE TABLETS PO SCH (09:33)
[2024-10-30] MEDS: HEPARIN NA (PORCINE) 5,000 UNITS/ML 1ML VIAL SQ SCH (09:33)
[2024-10-30] MEDS: busPIRone HCL 10 MG TABLET (FP) PO SCH (09:33)
[2024-10-30] MEDS: BUDESONIDE/FORMETEROL FUMARATE 160/4.5 mcg INHALER IH SCH (12:51)
[2024-10-30 15:21] LABS: BLOOD UREA NITROGEN 47.1 mg/dL (7-18); CALCIUM 8.8 mg/dL (8.5-10.1); CREATININE 1.7 mg/dL (0.55-1.3); MAGNESIUM 2.3 mg/dL (1.8-2.4); PHOSPHOROUS 5.3 mg/dL (2.5-4.9); POTASSIUM 4.7 mmol/L (3.5-5.1)
[2024-10-30] MEDS: SENNOSIDES 8.6MG TABLET (FP) PO SCH (21:32)
[2024-10-30] MEDS: MIRTAZAPINE 15 MG TABLET (FP) PO SCH (21:32)
[2024-10-30 22:21] LABS: URINE APPEARANCE CLEAR; URINE BILIRUBIN NEGATIVE (NEGATIVE); URINE COLOR YELLOW; URINE GLUCOSE (UA) NEGATIVE (NEGATIVE); URINE KETONE NEGATIVE (NEGATIVE); URINE LEUK ESTERASE NEGATIVE (NEGATIVE); URINE NITRITE NEGATIVE (NEGATIVE); URINE PROTEIN TRACE (NEGATIVE); URINE UROBILINOGEN 0.2 mg/dL (0.2-1.0)
[2024-10-31 08:36] LABS: HEMATOCRIT 24.5 % (34.1-44.9); HEMOGLOBIN 7.5 g/dL (11.2-15.7); MCHC 30.6 g/dl (32.2-35.5); MEAN CELL VOLUME 86.3 fl (79.4-94.8); MEAN PLT VOLUME 9.4 fl (9.4-12.3); PLATELET COUNT 420 x10^3/uL (182-369); RDW 14.2 % (12.5-17.0)
[2024-10-31 09:04] LABS: POTASSIUM 4.2 mmol/L (3.5-5.1)
[2024-10-31 09:08] LABS: ALBUMIN 2.2 g/dl (3.4-5.0)
[2024-10-31 09:09] LABS: BILIRUBIN,TOTAL 0.1 mg/dL (0.2-1); TOT PROT 5.6 g/dl (6.4-8.2)
[2024-10-31 09:10] LABS: BLOOD UREA NITROGEN 59.3 mg/dL (7-18)
[2024-10-31 09:11] LABS: CALCIUM 9.1 mg/dL (8.5-10.1); CREATININE 1.6 mg/dL (0.55-1.3)
[2024-10-31] MEDS: IRON SUCROSE INJECTION 200 MG in SODIUM CHLORIDE 100 ML IVPB ONE (10:51)
[2024-10-31] MEDS: MINERAL OIL ENEMA 133 ML ENEMA RC ONE (17:29)
[2024-10-31] MEDS: methylPREDNISolone NA SUCC 40 MG/1 ML VIAL IVPUSH SCH (21:42)
[2024-10-31 22:35] VITALS: RESP 18
[2024-11-01 06:37] LABS: URINE APPEARANCE CLEAR; URINE BILIRUBIN NEGATIVE (NEGATIVE); URINE COLOR YELLOW; URINE GLUCOSE (UA) NEGATIVE (NEGATIVE); URINE KETONE NEGATIVE (NEGATIVE); URINE LEUK ESTERASE NEGATIVE (NEGATIVE); URINE NITRITE NEGATIVE (NEGATIVE); URINE PROTEIN TRACE (NEGATIVE); URINE UROBILINOGEN 0.2 mg/dL (0.2-1.0)
[2024-11-01 08:46] LABS: ABSOLUTE IMMATURE GRANULOCYTES 0.17 x10^3/uL (0.0-0.031); BASOPHILS # 0.01 x10^3/uL (0.01-0.08); HEMATOCRIT 25.4 % (34.1-44.9); HEMOGLOBIN 7.7 g/dL (11.2-15.7); MCHC 30.3 g/dl (32.2-35.5); MEAN CELL VOLUME 86.1 fl (79.4-94.8); MEAN PLT VOLUME 8.9 fl (9.4-12.3); MONOCYTE # 0.58 x10^3/uL (0.24-0.86); MONOCYTE % 4.5 % (4.7-12.5); PLATELET COUNT 402 x10^3/uL (182-369); RDW 14.3 % (12.5-17.0)
[2024-11-01 11:40] LABS: POTASSIUM 4.2 mmol/L (3.5-5.1)
[2024-11-01 11:41] LABS: CALCIUM 9.2 mg/dL (8.5-10.1)
[2024-11-01 11:42] LABS: BLOOD UREA NITROGEN 59.8 mg/dL (7-18)
[2024-11-01 11:45] LABS: CREATININE 1.4 mg/dL (0.55-1.3)
[2024-11-01 13:53] VITALS: BP 122/50; PULSE 98; TEMP 98
== END 2024-11-01 13:50 | DRG 189 ==
LOC: JER 22:59 → JERBED 10-30 00:49 → J8W 10-30 04:16
PROVIDERS: ADMIT Family Medicine; ATTEND Family Medicine
DX: J96.22 Acute and chronic respiratory failure with hypercapnia (principal); E43 Unspecified severe protein-calorie malnutrition; I50.32 Chronic diastolic (congestive) heart failure; J44.1 Chronic obstructive pulmonary disease with (acute) exacerbation; N17.9 Acute kidney failure, unspecified; R64 Cachexia; Z68.1 Body mass index [BMI] 19.9 or less, adult; E87.29 Other acidosis; I25.10 Atherosclerotic heart disease of native coronary artery without angina pectoris; I11.0 Hypertensive heart disease with heart failure; Z99.81 Dependence on supplemental oxygen; K21.9 Gastro-esophageal reflux disease without esophagitis; M79.7 Fibromyalgia; M81.0 Age-related osteoporosis without current pathological fracture; I25.2 Old myocardial infarction; J96.21 Acute and chronic respiratory failure with hypoxia; D64.9 Anemia, unspecified
CPT/HCPCS: 36415; 71045-TC-FY; 76775-TC; 80048; 80053; 81003; 82272; 82728; 82803; 83540; 83550; 83735; 84100; 84484; 85025; 85610; 85730; 87086; 93005; 93010; 94640; 99285-25; J0131; J1644; J1756

== ENCOUNTER 2024-12-30 15:20 | Inpatient (IN) | payer OTHER, MEDICARE ==
[2024-12-30] MEDS: ACETAMINOPHEN 1000 MG/100 ML BAG IVPB ONE (16:20)
[2024-12-30] MEDS ORDERED: ACETAMINOPHEN INJECTION 100 ML ONE (16:27)
[2024-12-30 16:36] LABS: ABSOLUTE IMMATURE GRANULOCYTES 0.03 x10^3/uL (0.0-0.031); BASOPHILS # 0.01 x10^3/uL (0.01-0.08); EOSINOPHIL % 0.0 % (0.7-5.8); EOSINOPHILS # 0.00 x10^3/uL (0.04-0.36); MCHC 27.3 g/dl (32.2-35.5); MEAN CELL VOLUME 96.1 fl (79.4-94.8); MEAN PLT VOLUME 8.7 fl (9.4-12.3); MONOCYTE # 0.13 x10^3/uL (0.24-0.86); MONOCYTE % 2.3 % (4.7-12.5); RDW 18.6 % (12.5-17.0)
[2024-12-30 16:38] LABS: INR 1.35 (0.83-1.09); PROTHROMBIN TIME (PATIENT) 14.9 SEC (9.7-13.0)
[2024-12-30 16:41] LABS: ACTIVATED PTT 52.1 SECONDS (25.2-36.5)
[2024-12-30] MEDS: SODIUM CHLORIDE 0.9% 500 ML INFUS.BAG IV ONE (16:44)
[2024-12-30 17:45] LABS: CO2 34.0 mmol/L (21-32)
[2024-12-30 17:46] LABS: GLUCOSE,RANDOM 128.0 mg/dL (74-106)
[2024-12-30 17:48] LABS: CREATININE 0.8 mg/dL (0.55-1.3); SGOT/AST 8.0 U/L (15-37); SGPT/ALT 14.0 U/L (13-61)
[2024-12-30 17:49] LABS: TOT PROT 6.2 g/dl (6.4-8.2)
[2024-12-30 17:50] LABS: ALK PHOS 239.0 U/L (45-117)
[2024-12-30 17:51] LABS: N-TERMINAL BNP 1193.4 pg/ml (5-450)
[2024-12-30 18:59] LABS: HCV DIAGNOSTIC IN-HOUSE W/RFLX NON-REACTIVE (NONREACTIVE); HIV INTERPRETATION NEGATIVE (NEGATIVE)
[2024-12-30] MEDS: MUPIROCIN 2% TOPICAL OINTMENT FOR DECOLONIZATION NS SCH (22:33)
[2024-12-30] MEDS: CHLORHEXIDINE GLUCONATE 4% CLEANSER FOR DECOLONIZATION TP SCH (22:34)
[2024-12-30] MEDS: HEPARIN NA (PORCINE) 5,000 UNITS/ML 1ML VIAL SQ SCH (22:35)
[2024-12-30 23:13] LABS: EPI CELLS 32 /uL (0-25.1); HYALINE CASTS 1 /uL (0-3.1); URINE APPEARANCE TURBID; URINE BACTERIA 366 /uL (0-1359); URINE BILIRUBIN NEGATIVE (NEGATIVE); URINE COLOR ORANGE; URINE GLUCOSE (UA) NEGATIVE (NEGATIVE); URINE KETONE NEGATIVE (NEGATIVE); URINE LEUK ESTERASE 2+ (NEGATIVE); URINE NITRITE NEGATIVE (NEGATIVE); URINE PROTEIN 1+ (NEGATIVE); URINE RBC 6226 /uL (0-23.9); URINE UROBILINOGEN 1.0 mg/dL (0.2-1.0); URINE WBC 90 /uL (0-25.8)
[2024-12-31 00:28] LABS: URINE CRYSTALS SEEN /hpf
[2024-12-31] MEDS: BUDESONIDE/FORMETEROL FUMARATE 160/4.5 mcg INHALER IH SCH (03:01)
[2024-12-31 07:23] LABS: ABSOLUTE IMMATURE GRANULOCYTES 0.03 x10^3/uL (0.0-0.031); BASOPHILS # 0.00 x10^3/uL (0.01-0.08); EOSINOPHIL % 0.0 % (0.7-5.8); EOSINOPHILS # 0.00 x10^3/uL (0.04-0.36); MCHC 27.3 g/dl (32.2-35.5); MEAN CELL VOLUME 95.4 fl (79.4-94.8); MEAN PLT VOLUME 8.9 fl (9.4-12.3); MONOCYTE # 0.59 x10^3/uL (0.24-0.86); MONOCYTE % 8.3 % (4.7-12.5); RDW 18.4 % (12.5-17.0)
[2024-12-31 08:12] LABS: INR 1.21 (0.83-1.09); PROTHROMBIN TIME (PATIENT) 13.2 SEC (9.7-13.0)
[2024-12-31 08:15] LABS: ACTIVATED PTT 36.9 SECONDS (25.2-36.5)
[2024-12-31 08:36] LABS: CO2 37.0 mmol/L (21-32); GLUCOSE,RANDOM 95.0 mg/dL (74-106)
[2024-12-31 08:39] LABS: CREATININE 0.8 mg/dL (0.55-1.3); SGOT/AST 11.0 U/L (15-37); SGPT/ALT 13.0 U/L (13-61)
[2024-12-31 08:40] LABS: TOT PROT 5.8 g/dl (6.4-8.2)
[2024-12-31 08:42] LABS: ALK PHOS 218.0 U/L (45-117)
[2024-12-31] MEDS: ACETAMINOPHEN 1000 MG/100 ML BAG IVPB ONE (10:20)
[2024-12-31] MEDS: PANTOPRAZOLE 40 MG TABLET PO SCH (10:26)
[2024-12-31] MEDS: ALBUTEROL SO4 0.083% IH SOL 2.5 MG/3 ML VIAL.NEB. NEB PRN ×2 (10:28→18:14)
[2024-12-31 11:45] LABS: URINE APPEARANCE CLEAR; URINE BILIRUBIN NEGATIVE (NEGATIVE); URINE COLOR YELLOW; URINE GLUCOSE (UA) NEGATIVE (NEGATIVE); URINE KETONE NEGATIVE (NEGATIVE); URINE LEUK ESTERASE NEGATIVE (NEGATIVE); URINE NITRITE NEGATIVE (NEGATIVE); URINE PROTEIN TRACE (NEGATIVE); URINE UROBILINOGEN 0.2 mg/dL (0.2-1.0)
[2024-12-31] MEDS ORDERED: guaiFENesin 200 MG/10 ML 10 ML UNIT-DOSE CUPS PO PRN (18:50)
[2025-01-01 06:44] LABS: ABSOLUTE IMMATURE GRANULOCYTES 0.03 x10^3/uL (0.0-0.031); BASOPHILS # 0.01 x10^3/uL (0.01-0.08); EOSINOPHIL % 0.9 % (0.7-5.8); EOSINOPHILS # 0.06 x10^3/uL (0.04-0.36); MCHC 27.7 g/dl (32.2-35.5); MEAN CELL VOLUME 93.9 fl (79.4-94.8); MEAN PLT VOLUME 9.0 fl (9.4-12.3); MONOCYTE # 0.46 x10^3/uL (0.24-0.86); MONOCYTE % 6.9 % (4.7-12.5); RDW 18.4 % (12.5-17.0)
[2025-01-01 08:39] LABS: CO2 35.0 mmol/L (21-32); CREATININE 0.5 mg/dL (0.55-1.3); GLUCOSE,RANDOM 90.0 mg/dL (74-106)
[2025-01-01 09:25] LABS: EPI CELLS 23 /uL (0-25.1); HYALINE CASTS 2 /uL (0-3.1); URINE APPEARANCE CLOUDY; URINE BACTERIA 30 /uL (0-1359); URINE BILIRUBIN NEGATIVE (NEGATIVE); URINE COLOR YELLOW; URINE GLUCOSE (UA) NEGATIVE (NEGATIVE); URINE KETONE NEGATIVE (NEGATIVE); URINE LEUK ESTERASE TRACE (NEGATIVE); URINE NITRITE NEGATIVE (NEGATIVE); URINE PROTEIN 1+ (NEGATIVE); URINE RBC 3357 /uL (0-23.9); URINE UROBILINOGEN 0.2 mg/dL (0.2-1.0); URINE WBC 54 /uL (0-25.8)
[2025-01-01 09:26] LABS: IRON SERUM 17.0 ug/dL (50-175)
[2025-01-01 16:07] LABS: MCHC 27.6 g/dl (32.2-35.5); MEAN CELL VOLUME 95.8 fl (79.4-94.8); MEAN PLT VOLUME 8.5 fl (9.4-12.3); RDW 18.3 % (12.5-17.0)
[2025-01-01] MEDS: ASPIRIN COATED 81 MG TABLET.EC PO SCH (17:01)
[2025-01-01] MEDS: BUDESONIDE/FORMETEROL FUMARATE 160/4.5 mcg INHALER IH SCH (21:43)
[2025-01-02 06:52] LABS: MCHC 29.2 g/dl (32.2-35.5); MEAN CELL VOLUME 93.6 fl (79.4-94.8); MEAN PLT VOLUME 8.9 fl (9.4-12.3); RDW 19.1 % (12.5-17.0)
[2025-01-02] MEDS: FERROUS SO4 325 MG TABLET (FP) PO SCH (09:48)
[2025-01-02] MEDS: PANTOPRAZOLE 40 MG TABLET PO SCH ×2 (09:48→22:53)
[2025-01-02] MEDS: IRON SUCROSE INJECTION 200 MG in SODIUM CHLORIDE 100 ML IVPB ONE (09:49)
[2025-01-02] MEDS: FUROSEMIDE 40 MG/4 ML INJECTABLE VIAL IVPUSH ONE (13:43)
[2025-01-02 14:56] VITALS: BMI 12.5
[2025-01-02] MEDS: AMINO ACIDS/PROTEIN HYDROLYS 30 ML LIQUID.PKT PO SCH (17:37)
[2025-01-03 06:31] LABS: MCHC 29.0 g/dl (32.2-35.5); MEAN CELL VOLUME 91.1 fl (79.4-94.8); MEAN PLT VOLUME 9.2 fl (9.4-12.3); RDW 18.3 % (12.5-17.0)
[2025-01-03 06:55] LABS: GLUCOSE,RANDOM 84.0 mg/dL (74-106)
[2025-01-03 06:57] LABS: CO2 40.0 mmol/L (21-32)
[2025-01-03 06:59] LABS: CREATININE 0.4 mg/dL (0.55-1.3)
[2025-01-03] MEDS: ASCORBIC ACID 500 MG TABLET (FP) PO SCH (09:49)
[2025-01-03 14:41] VITALS: RESP 18
[2025-01-03 17:51] VITALS: BP 142/85; PULSE 97; TEMP 98.2
== END 2025-01-03 18:00 | DRG 86 ==
LOC: JER 15:20 → JERBED 18:07 → JICU 21:20 → J4W 12-31 20:15
PROVIDERS: ADMIT Family Medicine; ATTEND Internal Medicine
PROC: 30233N1 Transfusion of Nonautologous Red Blood Cells into Peripheral Vein, Percutaneous Approach (ICD-10-PCS; principal; 2025-01-01)
DX: S06.6X0A Traumatic subarachnoid hemorrhage without loss of consciousness, initial encounter (principal); I50.32 Chronic diastolic (congestive) heart failure; I25.10 Atherosclerotic heart disease of native coronary artery without angina pectoris; I25.2 Old myocardial infarction; I11.0 Hypertensive heart disease with heart failure; E78.5 Hyperlipidemia, unspecified; J44.9 Chronic obstructive pulmonary disease, unspecified; Z99.81 Dependence on supplemental oxygen; K76.0 Fatty (change of) liver, not elsewhere classified; M79.7 Fibromyalgia; M81.0 Age-related osteoporosis without current pathological fracture; K21.9 Gastro-esophageal reflux disease without esophagitis; I48.0 Paroxysmal atrial fibrillation; D64.9 Anemia, unspecified; R33.8 Other retention of urine; D50.9 Iron deficiency anemia, unspecified; W06.XXXA Fall from bed, initial encounter; Y93.89 Activity, other specified; Y92.129 Unspecified place in nursing home as the place of occurrence of the external cause; Y99.8 Other external cause status
CPT/HCPCS: 36415; 36430; 70450-TC; 70486-TC; 71045-TC-FY; 72125-TC; 73030-TC-RT-FY; 73060-TC-RT-FY; 73070-TC-RT-FY; 80048; 80053; 81003; 82272; 82728; 82962; 83036; 83540; 83550; 83735; 83880; 84100; 84443; 84460; 84466; 84484; 85025; 85027; 85610; 85730; 86803; 86850; 86900; 86901; 86922; 87086; 87389; 87481; 87637-QW; 93005; 93010; 94640; 99285-25; J1756; P9038; P9058